=== PATIENT | female | born 1950 | race Caucasian/White ===

== ENCOUNTER 2021-07-22 08:03 | Day surgery (SDC) | payer MEDICARE, BC, SELFPAY ==
[2021-07-16 12:53] VITALS: BMI 28.9
--- NOTE | 2021-07-21 10:11 | P.CONAN_ITS ---
Documented by User: Charissa Lawrence NP 07/21/21 10:12 HPI - Anesthesia Eval Consult details Narrative: 71yo F for Upper Endoscopy PMFSH Past Medical History Medical History Arthritis Cough variant asthma COVID-19 vaccine series completed CRPS (complex regional pain syndrome) type I of lower limb Diabetes Elevated cholesterol GERD (gastroesophageal reflux disease) HTN (hypertension) Primary biliary cholangitis PTSD (post-traumatic stress disorder) Skin cancer Surgical History Surgical History H/O colonoscopy History of History of esophagogastroduodenoscopy (EGD) History of liver biopsy Hx of carpal tunnel repair Hx of cholecystectomy Hx of foot surgery Hx of repair of right rotator cuff Social History Social History Are you a primary respiratory care technician to a significant other at home: No Do you presently have visiting nurse or other home services: No Patient Tobacco Use Status: Former Tobacco user Quit Date: 1992 Tobacco use type: Cigarette Years Smoked: 25 Use of substances other than those prescribed or required for medical reasons: No Have you been hit, kicked, punched, or otherwise hurt by someone within the past year? If so, by whom?: No Are you DNR?: No Advance Directives: No Advance Directives Information Provided: Yes Advance Directives on File: No Recently lost weight without trying: No Eating poorly because of decreased appetite: No Nutrition Risks: No Nutritional Risk Poor oral hygiene: No (has upper partial) Meds Allergies Allergy/AdvReac Type Severity Reaction Status Date / Time bacitracin [BACITRACIN] Allergy Intermediate RASH Verified 07/16/21 12:15 Penicillins Allergy Intermediate RASH/CHEST Verified 07/16/21 12:15 TIGHTNESS Sulfa (Sulfonamide Allergy Intermediate HIVES Verified 07/16/21 12:15 Antibiotics) [Sulfa (Sulfonamides)] Home Medications Medication Instructions Recorded Confirmed Last Taken Type amitriptyline 25 mg tablet 25 mg PO BEDTIME 07/16/21 07/16/21 Unknown History dulaglutide 1.5 mg/0.5 mL 1.5 mg SUBCUT QWEEK 07/16/21 07/16/21 Unknown History subcutaneous pen injector (Trulicity) insulin detemir U-100 100 unit/mL 30 unit SUBCUT QAM 07/16/21 07/16/21 07/22/21 History (3 mL) subcutaneous pen (Levemir FlexTouch U-100 Insulin) isosorbide mononitrate 10 mg tablet 10 mg PO QAM 07/16/21 07/16/21 07/22/21 History lorazepam 1 mg tablet 1 mg PO BID PRN 07/16/21 07/16/21 Unknown History metoprolol succinate 25 mg capsule 25 mg PO DAILY 07/16/21 07/16/21 07/22/21 History sprinkle, ext. release 24 hr tizanidine 2 mg capsule 2 mg PO BEDTIME PRN 07/16/21 07/16/21 Unknown History tramadol 50 mg tablet 50 mg PO BID PRN 07/16/21 07/16/21 Unknown History ursodiol 300 mg capsule 300 mg PO BID 07/16/21 07/16/21 Unknown History valsartan 320 mg tablet 320 mg PO DAILY 07/16/21 07/16/21 Unknown History Exam Exam Date and Time: July 21, 2021 1011 Height,Weight and Vital Signs: Height 5 ft 5 in Weight 78.925 kg Assessment and Plan Assessment Anesthesia Assessment: Chart Reviewed Documented by User: Hafsa Lynn MD 07/22/21 11:50 [facility] Past Medical History Medical History Arthritis Cough variant asthma COVID-19 vaccine series completed CRPS (complex regional pain syndrome) type I of lower limb Diabetes Elevated cholesterol GERD (gastroesophageal reflux disease) HTN (hypertension) Primary biliary cholangitis PTSD (post-traumatic stress disorder) Skin cancer Family History Family history of problems with anesthesia: No Surgical History Surgical History H/O colonoscopy History of History of esophagogastroduodenoscopy (EGD) History of liver biopsy Hx of carpal tunnel repair Hx of cholecystectomy Hx of foot surgery Hx of repair of right rotator cuff History of Problems with Anesthesia: Yes (Slow awakening after ? conscious sedation/ narcotics for colonoscopy ) Social History Social History Are you a primary respiratory care technician to a significant other at home: No Do you presently have visiting nurse or other home services: No Patient Tobacco Use Status: Former Tobacco user Quit Date: 1992 Tobacco use type: Cigarette Years Smoked: 25 Use of substances other than those prescribed or required for medical reasons: No Have you been hit, kicked, punched, or otherwise hurt by someone within the past year? If so, by whom?: No Are you DNR?: No Advance Directives: No Advance Directives Information Provided: Yes Advance Directives on File: No Recently lost weight without trying: No Eating poorly because of decreased appetite: No Nutrition Risks: No Nutritional Risk Poor oral hygiene: No (has upper partial) Meds Allergies Allergy/AdvReac Type Severity Reaction Status Date / Time bacitracin [BACITRACIN] Allergy Intermediate RASH Verified 07/16/21 12:15 Penicillins Allergy Intermediate RASH/CHEST Verified 07/16/21 12:15 TIGHTNESS Sulfa (Sulfonamide Allergy Intermediate HIVES Verified 07/16/21 12:15 Antibiotics) [Sulfa (Sulfonamides)] Home Medications Medication Instructions Recorded Confirmed Last Taken Type amitriptyline 25 mg tablet 25 mg PO BEDTIME 07/16/21 07/16/21 Unknown History dulaglutide 1.5 mg/0.5 mL 1.5 mg SUBCUT QWEEK 07/16/21 07/16/21 Unknown History subcutaneous pen injector (Trulicity) insulin detemir U-100 100 unit/mL 30 unit SUBCUT QAM 07/16/21 07/16/21 07/22/21 History (3 mL) subcutaneous pen (Levemir FlexTouch U-100 Insulin) isosorbide mononitrate 10 mg tablet 10 mg PO QAM 07/16/21 07/16/21 07/22/21 History lorazepam 1 mg tablet 1 mg PO BID PRN 07/16/21 07/16/21 Unknown History metoprolol succinate 25 mg capsule 25 mg PO DAILY 07/16/21 07/16/21 07/22/21 History sprinkle, ext. release 24 hr tizanidine 2 mg capsule 2 mg PO BEDTIME PRN 07/16/21 07/16/21 Unknown History tramadol 50 mg tablet 50 mg PO BID PRN 07/16/21 07/16/21 Unknown History ursodiol 300 mg capsule 300 mg PO BID 07/16/21 07/16/21 Unknown History valsartan 320 mg tablet 320 mg PO DAILY 07/16/21 07/16/21 Unknown History Exam Height,Weight and Vital Signs: Height 5 ft 5 in Weight 78.925 kg Vital Signs Temp Pulse Resp BP Pulse Ox 98.2 F 87 18 160/84 H 97 07/22/21 08:15 07/22/21 08:15 07/22/21 08:15 07/22/21 08:15 07/22/21 08:15 Pertinent Lab Results Pertinent Lab Results: Lab Results 07/22/21 Range/Units 08:20 POC Glucose 106 (60-115) mg/dL Airway Mallampati Class: II TM Dist: >3cm Neck ROM: Full (But pain afterwards if fully extended for prolonged periods ) Partial: Upper Heart: RRR Lungs: CTAB Assessment and Plan Assessment Anesthesia Assessment: Anesthesia Plan Discussed Final Anesthetic Review Family History of Problems with Anesthesia: No History of Problems with Anesthesia: Yes (Slow awakening after ? conscious sedation/ narcotics for colonoscopy ) NPO: Yes ASA Class: II Final Preanesthetic Review: No Changes in Pt Med Stat, Meds/Allgs Chart Reviewed, Consent Obtained/Reviewed and Anes Risks/Benef Reviewed Patient Risk: Low Procedure Risk: Low Assessment/Block/Sedation in SS: Assess/Block/Sedation-SS Anesthetic Plan Anesthetic Plan: MAC: Disposition: Standard PACU
[2021-07-22 08:15] VITALS: BP 160/84; PULSE 87; RESP 18; TEMP 36.8; O2SAT 97
[2021-07-22 08:25] LABS: Glucose, Whole Blood 106 mg/dL (60-115)
[2021-07-22] MEDS: Lactated Ringers 1,000 ML 100 ML IVCONT (08:38)
[2021-07-22 10:06] VITALS: BP 136/80; PULSE 74; RESP 16; TEMP 36.3; O2SAT 95
--- NOTE | 2021-07-22 10:09 | PM.OP ---
Brief Operative Note Date of Service: 07/22/21 Pre-op diagnosis: Cirrhosis Post-op diagnosis: other (Gastric retention, small hiatal hernia) Procedure: EGD Surgeon: Cruz Luevano Anesthesia: MAC Was an Appeals And Generalist Clerk used for this Procedure?: No Estimated blood loss (mL): 0 Pathology: none sent Condition: stable Disposition: PACU
[2021-07-22 10:21] VITALS: BP 127/68; PULSE 72; RESP 16; TEMP 36.3; O2SAT 95
--- NOTE | 2021-07-22 18:50 | OP_ITS ---
SURGEON: Cruz Luevano MD INDICATIONS: The patient presents for evaluation of underlying cirrhosis. Full consent has been obtained from her for this, including risks of bleeding and perforation. PREOPERATIVE DIAGNOSIS: Cirrhosis. POSTOPERATIVE DIAGNOSIS: PROCEDURE PERFORMED: Esophagogastroduodenoscopy. ESTIMATED BLOOD LOSS: COMPLICATIONS: ANESTHESIA: Monitored anesthesia care. ASSISTANTS: SPECIMENS: POSTOPERATIVE DIAGNOSES: Cirrhosis, gastric retention, small hiatal hernia. DESCRIPTION OF PROCEDURE: The patient was placed in the left lateral decubitus position. The Olympus video gastroscope was passed in the posterior oropharynx and upper esophagus under direct vision. The scope was passed slowly into the distal esophagus. The gastroesophageal junction appeared normal at 35 cm. There was no sign of any esophagitis nor Atkinson's esophagus. With insufflation of air, the esophagus was carefully inspected and I did not visualize any sign of esophageal varices. The scope entered into the stomach. There was a moderate amount of gastric retention of old food. I was able to advance the pylorus and the duodenum was cannulated to the descending portion. The duodenum including the bulb appeared normal without mass or ulceration. The scope was withdrawn back into the stomach. The pylorus appeared patent. The gastric antrum and body appeared normal, but was partially obscured by the retained old food. Peristalsis appeared to be subjectively diminished. The scope was retroflexed visualizing the proximal stomach carefully, which was limited due to the retained food, but I did not appreciate any sign of varices, portal gastropathy, ulceration, nor mass. The scope was straightened out and withdrawn back into the esophagus. The esophageal mucosa appeared normal. Scope was withdrawn from the patient. She tolerated the procedure well and was returned to recovery area in stable condition. IMPRESSION: 1. 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 2. Small hiatal hernia. PLAN: Given today's findings, I shall schedule her for a nuclear medicine gastric emptying study. She is not having any particular upper GI symptoms other than occasional nausea. She should try to eat smaller meals and be sure not to eat for at least 3 to 4 hours before bedtime. She should make sure her diabetes is maximally controlled as well. She will continue her Ursodiol for the underlying primary biliary cholangitis, but she apparently did go on the colchicine recently, but it caused some nerve issues and therefore stopped it. She will see me in followup after we have the results of the nuclear medicine gastric emptying study. This has been discussed with her . MD VLADISLAV Plummer/MATA / [id number] MTDD
== END 2021-07-22 11:14 | disposition home or self-care (01) ==
PROVIDERS: PCP Internal Medicine; Visit Provider Internal Medicine
PROC: 0DJ08ZZ Inspection of Upper Intestinal Tract, Via Natural or Artificial Opening Endoscopic (ICD-10-PCS; CPT 43235; principal; 2021-07-22 09:20)
DX: K74.3 Primary biliary cirrhosis (principal); K31.84 Gastroparesis; K44.9 Diaphragmatic hernia without obstruction or gangrene; E11.9 Type 2 diabetes mellitus without complications; Z79.4 Long term (current) use of insulin; I10 Essential (primary) hypertension; Z79.899 Other long term (current) drug therapy
CPT/HCPCS: 43235; 82947; J3010

== ENCOUNTER → 2021-08-03 08:31 | Outpatient (REF) | payer MEDICARE, BC, SELFPAY ==
--- NOTE | ~2021-08-03 | NM_ITS ---
EXAMINATION: [place] RADIONUCLIDE SOLID FOOD GASTRIC EMPTYING 4-HOUR STUDY CLINICAL INFORMATION: Other disease of stomach and duodenum, retained food. COMPARISON: None TECHNIQUE: A standard meal consisting of 4 oz of Egg Beaters brand tagged with 0.830 microcuries Tc-99m Sulfur Colloid, 8 oz water and 1 slice of toast with jelly was administered orally to the patient. Images were obtained using a dual head gamma camera in the anterior and posterior projections over of the stomach immediately post ingestion and at hourly intervals up to 4 hours post ingestion. The anterior and posterior counts at each time interval were averaged using the geometric mean and expressed as percentage of the immediate post ingestion counts. FINDINGS: There is good visualization of activity in the stomach immediately post ingestion. As the study progresses, there is good clearance of activity from the stomach and visualization of progressively increasing small bowel activity. By the end of the study, there is almost no retention noted in the stomach. Retention in the stomach at each time interval was: 1 hour 75% (normal 37%-90%) 2 hours 63% (normal 30%-60%) 3 hours 50% 4 hours 11% (normal 0%-10%) UT/UT gastric emptying study IMPRESSION: Abnormal 4-hour solid food gastric emptying study.
== END ==
LOC: HO.NUCMED 08:31
PROVIDERS: Visit Provider Internal Medicine
DX: K31.89 Other diseases of stomach and duodenum (principal)
CPT/HCPCS: 78264; A9541

== ENCOUNTER 2021-11-26 10:57 | Outpatient (REF) | payer MEDICARE, BC, SELFPAY ==
--- NOTE | ~2021-11-26 | US_ITS ---
EXAMINATION: US COMPLETE ABDOMEN WITH LIVER ELASTOGRAPHY CLINICAL INFORMATION: Primary biliary cholangitis. COMPARISON: None. TECHNIQUE: Real-time imaging of the abdominal viscera. Noninvasive ultrasound liver fibrosis assessment is performed using Miguel ElastPQ point quantification shear wave elastography (2D-SWE) with a C5-2 MHz transducer. Multiple elastography samples are obtained. FINDINGS: PANCREAS: The visualized pancreatic head and body are normal in appearance. The remainder of the pancreas is obscured from visualization by the overlying bowel gas. ABDOMINAL AORTA: The proximal, middle, and distal aortic segments are normal in caliber. INFERIOR VENA CAVA: Visualized portions are normal. LIVER: Normal. The liver demonstrates normal size, contour and echogenicity. No focal lesion or intrahepatic biliary duct dilatation. The right lobe measures 14 cm in length. The left lobe measures 10 cm in length. Portal flow is normal/hepatopedal. Shear wave liver elastography median stiffness is 1.66 m/s (reference: normal median stiffness is 1.3 m/s or less). IQR/median stiffness to assess sampling precision is 0.21 (reference: good quality data set is IQR/median stiffness of 0.15 or less). GALLBLADDER: Surgically removed COMMON BILE DUCT: Normal in caliber measuring 0.6 cm in diameter. RIGHT KIDNEY: Normal. No hydronephrosis. No renal calculi or focal parenchymal lesions. The kidney measures 12 cm in maximum dimension. LEFT KIDNEY: Normal. No hydronephrosis. There are several echogenic densities questionable for small stones. No focal parenchymal lesions. The kidney measures 13 cm in maximum dimension. SPLEEN: Normal. The spleen measures 8.6 cm in maximum dimension. FREE FLUID: None. US/US abdomen comp w elastography IMPRESSION: 1. Normal-appearing liver. Question tiny left renal stones. Limited visualization of the tail of the pancreas. 2. Liver elastography: Limited due to sampling error. Borderline elevated liver stiffness. REFERENCE: Society of Radiologists in Ultrasound Liver Stiffness Thresholds (2020): LIVER STIFFNESS THRESHOLDS: *Liver Stiffness equal or less than 1.3 m/s: High probability of being normal. *Liver Stiffness less than 1.7 m/s: In the absence of other known clinical signs, rules out compensated advanced chronic liver disease. *Liver Stiffness 1.7-2.1 m/s: Suggestive of compensated advanced chronic liver disease but need further test for confirmation. *Liver Stiffness over 2.1 m/s: Rules in compensated advanced chronic liver disease. *Liver Stiffness over 2.4 m/s: Suggestive of clinically significant portal hypertension. QUALITY OF DATA SET: *IQR/Median value equal or less than 0.15 implies a quality data set. *IQR/Median value over 0.15 implies a poor quality data set. SIGNIFICANT CHANGE FROM PRIOR EXAM: Significant change if liver stiffness measurement is 10% or greater from prior exam. OTHER CONSIDERATIONS: The stage of liver fibrosis may be overestimated in the setting of acute hepatitis, liver inflammation, elevated liver function tests, hepatic vascular congestion, obstructive cholestasis, non-fasting state, and infiltrative diseases such as amyloidosis and lymphoma. In some patients with NAFLD, the liver stiffness thresholds for compensated advanced chronic liver disease may be lower. In causes other than viral hepatitis and NAFLD, liver stiffness thresholds are not well established.
== END 2021-11-26 10:58 | disposition home or self-care (01) ==
LOC: HO.US 10:57
PROVIDERS: Visit Provider Internal Medicine
DX: K74.3 Primary biliary cirrhosis (principal)
CPT/HCPCS: 76705; 76981

== ENCOUNTER → 2021-12-09 07:59 | Outpatient (REF) | payer MEDICARE, BC, SELFPAY ==
--- NOTE | ~2021-12-09 | NM_ITS ---
EXAMINATION: [place] RADIONUCLIDE SOLID FOOD GASTRIC EMPTYING 4-HOUR STUDY CLINICAL INFORMATION: Retained food in stomach. COMPARISON: None TECHNIQUE: A standard meal consisting of 4 oz of Egg Beaters brand tagged with 1.0 microcuries Tc-99m Sulfur Colloid, 8 oz water and 1 and 1/2 slices of toast with jelly was administered orally to the patient. Images were obtained using a dual head gamma camera in the anterior and posterior projections over of the stomach immediately post ingestion and at hourly intervals up to 4 hours post ingestion. The anterior and posterior counts at each time interval were averaged using the geometric mean and expressed as percentage of the immediate post ingestion counts. FINDINGS: There is good visualization of activity in the stomach immediately post ingestion. As the study progresses, there is good clearance of activity from the stomach and visualization of progressively increasing small bowel activity. By the end of the study, there is almost no retention noted in the stomach. Retention in the stomach at each time interval was: 1 hour 75% (normal 37%-90%) 2 hours 48% (normal 30%-60%) 3 hours 22% 4 hours 1% (normal 0%-10%) [place] gastric emptying study IMPRESSION: Normal 4-hour solid food gastric emptying study.
== END ==
LOC: HO.NUCMED 07:59
PROVIDERS: Visit Provider Internal Medicine
DX: K31.84 Gastroparesis (principal)
CPT/HCPCS: 78264; A9541

== ENCOUNTER 2022-01-27 16:43 | Outpatient (REF) | payer MEDICARE, BC, SELFPAY ==
[2022-01-27 17:50] LABS: INTERNATIONAL NORM RATIO 1.1 (0.9-1.1); Prothrombin Time 12.1 SEC (9.9-13.0)
[2022-01-27 18:09] LABS: Alanine Aminotransferase 17 U/L (0-31); Albumin Level 4.2 g/dL (3.5-5.0); Alkaline Phosphatase 156 U/L (39-117); Aspartate Amino Transferase 17 U/L (5-31); Bilirubin Direct 0.2 mg/dL (0.0-0.5); Bilirubin Total 0.4 mg/dL (0.0-1.0); Total Protein 7.5 g/dL (6.5-8.0)
== END 2022-01-27 16:44 | disposition home or self-care (01) ==
LOC: HO.LAB 16:43
PROVIDERS: PCP Internal Medicine; Visit Provider Internal Medicine
DX: K74.3 Primary biliary cirrhosis (principal)
CPT/HCPCS: 36415; 80076; 85610

== ENCOUNTER 2023-04-27 19:59 | Emergency (ER) | payer MEDICARE, BC, SELFPAY ==
[2023-04-27 20:30] VITALS: BP 211/105; PULSE 95; RESP 16; TEMP 36.8; O2SAT 99; BMI 28.6
--- NOTE | 2023-04-27 20:32 | ED.GENADULT ---
HPI - General Adult General Chief complaint: General Medical Stated complaint: double dose of blood pressure meds, dizzy, Time Seen by Provider: 04/27/23 21:10 Source: patient and old records reviewed Mode of arrival: EMS Limitations: no limitations History of Present Illness HPI narrative: 72 yo female with PMH of DM, HLD, PTSD, HTN who normally takes her medications in the AM tonight she accidentallly not in SI attempt mixed her AM dose with her PM medications and took her AM BP medications again - she took another dose of her valsartan 320mg, metoprolol ER 100, and isosorbide 60mg ER at 730PM. This has never happened before. She feels slightly dizzy when she stands but has no other symptoms. She brought herself to the ED with her . MD complaint: accidental ingestion Onset (ago): hour(s) (730pm) Severity: mild Relieving factors: none Exacerbating factors: movement Associated symptoms: other (feels slightly lightheaded with standing) Treatments prior to arrival: none Related Data Home Medications Medication Instructions Recorded Confirmed amitriptyline 25 mg tablet 25 mg PO BEDTIME 07/16/21 07/16/21 dulaglutide 1.5 mg/0.5 mL 1.5 mg subcut QWEEK 07/16/21 07/16/21 subcutaneous pen injector (Trulicity) insulin detemir U-100 100 unit/mL 30 unit subcut QAM 07/16/21 07/16/21 (3 mL) subcutaneous pen (Levemir FlexTouch U-100 Insulin) isosorbide mononitrate 10 mg tablet 10 mg PO QAM 07/16/21 07/16/21 lorazepam 1 mg tablet 1 mg PO BID PRN Anxiety 07/16/21 07/16/21 metoprolol succinate 25 mg capsule 25 mg PO DAILY 07/16/21 07/16/21 sprinkle, ext. release 24 hr tizanidine 2 mg capsule 2 mg PO BEDTIME PRN Muscle Spasm 07/16/21 07/16/21 tramadol 50 mg tablet 50 mg PO BID PRN Pain 07/16/21 07/16/21 ursodiol 300 mg capsule 300 mg PO BID 07/16/21 07/16/21 valsartan 320 mg tablet 320 mg PO DAILY 07/16/21 07/16/21 Allergies Allergy/AdvReac Type Severity Reaction Status Date / Time bacitracin [BACITRACIN] Allergy Intermediate RASH Verified 04/27/23 20:38 Penicillins Allergy Intermediate RASH/CHEST Verified 04/27/23 20:38 TIGHTNESS Sulfa (Sulfonamide Allergy Intermediate HIVES Verified 04/27/23 20:38 Antibiotics) [Sulfa (Sulfonamides)] Review of Systems Review of Systems: Constitutional : No Fever, No Chills, No Fatigue ENT/Mouth : No sore throat, No Rhinorrhea Eyes: No Eye Pain, No Swelling, No Redness Cardiovascular : No Chest Pain, No SOB, No Dyspnea on Exertion Respiratory : No Cough, No Sputum Gastrointestinal : No Nausea, No Vomiting, No Diarrhea, No abdominal Pain Genitourinary : No Dysuria, No Urinary Frequency, No Hematuria, Musculoskeletal : No joint pain, No Myalgias, No Joint Swelling Skin : No Skin Lesions, No rash Neuro : No Weakness, No Numbness, pos Dizziness, no Headache Psych : No Anxiety/Panic, No Depression Heme/Lymph: No Bruising, No Bleeding,No Lymphadenopathy Endocrine : No Polyuria, No Polydipsia All other systems reviewed and are negative [facility] Past Medical History Attestation statement: The following information was validated with the patient. Source: old records reviewed Medical History Skin cancer COVID-19 vaccine series completed GERD (gastroesophageal reflux disease) Cough variant asthma Elevated cholesterol PTSD (post-traumatic stress disorder) CRPS (complex regional pain syndrome) type I of lower limb Diabetes HTN (hypertension) Arthritis Primary biliary cholangitis Surgical History Hx of foot surgery Hx of cholecystectomy Hx of repair of right rotator cuff History of H/O colonoscopy History of liver biopsy History of esophagogastroduodenoscopy (EGD) Hx of carpal tunnel repair Social History Social History Are you a primary client care coordinator to a significant other at home: No Do you presently have visiting nurse or other home services: No Patient Tobacco Use Status: Former Tobacco user Quit Date: 1992 Tobacco use type: Cigarette Years Smoked: 25 Advance Directives: No Advance Directives Information Provided: No Physical Exam ED Vital Signs: Vital Signs - 24 hr 04/27/23 20:30 04/27/23 23:53 04/28/23 02:47 Temperature 98.3 F 98.5 F Pulse Rate 95 74 77 Respiratory Rate 16 16 14 Blood Pressure 211/105 H 142/80 H 127/70 Pulse Oximetry 99 94 94 Oxygen Delivery Method Room Air Room Air Room Air 04/28/23 05:47 Temperature Pulse Rate 70 Respiratory Rate Blood Pressure 134/75 Pulse Oximetry 97 Oxygen Delivery Method Room Air BMI result Body Mass Index 28.6 Appearance: Alert. Oriented X3. No acute distress. Eyes: Pupils equal, round and reactive to light. ENT: Pharynx normal. Neck: Normal inspection. Neck supple. CVS: Normal heart rate and rhythm. Pulses normal. Respiratory: No respiratory distress. Breath sounds normal. Abdomen: Soft and nontender. Skin: Skin warm and dry. Normal skin color. Normal skin turgor. Extremities: No lower extremity edema. No calf ttp Neuro: Oriented X 3. No motor deficit. No sensory deficit. Course Course Course Narrative: RME- 72-year-old female reports that she accidentally took a double dose of her blood pressure medication which include Valsartan 320 mg, Isosorbide 60 mg, Metoprolol succinate 100 mg. These are her morning medications and she has Lantus up with her nighttime medications. She reports feeling dizzy and anxious. She remains very hypertension at 211/105. Plan for labs, EKG Reevaluation(s) Reevaluation #1: Patient placed in physician observation at 1152pm. The indication for observation is that the patient needs more time for repeat blood pressure and recheck chem in AM per poison control observe until 730am. At this time the patient is well developed well nourished, lungs clear, CV RRR, abd nontender, neuro is intact. Reevaluation #2: BP stable throughout stay, HR stable Reevaluation #3: labs stable can be DC Medical Decision Making Medical Decision Making MDM Narrative: 72 yo female with PMH of DM, HLD, PTSD, HTN here with accidental ingestion of another dose of her AM BP medications not in SI attempt has mild dizziness - repeat 320mg valsartan, 100mg metoprolol, 60mg isosorbide. At this time she has mild symptoms will consult poison control and monitor on tele place IV line and obtain EKG. Will monitor for hypotension and bradycardia and likely recheck Cr in AM Differential Diagnosis Differential Diagnoses: The differential diagnosis associated with the presentation includes accidental ingestion Admission/Observation Consideration of admission/observation: Escalation of care including admission/observation considered observe for BP and repeat BMP per poison control Consult Healthcare Provider Management of the patient was discussed with: [employer] Instructor (poison control) Lab Data MDM Lab Attestation statement: I reviewed the patient's lab results. 04/27/23 20:59 04/28/23 06:03 Labs: Lab Results 04/27/23 04/28/23 Range/Units 20:59 06:03 WBC 7.8 (4.8-10.8) X10*3/uL RBC 4.77 (4.20-5.50) X10*6/uL Hgb 12.4 (12.0-16.0) g/dl Hct 38.3 (37.0-47.0) % MCV 80.3 (80.0-98.0) fL MCH 26.0 L (27.0-33.0) pg MCHC 32.4 (31.0-35.0) g/dl RDW 13.8 (11.0-16.0) % Plt Count 298 (160-400) X10*3/uL MPV 9.1 L (9.4-12.3) fL Immature Gran % (Auto) 0.3 (0.0-0.4) % Neut % (Auto) 66.2 (45-73) % Lymph % (Auto) 21.7 (20-40) % [place] % (Auto) 9.4 (2-11) % Eos % (Auto) 1.4 (0-4) % Baso % (Auto) 1.0 (0-2) % Lymph # (Auto) 1.7 (1.2-4.9) X10*3/uL [place] # (Auto) 0.7 (0.1-1.2) X10*3/uL Eos # (Auto) 0.1 (0.0-0.4) X10*3/uL Baso # (Auto) 0.1 (0.0-0.2) X10*3/uL Abs Immat Gran (auto) 0.02 (0.00-0.03) X10*3/uL Absolute Neuts (auto) 5.2 (2.0-8.3) x10*3/uL Absolute Nucleated RBC 0.000 (0.0-0.012) X10*3/uL Nucleated RBC % (auto) 0.0 (0.0-0.2) /100WBC Sodium 134 L 135 (135-145) mmol/L Potassium 3.9 3.8 (3.3-5.1) mmol/L Chloride 98 101 (96-108) mmol/L Carbon Dioxide 27 25 (22-29) mmol/L Anion Gap 13 13 (12-20) BUN 7 L 9 (9-16) mg/dL Creatinine 0.72 0.64 (0.5-1.4) mg/dL Estim Creat Clear Calc 72.3 81.3 Estimated GFR > 60 > 60 Random Glucose 113 88 (60-115) mg/dL Calcium 9.9 9.4 (8.4-10.2) mg/dL Total Bilirubin 0.3 (0.0-1.0) mg/dL AST 27 (5-31) U/L ALT 29 (0-31) U/L Alkaline Phosphatase 153 H (39-117) U/L Troponin I High Sens < 2.7 (<3.5-17.0) ng/L Total Protein 7.8 (6.5-8.0) g/dL Albumin 4.2 (3.5-5.0) g/dL Lipase 72 (8-78) U/L Independent Interpretation I performed an independent interpretation of an: EKG Interpretation: Rate: 90 Rhythm: NSR Hines: left, LVH Normal P waves. Normal GEN. Normal QRS complex. ST T wave : I and aVL inverted T waves no ANTONIO qTC: normal prior studies: new lateral T wave inversions but they are in strain pattern The study has been interpreted contemporaneously by me. . Independent Historian Clinical information obtained from an independent historian. History obtained from or confirmed by: Spouse External Record Review External record reviewed: Inpatient record Discharge Plan Discharge Clinical Impression: Accidental drug ingestion Qualifiers: Encounter type: initial encounter Qualified Code(s): T50.901A - Poisoning by unspecified drugs, medicaments and biological substances, accidental (unintentional), initial encounter Patient Disposition: Home, Self-Care Instructions: Adult Overdose (ED) Additional Instructions: hold blood pressure medications today. return for weakness, dizziness, vomiting, or any other concerns. drink plenty of fluids. monitor blood pressure - return if blood pressure is below 100 (top number) your repeat kidney function and electrolytes were normal Prescriptions: No Action tramadol 50 mg Tablet 50 mg PO BID PRN (Reason: Pain) amitriptyline 25 mg Tablet 25 mg PO BEDTIME ursodiol 300 mg Capsule 300 mg PO BID valsartan 320 mg Tablet 320 mg PO DAILY isosorbide mononitrate 10 mg Tablet 10 mg PO QAM lorazepam 1 mg Tablet 1 mg PO BID PRN (Reason: Anxiety) tizanidine 2 mg Capsule 2 mg PO BEDTIME PRN (Reason: Muscle Spasm) Levemir FlexTouch U100 Insulin 100 unit/mL (3 mL) Insulin Pen 30 unit SUBCUT QAM Rx Instructions: took 15units this am Trulicity 1.5 mg/0.5 mL Pen Injector 1.5 mg SUBCUT QWEEK metoprolol succinate 25 mg Capsule,Ivon,Er 24hr 25 mg PO DAILY
--- NOTE | 2023-04-27 20:37 | ECG_ITS ---
Test Reason : dizziness Blood Pressure : / mmHG Vent. Rate : 090 BPM Atrial Rate : 090 BPM P-R Int : 164 ms QRS Dur : 092 ms QT Int : 368 ms P-R-T Axes : 032 -04 095 degrees QTc Int : 450 ms Normal sinus rhythm Left ventricular hypertrophy with repolarization abnormality ( R in aVL , Harish product , Romhilt-Jackson ) Anteroseptal infarct (cited on or before 03-FEB-2018) Abnormal ECG When compared with ECG of 03-FEB-2018 11:53, Questionable change in initial forces of Anteroseptal leads Inverted T waves have replaced nonspecific T wave abnormality in Lateral leads Referred By: Oswald Cardozo Electronically Signed By:TALIA MORRIS
[2023-04-27 21:04] LABS: MANUAL DIFF FLAG NO
[2023-04-27 21:08] LABS: Basophils Absolute Auto 0.1 X10*3/uL (0.0-0.2); Eosinophils Absolute Auto 0.1 X10*3/uL (0.0-0.4); Eosinophils Percent Auto 1.4 % (0-4); Hematocrit 38.3 % (37.0-47.0); Hemoglobin 12.4 g/dl (12.0-16.0); Imm Gran Abs Auto 0.02 X10*3/uL (0.00-0.03); Imm Gran Pct Auto 0.3 % (0.0-0.4); Lymphocytes Absolute Auto 1.7 X10*3/uL (1.2-4.9); Lymphocytes Percent Auto 21.7 % (20-40); Mean Corpuscular HGB Conc 32.4 g/dl (31.0-35.0); Mean Corpuscular Volume 80.3 fL (80.0-98.0); Mean Platelet Volume 9.1 fL (9.4-12.3); Monocytes Absolute Auto 0.7 X10*3/uL (0.1-1.2); Monocytes Percent Auto 9.4 % (2-11); Neutrophils Absolute Auto 5.2 x10*3/uL (2.0-8.3); Neutrophils Percent Auto 66.2 % (45-73); Platelet Count 298 X10*3/uL (160-400); Red Blood Count 4.77 X10*6/uL (4.20-5.50); Red Cell Distribution Width 13.8 % (11.0-16.0); White Blood Count 7.8 X10*3/uL (4.8-10.8)
[2023-04-27 21:24] LABS: Alanine Aminotransferase 29 U/L (0-31); Albumin Level 4.2 g/dL (3.5-5.0); Alkaline Phosphatase 153 U/L (39-117); Anion Gap 13 (12-20); Aspartate Amino Transferase 27 U/L (5-31); Bilirubin Total 0.3 mg/dL (0.0-1.0); Blood Urea Nitrogen 7 mg/dL (9-16); Calcium 9.9 mg/dL (8.4-10.2); Carbon Dioxide 27 mmol/L (22-29); Chloride 98 mmol/L (96-108); Creatinine Clr Calc Pharmacy 72.3; Estimated Glomerular Filt Rate > 60; Glucose Random 113 mg/dL (60-115); Lipase 72 U/L (8-78); Potassium 3.9 mmol/L (3.3-5.1); Sodium 134 mmol/L (135-145); Total Protein 7.8 g/dL (6.5-8.0)
[2023-04-27 21:34] LABS: Troponin-I High Sensitivity < 2.7 ng/L (<3.5-17.0)
--- NOTE | 2023-04-27 22:04 | PC.NURSE ---
spoke with robert from poison control stated supportive care, DR Sanz aware
--- NOTE | 2023-04-27 23:31 | PC.NURSE ---
Called poison control to verify length of time of observation. Notified Dr. Sanz. Reported off To Gino Pang
[2023-04-27 23:53] VITALS: BP 142/80; PULSE 74; RESP 16; TEMP 36.9; O2SAT 94
[2023-04-28 02:47] VITALS: BP 127/70; PULSE 77; RESP 14; O2SAT 94
[2023-04-28 05:47] VITALS: BP 134/75; PULSE 70; O2SAT 97
[2023-04-28 06:20] LABS: Anion Gap 13 (12-20); Blood Urea Nitrogen 9 mg/dL (9-16); Calcium 9.4 mg/dL (8.4-10.2); Carbon Dioxide 25 mmol/L (22-29); Chloride 101 mmol/L (96-108); Creatinine Clr Calc Pharmacy 81.3; Estimated Glomerular Filt Rate > 60; Glucose Random 88 mg/dL (60-115); Potassium 3.8 mmol/L (3.3-5.1); Sodium 135 mmol/L (135-145)
== END 2023-04-28 06:50 | disposition home or self-care (01) ==
PROVIDERS: Physician Assistant; Emergency Provider Emergency Medicine; PCP Internal Medicine
DX: T50.901A Poisoning by unspecified drugs, medicaments and biological substances, accidental (unintentional), initial encounter (principal); R42 Dizziness and giddiness; R94.31 Abnormal electrocardiogram [ECG] [EKG]; Y92.9 Unspecified place or not applicable; Z87.891 Personal history of nicotine dependence; Z79.899 Other long term (current) drug therapy
CPT/HCPCS: 36415; 80048; 80053; 83690; 84484; 85025; 93005; 99284

== ENCOUNTER 2023-06-07 10:35 | Outpatient (REF) | payer MEDICARE, BC, SELFPAY ==
[2023-06-07 10:55] LABS: Basophils Absolute Auto 0.1 X10*3/uL (0.0-0.2); Basophils Percent Auto 0.9 % (0-2); Eosinophils Absolute Auto 0.1 X10*3/uL (0.0-0.4); Eosinophils Percent Auto 1.1 % (0-4); Hematocrit 38.6 % (37.0-47.0); Hemoglobin 12.5 g/dl (12.0-16.0); Imm Gran Abs Auto 0.04 X10*3/uL (0.00-0.03); Imm Gran Pct Auto 0.4 % (0.0-0.4); Lymphocytes Absolute Auto 1.4 X10*3/uL (1.2-4.9); Lymphocytes Percent Auto 15.1 % (20-40); MANUAL DIFF FLAG NO; Mean Corpuscular HGB Conc 32.4 g/dl (31.0-35.0); Mean Corpuscular Hemoglobin 26.2 pg (27.0-33.0); Mean Corpuscular Volume 80.9 fL (80.0-98.0); Mean Platelet Volume 8.6 fL (9.4-12.3); Monocytes Absolute Auto 0.6 X10*3/uL (0.1-1.2); Monocytes Percent Auto 6.9 % (2-11); Neutrophils Absolute Auto 6.9 x10*3/uL (2.0-8.3); Neutrophils Percent Auto 75.6 % (45-73); Platelet Count 322 X10*3/uL (160-400); Red Blood Count 4.77 X10*6/uL (4.20-5.50); Red Cell Distribution Width 13.5 % (11.0-16.0); White Blood Count 9.1 X10*3/uL (4.8-10.8)
[2023-06-07 11:01] LABS: INTERNATIONAL NORM RATIO 0.9 (0.9-1.1); Prothrombin Time 10.9 SEC (11.1-13.3)
[2023-06-07 11:13] LABS: Alanine Aminotransferase 33 U/L (0-31); Albumin Level 4.2 g/dL (3.5-5.0); Alkaline Phosphatase 159 U/L (39-117); Aspartate Amino Transferase 29 U/L (5-31); Bilirubin Direct 0.1 mg/dL (0.0-0.5); Bilirubin Total 0.4 mg/dL (0.0-1.0); Total Protein 7.9 g/dL (6.5-8.0)
[2023-06-09 12:43] LABS: Alpha Fetoprotein 2.8 ng/mL
[2023-06-13 15:37] LABS: FIB-ALT 31 U/L (6-29); FIB-Alpha-2-Macroglobulin 207 mg/dL (106-279); FIB-Apolipoprotein A1 219 mg/dL (101-198); FIB-GGT 103 U/L (3-65); FIB-Haptoglobin 171 mg/dL (43-212); FIB-Total Bilirubin 0.4 mg/dL (0.2-1.2); Liver Fibrosis Score 0.18; Liver Fibrosis Stage F0; Nec Inflam Act Grade A0; Nec Inflam Act Score 0.13
== END 2023-06-07 10:36 | disposition home or self-care (01) ==
LOC: HO.LAB 10:35
PROVIDERS: PCP Internal Medicine; Visit Provider Internal Medicine
DX: K74.3 Primary biliary cirrhosis (principal)
CPT/HCPCS: 36415; 80076; 81596; 82105; 85025; 85610

== ENCOUNTER 2023-06-22 09:31 | Outpatient (REF) | payer MEDICARE, BC, SELFPAY ==
--- NOTE | ~2023-06-22 | US_ITS ---
EXAMINATION: US COMPLETE ABDOMEN WITH LIVER ELASTOGRAPHY CLINICAL INFORMATION: Biliary cholangitis. COMPARISON: None available. TECHNIQUE: Real-time imaging of the abdominal viscera. Noninvasive ultrasound liver fibrosis assessment is performed using Miguel ElastPQ point quantification shear wave elastography (2D-SWE) with a C5-2 MHz transducer. Multiple elastography samples are obtained. FINDINGS: PANCREAS: Largely obscured by overlapping bowel gas. ABDOMINAL AORTA: The proximal, middle, and distal aortic segments are normal in caliber. INFERIOR VENA CAVA: Visualized portions are normal. LIVER: Normal. The liver demonstrates normal size, contour and echogenicity. No focal lesion or intrahepatic biliary duct dilatation. The right lobe measures 13.9 cm in length. The left lobe measures 12.7 cm in length. Portal flow is towards the liver (hepatopetal). Shear wave liver elastography median stiffness is 1.38 m/s (reference: normal median stiffness is 1.3 m/s or less). IQR/median stiffness to assess sampling precision is 0.16 (reference: good quality data set is IQR/median stiffness of 0.15 or less). GALLBLADDER: Surgically absent. COMMON BILE DUCT: Normal in caliber measuring 0.5 cm in diameter. RIGHT KIDNEY: Normal. No hydronephrosis. No renal calculi or focal parenchymal lesions. The kidney measures 12.1 cm in maximum dimension. LEFT KIDNEY: Normal. No hydronephrosis. No renal calculi or focal parenchymal lesions. The kidney measures 11.4 cm in maximum dimension. SPLEEN: Normal. The spleen measures 9.1 cm in maximum dimension. FREE FLUID: None. US/US abdomen comp w elastography IMPRESSION: Liver elastography: Although measurements appear to rule out compensated advanced chronic liver disease, there is statistical variability of the sampling which decreases accuracy. When compared with prior exam, there is a statistically significant decrease in liver stiffness (decrease at least 10%). REFERENCE: Society of Radiologists in Ultrasound Liver Stiffness Thresholds (2020): LIVER STIFFNESS THRESHOLDS: *Liver Stiffness equal or less than 1.3 m/s: High probability of being normal. *Liver Stiffness less than 1.7 m/s: In the absence of other known clinical signs, rules out compensated advanced chronic liver disease. *Liver Stiffness 1.7-2.1 m/s: Suggestive of compensated advanced chronic liver disease but need further test for confirmation. *Liver Stiffness over 2.1 m/s: Rules in compensated advanced chronic liver disease. *Liver Stiffness over 2.4 m/s: Suggestive of clinically significant portal hypertension. QUALITY OF DATA SET: *IQR/Median value equal or less than 0.15 implies a quality data set. *IQR/Median value over 0.15 implies a poor quality data set. SIGNIFICANT CHANGE FROM PRIOR EXAM: Significant change if liver stiffness measurement is 10% or greater from prior exam. OTHER CONSIDERATIONS: The stage of liver fibrosis may be overestimated in the setting of acute hepatitis, liver inflammation, elevated liver function tests, hepatic vascular congestion, obstructive cholestasis, non-fasting state, and infiltrative diseases such as amyloidosis and lymphoma. In some patients with NAFLD, the liver stiffness thresholds for compensated advanced chronic liver disease may be lower. In causes other than viral hepatitis and NAFLD, liver stiffness thresholds are not well established.
== END 2023-06-22 09:32 | disposition home or self-care (01) ==
LOC: HO.US 09:31
PROVIDERS: PCP Internal Medicine; Visit Provider Internal Medicine
DX: K74.3 Primary biliary cirrhosis (principal)
CPT/HCPCS: 76705; 76981

== ENCOUNTER 2025-01-09 11:15 | Outpatient (AMB) | payer MEDICARE, BC, SELFPAY ==
--- NOTE | 2025-01-09 11:23 | MHC.OFFVIS ---
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 changes on MRI Intake Note: New Patient with ekg dx athersclerotic changes on MRI patient had seen Dr Azar several years ago for pre-op clearance do to abnormal ekg and was cleared Pump Mechanic Required: No Allergies bacitracin [BACITRACIN] Allergy (Intermediate, Verified 04/27/23 20:38) RASH Penicillins Allergy (Intermediate, Verified 04/27/23 20:38) RASH/CHEST TIGHTNESS Sulfa (Sulfonamide Antibiotics) [Sulfa (Sulfonamides)] Allergy (Intermediate, Verified 04/27/23 20:38) HIVES Medication List - Last Reconciled 01/09/25 by Matthew Qiu MD amitriptyline 25 mg PO BEDTIME amlodipine 7.5 mg PO DAILY calcium carbonate 500 mg PO DAILY insulin detemir U-100 (Levemir FlexTouch U-100 Insulin) 30 units subcut QAM isosorbide mononitrate ER 60 mg PO DAILY lorazepam 1 mg PO BID PRN meclizine 25 mg PO BID PRN metformin ER 1,000 mg PO BID metoprolol succinate ER 100 mg PO DAILY tizanidine 2 mg PO BEDTIME PRN ursodiol 600 mg PO BID valsartan 320 mg PO DAILY vitamin B complex 1 cap PO DAILY HPI Comments Details: Araceli has been referred for cardiac evaluation. Per primary care physician's note, patient had abnormal MRI at [facility] and that had shown atherosclerotic changes in the abdominal aorta/iliac arteries. Hence she has been referred here. Patient herself does not have any clear-cut coronary disease history. Apparently, she has had abnormal EKGs for a while but unclear what was previously done. She notices episodes of chest pressure at different times. Sometimes with anxiety. She may also feel difficulty breathing going up stairs. On meds for diabetes and hypertension. Otherwise, patient has a history of primary biliary cirrhosis but apparently she has been stable for more than 2 decades. Gets followed up at [facility]. COUNT INCLUDES [facility] Medical History (Updated 01/09/25 @ 12:36 by Matthew Qiu MD) Skin cancer COVID-19 vaccine series completed GERD (gastroesophageal reflux disease) Cough variant asthma Elevated cholesterol PTSD (post-traumatic stress disorder) CRPS (complex regional pain syndrome) type I of lower limb Diabetes HTN (hypertension) Arthritis Primary biliary cholangitis Surgical History Hx of foot surgery Hx of cholecystectomy Hx of repair of right rotator cuff History of H/O colonoscopy History of liver biopsy History of esophagogastroduodenoscopy (EGD) Hx of carpal tunnel repair Family History (Updated 01/09/25 @ 12:12 by Matthew Qiu MD) Father Emphysema lung Social History Are you a primary rn managed care to a significant other at home: No Do you presently have visiting nurse or other home services: No Comment: uses cane on occasion when foot pain acts up Patient Tobacco Use Status: Former Tobacco user Tobacco use type: Cigarette Years Smoked: 25 Review of Systems Const Denies chills, Denies daytime sleepiness, Denies fatigue, Denies fever(s), Denies frequent falls, Denies poor appetite, Denies snoring, Denies stops breathing during sleep, Denies weakness, Denies weight gain and Denies weight loss Eyes Denies loss of vision ENT Denies dizziness and Denies hearing loss Card Denies chest pain, Denies claudication, Denies leg edema, Denies lightheadedness, Denies palpitations, Denies dyspnea, Denies dyspnea on exertion and Denies orthopnea Resp Denies cough, Denies excessive phlegm production, Denies dyspnea, Denies dyspnea on exertion, Denies snoring and Denies wheezing GI Denies abdominal pain, Denies hematochezia, Denies change in bowel habits, Denies nausea and Denies vomiting Denies urinary frequency and Denies dysuria Musc Denies arthralgias, Denies muscle weakness, Denies numbness and Denies other (frequent falls) Skin/Breast Denies nail changes and Denies rash Neuro Denies Abnormal speech present, Denies dizziness, Denies frequent falls, Denies loss of vision, Denies memory loss, Denies numbness and Denies weakness Psych Denies depression and Denies memory loss Endo Denies fatigue and Denies palpitations Ramy/Lymph Reports easy bruising and Reports other (anemia) Aller/Immun Denies wheezing Physical Exam Vital Signs: Last Vital Signs Pulse 80 01/09/25 11:24 BP 124/80 01/09/25 11:24 BMI result Body Mass Index 28.4 Const General: comfortable and no acute distress Orientation/consciousness: patient oriented x3 HEENT Other: Unremarkable Head: Yes normal to inspection Neck Neck: Yes normal visual inspection Chest Chest palpation & inspection: normal inspection of the chest Resp Auscultation: clear to auscultation bilaterally Cardio Palpation: normal PMI Heart sounds: S1 normal heart sound present, S2 normal heart sound present, no gallops, no murmurs and no rubs GI Palpation (GI): Soft to palpation Back/Spine/Pelvis Other: unremarkable Skin General skin exam: no rashes or lesions noted Neuro General: patient oriented x3 Speech: No Abnormal speech present Extrem General: Yes normal to inspection Psych Mental Status: mental status grossly normal Office Procedures EKG Details: EKG with underlying sinus rhythm at 80/Min; cannot exclude old anteroseptal infarct; [place] [id number], Complete Assessment & Plan Assessment & Plan (1) Abnormal EKG: Code(s): R94.31 - Abnormal electrocardiogram [ECG] [EKG] Category: Medical (2) Atherosclerotic cardiovascular disease: Code(s): I25.10 - Atherosclerotic heart disease of [place] coronary artery without angina pectoris Category: Medical (3) Chest discomfort: Code(s): R07.89 - Other chest pain Category: Medical Plan Per notes, atherosclerotic changes in the abdominal aorta/iliac arteries noted on MRI during workup for liver issues. However, this is not unusual at her age. Any case, as she also has an abnormal looking EKG, we will pursue further workup. We will get an echocardiogram for cardiac function assessment including LVEF/wall motion. She is not going to be able to exercise on the treadmill. We will plan for a coronary CTA. We will follow up after the above. Discussion Notes I discussed with the patient the need for additional cardiac evaluation due to her symptoms of chest pressure. We reviewed the benefits of an echocardiogram and a CT coronary angiogram, considering her limited exercise tolerance. I explained the minimal risks associated with the CT scan, given her lack of contrast dye allergies. We also reviewed the potential findings and implications, such as identifying blockages and determining the necessity of further interventions. She agreed to the proposed plan and expressed understanding of the follow-up process. Patient was informed and verbally consented to the use of an ambient scribe for clinic note documentation during this visit. Orders: Orders CA echo transthoracic complete Today I25.10 - Atherosclerotic heart disease of [place] coronary artery without angina pectoris, R07.89 - Other chest pain CT Cardiac Coronary Angio Today I25.10 - Atherosclerotic heart disease of [place] coronary artery without angina pectoris, R07.89 - Other chest pain Basic Metabolic Panel Today R07.89 - Other chest pain Patient Instructions: - Schedule an echocardiogram and CT coronary angiogram. - Continue current medications and report any new symptoms. - Avoid strenuous activities that cause chest pressure or breathlessness. - Follow up as directed to discuss test results and next steps. - Seek immediate medical attention if experiencing severe chest pain or difficulty breathing. Coding Level of Care Code New Pt Level 4 (22252) Complex EM visit Add On G2211 Diagnoses Abnormal EKG R94.31 Atherosclerotic cardiovascular disease I25.10 Chest discomfort R07.89 CPT Codes EKG - CPT: 04080-[id number], Complete ([id number])
[2025-01-09 11:24] VITALS: BP 124/80; PULSE 80; BMI 28.4
--- OUTSIDE RECORDS SUMMARY | 2025-01-09 12:16 | XMS_ITS | Encounter Summary ---
Author Organization [facility] Address [address] [place] [address] Care Team Providers Care Malter Operator Name Role Phone Nohemy Hernandez Primary Care Provider [phone] Encounter Details Date Type Department Care Team (Late st Contact Info) Description 04/29/2024 [employer] Message Intial Department [address] [place] [address] [employer], Generic Provider [address] [place], [place] [id number] Questionnaire Submission Social History Tobacco Use Types Packs/Day Years Used Date Smoking Tobacco: Former Smokeless Tobacco: Never Comments:: Alcohol Use Standard Drinks/Week Comments No 0 (1 standard drink = 0.6 oz pur e alcohol) Comments No Sex and Gender Information Value Date Recorded Sex Assigned at Female 10/13/2019 10:05 AM EST Legal Sex Female 5:08 AM EDT Gender Identity Female 10/13/2019 10:05 AM EST Sexual Orientation Straight 10/13/2019 10 :05 AM EST documented as of this encounter Plan of Treatment Upcoming Encounters Date Type Department Care Team (Latest Contact Info) Description 01/28/2025 12:00 PM EDT Follow-Up [facility]ology Clinic [address] [place], [place] [id number] [employer] Machine Operator: Candi Bowers NP [address] [place] [address] 02/11/2025 9:00 AM EDT [facility] [address] [facility] 3rd [place] [address] 02/25/2025 7:45 AM EDT Hospital Encounter [facility] Operating Room [address] [place] [address] GASTROENTEROLOGY , CASE REQUEST [address] [place], [place] [address] 02/25/2025 7:45 AM EDT - 02/25/2025 8:45 AM EDT Surgery [facility] Operating Room [address] [place] [address] GASTROENTEROLOGY , CASE REQUEST [address] [place], [place] [address] UPPER ENDOSCOPY WITH ENDOSCOPIC ULTRASOUND WITH POSSIBLE MODERATE SEDATION [98950 (CPT??)] Scheduled Procedures Name Priority Associated Diagnoses Date/Ti me UPPER ENDOSCOPY WITH ENDOSCO PIC ULTRASOUND WITH POSSIBLE MODERATE SEDATION Gastric nodule 02/25/2025 7:45 AM EDT documented as of this encounter Visit Diagnoses Not on filedocumented in this encounter Care Teams Malter Operator Relationship Specialty Start Date End Date Nohemy Hernandez [address] [place] [id number] PCP - General 03/03/17 documented as of this encounter
== END 2025-01-09 12:41 | disposition home or self-care (01) ==
LOC: HO.HCS 11:16
PROVIDERS: PCP Internal Medicine; Visit Provider Internal Medicine
DX: R94.31 Abnormal electrocardiogram [ECG] [EKG] (principal); I25.10 Atherosclerotic heart disease of native coronary artery without angina pectoris; R07.89 Other chest pain
CPT/HCPCS: 93010; 99204; G2211

== ENCOUNTER → 2025-01-09 11:15 | Outpatient (BNVA) | payer MEDICARE, BC, SELFPAY | PROVIDERS: PCP Internal Medicine; Visit Provider Internal Medicine | DX: R94.31 Abnormal electrocardiogram [ECG] [EKG] (principal); I25.10 Atherosclerotic heart disease of native coronary artery without angina pectoris; R07.89 Other chest pain | CPT/HCPCS: 93005; 99202 ==

== ENCOUNTER → 2025-01-22 08:02 | Outpatient (REF) | payer MEDICARE, BC, SELFPAY ==
--- NOTE | 2025-01-22 08:05 | CA_ITS ---
Transthoracic Echocardiogram Patient (Last, First, Middle): Araceli Palmer, Gender: Female Date of : 1950 Age: 74 Procedure Date: 01/22/2025 Procedure Type: Transthoracic Echocardiogram Location: OP Height: 165.1 cm Weight: 74.84 kg BSA: 1.82 m2 Heart Rate: bpm Boom Truck Driver: YOANA/BIRDIE Referring MD: Matthew Qiu MD Ticket Manager: Antonio Conde MD Symptoms: I25.10 - Atherosclerotic heart disease of [place] coronary artery without... Study Quality: Fair ECG Rhythm: Sinus Conclusions: - 1. Normal LV ejection fraction 55-60% with impaired relaxation filling pattern elevated filling pressures 2. Mildly dilated left atrium 3. Calcific aortic and mitral valve changes noted with normal cardiac valvular Dopplers 4. Mildly dilated ascending aorta at 3.7 cm 5. Normal RV systolic pressure 6. No gross pericardial effusion Findings Left Ventricle Normal left ventricular size, thickness, and systolic function. The visually estimated ejection fraction is between 55-60%. Spectral Doppler is indicative of an impaired relaxation filling pattern. Elevated filling pressures. E/E prime ratio is >15, consistent with elevated filling pressures. Right Ventricle Normal right ventricular cavity size and systolic function. Atria The left atrium is mildly dilated. There is no evidence of interatrial shunt. The right atrium is likely dilated. Aortic Valve There is mild calcification of the aortic valve. There is no aortic valve stenosis. There is no aortic valve regurgitation. Mitral Valve There is mild anterior and moderate posterior mitral leaflet thickening. There is moderate mitral annular calcification. There is trace mitral valve regurgitation. There is no mitral valve stenosis. Pulmonic Valve The pulmonic valve is likely normal. There is trace pulmonic valve regurgitation. Tricuspid Valve Likely normal tricuspid valve structure and function. There is mild tricuspid valve regurgitation. The right ventricular systolic pressure is normal. The right ventricular systolic pressure is 22 mmHg. Normal right atrial pressure. There is no evidence of pulmonary hypertension. Great Vessels The pulmonary artery was not well visualized. There is mild dilatation of the ascending aorta measuring 3.70 cm. Small plaque is seen in the sino tubular ridge. Venous The inferior vena cava is normal in size and collapses greater than 50% with inspiration. Pericardium/Pleural There is no evidence of pericardial effusion. Prior Study Comparison no previous study in the last 5 years for comparison Measurements 2D Linear Measurements IVSd: 1.23 0.6-0.9/0.6-1.0 cm LVIDd: 4.09 3.9-5.3/4.2-5.9 cm LVIDd Index: 2.25 2.4-3.2/2.2-3.1 cm/m2 LVIDs: 2.63 2.0-3.6 cm LVPWd: 0.95 0.7-1.1 cm LA Diam: 3.50 2.7-3.8/3.0-4.0 cm LAIDs Index: 1.92 1.5-2.3 cm/m2 LV Mass: 185.44 67-162/88-224 g LV Mass Index: 101.89 43-95/49-115 g/m2 LVOT Diam: 2.10 3.0+(-)1.3 cm 2D Systolic Function EF 4C: 60.20 >55% EF 2C: 56.60 >55% EF BiP: 58.60 >55% Mitral Valve MV Pk E: 0.84 MV PK A: 1.21 MV Decel Time: 267.00 E/A: 0.70 E'Lateral: 3.37 E'Medial: 4.03 E/E' Med: 20.80 E/E' Lat: 24.90 PHT: 78.00 MVA PHT: 2.82 Decel [place]: 3.14 Aortic Valve AoV Pk Antonio: 1.36 AoV Mn Antonio: 1.01 AoV VTI: 0.31 AoV Pk Grad: 7.00 Aov Mn Grad: 4.00 LUCAS Cont.VTI: 2.69 LVOT LVOT Pk Antonio: 1.06 LVOT Mn Antonio: 0.76 LVOT VTI: 0.24 LVOT Pk Grad: 4.00 LVOT Mn Grad: 3.00 LVOT Diam: 2.10 LVOT Area: 3.46 Diastolic Function MV Pk E: 0.84 MV Pk A: 1.21 E/A: 0.70 E'Medial: 4.03 E/E' Med: 20.80 E' Laterial: 3.37 E/E' Lat: 24.90 Right Ventricle TAPSE (mm): 20.70 TVS' Antonio: 9.79 Tricuspid Valve TR Pk Antonio: 2.20 TR Pk Grad: 19.00 RA Press: 3.00 RVSP: 22.00 Great Vessels Aorta Sinus of Valsalva: 3.30 2.0-3.[address] Ridge: 2.64 1.7-3.4 cm Ao Asc: 3.70 2.1-3.4 cm Updated in Other Vendor System with Status of Final Antonio Conde MD electronically signed on 01/23/2025 4:00:44 PM with status of Final
--- OUTSIDE RECORDS SUMMARY | 2025-01-22 08:09 | XMS_ITS | Encounter Summary ---
Author Organization [facility] Address [address] [place] [address] Care Team Providers Care Hydraulic Boom Operator Name Role Phone Nohemy Hernandez Primary Care Provider [phone] Encounter Details Date Type Department Care Team (Late st Contact Info) Description 04/29/2024 [employer] Message Intial Department [address] [place] [address] [employer], Generic Provider [address] [place], [place] [phone] Questionnaire Submission Social History Tobacco Use Types [...] Info) Description 01/28/2025 12:00 PM EDT Follow-Up [facility] Gastroenterology Clinic [address] [place], [place] [phone] Creative Developer: Candi Bowers NP [address] [place] [address] 02/11/2025 9:00 AM EDT [facility] [address] [facility] 3rd [place] [address] 02/25/2025 7:45 AM EDT Hospital Encounter [facility] Operating Room [address] [place] [address] GASTROENTEROLOGY , CASE REQUEST [address] [place], [place] [address] 02/25/2025 7:45 AM EDT - 02/25/2025 8:45 AM EDT Surgery [facility] Operating Room [address] [place] [address] GASTROENTEROLOGY , CASE REQUEST [address] [place], [place] [address] UPPER ENDOSCOPY WITH ENDOSCOPIC ULTRASOUND WITH POSSIBLE MODERATE SEDATION [05988 (CPT??)] Scheduled Procedures Name Priority Associated Diagnoses Date/Ti me UPPER ENDOSCOPY WITH ENDOSCO PIC ULTRASOUND WITH POSSIBLE MODERATE SEDATION Gastric nodule 02/25/2025 7:45 AM EDT documented as of this encounter Visit Diagnoses Not on filedocumented in this encounter Care Teams Hydraulic Boom Operator Relationship Specialty Start Date End Date Nohemy Hernandez [address] [place] [id number] PCP - General 03/03/17 documented as of this encounter
== END ==
LOC: HO.CARD 08:02
PROVIDERS: PCP Internal Medicine; Visit Provider Internal Medicine
DX: R07.89 Other chest pain (principal); I25.10 Atherosclerotic heart disease of native coronary artery without angina pectoris
CPT/HCPCS: 93306

== ENCOUNTER → 2025-01-22 08:05 | Outpatient (BNV) | payer MEDICARE, BC, SELFPAY | PROVIDERS: PCP Internal Medicine; Visit Provider Internal Medicine Cardiovascular Disease | DX: I34.81 Nonrheumatic mitral (valve) annulus calcification (principal); I42.8 Other cardiomyopathies; I35.8 Other nonrheumatic aortic valve disorders; I36.1 Nonrheumatic tricuspid (valve) insufficiency | CPT/HCPCS: 93306 ==

== ENCOUNTER 2025-02-10 13:28 | Emergency (ER) | payer MEDICARE, BC, SELFPAY ==
--- NOTE | ~2025-02-10 | XR_ITS ---
CLINICAL HISTORY: fall right rib pain Radiographs of the chest and right ribs, four views Comparison: None available Findings: No rib fracture or other acute osseous abnormality. Normal heart size. Normal mediastinal contours. No pneumothorax. No opacity. No pleural effusion. Normal upper abdomen. Impression: No rib fracture. This document has been electronically signed by: Lily Parish MD on 02/10/2025 15:25:25
--- NOTE | ~2025-02-10 | XR_ITS ---
CLINICAL HISTORY: fall onto knee Radiographs of the right knee, 4 views, 5 images Comparison: None available Findings: There is no fracture or dislocation. [id number]-[id number] bilateral tibiofemoral compartment joint space narrowing without osteophytosis with chondrocalcinosis. Trace patellofemoral compartment osteophytosis. Suprapatellar enthesophyte. Bone mineralization is normal. No knee joint effusion. Soft tissue swelling. Vascular calcifications. Impression: No fracture or joint effusion. This document has been electronically signed by: Lily Parish MD on 02/10/2025 15:26:49
--- NOTE | ~2025-02-10 | XR_ITS ---
CLINICAL HISTORY: fall R shoulder pain Radiographs of the right shoulder, 3 views Comparison: None available Findings: No fracture or dislocation. Status post prior rotator cuff repair. Mild degenerative change. Bone mineralization is decreased. No soft tissue swelling. Impression: No acute findings. This document has been electronically signed by: Lily Parish MD on 02/10/2025 15:28:03
[2025-02-10 13:38] VITALS: BP 172/85; PULSE 96; RESP 16; TEMP 36.1; O2SAT 96; BMI 28.7
--- NOTE | 2025-02-10 13:39 | ED.GENADULT ---
HPI - General Adult General Chief complaint: Fall Stated complaint: fall Time Seen by Provider: 02/10/25 14:38 Source: patient Mode of arrival: ambulatory Limitations: no limitations History of Present Illness ED Provider: rambo villela np HPI narrative: Patient is a 74-year-old female who presents emergency department for evaluation. She reports a mechanical trip and fall yesterday, under estimated the height of a curb subsequently falling landing onto her right knee and her right side hitting her shoulder/ribs. Denies head strike or loss of consciousness. No use of anticoagulants or known coagulation disorders. She was able to get up with minimal assistance. She cared about the evening having dinner and going to a concert. However since yesterday night she has been experiencing pain primarily to her right lateral ribs, her right shoulder, a mild discomfort to her right knee but is not overtly concerned about this. She has a superficial abrasion over the right knee. She denies any dizziness, lightheadedness, anterior chest pain shortness of breath, difficulty breathing, numbness or tingling of the extremities, headache, vision changes, neck pain or neck stiffness. Related Data Home Medications ?Medication ?Instructions ?Recorded ?Confirmed amitriptyline 25 mg tablet 25 mg PO BEDTIME 07/16/21 01/09/25 insulin detemir U-100 100 unit/mL 30 unit subcut QAM 07/16/21 01/09/25 (3 mL) subcutaneous pen (Levemir FlexTouch U-100 Insulin) lorazepam 1 mg tablet 1 mg PO BID PRN Anxiety 07/16/21 01/09/25 tizanidine 2 mg capsule 2 mg PO BEDTIME PRN Muscle Spasm 07/16/21 01/09/25 valsartan 320 mg tablet 320 mg PO DAILY 07/16/21 01/09/25 amlodipine 2.5 mg tablet 7.5 mg PO DAILY 01/09/25 01/09/25 calcium carbonate 500 mg PO DAILY 01/09/25 01/09/25 isosorbide mononitrate 60 mg 60 mg PO DAILY 01/09/25 01/09/25 tablet,extended release 24 hr meclizine 25 mg tablet 25 mg PO BID PRN 01/09/25 01/09/25 metformin 500 mg tablet,extended 1,000 mg PO BID 01/09/25 01/09/25 release 24 hr metoprolol succinate 100 mg 100 mg PO DAILY 01/09/25 01/09/25 tablet,extended release 24 hr ursodiol 300 mg capsule 600 mg PO BID 01/09/25 01/09/25 vitamin B complex 1 cap PO DAILY 01/09/25 01/09/25 Previous Rx's ?Medication ?Instructions ?Recorded lidocaine 5 % topical patch 1 patch topical DAILY #30 ea 02/10/25 oxycodone 5 mg tablet 5 mg PO Q6H PRN pain #10 tabs 02/10/25 Allergies Allergy/AdvReac Type Severity Reaction Status Date / Time bacitracin (BACITRACIN) Allergy Intermediate RASH Verified 02/10/25 13:43 Penicillins Allergy Intermediate RASH/CHEST Verified 02/10/25 13:43 TIGHTNESS Sulfa (Sulfonamide Allergy Intermediate HIVES Verified 02/10/25 13:43 Antibiotics) (Sulfa (Sulfonamides)) Review of Systems Review of Systems: Yes all other systems are reviewed and are negative PMFSH Past Medical History Attestation statement: The following information was validated with the patient. Source: old records reviewed Medical History Skin cancer COVID-19 vaccine series completed GERD (gastroesophageal reflux disease) Cough variant asthma Elevated cholesterol PTSD (post-traumatic stress disorder) CRPS (complex regional pain syndrome) type I of lower limb Diabetes HTN (hypertension) Arthritis Primary biliary cholangitis Surgical History Hx of foot surgery Hx of cholecystectomy Hx of repair of right rotator cuff History of H/O colonoscopy History of liver biopsy History of esophagogastroduodenoscopy (EGD) Hx of carpal tunnel repair Family History Family History (Updated 01/09/25 @ 12:12 by Matthew Qiu MD) Father Emphysema lung Social History Social History Are you a primary director critical care to a significant other at home: No Do you presently have visiting nurse or other home services: No Comment: uses cane on occasion when foot pain acts up Patient Tobacco Use Status: Former Tobacco user Tobacco use type: Cigarette Years Smoked: 25 Advance Directives: No Advance Directives Information Provided: Yes Do you have a plan to hurt others: No Plan Physical Exam ED Vital Signs: Vital Signs - 24 hr 02/10/25 13:38 Temperature 97.0 F Pulse Rate 96 Respiratory Rate 16 Blood Pressure 172/85 H Pulse Oximetry 96 Oxygen Delivery Method Room Air BMI result Body Mass Index 28.7 Appearance: Alert.?Oriented to person, place and time. No acute distress.?Normal affect. Eyes: Pupils equal, round and reactive to light.? ENT: Pharynx normal.?? Neck: Normal inspection.? Neck supple.?? CVS: Heart sounds normal. Normal heart rate and rhythm.? Pulses normal.?? Respiratory: No respiratory distress.? Lung sounds clear to auscultation bilaterally?? Abdomen: Soft and non-tender. Normoactive bowel sounds. Skin: Skin warm and dry.? Normal skin color.? Extremities: No lower extremity edema.? No calf ttp. Right knee with a superficial abrasion over the patella no obvious deformity no active bleeding. No laxity on examination. No effusions. 2+ DP/PT pulse bilaterally. decreased AROM to the right shoulder though patient reports this is chronic and at baseline diffuse pain with range. 2+ radial pulse. Neuro: Moves all extremities spontaneously. Sensation intact bilaterally. No focal neuro deficits. Ambulates with normal steady gait. Course Course Course Narrative: 02/10/25 1339 NICOLAS Prudy This is a Rapid Medical Examination (RME) performed by Olivier Hodges PA-C in triage. Full HPI, ROS, assessment and treatment plan per primary provider in the Main ED. Hx: 74 yo F hx of HTN, DM , CRPS, PTSD, GERD here for eval s/p mechanical trip and fall while at the mall last night. reports landing on her right knee hard on the concrete then fell onto her right hip/right shoulder/ right chest. was able to stand and ambulate and attend a concert afterwards. does not know if she struck her head however does not believe she did. no thinners. now having right knee, right shoulder and right chest pain. PE/vitals: small skin tear to R knee. Plan: xrs Medical Decision Making Medical Decision Making MDM Narrative: Patient is a 74-year-old female past medical history of HTN, DM , CRPS, PTSD, GERD presenting to emergency department for evaluation after mechanical trip and fall as per HPI with primary concern for pain to the right shoulder and right lateral ribs. Although she also injured the right knee she has been ambulatory with a steady, has full range of motion, endorses minimal pain no numbness or tingling to the extremity. On examination there was no laxity, low suspicion for acute fracture. XR was obtained prior to my assumption of care revealing __. She has mild decreased AROM to the right shoulder no point tenderness or obvious deformity to suggest any acute fracture, lower suspicion for dislocation, XR imaging reveals __. Pain to the right lateral ribs s/p fall, no crepitus, no deformity, no ecchymosis, LS CTA, no respiratory distress, no tachypnea or hypoxia, XR of the ribs reveals __. There was no reported head strike or loss of consciousness, though use of anticoagulants or known coagulation disorders on examination she does not have exam findings concerning for ICH, SDH, spine fracture subluxation, CT imaging has been deferred, she has been neurological deficits. Differential Diagnosis Differential Diagnoses: The differential diagnosis associated with the presentation includes (See narrative above) Independent Interpretation I performed an independent interpretation of an: Plain X-Ray Radiology Impression Discussion of test interpretation with radiology: I have reviewed the radiologist's reading. Radiologist Impression: Radiographs of the chest and right ribs, four views Comparison: None available Findings: No rib fracture or other acute osseous abnormality. Normal heart size. Normal mediastinal contours. No pneumothorax. No opacity. No pleural effusion. Normal upper abdomen. Impression: No rib fracture. Radiographs of the right shoulder, 3 views Comparison: None available Findings: No fracture or dislocation. Status post prior rotator cuff repair. Mild degenerative change. Bone mineralization is decreased. No soft tissue swelling. Impression: No acute findings. Radiographs of the right knee, 4 views, 5 images Comparison: None available Findings: There is no fracture or dislocation. Okeu-lj-ichcxzav bilateral tibiofemoral compartment joint space narrowing without osteophytosis with chondrocalcinosis. Trace patellofemoral compartment osteophytosis. Suprapatellar enthesophyte. Bone mineralization is normal. No knee joint effusion. Soft tissue swelling. Vascular calcifications. Impression: No fracture or joint effusion. Independent Historian Clinical information obtained from an independent historian. History obtained from or confirmed by: Spouse External Record Review External record reviewed: Outpatient record Tests considered The following testing was considered but not selected: See narrative above Prescription Management I considered prescription management with: Pain Medication Chronic Conditions Patient?s care impacted by: Other (See narrative above) Discharge Plan Discharge Clinical Impression: Contusion of rib on right side, Acute pain of right shoulder Patient Disposition: Home, Self-Care Instructions: How to Use an Incentive Spirometer (ED), Contusion in Adults (ED), Shoulder Pain (ED), Chest Contusion (ED) Additional Instructions: X-ray today of the ribs on the right side do not show any evidence of fracture, no evidence of collapse to the lung known as a pneumothorax. XR of the right shoulders does not show any evidence of fracture dislocation. X-ray to the right knee as well does not show any evidence of fracture dislocation. Rib contusions can be very painful as well especially after a fall. Use the incentive spirometer as instructed Please be certain that you are resting over the next few days applying ice for 10-15 minutes 4-6 times daily. You can take Tylenol 500 mg, 2 tablets (1,000mg) every 4-6 hours as needed for pain, but not to exceed 3 doses daily (3,000mg). Apply Lidoderm patch to the area of most pain leave on for 12 hours and then remove for 12 hour period to prevent skin irritation. The pain that is unrelieved by either of the above I have sent a short prescription for oxycodone to the pharmacy. This is a narcotic medication. It may make you drowsy. You should not drive, drink alcohol, or work while taking his medication. Contact your primary care provider to arrange for a follow-up visit. You may return back to emergency department any new or worsening symptoms or concerns. ? Prescriptions: New lidocaine 5 % adhesive patch,medicated 1 patch topical DAILY Qty: 30 0RF Rx Instructions: leave on most painful area for up to 12 hrs oxycodone 5 mg tablet 5 mg PO Q6H PRN (Reason: pain) Qty: 10 0RF Rx Instructions: Partial Fill upon patient request. No Action amitriptyline 25 mg Tablet 25 mg PO BEDTIME valsartan 320 mg Tablet 320 mg PO DAILY lorazepam 1 mg Tablet 1 mg PO BID PRN (Reason: Anxiety) tizanidine 2 mg Capsule 2 mg PO BEDTIME PRN (Reason: Muscle Spasm) Levemir FlexTouch U100 Insulin 100 unit/mL (3 mL) Insulin Pen 30 unit SUBCUT QAM Rx Instructions: took 15units this am ursodiol 300 mg capsule 600 mg PO BID isosorbide mononitrate 60 mg tablet extended release 24 hr 60 mg PO DAILY meclizine 25 mg tablet 25 mg PO BID PRN metoprolol succinate 100 mg tablet extended release 24 hr 100 mg PO DAILY metformin 500 mg tablet extended release 24 hr 1,000 mg PO BID amlodipine 2.5 mg tablet 7.5 mg PO DAILY calcium carbonate 500 mg calcium (1,250 mg) tablet 500 mg PO DAILY vitamin B complex Capsule 1 cap PO DAILY Referrals: Nohemy Hernandez MD [Primary Care Provider, Internal Medicine] Print Language: Canadian
[2025-02-10 16:47] VITALS: BP 132/73; PULSE 75; RESP 16; TEMP 36.7; O2SAT 94
[2025-02-10 16:59] VITALS: BP 132/73; PULSE 75; RESP 16; TEMP 36.7; O2SAT 94
== END 2025-02-10 17:10 | disposition home or self-care (01) ==
PROVIDERS: Emergency Provider Emergency Medicine; PCP Internal Medicine
DX: S20.211A Contusion of right front wall of thorax, initial encounter (principal); M25.511 Pain in right shoulder; M25.561 Pain in right knee; E11.9 Type 2 diabetes mellitus without complications; R07.81 Pleurodynia; I10 Essential (primary) hypertension; X50.1XXA Overexertion from prolonged static or awkward postures, initial encounter; X50.9XXA Other and unspecified overexertion or strenuous movements or postures, initial encounter; Y93.9 Activity, unspecified; Y92.9 Unspecified place or not applicable; Y99.8 Other external cause status; Z87.891 Personal history of nicotine dependence; Z79.4 Long term (current) use of insulin; Z79.899 Other long term (current) drug therapy
CPT/HCPCS: 71101; 73030; 73564; 94010; 99283

== ENCOUNTER → 2025-02-10 13:42 | Outpatient (BNV) | payer MEDICARE, BC, SELFPAY | PROVIDERS: Emergency Provider Emergency Medicine; PCP Internal Medicine; Visit Provider Radiology Diagnostic Radiology | DX: R07.82 Intercostal pain (principal); M11.261 Other chondrocalcinosis, right knee; M25.511 Pain in right shoulder | CPT/HCPCS: 71101; 73030; 73564 ==

== ENCOUNTER 2025-03-15 11:51 | Outpatient (REF) | payer MEDICARE, BC, SELFPAY ==
--- OUTSIDE RECORDS SUMMARY | 2025-03-15 11:54 | XMS_ITS | Encounter Summary ---
Author Organization [facility] Address [address] [place] [address] Care Team Providers Care Pressurizer Name Role Phone Nohemy Hernandez Primary Care Provider [phone] Encounter Details Date Type Department Care Team (Late st Contact Info) Description 04/29/2024 [email or web address] Message Intial Department [address] [place] [id number] [place], Generic Provider [address] [place], [place] [phone] Questionnaire Submission Social History Tobacco Use Types [...] Upcoming Encounters Date Type Department Care Team (Late st Contact Info) Description 05/20/2025 11:00 AM EDT Appointment [facility] [address] [place] [address] 08/19/2025 12:00 PM EST Follow-Up [facility] [address] [place], [place] [phone] Veneer Drier Tailer: Candi Bowers, GERONIMO [address] [place], [place] [phone] documented as of this encounter Visit Diagnoses Not on filedocumented in this encounter Care Teams Pressurizer Relationship Specialty Start Date End Date Nohemy Hernandez [address] [place] [id number] PCP - General 03/03/17 documented as of this encounter
--- OUTSIDE RECORDS SUMMARY | 2025-03-15 11:54 | XMS_ITS | Clinical Summary ---
Author Organization [facility] Address [address] [place] [address] Care Team Providers Care Ceramist Name Role Phone Nohemy Hernandez MD Primary Care Provider [phone] Social History Tobacco Use Types Packs/Day Years Used Date Smoking Tobacco: Never Assessed Sex and Gender Information Value Date Recorded Sex Assigned at Not on file Gender Identity Not on file Sexual Orientation Not on file Plan of Treatment Health Maintenance Due Date Last Done Comments Hepatitis C Screening 1950 COVID-19 Vaccine (#1) 1950 Depression Screening 1964 Preventative Health Evaluation 1970 DTap / Tdap / Td (1 - Tdap) 1971 Colon Cancer Screening (Colonoscopy) 1997 Breast Cancer Screening (Mammogram) 2002 Shingrix-Zoster Vaccine (1 of 2) 2002 Fall Risk Assessment 2017 Osteoporosis Screening (DEXA Scan) 2017 Pneumococcal Vaccine (1 of 1 - PCV) 2017 Influenza Vaccine (#1) 2025 RSV Adult > 60+ Yrs or Pregn ant (1 - 1-dose 75+ series) 2027 Hepatitis B Vaccines Aged Out No long er eligible based on patient's age to complete this topic RSV Ped < 20 months Aged Out No longe r eligible based on patient's age to complete this topic Care Teams Ceramist Relationship Specialty Start Date End Date Nohemy Hernandez MD [address] [place] [address] [address] [place] [address] PCP - General Internal Medicine 07/02/20
--- OUTSIDE RECORDS SUMMARY | 2025-03-15 11:55 | XMS_ITS ---
Author Name [facility] Organization Unknown History of Medication Use Medication Directions Dispensed Refills Start Date End Date Stat us meloxicam (MOBIC) 7.5 MG tablet Take 7.5 mg by mouth daily as needed. 11/20/2020 active LORazepam (ATIVAN) 0.5 MG tablet Take 0.5 mg by mouth daily. 10/23/2018 active isosorbide mononitrate (IMDUR) 60 MG 24 hr tablet Take 60 mg by mouth daily. 10/18/2018 active valsartan (DIOVAN) 160 MG tablet Take 160 mg by mouth daily. 10/10/2018 active amitriptyline (ELAVIL) 25 MG tablet TAKE 2 TABLETS BY MOUTH ONCE A DAY AT BEDTIME 10/01/2018 active ergocalciferol (VITAMIN D2,DRISDOL) 08566 units Cap TAKE ONE CAPSULE BYMOUTH ONCE A WEEK 09/11/2018 active acetaminophen (TYLENOL) 500 MG tablet Take 500 mg by mouth 4 times daily (every 6 hours) as needed for mild pain. active Multiple Vitamins-Minerals (Oncovite) Tab Take 1 tablet by mouth. active Allergies Allergen Reaction Severity Comment Documented Date Source Statu s OXYCODONE-ASPIRIN RASH/DERMATITI S Mild DRUG DERMATITIS 10/10/2019 [facility] active SULFA ANTIBIOTICS HIVES Moderate 02/21/2019 [facility] ac tive SULFAMETHOXAZOLE- TRIMETHOPRIM HIVES Severe 11/08/2018 [facility] active BACITRACIN RASH/DERMATITI S Moderate 02/28/2018 [facility] active MEPERIDINE ITCHING Mild [facility] PENICILLINS RASH/DERMATITI S Severe DRUG DERMATITIS [facility] Problems Problem Status Onset Date Problem Type Date of Resoluti on Source Complex regional pain syndrome type 1 of right lower extremity active 2018-11-17 ProblemAct [facility] Chronic pain in right foot active 2018-11-17 ProblemAct [facility] Gait abnormality active EncounterDiagnosisAct CCT Encounters Encounter Type Encounter Reason Primary Diagnosis Location Date Ambulatory Complex regional pain syndrome i of right lower limb [facility] 11/25/2021 Ambulatory Complex regional pain syndrome i of right lower limb [facility] 05/26/2021 Care Team Organization Name Specialty Phone Email Start Date End Da te [facility] 04[facility]07/2022 [facility] 04/12/2019 11/25/2021
--- OUTSIDE RECORDS SUMMARY | 2025-03-15 11:55 | XMS_ITS | Clinical Summary ---
Author Organization [facility] Address [address] [place] [id number] Phone Care Team Providers Care Chief Dispatcher Service Name Role Phone Nohemy Hernandez MD Primary Care Provider [phone] Social History Tobacco Use Types Packs/Day Years Used Date Smoking Tobacco: Never Assessed Comments No Sex and Gender Information Value Date Recorded Sex Assigned at Female 09/20/2024 2:27 PM EST Legal Sex Female 6:03 PM EST Gender Identity Female 09/20/2024 2:27 PM EST Sexual Orientation Straight 09/20/2024 2: 27 PM EST Last Filed Vital Signs Vital Sign Reading Time Taken Comments Blood Pressure - - Pulse - - Temperature - - Respiratory Rate - - Oxygen Saturation - - Inhaled Oxygen Concentration - - Weight 75.3 kg (166 lb) 10/03/2024 10:43 AM EST Height 165.1 cm (5' 5 ) 10/03/2024 10:43 AM EST Body Mass Index 27.62 10/03/2024 10:43 AM EST Plan of Treatment Health Maintenance Due Date Last Done Comments Diabetes: Annual Foot Exam 1962 Diabetes: Annual Retina Eye Exam 1962 Hepatitis A Vaccines (1 of 2 - Risk 2-dose series) 1971 Hepatitis B Vaccines (1 of 3 - Risk 3-dose series) 2012 Zoster Vaccines (2 of 2) 01/20/2021 11/25/2020 Pneumococcal Vaccine: 50+ Years (2 of 2 - PCV) 06/11/2022 06/11/2021 Colorectal Cancer Screening: Colonoscopy 07/13/2022 Falls Risk Assessment 07/13/2022 Hepatitis C Screening 07/13/2022 Medicare Annual Wellness Visit 07/13/2022 Social Influencers of Health Screening 07/13/2022 Depression Screening 08/15/2024 Diabetes: Blood Sugar Control Test (HGBA1C) 10/03/2024 COVID-19 Vaccine ( season) 2024 04/15/2024, 01/20/2024, 06/17/2023, Additional history exists Diabetes: Annual Urine Albumin-Creatinine Ratio (uACR) 03/26/2025 03/26/2024, 09/19/2023, 10/11/2022 Influenza Vaccine (#1) 2025 , 06/17/2023, 05/18/2022, Additional history exists Diabetes: Annual GFR (Glomerular Filtration Rate) 08/23/2025 08/23/2024, 09/19/2023 Hypertension/CHF/CAD Annual BMP Blood Test 08/23/2025 08/23/2024, 09/19/2023 Breast Cancer Screening 10/03/2026 10/03/19, 03/30/2023, 03/18/2022, Additional history exists DTaP,Tdap,and Td Vaccines (2 - Td or Tdap) 06/24/2027 06/24/2017 Cholesterol Screening (Lipid Panel) 03/26/2029 03/26/2024 Osteoporosis Screening (Bone Density Screening) 03/31/2033 03/31/2023, 04/06/2021, 04/02/2019 RSV Immunization Adult Patients Completed 06/24/2023 HIB Vaccines Aged Out No longer eligi ble based on patient's age to complete this topic HPV Vaccines Aged Out No longer eligi ble based on patient's age to complete this topic IPV Vaccines Aged Out No longer eligi ble based on patient's age to complete this topic MMR Vaccines Aged Out No longer eligi ble based on patient's age to complete this topic Meningococcal ACWY Vaccine Aged Out N o longer eligible based on patient's age to complete this topic Meningococcal B Vaccine Aged Out No l onger eligible based on patient's age to complete this topic RSV Immunization Patients Under 20 months Aged Out No longer eligible based on patient's age to complete this topic Varicella Vaccines Aged Out No longer eligible based on patient's age to complete this topic Procedures Procedure Name Priority Date/Time Associated Diagnosis Comments MG MAMMO DIGITAL SCREENING W OMID BILAT Routine 10/03/2024 11:09 AM EST Screening breast examination JODI DEXA AXIAL SKELETON Routine 03/31/2023 7:38 AM EDT Encounter for screening for osteoporosis from Last 3 Months or Most Recently Relevant to Health Maintenance Results * MG Mammo Digital Screening w Omid bilat (10/03/2024 11:09 AM EST) Anatomical Region Laterality Modality Breast Bilateral Mammography 10/03/2024 12:2 1 PM EST Impressions 10/03/2024 12:22 PM EST Stable mammographic appearance of the breasts. No evidence of malignancy is seen. A negative mammogram in the presence of a clinically suspicious palpable abnormality does not preclude the possibility of malignancy or alter the indications for biopsy. BI-RADS CATEGORY: 1 - NEGATIVE RECOMMENDATION: Screening bilateral mammogram is recommended in 1 year. Mammo Location: [facility], [address] [place] [address], [phone], . -------- FINAL REPORT -------- Dictated By: Katerine Tavares Dictated Date: 10/03/2024 12:21 ET Assigned Physician: Katerine Tavares Reviewed and Electronically Signed By: Katerine Tavares Signed Date: 10/03/2024 12:22 ET Workstation ID: [id number] Transcribed By: Self Edit Transcribed Date: 10/03/2024 12:21 ET Narrative 10/03/2024 12:22 PM EST HISTORY: Screening. COMPARISON: 04/01/23, 03/30/23, 03/18/22, 11/17/20, 05/07/19 TECHNIQUE: Bilateral digital breast tomosynthesis was performed in the CC and MLO projections. Computer aided detection with iCAD ProFound AI 3D 3.1 was employed. BREAST DENSITY: A - The breasts are almost entirely fatty. FINDINGS: No suspicious masses, grouped microcalcifications, or areas of architectural distortion are seen. The skin and vascularity are unremarkable. Procedure Note Katerine Tavares MD - 10/03/2024 HISTORY: Screening. COMPARISON: 04/01/23, 03/30/23, 03/18/22, 11/17/20, 05/07/19 TECHNIQUE: Bilateral digital breast tomosynthesis was performed in the CCand MLO projections. Computer aided detection with iCAD ProFound AI 3D 3.1was employed. BREAST DENSITY: A - The breasts are almost entirely fatty. FINDINGS: No suspicious masses, grouped microcalcifications, or areas ofarchitectural distortion are seen. The skin and vascularity areunremarkable. IMPRESSION: Stable mammographic appearance of the breasts. No evidence of malignancyis seen. A negative mammogram in the presence of a clinically suspicious palpableabnormality does not preclude the possibility of malignancy or alter theindications for biopsy. BI-RADS CATEGORY: 1 - NEGATIVE RECOMMENDATION: Screening bilateral mammogram is recommended in 1 year. Mammo Location: [facility], [address] [place] [address], [id number], . -------- FINAL REPORT -------- Dictated By: Katerine Tavares Dictated Date: 10/03/2024 12:21 ET Assigned Physician: Katerine Tavares Reviewed and Electronically Signed By: Katerine Tavraes Signed Date: 10/03/2024 12:22 ET Workstation ID: [id number] Transcribed By: Self Edit Transcribed Date: 10/03/2024 12:21 ET us Nohemy Hernandez MD IMG BI PROCEDURES Final Result * JODI DEXA AXIAL SKELETON (03/31/2023 7:38 AM EDT) Anatomical Region Laterality Modality Mammography 03/30/2023 2:58 PM EDT Narrative 03/31/2023 7:38 AM EDT [facility] Diagnostic Imaging Department [address] [place] [id number] Patient: MARLINE PAGE Rachel /Age/Sex: 1950 - 72 - F Unit#: [id number] Location/Status: SPDIMAM/REG CLI [facility]em[facility] Ordering Physician: NOHEMY HERNANDEZ MD Jodi Dexa Axial Skeleton - 03/30/23 - [id number] Report Status:Signed HISTORY: The patient is a 72-year-old postmenopausal female with clinical concern for metabolic bone disease. FINDINGS: Dual energy x-ray absorptiometry of the lumbar spine and femurs is performed. The mean bone mineral density at L2-3 is 0.995 gm/cm2 which is 83% of that of young normals and 96% of that of age matched controls. This yields a T- score of -1.7 and a Z-score of -0.3 which is diagnostic of osteopenia. The mean bone mineral density of the femurs bilaterally is 0.906 gm/cm2 which is 90% of that of young normals and 107% of that of age matched controls. This yields a T-score of -0.8 and a Z-score of 0.5 and there is therefore no evidence of osteoporosis or osteopenia here. IMPRESSION: 1. Osteopenia. There has been an increase of 1.5% in bone mineral density in the lumbar spine since the prior examination of 04/06/2021. There has been a decrease of 1.5% in bone mineral density in the right femur and a decrease of 6.2% in bone mineral density in the left femur. 2. FRAX analysis yields a 10-year probability of major osteoporotic fracture of 20.6% and a 10-year probability of hip fracture of 3.1%. Code 06342 Dictating Physician: AYLIN GANDHI MD Electronically Signed by: AYLIN GANDHI MD Dic Date/Time: 03/31/23736 Sign date/Time: 03/31/23737 Procedure Note Aylin Gandhi MD - 09/20/2023 [facility] Diagnostic Imaging Department [address] [place] [address] Patient: MARLINE PAGE./Age/Sex: 1950 - 72 - F Unit#: [id number] [facility]Ordering Site: [facility] Ordering Physician: NOHEMY HERNANDEZ MD [facility] Dexa Axial Skeleton - 03/30/23 - [id number] Report Status:Signed HISTORY: The patient is a 72-year-old postmenopausal female withclinical concern for metabolic bone disease. FINDINGS: Dual energy x-ray absorptiometry of the lumbar spine and femursis performed. The mean bone mineral density at L2-3 is 0.995 gm/cm2 which is83% of that of young normals and 96% of that of age matched controls. This yieldsa T- score of -1.7 and a Z-score of -0.3 which is diagnostic of osteopenia. The mean bone mineral density of the femurs bilaterally is 0.906 gm/xo7swrme is 90% of that of young normals and 107% of that of age matched controls.This yields a T-score of -0.8 and a Z-score of 0.5 and there is therefore noevidence of osteoporosis or osteopenia here. IMPRESSION: 1. Osteopenia. There has been an increase of 1.5% in bone mineral densityin the lumbar spine since the prior examination of 04/06/2021. There has yanelis decrease of 1.5% in bone mineral density in the right femur and a decreaseof 6.2% in bone mineral density in the left femur. 2. FRAX analysis yields a 10-year probability of major osteoporoticfracture of 20.6% and a 10-year probability of hip fracture of 3.1%. Code 79893 Dictating Physician: AYLIN GANDHI MD Electronically Signed by: AYLIN GANDHI MD Dic Date/Time: 03/31/23 0737 Sign date/Time: 03/31/23737 Nohemy Hernandez MD IMG BI PROCEDURES Final Result from Last 3 Months or Most Recently Relevant to Health Maintenance Insurance [address] [place] [address] MEDICARE [facility] Care Teams Chief Dispatcher Service Relationship Specialty Start Date End Date Nohemy Hernandez MD [address] [place] [phone] PCP - General Internal Medicine 07/02/20
--- OUTSIDE RECORDS SUMMARY | 2025-03-15 11:55 | XMS_ITS | Clinical Summary ---
Author Organization [facility] Address [address] [place] [address] Care Team Providers Care Vocational Counselor Name Role Phone Nohemy Hernandez MD Primary Care Provider [phone] Allergies Active Allergy Reactions Criticality Noted Date Comments Bacitracin Hives,Rash/Dermatitis Medium 02/28/2018 Meperidine Itching Low 10/10/2019 Oxycodone-Aspirin Rash/Dermatitis Low 10/10/2019 DRUG DERMATITIS Penicillins Anaphylaxis,Rash/Rylan m atitis High 11/08/2018 DRUG DERMATITIS Sulfa Antibiotics Hives Medium 02/21/2019 Sulfamethoxazole-Trimet hoprim Itching,Hives High 11/08/2018 Medications amitriptyline (ELAVIL) 25 MG tablet TAKE 2 TABLETS BY MOUTH ONCE A DAY AT BEDTIME 6 10/01/19 19 Active ergocalciferol (VITAMIN D2,DRISDOL) 66798 units Cap TAKE ONE CAPSULE BYMOUTH ONCE A WEEK 3 09/11/19 19 Active ONETOUCH VERIO strip DX CODE: E10.9 TO TEST BLOOD SUGAR UPTO FOUR TIMES DAILY DIRECTED 3 10/22/19 19 Active hydrOXYzine HCl (ATARAX) 25 MG tablet 1-2 TABLET UP TO FOUR TIMES A DAY ORAL as needed 1 08/17/19 19 Active LEVEMIR FLEXTOUCH 100 UNIT/ML injection INJECT 35 UNITS SUBCUTANEOUSLY AT BEDTIME SUBCUTANEOUS 5 09/27/19 19 Active B-D UF III MINI PEN NEEDLES 31G X 5 MM needle USE 1 NEEDLE DAILY WITH LANTUS SOLOSTAR 2 08/17/19 19 Active isosorbide mononitrate (IMDUR) 60 MG 24 hr tablet Take 60 mg by mouth daily. 1 10/19/19 Active SIMONE [facility]GAR[facility] LANCETS FINE [facility] lancet DX CODE: E10.9 USE TO TEST SUGAR UP TO FOUR TIMES DAILY 3 10/25/19 Active LORazepam (ATIVAN) 0.5 MG tablet Take 0.5 mg by mouth daily. 0 10/24/19 Active metoPROLOL SUCCINATE (TOPROL-XL) 100 MG 24 hr tablet Take 100 mg by mouth daily. 3 10/09/19 Active ursodiol (ACTIGALL) 300 MG capsule Take 600 mg by mouth 2 (two) times a day. 6 10/25/19 Active valsartan (DIOVAN) 160 MG tablet Take 160 mg by mouth daily. 1 10/10/19 Active Dermatological Products, [facility]. (EPICERAM) lotion APPLY TWICE A DAY TO BODY 3 01/27/20 Active SUPPLY DME MISCIndications :Complex regional pain syndrome type 1 of right lower extremity,Chron ic pain in right foot Use OSKA as directed, at least 3 hours daily 1 Device 01/30/20 Active SUPPLY DME MISCIndications :Complex regional pain syndrome type 1 of right lower extremity Wear OSKA 3+ hours daily 1 Device 05/04/20 Active acetaminophen (TYLENOL) 500 MG tablet Take 500 mg by mouth 4 times daily (every 6 hours) as needed for mild pain. Active Bupivacaine HCl Powder 10/07/19 Active clobetasol (TEMOVATE) 0.05 % cream APPLY TOPICALLY TO SCALP TWICE DAILY NEEDED FOR FLARES 10/29/19 Active fluocinonide (LIDEX) 0.05 % cream APPLY TO HANDS ARMS, AND LEGS TWICE A DAY 10/29/19 Active glucosamine 500 MG Cap capsule Take 500 mg by mouth. Active meloxicam (MOBIC) 7.5 MG tablet Take 7.5 mg by mouth daily as needed. 11/21/19 Active Multiple Vitamins-Minera ls (Oncovite) Tab Take 1 tablet by mouth. Active NIFEdipine Powder 12/02/19 Active TiZANidine (ZANAFLEX) 2 MG capsule TAKE 1 2 CAPS AT BEDTIME NEEDED MAY INCREASE TO 2 TWICE A DAY IF DOESN T CAUSE SOMNOLENCE 11/13/19 Active b complex vitamins capsule Take 1 capsule by mouth daily. Active ketoconazole (NIZORAL) 2 % cream APPLY 1 APPLICATION TOPICALLY TO FACE TWICE A DAY 04/16/20 21 Active metFORMIN (GLUCOPHAGE-XR) 500 MG 24 hr tablet TAKE 2 TABLETS BY MOUTH TWICE A DAY WITH FOOD 11/10/19 22 Active Tresiba FlexTouch 100 UNIT/ML prefilled pen injection INJECT 40 UNITS UNDER THE SKIN NIGHTLY AT BEDTIME. 11/10/19 22 Active SUPPLY DME MISCIndications :Gait abnormality rollator Please get approval through workers comp 1 each 04/07/20 Active SUPPLY DME MISCIndications :Gait abnormality rollator with seat 1 each 05/19/20 Active Active Problems Problem Noted Date Diagnosed Date Complex regional pain syndro me type 1 of right lower extremity 11/17/2018 Chronic pain in right foot - Right 11/17/2018 Social History Tobacco Use Types Packs/Day Years Used Date Smoking Tobacco: Former Cigarettes Q uit: 1992 Smokeless Tobacco: Never Alcohol Use Standard Drinks/Week Comments Never 0 (1 standard drink = 0.6 oz pur e alcohol) AUDIT-C Answer Date Recorded Frequency of Alcohol Consumption Never 04/06/2019 Average Number of Drinks Not on file 019 Frequency of Binge Drinking Not on file 03/16 Comments No Sex and Gender Information Value Date Recorded Sex Assigned at Not on file Legal Sex Female 6:49 PM EDT Gender Identity Not on file Sexual Orientation Not on file Last Filed Vital Signs Vital Sign Reading Time Taken Comments Blood Pressure 134/68 04/07/2022 8:17 AM EDT Pulse 82 04/07/2022 8:17 AM EDT Temperature 36.3 C (97.3 F) 04/07/2022 8:17 AM EDT Respiratory Rate 18 04/07/2022 8:17 AM EDT Oxygen Saturation 97% 04/07/2022 8:17 AM EDT Inhaled Oxygen Concentration - - Weight 77.1 kg (170 lb) 04/07/2022 8:17 AM EDT Height 165.1 cm (5' 5 ) 04/07/2022 8:17 AM EDT Body Mass Index 28.29 04/07/2022 8:17 AM EDT Plan of Treatment Health Maintenance Due Date Last Done Comments Hepatitis C Virus Screening 1950 DTaP/Tdap/Td Vaccines (1 - Tdap) 1971 Mammogram 1992 Colonoscopy 1997 Pneumococcal Vaccines 50+ (1 of 1 - PCV) 2002 Zoster (Shingles) Vaccine (1 of 2) 2002 RSV Vaccine 60 years and older and Patients (1 - Risk 60-74 years 1-dose series) 2012 DXA Bone Density (Females,Ages 65 and older) 2017 COVID-19 Vaccine (2 - season) 2024 12/31/2021 Influenza Vaccine 03/15/2025 06/12/2021, 04/09/2020, 06/15/2019 Hemoglobin A1C Discontinued 12/25/2021 Hepatitis B Vaccines Aged Out No long er eligible based on patient's age to complete this topic Insurance MEDICARE PART A & B MEDICARE PART A & B [facility] [facility] Care Teams Vocational Counselor Relationship Specialty Start Date End Date Nohemy Hernandez MD [address] [place] [phone] PCP - General 11/08/18 Baggage Security Checker Kalyn Wright 12/18/18
--- OUTSIDE RECORDS SUMMARY | 2025-03-15 11:55 | XMS_ITS | Clinical Summary ---
Author Organization [facility] Address [address] [place] [address] Phone Care Team Providers Care Management Professor Name Role Phone Nohemy Hernandez MD Primary Care Provider [phone] Allergies Active Allergy Reactions Criticality Noted Date Comments Bacitracin Hives,Rash Medium 02/28/2018 Other Reaction(s): Unknown Meperidine Itching Low 10/10/2019 Penicillins Anaphylaxis,Itching, Rash,Shortness of breath High 06/05/2015 Other Reaction(s): Unknown DRUG DERMATITIS Chest tightness DRUG DERMATITIS Sulfamethoxazole-Trime thoprim Hives,Itching High 06/05/2015 Other Reaction(s): Unknown Medications Coenzyme Q10 300 MG capsule Take 300 mg by mouth in the morning. Active Docusate Sodium (DSS) 100 MG capsule Take 100 mg by mouth if needed 6 Active fluocinonide (LIDEX) 0.05 % cream Apply topically if needed 1 Active Glucosamine 500 MG capsule Take 500 mg by mouth 1 (one) time each day Active Basaglar KwikPen 100 UNIT/ML injection Inject 20 Units under the skin in the morning. 1 Active isosorbide mononitrate (IMDUR) 60 MG 24 hr tablet Take 60 mg by mouth in the morning. 9 Active LORazepam (ATIVAN) 0.5 MG tablet Take 0.5 mg by mouth in the morning and 0.5 mg in the evening. 8 Active meclizine (ANTIVERT) 25 MG tablet Take 25 mg by mouth in the morning and 25 mg in the evening. Active metFORMIN XR (GLUCOPHAGE-XR) 500 MG 24 hr tablet Take 500 mg by mouth in the morning and 500 mg in the evening. 2 Active metoprolol succinate XL (TOPROL-XL) 100 MG 24 hr tablet Take 100 mg by mouth in the morning. 8 Active Multiple Vitamins-Mineral s (Oncovite) tablet Take 1 tablet by mouth 1 (one) time each day Active sodium chloride ([facility]) 0.65 % nasal spray Administer 1 spray into each nostril if needed Active tiZANidine (ZANAFLEX) 2 MG tablet Take 2-4 mg by mouth every 6 (six) hours if needed Active ursodiol (ACTIGALL) 300 MG capsule Take 600 mg by mouth in the morning and 600 mg in the evening. 9 Active valsartan-hydroC HLOROthiazide (DIOVAN-HCT) 320-12.5 MG per tablet Take 1 tablet by mouth 1 (one) time each day Active sodium chloride (ALEXY 128) 5 % ophthalmic solution Administer 1 drop into both eyes in the morning and 1 drop at noon and 1 drop in the evening and 1 drop before bedtime. 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 She has had multiple fractures but they all appear to be traumatic. So by definition I cannot say that she has osteoporosis. However, based on the radiology report she has a high FRAX score and she will benefit from antiresorptive medications. I could not calculate my on FRAX score because I do not have the bone mineral density of the femoral neck. Furthermore I need to know which machine was used. She has history of parental hip fracture, use of topical corticosteroids, and prior fractures which increase the FRAX score. So if she can get me the images and I can review it then I can better assess. However a higher FRAX score still 1 change the current information. Presently or I can say is that she will benefit from an antiresorptive medication because of the high FRAX score. She should continue calcium. She is currently not taking vitamin D because at 1 point she had elevated levels but I do recommend that she take either 1000 units or 2000 units of vitamin D daily. And she needs to do weightbearing exercises. The antiresorptive medications are the bisphosphonates and rank ligand antagonists. The bisphosphonates come in oral form and IV form. The oral form is alendronate, this is a 70 mg tablet that is taken once a week with water on an empty stomach. The patient must not eat for 30 minutes and remain upright in a sitting or standing position. This medication may be associated with reflux. This medication can be used up to 5 years and at that point we reevaluate. If the bone density has not improved we can switch to another medication or continue the same medications for another 5 years. If there is improvement in bone mineral density then we can do a drug holiday. The IV form is called zoledronic acid/ Reclast. This is administered in the hospital as a yearly infusion. This medication can be used up to 3 years. Again this medication also can be repeated for another 3 years if there is insufficient bone mineral density or the medication could be switch for something else. If good bone improvement then we can consider a drug holiday. It is associated with flulike symptoms such as muscle aches, headaches, etc. The other antiresorptive medication is rank ligand antagonist such as Prolia/ denosumab. This medication is administered subcutaneously in the office every 6 months. With this medication you have to have adequate calcium intake otherwise hypocalcemia may develop. Furthermore the medication must not be missed there is a 2-week window in which the patient must have the injection. If the patient misses the injection then there will be rapid decrease in bone mineral density. Furthermore if the patient wants to stop the medication that we will have to take alendronate for period of 1 year. If the patient does not take any medications at all after stopping Prolia then they will return to their original bone mineral density within 12 months. All of these medications are associated with atypical femur fracture and jaw necrosis after prolonged use. Prolonged use is considered to be approximately 5 years. The risk of atypical femur fracture approximately 0.8% and for jaw necrosis is approximately 0.1%. This can translate to up to 5 people out of 10,000. There are other medications such as anabolic hormones. These include Forteo and Tymlos which are basically the same medication but different brands. These medications are injected by the patient on a daily basis at nighttime right before going to bed. This medication is good for period of 2 years. It is administered in the evening because it could be associated with dizziness. The last medication is Evenity which is administered in the office on a monthly basis for period of 1 year. This medication cannot be used if the patient had a myocardial infarction within the last 6 months. The anabolic hormones are very expensive and normally for a patient who has not use any of these medications they usually get one of the antiresorptive medications such as alendronate, zoledronic acid or Prolia. 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 Hemoglobin A1c is 6.1%. Continue current regimen requested Dexcom to be ordered through DME. Complex regional pain syndrome I of right lower limb 11/17/2018 Pain in right foot 11/17/2018 Primary biliary cholangitis 02/09/2016 Overview (01/21/2024): Added automatically from request for surgery [id number] Fibromyalgia 02/21/2009 Encounters Date Type Department Care Team Description 12/24/2024 11:00 AM EDT Office Visit [facility] [address] [phone] Ryan Ann MD Hypertension (Primary Dx); 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; Microalbuminuria; Hyponatremia; Diabetes mellitus, not otherwise specified (HCC) from Last 3 Months Social History Tobacco Use Types Packs/Day Years Used Date Smoking Tobacco: Never Smokeless Tobacco: Never Tobacco Cessation:Counseling Given: Not Answered Alcohol Use Standard Drinks/Week Comments Never 0 (1 standard drink = 0.6 oz pur e alcohol) Comments Unknown Sex and Gender Information Value Date Recorded Sex Assigned at Not on file Legal Sex Female 3:00 PM EDT Gender Identity Not on file Sexual Orientation Not on file Last Filed Vital Signs Vital Sign Reading Time Taken Comments Blood Pressure 140/84 12/24/2024 11:10 AM EDT Pulse 89 12/24/2024 11:10 AM EDT Temperature - - Respiratory Rate - - Oxygen Saturation 98% 12/24/2024 11: 10 AM EDT Inhaled Oxygen Concentration - - Weight 76.1 kg (167 lb 12.8 oz) 025 11:10 AM EDT Height 163.8 cm (5' 4.5 ) 09/17/2024 11 :14 AM EST Body Mass Index 28.36 09/17/2024 11:14 AM EST Plan of Treatment Upcoming Encounters Date Type Department Care Team (Late st Contact Info) Description 06/26/2025 10:40 AM EST Office Visit [facility] [address] [address] Ryan Ann MD [address] [id number] Health Maintenance Due Date Last Done Comments Breast Cancer Screening 1950 Colorectal Cancer Screening: Annual FOBT 2001 Colorectal Cancer Screening: Sigmoidoscopy 2001 Hepatitis B Vaccine (1 of 3 - Risk 3-dose series) 2012 Pneumococcal Vaccine: 50+ Ye ars (2 of 2 - PCV) 06/11/2022 06/11/2021 Diabetes: Hemoglobin A1C 10/26/2023 Diabetes: Ophthalmology Exam 10/26/2023 Diabetes: Pedal Pulse Checked 10/26/2023 Diabetes: Sensory Foot Exam 10/26/2023 Diabetes: Visual Foot Exam 10/26/2023 Influenza Vaccine (#1) 2025 , 06/17/2023, 06/11/2021, Additional history exists Colorectal Cancer Screening: Colonoscopy 11/14/2034 11/14/[address] [facility] Medicare [facility] Care Teams Management Professor Relationship Specialty Start Date End Date Nohemy Hernandez MD [address] [place] [address], [address] [place], [place] [id number] PCP - General Internal Medicine 10/24/23
--- OUTSIDE RECORDS SUMMARY | 2025-03-15 11:55 | XMS_ITS | Clinical Summary ---
Author Organization [facility] Address [address] [place] [id number] Phone Care Team Providers Care Selling Specialist Name Role Phone Nohemy Hernandez MD Primary Care Provider [phone] Flakito Boone MBBS Unavailable [phone] Allergies Active Allergy Reactions Criticality Noted Date Comments Bacitracin Hives,Rash Medium 02/28/2018 Bactrim (Sulfamethoxazole-Trimethop rim) Hives High 06/05/2015 Meperidine Itching Low 10/10/2019 Patient reports she has had this since initial reaction and had no issues Penicillins Itching High 06/05/2015 Chest tightness Sulfa (Sulfonamide Antibiotics) Hives Medium 02/21/2019 Medications ursodiol (ACTIGALL) 300 mg capsule Take 600 mg by mouth 2 (two) times a day. Active metoprolol succinate (TOPROL-XL) 100 MG 24 hr tablet Take 100 mg by mouth daily. Active therapeutic multivitamin tablet Take 1 tablet by mouth daily. Active LORazepam (ATIVAN) 0.5 MG tablet Take 0.5 mg by mouth 2 (two) times a day. Active amitriptyline (ELAVIL) 50 MG tablet Take 50 mg by mouth nightly. Active plant stanol uche 450 mg Cap Aka cholest off pull Active FLAXSEED OIL ORAL Take 1,400 mg by mouth daily. Active isosorbide mononitrate (IMDUR) 60 MG 24 hr tablet Take 60 mg by mouth daily. 05/04/20 21 Active valsartan (DIOVAN) 320 MG tablet Take 320 mg by mouth daily. Active tiZANidine (ZANAFLEX) 2 MG tablet Take 2-4 mg by mouth every 6 (six) hours as needed. Active coenzyme Q10 300 mg Cap Take 300 mg by mouth daily. Active biotin 1 mg tablet Take 1,000 mcg by mouth 3 (three) times a day. Active Medication-Free Text Jose eye drop Active Medication-Free Text Jose eye ointment Ac tive meclizine (ANTIVERT) 25 mg tablet Take 25 mg by mouth 2 (two) times a day. 03/08/20 23 Active blood-glucose meter,continuous (DEXCOM G7 ACCOUNT EXECUTIVE AGRIBUSINESS) MiscIndications: Type 2 diabetes mellitus with microalbuminuria , with long-term current use of insulin by Miscellaneous route as needed. 1 each 09/28/19 24 Active blood-glucose sensor (DEXCOM G7 SENSOR) DeviIndications: Type 2 diabetes mellitus with microalbuminuria , with long-term current use of insulin 1 Application by Miscellaneous route Every 10 Days. 3 each 11 09/28/19 24 Active amLODIPine (NORVASC) 5 MG tablet Take 5 mg by mouth daily. 09/17/19 25 026 Active metFORMIN (GLUCOPHAGE-XR) 500 MG 24 hr tabletIndication s:Type 2 diabetes mellitus with microalbuminuria , with long-term current use of insulin Take 2 tablets (1,000 mg total) by mouth 2 (two) times a day with meals. 360 tablet 1 10/02/19 25 Active insulin glargine (BASAGLAR KWIKPEN U-100 INSULIN) 100 unit/mL (3 mL) InPn injection penIndications:T ype 2 diabetes mellitus with microalbuminuria , with long-term current use of insulin Inject 17 Units under the skin daily. 15 mL 1 10/02/19 25 Active cholecalciferol (VITAMIN D3) 2,000 unit capsuleIndicatio ns:Osteopenia of multiple sites Take 1 capsule (2,000 Units total) by mouth daily. 90 capsule 3 10/08/19 25 Active BD ULTRA-FINE MINI PEN NEEDLE 31 gauge x 16 NdleIndications: Type 2 diabetes mellitus with microalbuminuria , with long-term current use of insulin INJECT 1 EACH UNDER THE SKIN EVERY MORNING. 100 each 3 01/09/20 25 Active Active Problems Problem Noted Date Diagnosed Date Pulmonary nodules 12/06/2024 Lymphadenopathy, abdominal 10/17/2024 Assessment & Plan (12/06/2024 2:20 PM EDT): IMPRESSION: This is a 74-year-old woman with the following diagnoses. Incidental finding of small cardiophrenic lymph node likely normal variant Incidental finding of small pulmonary nodules likely benign -needs surveillance DISCUSSION: I discussed overall impression, differential diagnosis and further evaluation in this regard. Slightly prominent abdominal lymph node is likely a normal variant or reactive in nature. There is no additional lymphadenopathy. Patient does not have any clinical signs or symptoms suggestive of any underlying malignancy or any other lymphoproliferative disorder. She has been up to date in regards to her screening for malignancies. Labs were unremarkable. I do not think that there is any indication to consider biopsy of this lymph node. I recommended surveillance with follow-up CT scans in 6 months. RECOMMENDATIONS: Labs and CT scans in 6 months Return for follow-up after the above-mentioned Thank you very much for allowing me to participate in this patient's care Assessment & Plan (10/17/2024 1:45 PM EST): IMPRESSION: This is a 74-year-old woman with incidental finding of mild abdominal lymphadenopathy. DISCUSSION: I discussed overall impression, differential diagnosis and further evaluation in this regard. Slightly prominent abdominal lymph node is likely a normal variant or reactive in nature. There is no additional lymphadenopathy. Patient does not have any clinical signs or symptoms suggestive of any underlying malignancy or any other lymphoproliferative disorder. She has been up to date in regards to her screening for malignancies. I do not think that there is any indication to consider biopsy of this lymph node. I recommended surveillance with follow-up CT scans in 3 months from the last scan. RECOMMENDATIONS: Patient will undergo labs and the CT chest abdomen and pelvis with contrast in November of this year Return for follow-up in November after the scans Thank you very much for allowing me to participate in this patient's care Osteopenia 06/23/2023 Assessment & Plan (12/23/2023 1:37 PM EDT): The patient is now taking calcium and vitamin D supplements. She has a high FRAX score. On the last visit I gave her information on antiresorptive medications which she read. She informs me that she has GERD so she does not feel that she can tolerate the oral alendronate. There is IV infusion zoledronic acid but this can be associated with myalgias. She states that she already has muscle aches and so on. She has fibromyalgia so she rather not use this medication. Lastly I told her that there is Prolia subcutaneous injection. I gave her some material to read regarding adverse effects. She feels that she may just want to continue taking calcium and vitamin D supplements and do weightbearing exercises and just see how she progresses. She will be due for repeat DXA scan on 03/30/2025. She would like to obtain the DXA scan at [facility]. I will request the study. The patient will have to contact the radiology department and schedule the study for next year because they are 1 year behind. Assessment & Plan (09/22/2023 1:47 PM EST): The patient has osteopenia. She has had [...] such as alendronate, zoledronic acid or Prolia. Assessment & Plan (06/23/2023 4:42 PM EST): This is a patient who was diagnosed with osteopenia in 2009 she has had a total of 3 bone densities but may have progressed to osteoporosis. I do not have her most recent DEXA scan. She has had traumatic fractures at least 2 of them. She has lost 1 inch in height. She is currently not taking vitamin D because at 1 point she was taking too much vitamin D. She is taking 2 calcium tablets daily in divided doses. Her risk factors for osteoporosis include early menopause, age, family history of osteoporosis, remote tobacco use, use of SSRIs for a period of 3 years and current use of tricyclic's for 5 years. She did receive many intra articular corticosteroid injections. At this point she is not using any antiresorptive medications. I will do biochemical work-up for secondary causes of osteoporosis. Addendum: Received DXA scan that was performed on 10/28/2022 lumbar spine T score is -1.7 this has increased by 1.5% since 04/06/2021 bilateral femurs T score is -0.8 and this has decreased by 1.5%. FRAX score for major osteoporotic fracture was 20.6 and for hip fracture of 3.1%. S/P reverse total shoulder arthroplasty, left Hyperlipidemia LDL goal <100 04/14/2022 Assessment & Plan (10/02/2024 1:45 PM EST): Controlled. LDL 94 mg/dL she is taking a plan stanol, no statins. Assessment & Plan (03/28/2024 1:32 PM EDT): Controlled. LDL 94 mg/dL. She uses the planned sternal Elayne which will help with lowering the LDL but unsure was not very potent. In any case her LDL is in a good range. Assessment & Plan (09/28/2023 12:06 PM EST): Controlled. LDL 97 mg/dL. She is not on a statin but the LDL is below 100 mg/dL and this is fine. Assessment & Plan (03/24/2023 12:00 PM EDT): Controlled. LDL 97 mg/dL she is using plant sterols. No further management required Assessment & Plan (08/03/2022 1:47 PM EST): Controlled. LDL went down to 93 mg/dL while she uses ezetimibe but she stopped the medication because apparently she developed discomfort in the pancreas region and she stopped the medication I will repeat the lipid panel in 6 months time. Assessment & Plan (04/14/2022 1:29 PM EDT): Uncontrolled LDL 116 mg/dl will prescribe ezetimibe 10 mg daily repeat lipid panel in 3 months. Type 2 diabetes mellitus wit h microalbuminuria, with long-term current use of insulin 06/29/2021 Assessment & Plan (10/02/2024 1:44 PM EST): Controlled. Hemoglobin A1c 6.4% continue current regimen. Assessment & Plan (03/28/2024 1:31 PM EDT): Controlled. Hemoglobin A1c is 6.0%. She does have some alarms sometimes. We going to switch the Lantus to morning administration around 930 and she is going to do a steady dose of 12 units daily with trying to decrease that sometimes she uses anywhere from 11 to 14 units. Decreasing the Lantus will help prevent lower glucose levels overnight. She should you can continue metformin at the current dose. She should repeat a hemoglobin A1c in 6 months. Assessment & Plan (09/28/2023 12:05 PM EST): Controlled. Hemoglobin A1c is 6.1%. Continue current regimen requested Dexcom to be ordered through DME. Assessment & Plan (03/24/2023 12:00 PM EDT): I think this is controlled continue current regimen. No changes required. Hemoglobin A1c was 5.7% Assessment & Plan (08/03/2022 1:46 PM EST): Controlled based on glycemic levels. She has excellent hemoglobin A1c but this may be falsely low due to anemia. Because glycemic levels are controlled we will continue the same regimen as indicated in the HPI she should follow in 6 months time. I did notice that I do not have urine microalbumin creatinine ratio and she must provide me a fasting urine for microalbumin monitoring. Assessment & Plan (04/14/2022 1:29 PM EDT): Uncontrolled. Hemoglobin A1c 5.5% we will continue current regimen. Assessment & Plan (12/28/2021 1:44 PM EDT): Unfortunately Jardiance was not approved in the past which will be a really good medication for the patient she only tolerates Trulicity 0.75 mg not the 1.5 mg so potentially we can even prescribe that medication because apparently she does not have gastroparesis based on her latest studies. Another possibility is to increase the metformin to 2 tablets twice a day. In the point of this is because we want I decreased her insulin since the patient has had concerned about weight gain. Otherwise the Tresiba is working perfectly. She finds that sometimes she does not even administer the Tresiba on a daily basis and the reason why her glucose have remained in good ranges because Tresiba has an action time of 42 hours but yet it can be dosed on a daily basis without stacking of insulin. So at this point we are going to increase the metformin to 2 tablets twice a day. She states that she is going to try 2 tablets in the morning and 1 in the evening to start out with. We will going to decrease the Tresiba to 20 units and hopefully she will continue to have good glycemic control. If she finds that she still going low in the morning I would recommend to just decrease the dose of Tresiba not to skip a dose because it destabilizes the glycemic control. So is better to decrease then to stop taking the medication for 1 day. She will return for follow-up in 3 months. She should consider if maybe she wants to use Trulicity 0.75 mg in the future as well. Its more medications but it does help with the weight loss. Assessment & Plan (09/29/2021 2:17 PM EST): This is a patient with type 2 diabetes that has good glycemic control A1c is 6.4% on Levemir. The concern she has is that she is gaining weight and insulin does cause weight gain. She wants to transition to other medications. Of course we cannot do it all at once. I suggested switching to Tresiba 40 units once a day and adding Jardiance 10 mg daily. I looked up this medication that does not seem to be any contraindications with the use of that with PVC. So at this point I have informed the patient that Jardiance can cause glucosuria so she wants to use proper hygiene and use wipes after urinating wet wipes. She needs to use proper hygiene to prevent genital mycotic infections. She needs to drink plenty of water which is not a problem but she may urinate more frequently at the beginning when using the medication. I think in the long run we could potentially stop insulin if she does well maybe we can add Metformin. But I think that we would do this in a stepwise process. Metformin has been use as a weight loss agent. However is not officially a weight loss medication. We will repeat hemoglobin A1c prior to the follow-up visit in 3 months. Assessment & Plan (06/29/2021 3:09 PM EST): Good glycemic control based on hemoglobin A1c of 6.7% and her glucose levels on the meter. The patient is interested in losing weight. She states that she finds it very hard to do with insulin. So I suggested that she try a GLP-1 agonist or an SGLT2 inhibitor. The GLP-1 agonists will achieve the greatest weight loss. However, she will have to stop her evening dose of Levemir she is using anywhere from 30 to 43 units. I suggested keeping 30 units of Levemir in the morning and starting out with Trulicity 0.75 mg weekly for 2 weeks to see if she can tolerate the medication. And if she can we can increase the dose to 1.5 mg should inhibit her appetite. I informed her that this medication has 4 mechanisms of actions. It acts on the hypothalamus to suppress appetite. It decreases gastric emptying and so the patient will feel full. It stimulates insulin secretion so that the glucose levels stay control and it also prevents glucagon secretion thereby inhibiting hepatic gluconeogenesis also improving glycemic control. However it is associated with adverse effects such as nausea, vomiting, diarrhea, constipation. So the nausea could potentially improve so that is why we start out with the lowest dose. However if the patient has vomiting or diarrhea she is most likely not going to be able to tolerate it. She has no contraindications to using this medication such as medullary thyroid carcinoma or history of pancreatitis. I gave the patient a sample of Trulicity 0.75 mg weekly. Lot number [id number] expiration January 21, 2023. The patient will return for follow-up in 3 months time. Encounters Date Type Department Care Team Description 01/24/2025 11:40 AM EDT Office Visit [facility] [address] [place] [address] Yu Tavarez PA-C Occult closed fracture of scaphoid of right wrist, initial encounter (Primary Dx); Trigger index finger of right hand 01/24/2025 11:29 AM EDT - 01/24/2025 11:59 PM EDT Hospital Encounter [address] [address] Yu Tavarez PA-C Discharge Disposition: Home or Self Care 01/07/2025 Refill [facility] [address] [place] [address] James Schilling, Med Change Request 12/28/2024 11:31 AM EDT - 12/28/2024 11:59 PM EDT Hospital Encounter [address] [address] Hiram Kumar PA-C Discharge Disposition: Home or Self Care 12/28/2024 11:30 AM EDT Office Visit [facility] [address] [place] [id number] Hiram Kumar PA-C Occult closed fracture of scaphoid of right wrist, initial encounter (Primary Dx); Right wrist pain from Last 3 Months Immunizations Immunization Administration Dates Next Due Influenza High-Dose Quadrivalent Preservative Fr ee IM 05/18/2022 Influenza High-Dose Trivalent Preservative Free IM 05/24/2024,06/16/2019 Influenza Quadrivalent Adjuvanted Preservative F ree IM 06/17/2023,06/11/2021 Influenza Trivalent Adjuvanted Preservative free IM 06/24/2017 Influenza Trivalent w/ Preservative IM 0,05/24/2018 Influenza, Unspecified Formulation 06/09/2021 Pneumococcal polysaccharide PPSV23 06/11/2021 RSV Vaccine (monovalent, adjuvanted) 06/24/2023 Tdap 06/24/2017 Zoster recombinant 11/25/2020 Family History Medical History Relation Comments COPD Father Stroke Mother Relation Status Comments Father Mother Social History Tobacco Use Types Packs/Day Years Used Date Smoking Tobacco: Former Cigarettes 0.8 25 0 11/24/1967 - 11/23/1992 Tobacco Cessation:Counseling Given: Not Answered Comments:Smoked off and on 25 years Alcohol Use Standard Drinks/Week Comments No 0 (1 standard drink = 0.6 oz pur e alcohol) Education Answer Date Recorded Are you interested in more education? Not on pravin e 12/11/2022 Are you concerned about learning? Not on file 12/11/2022 No 12/11/2022 No 12/11/2022 Digital Access Answer Date Recorded No 01/05/2023 No 01/05/2023 Reliable internet access at home? Not on file 01/05/2023 Device with a working camera? Not on file Intimate Partner Violence Answer Date R ecorded Are you denied basic needs s [facility] as food, clothing, or medical care? No 08/06/2022 In the past 12 months have y ou been in a relationship with a person who hurts, threatens, or tries to control you? No 08/06/2022 Are you denied basic needs s [facility] as food, clothing, or medical care? No 08/06/2022 In the past 12 months have y ou been in a relationship with a person who hurts, threatens, or tries to control you? No 08/06/2022 Comments No Sex and Gender Information Value Date Recorded Sex Assigned at Not on file Legal Sex Female 5:43 PM EST Gender Identity Not on file Sexual Orientation Straight 10/27/2022 10 :40 AM EDT Last Filed Vital Signs Vital Sign Reading Time Taken Comments Blood Pressure 143/76 12/06/2024 11:34 AM EDT Pulse 75 12/06/2024 11:34 AM EDT Temperature 36.3 C (97.4 F) 09/28/2023 11:42 AM EST Respiratory Rate 18 08/07/2022 1:43 PM EST Oxygen Saturation 99% 12/06/2024 11:34 AM EDT Inhaled Oxygen Concentration - - Weight 74.5 kg (164 lb 3.2 oz) 12/06/2024 11:32 AM EDT Height 163.4 cm (5' 4.33 ) 12/06/2024 11:32 AM E DT Body Mass Index 27.9 12/06/2024 11:32 AM EDT Plan of Treatment Upcoming Encounters Date Type Department Care Team (Late st Contact Info) Description 12/06/[address] [facility] [address] Scan [address] [address] 12/06/[address] [address] 04/01/2025 1:00 PM EDT Office Visit [facility] [address] [place] [address] James Schilling [address] [address] 04/08/2025 1:15 PM EDT Appointment [facility], Bone Density [address] [address] James Schilling [address] [address] 04/12/2025 10:30 AM EDT Office Visit [facility] [address] [place] [address] James Schilling [address] [address] 06/06/2025 12:45 PM EDT Appointment [facility], Ct Scan - [address] [address] Flakito Boone MBBS [address] [place] [address] [email or web address] 06/13/2025 11:40 AM EDT Office Visit [facility] at [address] [address] Flakito Boone MBBS [address] [place] [id number] [email or web address] Health Maintenance Due Date Last Done Comments DEPRESSION SCREENING 1964 HEPATITIS C SCREENING 1970 COLOGUARD 1997 COLONOSCOPY 1997 COLORECTAL CANCER SCREENING 1997 FIT TEST 1997 FOBT 1997 SIGMOIDOSCOPY 1997 VIRTUAL COLONOSCOPY 1997 ZOSTER VACCINES (2 of 2) 01/20/2021 11/25/2020 DIABETIC EYE EXAM 06/29/2021 PNEUMOCOCCAL VACCINES (50+ years) (2 of 2 - PCV) 06/11/2022 06/11/2021 POTASSIUM LEVEL 09/19/2024 09/19/2023, 07/16, 08/06/2022, Additional history exists COVID-19 VACCINE ( season) 2024 04/15/2024, 01/20/2024, 06/17/2023, Additional history exists HEMOGLOBIN A1C 03/24/2025 09/24/2024, 081 09/2023, 09/19/2023, Additional history exists LIPID PANEL 03/26/2025 03/26/2024, 08/0 04/2023, 08/02/2022, Additional history exists BLOOD PRESSURE 06/07/2025 12/06/2024 CREATININE LEVEL 11/22/2025 11/22/2024, 12/2023, 09/18/2023, Additional history exists MAMMOGRAM 10/03/2026 10/03/2024, 09/15, 10/03/2024 Adult Td,Tdap Booster 06/24/2027 06/24/2017 OSTEOPOROSIS SCREENING INITIAL (ONE-TIME) Completed 04/06/2023, 03/27/2023 RSV VACCINE Completed 06/24/2023 SMOKING STATUS SCREENING (Once After 26 Yrs) Completed 10/02/2024 HEPATITIS A VACCINES Aged Out No long er eligible based on patient's age to complete this topic HIB VACCINES Aged Out No longer eligi ble based on patient's age to complete this topic MENINGOCOCCAL VACCINES (ACWY) Aged Out No longer eligible based on patient's age to complete this topic MENINGOCOCCAL VACCINES (B) Aged Out N o longer eligible based on patient's age to complete this topic Medical Devices Implanted Type Area Computer Systems Technician Device Identifier Shelf Expiration Date Model / Serial / Lot Screw Bone 26x4.5mm Shoulder Glenoid Fixation Aequalis Titanium Multidirectional Reverse - [id number] Implanted:Qty: 1 on 08/06/2022 by Acosta Aranda DO at [facility] Left: Shoulder [employer] [id number] / / Shoulder Post 25mm [id number] Baseplate Glenoid Humeral Aequalis Reversed Ii Standard - [id number] Implanted:Qty: 1 on 08/06/2022 by Acosta Aranda DO at [facility] Left: Shoulder [employer] 06/04/2027 [id number] / [id number] / Screw Bone 4.5x32mm Shoulder Glenoid Locking Multi Directional Aequalis Reversed Reverse 08 - [id number] Implanted:Qty: 1 on 08/06/2022 by Acosta Aranda DO at [facility] Left: Shoulder [employer] [id number] / / Shoulder Implant [id number] Sphere Glenoid Aequalis Centered - [id number] Implanted:Qty: 1 on 08/06/2022 by Acosta Aranda DO at [facility] Left: Shoulder [employer] 05/05/2027 [id number] / [id number] / Pin Rt Shulder Screws In Right Foot Bone Cement Antibiotic Refobacin - [id number] Implanted:Qty: 1 on 08/06/2022 by Acosta Aranda DO at [facility] Left: Shoulder PAT BIOMET 10/12/2024 [id number] / / [id number] Shoulder Stem [id number] Implant Reverse Fracture Hum - [id number] Implanted:Qty: 1 on 08/06/2022 by Acosta Aranda DO at [facility] Left: Shoulder [employer] 02/28/2025 [id number] / [id number] / Restrictor Shoulder 8 15mm Bone Cement 09 - [id number] Implanted:Qty: 1 on 08/06/2022 by Acosta Aranda DO at [facility] Left: Shoulder [employer] 04/16/2026 [id number] / [id number] / Humerus Insert 36x6.0mm Humeral Shoulder Aequalis Reversed Fracture Lateralized Functional Deltoid Plus - [id number] Implanted:Qty: 1 on 08/06/2022 by Acosta Aranda DO at [facility] Left: Shoulder [employer] 11/17/2026 [id number] / [id number] / Screw Bone 4.5x18mm Shoulder Fixation Hemispherical Head Non Locking Aequalis Reverse 08 - [id number] Implanted:Qty: 2 on 08/06/2022 by Acosta Aranda DO at [facility] Left: Shoulder [employer] [id number] / / Procedures Procedure Name Priority Date/Time Associated Diagnosis Comments XR WRIST 3 OR MORE VIEWS (RIGHT) Routine 01/24/2025 11:35 AM EDT Occult closed fracture of scaphoid of right wrist, initial encounter XR WRIST 3 OR MORE VIEWS (RIGHT) Routine 12/28/2024 11:37 AM EDT Right wrist pain CREATININE/EGFR Routine 11/22/2024 12:12 PM EDT Lymphadenopathy, abdominal HM MAMMOGRAPHY Routine 10/03/2024 10:53 AM EST HEMOGLOBIN A1C Routine 09/24/2024 10:22 AM EST Type 2 diabetes mellitus with microalbuminuria, with long-term current use of insulin LIPID PANEL Routine 03/26/2024 10:07 AM EDT Type 2 diabetes mellitus with microalbuminuria, with long-term current use of insulin Hyperlipidemia LDL goal <100 COMPREHENSIVE METABOLIC PANEL Routine 09/19/2023 8:47 AM EST Osteopenia, unspecified location HM DEXA SCAN Routine 04/06/2023 5:01 PM EDT from Last 3 Months or Most Recently Relevant to Health Maintenance Results * XR WRIST 3 OR MORE VIEWS (RIGHT) (01/24/2025 11:35 AM EDT) Narrative SYSTEMGENERATED, DOCUMENTATION - 01/24/2025 11:35 AM EDT This image report has been auto-finalized and has not been read by a Radiologist. Interpretation has been included in the provider encounter note for this date of service. Yu Tavarez PA-C IMG XR UPPER EXTREMI TY Final Result * XR WRIST 3 OR MORE VIEWS (RIGHT) (12/28/2024 11:37 AM EDT) Narrative SYSTEMGENERATED, DOCUMENTATION - 12/28/2024 11:37 AM EDT This image report has been auto-finalized and has not been read by a Radiologist. Interpretation has been included in the provider encounter note for this date of service. Hiram Kumar PA-C IMG XR UPPER EXTREMITY Final Result * Creatinine/eGFR (11/22/2024 12:12 PM EDT) CREATININE 0.60 0.5 - 1.5 mg/dL [facility] EGFR 95 >59 mL/min/1.7 3m2 [facility] Comment:Estimated glomerular filtration rate calculated using the CKD-EPI refit equation. Blood 11/22/2024 12:1 2 PM EDT 11/22/2024 12:14 PM EDT Flakito WESLEY LAB BLOOD ORDERABLES Final Result Performing Organization Address City/[facility]/ZIP Co de Phone Number [address] [address] * HM MAMMOGRAPHY FOR RESULT ENTRY ONLY (10/03/2024 10:53 AM EST) us Flakito [facility] MAINTENANCE Final R esult * (ABNORMAL) Hemoglobin A1c (09/24/2024 10:22 AM EST) HEMOGLOBIN A1C 6.4(H) 4.3 - 5.8 % [facility] Blood 09/24/2024 10:2 2 AM EST 09/24/2024 10:38 AM EST us James Schilling DO LAB BLOOD ORDERABLES Final Resul t Performing Organization Address [facility] Co de Phone Number [address] [address] * (ABNORMAL) Lipid panel (03/26/2024 10:07 AM EDT) HDL 62 mg/dL [facility] Comment: Interpretation <40 mg/dL: Low HDL cholesterol (major risk factor for CHD) Greater than or equal to 60 mg/dL: High HDL cholesterol ( negative risk factor for CHD) HDL - cholesterol is affected by a number of factors, e.g. smoking, excerise, hormones, sex and age. CHOLESTEROL 190 0 - 240 mg/dL [facility] TRIGLYCERIDES 168(H) 30 - 160 mg/dL [facility] LDL 94 50 - 129 mg/dL [facility] Comment: LDL levels in terms of risk for coronary heart disease: <100 mg/dL: Optimal 100-129 mg/dL: Near or above optimal 130-159 mg/dL: Borderline high 160-189 mg/dL: High >190 mg/dL: Very High CARDIAC RISK RATIO 3.1(L) 3.3 - 4.4 C [facility] Blood 03/26/2024 10:0 7 AM EDT 03/26/2024 10:09 AM EDT us James Schilling DO LAB BLOOD ORDERABLES Final Resul t Performing Organization Address City/[facility]/ZIP Co de Phone Number [address] [address] * (ABNORMAL) Comprehensive metabolic panel (09/19/2023 8:47 AM EST) SODIUM 132(L) 133 - 146 mmol/L [facility] POTASSIUM 4.2 3.3 - 5.1 mmol/L [facility] CHLORIDE 95(L) 96 - 108 mmol/L [facility] CO2 28 21 - 35 mmol/L [facility] BUN 7 6 - 19 mg/dL [facility] CREATININE 0.60 0.5 - 1.5 mg/dL [facility] GLUCOSE 98 70 - 99 mg/dL [facility] ALBUMIN 4.3 3.9 - 4.8 g/dL [facility] TOTAL PROTEIN 8.0 6.5 - 8.0 g/dL [facility] CALCIUM 9.1 8.4 - 10.3 mg/dL [facility] ALKALINE PHOSPHATASE 157(H) 39 - 117 U/L [facility] TOTAL BILIRUBIN 0.4 0.0 - 1.2 mg/dL [facility] AST 26 0 - 37 U/L [facility] ALT 17 0 - 40 U/L [facility] GLOBULIN 3.7 1 - 4.8 g/dL [facility] EGFR 96 >59 mL/min/1.7 3m2 [facility] Comment:Estimated glomerular filtration rate calculated using the CKD-EPI refit equation. ANION GAP 13 10 - 20 mmol/L [facility] Blood 09/19/2023 8:47 AM EST 09/19/2023 8:57 AM EST us James Schilling DO LAB BLOOD ORDERABLES Final Resul t [address] [address] * HM DEXA SCAN (04/06/2023 5:01 PM EDT) us Historical Provider HEALTH MAINTENANCE Final Result from Last 3 Months or Most Recently Relevant to Health Maintenance Insurance [facility] MEDICARE PART A & B [facility] MEDICARE PART A & B [facility] MEDIC[facility] PART A & B [facility] MED[facility] PART A & B [facility] MEDICARE PART A & B [facility] MEDICARE PART A & B [facility] MEDICARE [facility] A & B [facility] MEDICARE PART A & B [facility] MEDICARE PART A & B Member Subscriber Plan / Payer (Ef fective 2018-Present) Name:Araceli Page Member ID:[id number] Relation to Subscriber:Self Name:Araceli Page Subscriber ID:[id number] Payer ID:[id number] Group ID:Not on file Type:Medicare Address: [employer] [address] [employer] [place] [employer] Member Subscriber Plan / Payer (Ef fective 2011-Present) Name:Araceli Page Member ID:[id number] Relation to Subscriber:Self Name:Araceli Page Subscriber ID:[id number] Payer ID:Not on file Group ID:FAX# [phone] Type:Indemnity Address: [address] [address] [place] [address] Care Teams Selling Specialist Relationship Specialty Start Date End Date Nohemy Hernandez MD [address] [place] [address] 2 [place] [address] PCP - General Internal Medicine 05/14/21 Flakito Boone MBBS [address] [place] [address] 2 [place] [address] [email or web address] Primary Oncologist Medical Oncology 10/02/24 Additional Source Comments The information contained in this document represents components of the legal health record. It is not the complete legal health record.[facility]
[2025-03-15 13:13] LABS: Anion Gap 11 (12-20); Blood Urea Nitrogen 9 mg/dL (9-16); Calcium 9.1 mg/dL (8.4-10.2); Carbon Dioxide 28 mmol/L (22-29); Chloride 96 mmol/L (96-108); Estimated Glomerular Filt Rate > 60; Potassium 4.4 mmol/L (3.3-5.1); Sodium 131 mmol/L (135-145)
== END 2025-03-15 11:52 | disposition home or self-care (01) ==
LOC: HO.LAB 11:51
PROVIDERS: PCP Internal Medicine; Visit Provider Internal Medicine
DX: R07.89 Other chest pain (principal)
CPT/HCPCS: 36415; 80048

== ENCOUNTER 2025-04-11 11:34 | Outpatient (AMB) | payer MEDICARE, BC, SELFPAY ==
--- OUTSIDE RECORDS SUMMARY | 2025-04-08 12:48 | XMS_ITS | Encounter Summary ---
Author Organization [facility] Address [address] [place] [address] Phone Care Team Providers Care Engineering Designer Name Role Phone Nohemy Hernandez MD Primary Care Provider [phone] Flakito Boone Unavailable [phone] Reason for Visit * Auth/Cert (Routine) Specialty Diagnoses / Procedures Referred By Diego hernandez Referred To Contact Referral ID Status Reason Start Date Expiration Date Visits Re quested Visits Authorized [id number] 1 1 Encounter Details Date Type Department Care Team (Latest Contact Info) Description 04/08/2025 12:48 PM EDT - 04/08/2025 11:59 PM EDT Hospital Encounter [facility], [facility] - [address] [address] Merlin Schilling DO [address] [place] [address] [email or web address] Arrived Discharge Disposition: Home or Self Care Social History Tobacco Use Types Packs/Day Years Used Date Smoking Tobacco: Former Cigarettes 0.8 25 0 11/24/1967 - 11/23/1992 Comments:Smoked off and on 2 5 years Alcohol Use Standard Drinks/Week Comments No [...] ecorded Are you denied basic needs s uch as food, clothing, or medical care? No 08/06/2022 In the past 12 months have y ou been in a relationship with a person who hurts, threatens, or tries to control you? No 08/06/2022 Are you denied basic needs s uch as food, clothing, or medical care? No [...] Orientation Straight 10/27/2022 10 :40 AM EDT documented as of this encounter Medications at Time of Discharge amitriptyline (ELAVIL) 50 MG tablet Take 50 mg by mouth nightly. amLODIPine (NORVASC) 5 MG tablet Take 5 mg by mouth daily. 09/17/2024 09/17/19 26 BD ULTRA-FINE MINI PEN NEEDLE 31 gauge x 3/16 NdleIndications:T ype 2 diabetes mellitus with microalbuminuria, with long-term current use of insulin INJECT 1 EACH UNDER THE SKIN EVERY MORNING. 100 each 3 01/08/2025 biotin 1 mg tablet Take 1,000 mcg by mouth 3 (three) times a day. blood-glucose meter,continuous (DEXCOM G7 PILOT BOAT DECKHAND) MiscIndications:T ype 2 diabetes mellitus with microalbuminuria, with long-term current use of insulin by Miscellaneous route as needed. 1 each 09/28/2023 blood-glucose sensor (DEXCOM G7 SENSOR) DeviIndications:T ype 2 diabetes mellitus with microalbuminuria, with long-term current use of insulin 1 Application by Miscellaneous route Every 10 Days. 3 each 11 09/28/2023 cholecalciferol (VITAMIN D3) 2,000 unit capsuleIndication s:Osteopenia of multiple sites Take 1 capsule (2,000 Units total) by mouth daily. 90 capsule 3 10/08/2024 coenzyme Q10 300 mg Cap Take 300 mg by mouth daily. ezetimibe (ZETIA) 10 mg tabletIndications :Hyperlipidemia LDL goal <70 Take 1 tablet (10 mg total) by mouth daily. 90 tablet 1 04/01/2025 FLAXSEED OIL ORAL Take 1,400 mg by mouth daily. insulin glargine (BASAGLAR KWIKPEN U-100 INSULIN) 100 unit/mL (3 mL) InPn injection penIndications:Ty pe 2 diabetes mellitus with microalbuminuria, with long-term current use of insulin Inject 17 Units under the skin daily. 15 mL 1 04/01/2025 isosorbide mononitrate (IMDUR) 60 MG 24 hr tablet Take 60 mg by mouth daily. 05/04/2021 LORazepam (ATIVAN) 0.5 MG tablet Take 0.5 mg by mouth 2 (two) times a day. meclizine (ANTIVERT) 25 mg tablet Take 25 mg by mouth 2 (two) times a day. 03/08/2023 Medication-Free Text Jose eye drop Medication-Free Text Jose eye ointment metFORMIN (GLUCOPHAGE-XR) 500 MG 24 hr tabletIndications :Type 2 diabetes mellitus with microalbuminuria, with long-term current use of insulin Take 2 tablets (1,000 mg total) by mouth 2 (two) times a day with meals. 360 tablet 1 04/01/2025 metoprolol succinate (TOPROL-XL) 100 MG 24 hr tablet Take 100 mg by mouth daily. plant stanol uche 450 mg Cap Aka cholest off pull therapeutic multivitamin tablet Take 1 tablet by mouth daily. tiZANidine (ZANAFLEX) 2 MG tablet Take 2-4 mg by mouth every 6 (six) hours as needed. ursodiol (ACTIGALL) 300 mg capsule Take 600 mg by mouth 2 (two) times a day. valsartan (DIOVAN) 320 MG tablet Take 320 mg by mouth daily. documented as of this encounter Plan of Treatment Upcoming Encounters Date Type Department Care Team (Late st Contact Info) Description 12/06/2024 Procedure Pass [facility], [facility] - [address] [address] 12/06/2024 Procedure Pass [facility] - [address] [address] 04/12/2025 10:30 AM EDT Office Visit [facility] [address] [place] [address] Merlin Schilling DO [address] [place] [phone] 06/06/2025 12:45 PM EDT Appointment [facility] - [address] [address] Flakito Boone MBBS [address] [place] [address] [email or web address] 06/13/2025 11:40 AM EDT Office Visit [facility] at [address] [address] Flakito Boone MBBS [address] [place] [address] [email or web address] 10/02/2025 1:00 PM EST Office Visit [facility] [address] [place] [address] [place] [address] Merlin Schilling DO [address] [place] [phone] [email or web address] documented as of this encounter Procedures Procedure Name Priority Date/Time Associated Diagnosis Comments BD DXA AXIAL (SPINE) WITH HIP Routine 04/08/2025 1:18 PM EDT Osteopenia, unspecified location Osteopenia of multiple sites documented in this encounter Results * BD DXA AXIAL (SPINE) WITH HIP (04/08/2025 1:18 PM EDT) Anatomical Region Laterality Modality Bone Density Bone Density 04/08/2025 1:06 PM EDT Impressions 04/09/2025 8:51 PM EDT Interpretation: Osteopenia. Narrative 04/09/2025 8:51 PM EDT Referred By: MERLIN SCHILLING Indications: Osteopenia Scanner: [employer] A with serial# of [id number] located at [facility] Bone Density Scan (DXA) 04/08/25 Details of prior DXA scans are available by clicking View Full Report BMD T- Z- Skeletal Site gm/cm2 score score BMD Change Since Prior Scan ------ ----- ----- PA Spine (L1-L4) 0.877 -1.50 0.70 N/A Total Hip (Left) 0.860 -0.70 1.00 N/A Femoral Neck (Left) 0.839 -0.10 1.90 N/A Total Hip (Right) 0.768 -1.40 0.20 N/A Femoral Neck (Right) 0.719 -1.20 0.80 N/A ------ ----- ----- * Denotes significant change when >= 0.022 g/cm2 for the spine, 0.027 g/cm2 for the total hip, 0.029 g/cm2 for the femoral neck. Interpretation: Osteopenia. Technical Quality: Imaging of all sites was of adequate quality. FRAX: Based on FRAX(r) 3.6 ([place] White female), this patient's likelihood of hip fracture is 1.8% and major osteoporotic fracture is 14.9% over the next 10 years. The patient reported the following risks of fracture on a questionnaire: previous fracture as an adult. Reviewed By: Yobany Santacruz on 04/09/2025 20:51:38 Additional Information: -World Health Organization criteria classify adults based on lowest T-score at PA spine, hip or forearm: Normal (T-score >= -1.0), Osteopenia (T-score between -1 and -2.5), or Osteoporosis (T-score <= -2.5). At [facility], T-scores are compared to peak bone density of a young white gender matched reference population. - For premenopausal women and men under the age of 50, Z-scores (comparison to age, gender, and ethnicity matched reference population) are used: Above expected range for age (Z-score >= 2.0), Within expected range of age (Z-score 1.9 to -1.9), or Below expected range for age (Z-score <= -2.0). - The Bone Health and Osteoporosis Foundation recommends that treatment be considered in men aged more than 50 years and in postmenopausal women with ANY of the following: Prior hip or vertebral fractures; T-score of <= -2.5 at the PA spine or hip; or 10 year fracture probability by FRAX of >= 3% for the hip or >= 20% for major osteoporotic fracture. - The FRAX algorithm (https://www.maria ines.ac.uk/FRAX/tool.aspx) is designed to predict 10-year fracture risk in treatment-naive adults between the ages of 40 and 90. It is not intended to be used in those receiving pharmacologic osteoporosis treatment. - The TBS is derived from the texture of the DXA spine image and has been shown to be related to bone microarchitecture and fracture risk. This data provides information independent of BMD value. It adds to fracture risk assessment with a FRAX adjusted for TBS score. If your patient had a TBS and qualified for a FRAX score, the reported FRAX score has been adjusted for TBS. TBS Score Interpretation 1.350 and greater Normal bone microarchitecture 1.200 to 1.350 Partially degraded bone microarchitecture 1.200 and less Degraded bone microarchitecture - Including race/ethnicity in the generation of T- or Z-scores or in the FRAX calculation is complicated, and currently undergoing active review to ensure that we can give patients the best information on their risk of fracture. - Some prior studies may not be compatible with our comparison software. - Click on View Full Report to see subsequent pages with images and prior bone density results. Procedure Note Yobany Santacruz MD - 04/09/2025 Referred By: MERLIN SCHILLING Indications: Osteopenia Scanner: [employer] A with serial# of [id number] located at [facility] Bone Density Scan (DXA) 04/08/25 Details of prior DXA scans are available by clicking View Full Report BMD T- Z- Skeletal Site gm/cm2 score score BMD Change Since Prior Scan ------ ----- PA Spine (L1-L4) 0.877 -1.50 0.70 N/A Total Hip (Left) 0.860 -0.70 1.00 N/A Femoral Neck (Left) 0.839 -0.10 1.90 N/A Total Hip (Right) 0.768 -1.40 0.20 N/A Femoral Neck (Right) 0.719 -1.20 0.80 N/A ------ ----- * Denotes significant change when >= 0.022 g/cm2 for the spine, 0.027g/cm2 for the total hip, 0.029 g/cm2 for the femoral neck. Interpretation: Osteopenia. Technical Quality: Imaging of all sites was of adequate quality. FRAX: Based on FRAX(r) 3.6 ([place] White female), this patient's likelihoodof hip fracture is 1.8% and major osteoporotic fracture is 14.9% over thenext 10 years. The patient reported the following risks of fracture on a questionnaire: previous fracture as an adult. Reviewed By: Yobany Santacruz on 04/09/2025 20:51:38 Additional Information: -World Health Organization criteria classify adults based on lowestT-score at PA spine, hip or forearm: Normal (T-score >= -1.0), Osteopenia (T-score between -1 and -2.5), or Osteoporosis (T-score <= -2.5). At [facility], T-scores are compared to peak bone density of a young white gender matched reference population. - For premenopausal women and men under the age of 50, Z-scores(comparison to age, gender, and ethnicity matched reference population) are used:Above expected range for age (Z-score >= 2.0), Within expected range of age (Z-score 1.9 to -1.9), or Below expected range for age (Z-score <= -2.0). - The Bone Health and Osteoporosis Foundation recommends that treatment be considered in men aged more than 50 years and in postmenopausal women with ANY of the following: Prior hip or vertebral fractures; T-score of <= -2.5 at the PA spine or hip; or 10 year fracture probability by FRAX of >= 3%for the hip or >= 20% for major osteoporotic fracture. - The FRAX algorithm (https://www.maria ines.ac.uk/FRAX/tool.aspx) is designed to predict 10-year fracture risk in treatment-naive adultsbetween the ages of 40 and 90. It is not intended to be used in those receiving pharmacologic osteoporosis treatment. - The TBS is derived from the texture of the DXA spine image and has been shown to be related to bone microarchitecture and fracture risk. This data provides information independent of BMD value. It adds to fracture risk assessment with a FRAX adjusted for TBS score. If your patient had a TBSand qualified for a FRAX score, the reported FRAX score has been adjusted for TBS. TBS Score Interpretation 1.350 and greater Normal bone microarchitecture 1.200 to 1.350 Partially degraded bone microarchitecture 1.200 and less Degraded bone microarchitecture - Including race/ethnicity in the generation of T- or Z-scores or in the FRAX calculation is complicated, and currently undergoing active review to ensure that we can give patients the best information on their risk of fracture. - Some prior studies may not be compatible with our comparison software. - Click on View Full Report to see subsequent pages with images andprior bone density results. IMPRESSION: Interpretation: Osteopenia. Merlin Schilling DO IMG BD BONE DENSITY DEXA Final R esult documented in this encounter Visit Diagnoses Diagnosis Osteopenia, unspecified location documented in this encounter Care Teams Engineering Designer Relationship Specialty Start Date End Date Nohemy Hernandez MD [address] [place] [address] PCP - General Internal Medicine 05/14/21 Flakito Boone MBBS [address] [place] [address] [email or web address] Primary Oncologist Medical Oncology 10/02/24 documented as of this encounter Additional Source Comments The information contained in this document represents components of the legal health record. It is not the complete legal health record.[facility]
--- NOTE | 2025-04-11 11:41 | MHC.OFFVIS ---
Vital Signs 04/11/25 11:41 Height 5 ft 4 in Intake Visit Reasons: 6 Months/ Vertigo Allergies bacitracin (BACITRACIN) Allergy (Intermediate, Verified 04/11/25 11:45) RASH Penicillins Allergy (Intermediate, Verified 04/11/25 11:45) RASH/CHEST TIGHTNESS Sulfa (Sulfonamide Antibiotics) (Sulfa (Sulfonamides)) Allergy (Intermediate, Verified 04/11/25 11:45) HIVES Medication List - Last Reconciled 04/11/25 by Vandana Reece CNP amitriptyline 50 mg (2 x 25 mg) PO BEDTIME 90 days amlodipine 7.5 mg PO DAILY calcium carbonate 500 mg PO DAILY insulin detemir U-100 (Levemir FlexTouch U-100 Insulin) 30 units subcut QAM isosorbide mononitrate ER 60 mg PO DAILY lidocaine 5% 1 patch topical DAILY lorazepam 0.5 mg PO BID meclizine 25 mg PO BID PRN 30 days metformin ER 1,000 mg PO BID metoprolol succinate ER 100 mg PO DAILY oxycodone 5 mg PO Q6H PRN tizanidine 2 mg PO BEDTIME PRN ursodiol 600 mg PO BID valsartan 320 mg PO DAILY vitamin B complex 1 cap PO DAILY HPI Comments Details: Episodes of vertigo stable with meclizine and lorazepam. Occasional migraines with and without visual aura. Tylenol as needed helps. Ankles feel weaker and more numb at times. No significant pain to lower extremities. Staying active, taking up to 8,000 steps/day and going to senior center. Tripped over curb and fell about 6 weeks ago. Has been under more stress the last year, following with multiple specialists including liver specialist at [facility], [facility]ology [facility], and cardiology at [facility]. Gets occasional pressure to back of head that is relieved with Tylenol. ?? Occasional vertigo on lying down, lasting a couple of minutes. Also gets lightheaded on change of position. Heightened startle response, especially with sudden loud noise. As long as she takes the medications it is under control. Previously was anemic from blood loss after shoulder replacement and large shoulder hematoma. Gastroparesis from diabetes. No change in numbness in legs. Satisfied with her quality of life. Saw Dr. West and had NCV/EMG which was normal. Numbness in right ankle, foot constantly, and constantly in pain, calf and occasionally in thigh. No hearing loss, but has bilateral tinnitus. This is a high-pitched squealing noise. Has fibromyalgia with muscle pains, helped by occasional lorazepam. [facility] Medical History Skin cancer COVID-19 vaccine series completed GERD (gastroesophageal reflux disease) Cough variant asthma Elevated cholesterol PTSD (post-traumatic stress disorder) CRPS (complex regional pain syndrome) type I of lower limb Diabetes HTN (hypertension) Arthritis Primary biliary cholangitis Surgical History Hx of foot surgery Hx of cholecystectomy Hx of repair of right rotator cuff History of H/O colonoscopy History of liver biopsy History of esophagogastroduodenoscopy (EGD) Hx of carpal tunnel repair Family History (Updated 01/09/25 @ 12:12 by Matthew Qiu MD) Father Emphysema lung Social History Are you a primary intensive care specialist to a significant other at home: No Do you presently have visiting nurse or other home services: No Comment: uses cane on occasion when foot pain acts up Patient Tobacco Use Status: Former Tobacco user Tobacco use type: Cigarette Years Smoked: 25 Review of Systems Const Denies chills, Denies daytime sleepiness, Reports difficulty sleeping, Reports fatigue, Denies fever(s), Denies frequent falls, Reports headache(s), Denies increased appetite, Denies poor appetite, Denies snoring, Denies weakness, Denies weight gain and Denies weight loss Eyes Denies loss of vision ENT Denies vertigo, Reports dizziness, Reports headache(s) and Reports neck pain Card Denies chest pain at rest, Denies chest pain with activity, Denies syncope, Denies leg edema, Denies palpitations, Denies dyspnea and Denies dyspnea on exertion Resp Denies cough, Denies dyspnea, Denies dyspnea on exertion and Denies snoring GI Denies abdominal pain, Denies constipation, Denies heartburn, Denies diarrhea and Denies nausea Denies urinary frequency, Denies urinary incontinence and Denies urinary urgency Musc Denies abnormal gait, Reports back pain, Reports myalgias, Reports arthralgias, Reports neck pain, Reports numbness and Reports tingling Neuro Denies abnormal gait, Denies vertigo, Reports dizziness, Denies syncope, Denies frequent falls, Reports headache(s), Denies lack of coordination, Denies loss of vision, Denies memory loss, Reports numbness, Denies Other visual disturbances, Denies restless legs, Denies seizure-like activity, Reports tingling, Denies paresthesias, Denies tremor(s) and Denies weakness Psych Denies anxiety, Denies depression, Denies auditory hallucinations, Denies memory loss and Denies visual hallucinations Endo Reports fatigue and Denies palpitations Physical Exam Const Other: General Appearance:? normal, in no acute distress. Heart:? S1, S2 normal, no murmurs. Lungs:? clear anteriorly and posteriorly. Musculoskeletal:? normal. Extremities:? no edema. Psych:? alert, oriented, cognitive function intact, cooperative with exam. Neuro Other: Abnormal Neurological Findings:?strabismus with blind left eye Mental Status: alert and oriented X 3. Normal attention, orientation, memory, and affect. Cranial Nerves: Pupils are equal, round, and reactive to light. External ocular muscles are intact. Visual ramirez are full, no ptosis. Face is symmetrical, no facial weakness or droop. Facial sensations are normal. Tongue protrudes in midline. Palate elevates symmetrically. Shoulder shrugging is normal Motor Examination: Normal muscle tone, bulk and strength. No atrophy or fasciculations. No drift of the extended upper extremities. DTR 2+. Plantars are flexor. Sensory Exam: Normal light touch, temperature, pinprick, vibration, and joint-position sensations. Rhomberg sign is absent. Coordination: No ataxia. No titubation. Gait Exam: Within normal limits. Cerebellar Signs: [id number] is okay. Extrapyramidal System: No tremor, rigidity with normal facial expressions. No bradykinesia. No bradyphrenia. Normal arm swing and posture. No propulsion or retropulsion. Speech: Normal. Results Reviewed Results Reviewed: 01/22/15 JAIME WNL. MRI brain shows mild non specific microvascular changes 10/04/19 MRI LS spine shows severe discogenic degen changes and foraminal stenosis and mild grade I spondylolisthesis at L-5 with moderate canal stenosis [facility] Pulse Electromagnetic pulse device for pain control 12/2/20 NCV/EMG LE Sensory peripheral neuropathy in the lower extremities. Normal EMG bilaterally in the L4-S1 innervated muscles. Compared to study of 04/[address] Portillo in which NCV was normal and there was mild EMG evidence of right L5-S1 radiculopathy. Assessment & Plan Assessment & Plan (1) Dizziness: Code(s): R42 - Dizziness and giddiness Category: Medical Plan: Continue meclizine 25mg 1 tablet twice a day. Continue lorazepam 0.5mg 1 tablet twice a day. (2) Migraine: Code(s): G43.909 - Migraine, unspecified, not intractable, without status migrainosus Category: Medical Qualifiers: Migraine type: unspecified Status migrainosus presence: without status migrainosus Intractability: not intractable Qualified Code(s): G43.909 - Migraine, unspecified, not intractable, without status migrainosus Plan: Continue amitriptyline 25mg 2 tablets at bedtime. (3) Peripheral neuropathy: Code(s): G62.9 - Polyneuropathy, unspecified Category: Medical Qualifiers: Peripheral neuropathy type: polyneuropathy, unspecified Qualified Code(s): G62.9 - Polyneuropathy, unspecified Plan: There was no significant pain and medication was not indicated at this time. Stay physically active, control blood sugar. Coding Level of Care Code Est Pt Level 4 (57506) Diagnoses Dizziness R42 Migraine without status migrainosus, not intractable, unspecified migraine type G43.909 Migraine type: unspecified Status migrainosus presence: without status migrainosus Intractability: not intractable Peripheral polyneuropathy G62.9 Peripheral neuropathy type: polyneuropathy, unspecified
--- OUTSIDE RECORDS SUMMARY | 2025-04-11 12:50 | XMS_ITS | Encounter Summary ---
Author Organization [facility] Address [address] [place] [id number] Phone Care Team Providers Care Network Designer Name Role Phone Nohemy Hernandez MD Primary Care Provider [phone] Flakito Boone Unavailable [phone] Encounter Details Date Type Department Care Team (Late st Contact Info) Description 12/27/2023 Ancillary Orders [facility],Outside Imaging [address] [place], [place] [id number] System, Provider Not In, [facility] [address] [address] Social History Tobacco Use Types Packs/Day Years [...] AM EDT documented as of this encounter Plan of Treatment Upcoming Encounters Date Type Department Care Team (Late st Contact Info) Description 12/06/2024 Procedure Pass [address] [address] 12/06/[address] [address] 04/12/2025 10:30 AM EDT Office Visit [facility] [address] [place] [phone] James Schilling DO [address] [place] [id number] 06/06/2025 12:45 PM EDT Appointment [address] [address] Flakito Boone MBBS [address] [place] [phone] [email or web address] 06/13/2025 11:40 AM EDT Office Visit [facility] at [address] [address] Flakito Boone MBBS [address] [place] [phone] [email or web address] 10/02/2025 1:00 PM EST Office Visit [facility] [address] [place] [address] James Schilling DO [address] [place] [address] [email or web address] documented as of this encounter Results * DXA Outside (No Interpretation) (03/30/2023 12:00 AM EDT) Narrative SYSTEMGENERATED, DOCUMENTATION - 12/27/2023 6:40 AM EDT This study is for PACS storage only and not for interpretation. us Provider Not In System PhD IMG OUTSIDE IMAGING W /OUT INTERPRETATION Final Result documented in this encounter Visit Diagnoses Not on filedocumented in this encounter Additional Health Concerns Infection Onset Date Last Indicated Resolved Time 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 07/21/2022 07/20/2024 1:24 AM EST documented as of this encounter Care Teams Network Designer Relationship Specialty Start Date End Date Nohemy Hernandez MD [address] [place] [phone] PCP - General Internal Medicine 05/14/21 Flakito Boone MBBS [address] [place] [phone] [email or web address] Primary Oncologist Medical Oncology 10/02/24 documented as of this encounter Additional Source Comments The information contained in this document represents components of the legal health record. It is not the complete legal health record.[facility]
--- OUTSIDE RECORDS SUMMARY | 2025-04-11 12:50 | XMS_ITS | Clinical Summary ---
Author Organization [facility] Address [address] [place] [address] Phone Care Team Providers Care Metal Hanger Name Role Phone Nohemy Hernandez MD Primary Care Provider [phone] Flakito Boone MBBS Unavailable [phone] Allergies Active Allergy Reactions Criticality Noted [...] 03/08/20 23 Active blood-glucose meter,continuous (DEXCOM G7 TENTERER) MiscIndications: Type 2 diabetes mellitus with microalbuminuria [...] by mouth daily. 09/17/19 25 026 Active cholecalciferol (VITAMIN D3) 2,000 unit capsuleIndicatio ns:Osteopenia of multiple sites Take 1 capsule (2,000 Units total) by mouth daily. 90 capsule 3 10/08/19 25 Active BD ULTRA-FINE MINI PEN NEEDLE 31 gauge x 3/16 NdleIndications: Type 2 diabetes mellitus with microalbuminuria , with long-term current use of insulin INJECT 1 EACH UNDER THE SKIN EVERY MORNING. 100 each 3 01/09/20 25 Active ezetimibe (ZETIA) 10 mg tabletIndication s:Hyperlipidemia LDL goal <70 Take 1 tablet (10 mg total) by mouth daily. 90 tablet 1 04/01/20 25 Active insulin glargine (BASAGLAR KWIKPEN U-100 INSULIN) 100 unit/mL (3 mL) InPn injection penIndications:T ype 2 diabetes mellitus with microalbuminuria , with long-term current use of insulin Inject 17 Units under the skin daily. 15 mL 1 04/01/20 25 Active metFORMIN (GLUCOPHAGE-XR) 500 MG 24 hr tabletIndication s:Type 2 diabetes mellitus with microalbuminuria , with long-term current use of insulin Take 2 tablets (1,000 mg total) by mouth 2 (two) times a day with meals. 360 tablet 1 04/01/20 25 Active metFORMIN (GLUCOPHAGE-XR) 500 MG 24 hr tabletIndication s:Type 2 diabetes mellitus with microalbuminuria , with long-term current use of insulin Take 2 tablets (1,000 mg total) by mouth 2 (two) times a day with meals. 360 tablet 1 10/02/19 25 025 Discontin ued(Reord er) insulin glargine (BASAGLAR KWIKPEN U-100 INSULIN) 100 unit/mL (3 mL) InPn injection penIndications:T ype 2 diabetes mellitus with microalbuminuria , with long-term current use of insulin Inject 17 Units under the skin daily. 15 mL 1 10/02/19 25 025 Discontin ued(Reord er) Active Problems Problem Noted Date Diagnosed Date [...] like to obtain the DXA scan at [facility]. I will request the study. The [...] LDL goal <100 04/14/2022 Assessment & Plan (04/01/2025 1:15 PM EDT): We have new guidelines for cholesterol management and the LDL should be less than 70 mg/dL. Previously the LDL guidelines were less than 100 and her LDL was in range at 94 mg/dL but now this is considered elevated. She cannot tolerate statins. She just takes [id number]-fpmfxfk medications like planned stanol elayne, she monitors her diet. However I did inform her that there is other medications that are not statins such as ezetimibe and she can always consider this. She informs me that she has tried this medication before and she is willing to try it again. She states that most of the time she has chronic fatigue. So she is hard for her to determine if a certain medication is causing the problem. She finds that if she has to stop and rest then she most likely will attributed to the particular medication that she has been taking. In any case I will prescribe ezetimibe 10 mg again and see if she is able to tolerate this medication. Assessment & Plan (10/02/2024 1:45 PM EST): [...] use of insulin 06/29/2021 Assessment & Plan (04/01/2025 1:19 PM EDT): Controlled. Hemoglobin A1c is 5.8%. 96% of the glucose are in range average glucose 130 mg/dL she does not have hypoglycemia so we can continue her current regimen of metformin and Basaglar. She does not have low fasting glucose levels. Assessment & Plan (10/02/2024 1:44 PM EST): [...] of Trulicity 0.75 mg weekly. Lot number [id number] expiration January 21, 2023. The patient will return for follow-up in 3 months time. Encounters Date Type Department Care Team Description 04/08/2025 12:48 PM EDT - 04/08/2025 11:59 PM EDT Hospital Encounter [address] [address] Merlin Schilling DO Arrived Discharge Disposition: Home or Self Care 04/01/2025 1:00 PM EDT Office Visit [facility] [address] [place] [address] Merlin Schilling DO Type 2 diabetes mellitus with microalbuminuria, with long-term current use of insulin (Primary Dx); Hyperlipidemia LDL goal <70 04/01/2025 Telephone [facility] [address] [place] [id number] Merlin Schilling DO 03/27/2025 11:08 AM EDT - 03/27/2025 11:59 PM EDT Hospital Encounter [facility] [address] [place] [address] Merlin Schilling DO Discharge Disposition: Home or Self Care 01/24/2025 11:40 AM EDT Office Visit [facility] [address] [place] [address] Yu Tavarez PA-C Occult closed fracture of scaphoid of right wrist, initial encounter (Primary Dx); Trigger index finger of right hand 01/24/2025 11:29 AM EDT - 01/24/2025 11:59 PM EDT Hospital Encounter [address] [address] Yu Tavarez PA-C Discharge Disposition: Home or Self Care from Last 3 Months Immunizations Immunization Administration Dates Next Due INFLUENZA, SPLIT VIRUS, TRIVALENT W/ PRESERVATIV E IM 05/15/2020,05/24/2018 Influenza High-Dose Quadrivalent Preservative Fr ee IM 05/18/2022 Influenza High-Dose Trivalent Preservative Free IM 05/24/2024,06/16/2019 Influenza Quadrivalent Adjuvanted Preservative F ree IM 06/17/2023,06/11/2021 Influenza Trivalent Adjuvanted Preservative free IM 06/24/2017 Influenza, Unspecified Formulation 06/09/2021 Pneumococcal polysaccharide PPSV23 [...] Pressure 143/76 12/06/2024 11:34 AM EDT Pulse 78 04/01/2025 1:07 PM EDT Temperature 36.3 C (97.3 F) 04/01/2025 1:07 PM EDT Respiratory Rate 18 08/07/2022 1:43 PM EST Oxygen Saturation 98% 04/01/2025 1:07 PM EDT Inhaled Oxygen Concentration - - Weight 75.3 kg (166 lb) 04/01/2025 1:07 PM EDT Height 163.4 cm (5' 4.33 ) 04/01/2025 1:07 PM ED T Body Mass Index 28.2 04/01/2025 1:07 PM EDT Plan of Treatment Upcoming Encounters Date Type Department Care Team (Late st Contact Info) Description 12/06/2024 Procedure Pass [address] [address] 12/06/[address] [address] 04/12/2025 10:30 AM EDT Office Visit [facility] [address] [place] [address] Merlin Schilling DO [address] [place] [address] 06/06/2025 12:45 PM EDT Appointment [address] [address] Flakito Boone MBBS [address] [place] [address] [email or web address] 06/13/2025 11:40 AM EDT Office Visit [facility] [address] [place] [address] Flakito Boone, MBBS [address] [place] [address] [email or web address] 10/02/2025 1:00 PM EST Office Visit [facility] [address] [place] [address] Merlin Schilling, [address] [place] [address] [email or web address] Health Maintenance Due Date Last Done Comments [...] 2024 04/15/2024, 01/20/2024, 06/17/2023, Additional history exists INFLUENZA VACCINE (#1) 2025 , 06/17/2023, 05/18/2022, Additional history exists BLOOD PRESSURE 06/07/2025 12/06/2024 HEMOGLOBIN A1C 09/27/2025 03/27/2025, 09/15, 03/26/2024, Additional history exists CREATININE LEVEL 11/22/2025 11/22/2024, 12/2023, 09/18/2023, Additional history exists LIPID PANEL 03/27/2026 03/27/2025, 03/15, 03/23/2023, Additional history exists MAMMOGRAM 10/03/2026 10/03/2024, 09/15, 10/03/2024 Adult Td,Tdap Booster 06/24/2027 06/24/2017 RSV VACCINE Completed 06/24/2023 SMOKING STATUS SCREENING (Once After 26 Yrs) Completed 04/01/2025 OSTEOPOROSIS SCREENING INITIAL (ONE-TIME) Completed 04/08/2025, 04/06/2023, 03/27/2023 HEPATITIS A VACCINES Aged Out No long [...] this topic Medical Devices Implanted Type Area Multiple Effect Evaporator Operator Device Identifier Shelf Expiration Date Model / Serial / Lot Screw Bone 26x4.5mm Shoulder Glenoid Fixation Aequalis Titanium Multidirectional Reverse - [id number] Implanted:Qty: 1 on 08/06/2022 by Acosta Aranda DO at [facility] Left: Shoulder [employer] [id number] / / Shoulder Post 25mm [id number] Baseplate Glenoid Humeral Aequalis Reversed Ii Standard - [id number] Implanted:Qty: 1 on 08/06/2022 by Acosta Aranda DO at [facility] Left: Shoulder [employer] 06/04/2027 [id number] / [id number] / Screw Bone 4.5x32mm Shoulder Glenoid Locking Multi Directional Aequalis Reversed Reverse 08 - [id number] Implanted:Qty: 1 on 08/06/2022 by Acosta Aranda DO at [facility] Left: Shoulder [employer] [id number] / / Shoulder Implant [id number] Sphere Glenoid Aequalis Centered - [id number] Implanted:Qty: 1 on 08/06/2022 by Acosta Aranda DO at [facility] Left: Shoulder [employer] 05/05/2027 [id number] / [id number] / Pin Rt Shulder Screws In Right Foot Bone Cement Antibiotic Refobacin - [id number] Implanted:Qty: 1 on 08/06/2022 by Acosta Aranda DO at [facility] Left: Shoulder PAT BIOMET 10/12/2024 [id number] / / [id number] Shoulder Stem [id number] Implant Reverse Fracture Hum - [id number] Implanted:Qty: 1 on 08/06/2022 by Acosta Aranda DO at [facility] Left: Shoulder [employer] 02/28/2025 [id number] / [id number] / Restrictor Shoulder 8 15mm Bone Cement 09 - [id number] Implanted:Qty: 1 on 08/06/2022 by Acosta Aranda DO at [facility] Left: Shoulder [employer] 04/16/2026 [id number] / [id number] / Humerus Insert 36x6.0mm Humeral Shoulder Aequalis Reversed Fracture Lateralized Functional Deltoid Plus - [id number] Implanted:Qty: 1 on 08/06/2022 by Acosta Aranda DO at [facility] Left: Shoulder [employer] 11/17/2026 [id number] / [id number] / Screw Bone 4.5x18mm Shoulder Fixation Hemispherical Head Non Locking Aequalis Reverse 08 - [id number] Implanted:Qty: 2 on 08/06/2022 by Acosta Aranda DO at [facility] Left: Shoulder [employer] [id number] / / Procedures Procedure Name Priority Date/Time Associated Diagnosis Comments BD DXA AXIAL (SPINE) WITH HIP Routine 04/08/2025 1:18 PM EDT Osteopenia, unspecified location Osteopenia of multiple sites MICROALBUMIN/CREATININ E RATIO, RANDOM URINE Routine 03/27/2025 11:25 AM EDT Type 2 diabetes mellitus with microalbuminuria, with long-term current use of insulin LIPID PANEL Routine 03/27/2025 11:11 AM EDT Type 2 diabetes mellitus with microalbuminuria, with long-term current use of insulin HEMOGLOBIN A1C Routine 03/27/2025 11:11 AM EDT Type 2 diabetes mellitus with microalbuminuria, with long-term current use of insulin XR WRIST 3 OR MORE VIEWS (RIGHT) Routine 01/24/2025 11:35 AM EDT Occult closed fracture of scaphoid of right wrist, initial encounter CREATININE/EGFR Routine 11/22/2024 12:12 PM EDT Lymphadenopathy, abdominal HM MAMMOGRAPHY Routine 10/03/2024 10:53 AM EST COMPREHENSIVE METABOLIC PANEL Routine 09/19/2023 8:47 AM EST Osteopenia, unspecified location from Last 3 Months or Most Recently Relevant to Health Maintenance Results * BD DXA AXIAL (SPINE) WITH HIP (04/08/2025 1:18 PM EDT) Anatomical Region Laterality Modality Bone Density Bone Density 04/08/2025 1:06 PM EDT Impressions 04/09/2025 8:51 PM EDT Interpretation: Osteopenia. Narrative 04/09/2025 8:51 PM EDT Referred By: MERLIN SCHILLING Indications: Osteopenia Scanner: [facility] [facility] with serial# of [id number] located at [facility] Bone Density Scan (DXA) 04/08/25 Details of [...] -2.5), or Osteoporosis (T-score <= -2.5). At [facility], T-scores are compared to peak bone density [...] Referred By: MERLIN SCHILLING Indications: Osteopenia Scanner: [facility] [facility] with serial# of [id number] located at [facility] Bone Density Scan (DXA) 04/08/25 Details of [...] -2.5), or Osteoporosis (T-score <= -2.5). At [facility], T-scores are compared to peak bone density [...] BD BONE DENSITY DEXA Final R esult * (ABNORMAL) Microalbumin/creatinine ratio, random urine (03/27/2025 11:25 AM EDT) URINE MICROALBUMIN 1.4 0 - 2.3 mg/dL [facility] URINE CREATININE 54 mg/dL CLIENT DIRECTOR [facility] MICROALB/CRE RATIO 25.9(H) 0 - 20 mg/g Cre [facility] Urine (Urine) 03/27/2025 11: 25 AM EDT 03/27/2025 11:34 AM EDT Merlin Shakir DO URINE ORDERABLES Final Result Performing Organization Address City/[facility]/ZIP Co de Phone Number [address] [address] * Hemoglobin A1c (03/27/2025 11:11 AM EDT) HEMOGLOBIN A1C 5.8 4.3 - 5.8 % [facility] Blood 03/27/2025 11:1 1 AM EDT 03/27/2025 11:20 AM EDT us Merlin Schilling LAB BLOOD ORDERABLES Final Resul t Performing Organization Address [facility] Co de Phone Number [address] [address] * (ABNORMAL) Lipid panel (03/27/2025 11:11 AM EDT) HDL 74 mg/dL [facility] Comment: Interpretation <40 mg/dL: Low HDL cholesterol (major risk factor for CHD) Greater than or equal to 60 mg/dL: High HDL cholesterol ( negative risk factor for CHD) HDL - cholesterol is affected by a number of factors, e.g. smoking, excerise, hormones, sex and age. CHOLESTEROL 197 0 - 240 mg/dL [facility] TRIGLYCERIDES 145 30 - 160 mg/dL [facility] LDL 94 50 - 129 mg/dL [facility] Comment: LDL levels in terms of risk for coronary heart disease: <100 mg/dL: Optimal 100-129 mg/dL: Near or above optimal 130-159 mg/dL: Borderline high 160-189 mg/dL: High >190 mg/dL: Very High CARDIAC RISK RATIO 2.7(L) 3.3 - 4.4 [facility] Blood 03/27/2025 11:1 1 AM EDT 03/27/2025 11:20 AM EDT us Merlin Schilling LAB BLOOD ORDERABLES Final Resul t Performing Organization Address [facility] Co de Phone Number [address] [address] * XR WRIST 3 OR MORE VIEWS (RIGHT) (01/24/2025 11:35 AM EDT) Narrative SYSTEMGENERATED, DOCUMENTATION - 01/24/2025 11:35 AM EDT This image report has been auto-finalized and has not been read by a Radiologist. Interpretation has been included in the provider encounter note for this date of service. Yu Tavarez PA-C IMG XR UPPER EXTREMI TY Final Result * Creatinine/eGFR (11/22/2024 12:12 PM EDT) CREATININE 0.60 0.5 - 1.5 mg/dL [facility] EGFR 95 >59 mL/min/1.7 3m2 [facility] Comment:Estimated glomerular filtration rate calculated using the CKD-EPI refit equation. Blood 11/22/2024 12:1 2 PM EDT 11/22/2024 12:14 PM EDT Flakito SALOMON LAB BLOOD ORDERABLES Final Result [address] [address] * MAMMOGRAPHY FOR RESULT ENTRY ONLY (10/03/2024 10:53 AM EST) Flakito SALOMON HEALTH MAINTENANCE Final R esult * (ABNORMAL) Comprehensive metabolic panel (09/19/2023 8:47 AM EST) SODIUM 132(L) 133 - 146 mmol/L [facility] POTASSIUM 4.2 3.3 - 5.1 mmol/L [facility] CHLORIDE 95(L) 96 - 108 mmol/L [facility] CO2 28 21 - 35 mmol/L [facility] BUN 7 6 - 19 mg/dL [facility] CREATININE 0.60 0.5 - 1.5 mg/dL [facility] GLUCOSE 98 70 - 99 mg/dL [facility] ALBUMIN 4.3 3.9 - 4.8 g/dL [facility] TOTAL PROTEIN 8.0 6.5 - 8.0 g/dL [facility] CALCIUM 9.1 8.4 - 10.3 mg/dL [facility] ALKALINE PHOSPHATASE 157(H) 39 - 117 U/L [facility] TOTAL BILIRUBIN 0.4 0.0 - 1.2 mg/dL [facility] AST 26 0 - 37 U/L [facility] ALT 17 0 - 40 U/L [facility] GLOBULIN 3.7 1 - 4.8 g/dL [facility] EGFR 96 >59 mL/min/1.7 3m2 [facility] Comment:Estimated glomerular filtration rate calculated using the CKD-EPI refit equation. ANION GAP 13 10 - 20 mmol/L [facility] Blood 09/19/2023 8:47 AM EST 09/19/2023 8:57 AM EST Merlin Schilling DO LAB BLOOD ORDERABLES Final Resul t [address] [address] from Last 3 Months or Most Recently Relevant to Health Maintenance Insurance [facility] MEDICARE PART A & B [facility] MEDICARE PART A & B [facility] MEDICARE PART A & B [facility] MEDICARE PART A & B Member Subscriber Plan / Payer (Ef fective 2018-Present) Name:Araceli Page Member ID:[id number] Relation to Subscriber:Self Name:Araceli Page Subscriber ID:[id number] Payer ID:[id number] Group ID:Not on file Type:Medicare Address: [facility] [employer] [address] [facility] MEDICARE PART A & B [facility] MEDICARE PART A & B [facility] MEDICARE PART A & B Member Subscriber Plan / Payer (Ef fective 2018-Present) Name:Araceli Page Member ID:[id number] Relation to Subscriber:Self Name:Araceli Page Subscriber ID:[id number] Payer ID:[id number] Group ID:Not on file Type:Medicare Address: [facility] [employer] [facility] [employer] [facility] [address] [facility] MEDICARE PART A & B [facility] MEDICARE PART A & B [facility] Member Subscriber Plan / Payer (Ef fective 2011-Present) Name:Araceli Page Member ID:[id number] Relation to Subscriber:Self Name:Araceli Page Subscriber ID:[id number] Payer ID:Not on file Group ID:FAX# [id number] Type:Indemnity Address: [address] [address] [place] [address] Care Teams Metal Hanger Relationship Specialty Start Date End Date Nohemy Hernandez MD [address] [place] [address] PCP - General Internal Medicine 05/14/21 Flakito Boone MBBS [address] [place] [address] 2 [place] [address] [email or web address] Primary Oncologist Medical Oncology 10/02/24 Additional Source Comments The information contained in this document represents components of the legal health record. It is not the complete legal health record.[facility]
--- OUTSIDE RECORDS SUMMARY | 2025-04-11 12:50 | XMS_ITS | Encounter Summary ---
Author Organization [facility] Address [address] [place] [address] Care Team Providers Care Management Expert Name Role Phone Nohemy Hernandez Primary Care Provider [phone] Encounter Details Date Type Department Care Team (Late st Contact Info) Description 07/24/2024 Orders Only [facility] [address] [place] [address] James Henderson MD [address] [place] [address] Social History Tobacco Use Types Packs/Day Years [...] Info) Description 05/20/2025 11:00 AM EDT Appointment [facility] [address] [place] [address] 08/19/2025 12:00 PM EST Follow-Up [facility] [address] [place] [address] [id number] Wildlife Policy Professional: Candi Bowers NP [address] [place] [address] documented as of this encounter Visit Diagnoses Not on filedocumented in this encounter Care Teams Management Expert Relationship Specialty Start Date End Date Nohemy Hernandez [address] [place] [address] PCP - General 03/03/17 documented as of this encounter
--- OUTSIDE RECORDS SUMMARY | 2025-04-11 12:50 | XMS_ITS | Clinical Summary ---
Author Organization [facility] Address [address] [place] [address] Care Team Providers Care Blocker Automatic Name Role Phone Nohemy Hernandez MD Primary Care Provider [phone] Social History Tobacco Use Types Packs/Day Years [...] age to complete this topic Care Teams Blocker Automatic Relationship Specialty Start Date End Date Nohemy Hernandez MD [address] [place] [address] 2 [place] [address] PCP - General Internal Medicine 07/02/20
--- OUTSIDE RECORDS SUMMARY | 2025-04-11 12:50 | XMS_ITS | Encounter Summary ---
Author Organization [facility] Address [address] [place] [address] Phone Care Team Providers Care Lime Trimmer Name Role Phone Nohemy Hernandez MD Primary Care Provider [phone] Flakito Boone Unavailable [phone] Encounter Details Date Type Department Care Team (Late st Contact Info) Description 12/27/2023 Ancillary Orders [facility],Outside Imaging [address] [place], [place] [id number] System, Provider Not In, [facility] [address] [address] Social History Tobacco Use Types Packs/Day Years [...] st Contact Info) Description 12/06/2024 Procedure Pass [address] [address] 12/06/[address] [address] 04/12/2025 10:30 AM EDT Office Visit [facility] [address] [place] [address] James Schilling DO [address] [place] [address] 06/06/2025 12:45 PM EDT Appointment [address] [address] Flakito Boone MBBS [address] [place] [address] [email or web address] 06/13/2025 11:40 AM EDT Office Visit [facility] at [address] [address] Flakito Boone MBBS [address] [place] [address] [email or web address] 10/02/2025 1:00 PM EST Office Visit [facility] [address] [place] [address] James Schilling DO [address] [place] [address] [email or web address] documented as of this encounter Results * DXA Outside (No Interpretation) (04/06/2021 12:00 AM EDT) Narrative SYSTEMGENERATED, DOCUMENTATION - 12/27/2023 6:51 AM EDT This study is for PACS storage only and not for interpretation. 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 It is not the complete legal health record.[facility]
--- OUTSIDE RECORDS SUMMARY | 2025-04-11 12:50 | XMS_ITS | Clinical Summary ---
Author Organization [facility] Address [address] [place] [address] Phone Care Team Providers Care Variety Lathe Operator Name Role Phone Nohemy Hernandez MD Primary Care Provider Social History Tobacco Use Types Packs/Day Years [...] year. Mammo Location: [facility], [address] [place] [address], [phone], . -------- FINAL REPORT -------- Dictated By: Katerine Tavares Dictated Date: 10/03/2024 12:21 ET Assigned Physician: Katerine Tavares Reviewed and Electronically Signed By: Katerine Tavares Signed Date: 10/03/2024 12:22 ET Workstation ID: [id number] Transcribed By: Self Edit Transcribed Date: 10/03/2024 [...] year. Mammo Location: [facility], [address] [place] [address], [address], . -------- FINAL REPORT -------- Dictated By: Katerine Tavares Dictated Date: 10/03/2024 12:21 ET Assigned Physician: Katerine Tavares Reviewed and Electronically Signed By: Katerine Tavares Signed Date: 10/03/2024 12:22 ET Workstation ID: [id number] Transcribed By: Self Edit Transcribed Date: 10/03/2024 12:21 ET us Nohemy Hernandez MD IMG BI PROCEDURES Final Result * JODI DEXA AXIAL SKELETON (03/31/2023 7:38 AM EDT) Anatomical Region Laterality Modality Mammography 03/30/2023 2:58 PM EDT Narrative 03/31/2023 7:38 AM EDT [facility] Diagnostic Imaging Department [address] [place] [address] Patient: MARLINE PAGE Rachel /Age/Sex: 1950 - 72 - F Unit#: [id number] Location/Status: SPDIMAM/REG CLI [facility]em[facility] Ordering Physician: NOHEMY HERNANDEZ MD Jodi Dexa [...] probability of hip fracture of 3.1%. Code 25853 Dictating Physician: AYLIN GANDHI MD Electronically Signed by: AYLIN GANDHI MD Dic Date/Time: 03/31/23736 Sign date/Time: 03/31/23737 Procedure Note Aylin Gandhi MD - 09/20/2023 [facility] Diagnostic Imaging Department [address] [place] [address] Patient: MARLINE PAGE./Age/Sex: 1950 - 72 - F Unit#: [id number] [facility]Ordering Site[facility] Ordering Physician: NOHEMY HERNANDEZ MD [facility] Dexa Axial Skeleton - 03/30/23 - 9313 Report Status:Signed HISTORY: The patient is a [...] density of the femurs bilaterally is 0.906 gm/zb4knlnm is 90% of that of young normals [...] probability of hip fracture of 3.1%. Code 90616 Dictating Physician: AYLIN GANDHI MD Electronically Signed by: AYLIN GANDHI MD Dic Date/Time: 03/31/23 0737 Sign date/Time: 03/31/23737 Nohemy Hernandez MD IMG BI PROCEDURES Final Result from Last 3 Months or Most Recently Relevant to Health Maintenance Insurance [address] [place] [address] MEDICARE [facility] Care Teams Variety Lathe Operator Relationship Specialty Start Date End Date Nohemy Hernandez MD [address] [place] [address] PCP - General Internal Medicine 07/02/20
--- OUTSIDE RECORDS SUMMARY | 2025-04-11 12:50 | XMS_ITS | Encounter Summary ---
Author Organization [facility] Address [address] [place] [address] Phone Care Team Providers Care Utility Gelatin Maker Name Role Phone Unknown, Unknown Primary Care Provider Acosta Chahal DO Unavailable [phone] Cherri Medina MD Unavailable [phone] Nohemy Hernandez MD Primary Care Provider [phone] Flakito Boone Unavailable [phone] Encounter Details Date Type Department Care Team (Late st Contact Info) Description 02/05/2016 Procedure Pass [facility] [address] [place] [address] Social History Tobacco Use Types Packs/Day Years Used Date Smoking Tobacco: Former Cigarettes Q uit: 11/23/1992 Comments:Smoked off and on 2 5 [...] st Contact Info) Description 12/06/2024 Procedure Pass [facility], Ct Scan - [facility] [address] [place], [place] [phone] 12/06/2024 Procedure Pass [facility], Ct Scan [address] [address] 04/12/2025 10:30 AM EDT Office Visit [facility] [address] [place] [address] James Schilling DO [address] [place] [address] 06/06/2025 12:45 PM EDT Appointment [facility], Az Scan [address] [address] Flakito Boone MBBS [address] [place] [address] [email or web address] 06/13/2025 11:40 AM EDT Office Visit [facility] at [address] [address] Flakito Boone MBBS [address] [place] [address] [email or web address] 10/02/2025 1:00 PM EST Office Visit [facility] [address] [place] [address] James Schilling DO [address] [place] [address] documented as of this encounter Visit Diagnoses Not on filedocumented in this encounter Additional Health Concerns Infection Onset Date Last Indicated Resolved Time 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 07/21/2022 07/20/2024 1:24 AM EST documented as of this encounter Care Teams Utility Gelatin Maker Relationship Specialty Start Date End Date Unknown, Unknown, PCP - General 10/16/14 05/13/21 Nohemy Hernandez MD [address] [place] [address], [place] [address] PCP - General Internal Medicine 05/14/21 Acosta Aranda DO [address] [place] [address] Orthoped[facility], [place] [address] [email or web address] Historical LMR Provider 06/02/17 08/22/21 Cherri Medina MD [address] [place] [address] Orthoped[facility], [place] [address] [email or web address] Historical LMR Provider 06/02/17 Flakito Boone MBBS [address] [facility] [address] [place] [address] [email or web address] Primary Oncologist Medical Oncology 10/02/24 documented as of this encounter Additional Source Comments The information contained in this document represents components of the legal health record. It is not the complete legal health record.[facility]
--- OUTSIDE RECORDS SUMMARY | 2025-04-11 12:50 | XMS_ITS | Encounter Summary ---
Author Organization [facility] Address [address] [place] [address] Care Team Providers Care Property Damage Claims Adjustor Name Role Phone Nohemy Hernandez Primary Care Provider [phone] Encounter Details Date Type Department Care Team (Late st Contact Info) Description 08/24/2024 [facility] Message Intial Department [address] [place] [address] [employer], Generic Provider [address] [place], [place] [phone] Questionnaire Submission Social History Tobacco Use Types [...] 11:00 AM EDT Appointment [facility] [address] [place] [address] 08/19/2025 12:00 PM EST Follow-Up [facility] [address] [place], [place] [phone] Manager Oracle Database: Candi Bowers, GERONIMO [address] [place], [place] [phone] documented as of this encounter Visit Diagnoses Not on filedocumented in this encounter Care Teams Property Damage Claims Adjustor Relationship Specialty Start Date End Date Nohemy Hernandez [address] [place] [address] PCP - General 03/03/17 documented as of this encounter
--- OUTSIDE RECORDS SUMMARY | 2025-04-11 12:50 | XMS_ITS | Encounter Summary ---
Author Organization [facility] Address [address] [place] [address] Phone Care Team Providers Care Medical Billing Representative Name Role Phone Nohemy Hernandez MD Primary Care Provider [phone] Flakito Boone Unavailable [phone] Encounter Details Date Type Department Care Team (Late st Contact Info) Description 12/27/2023 Ancillary Orders [facility],Outside Imaging 30 [place], [place] [phone] System, Provider Not In, [facility] [address] [address] Social History Tobacco Use Types Packs/Day Years Used Date Smoking Tobacco: Former Cigarettes 0.8 25 0 11/24/1967 - 11/23/1992 Comments:Smoked off and on 2 5 years Alcohol Use Standard Drinks/Week Comments No 0 (1 standard drink = 0.6 oz pur e alcohol) Education Answer Date Recorded Are you interested in more education? Not on prvain e 12/11/2022 Are you concerned about learning? [...] st Contact Info) Description 12/06/2024 Procedure Pass [address] [address] 12/06/[address] [address] 04/12/2025 10:30 AM EDT Office Visit [facility] [address] [place] [address] James Schilling DO [address] [place] [address] 06/06/2025 12:45 PM EDT Appointment [address] [address] Flakito Boone MBBS [address] [place] [address] [email or web address] 06/13/2025 11:40 AM EDT Office Visit [facility] at [address] [address] Flakito Boone MBBS [address] [place] [address] [email or web address] 10/02/2025 1:00 PM EST Office Visit [facility] 22 [place] [address] James Schilling DO [address] [place] [address] [email or web address] documented as of this encounter Results * DXA Outside (No Interpretation) (04/02/2019 12:00 AM EDT) Narrative SYSTEMGENERATED, DOCUMENTATION - 12/27/2023 6:56 AM EDT This study is for PACS storage only and not for interpretation. us Provider Not In System PhD IMG OUTSIDE IMAGING W /OUT INTERPRETATION Final Result documented in this encounter Visit Diagnoses Not on filedocumented in this encounter Additional Health Concerns Infection Onset Date Last Indicated Resolved Time 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 07/21/2022 07/20/2024 1:24 AM EST documented as of this encounter Care Teams Medical Billing Representative Relationship Specialty Start Date End Date Nohemy Hernandez MD [address] [place] [address] PCP - General Internal Medicine 05/14/21 Flakito Boone MBBS [address] [place] [address] [email or web address] Primary Oncologist Medical Oncology 10/02/24 documented as of this encounter Additional Source Comments The information contained in this document represents components of the legal health record. It is not the complete legal health record.[facility]
--- OUTSIDE RECORDS SUMMARY | 2025-04-11 12:50 | XMS_ITS | Encounter Summary ---
Author Organization [facility] Address [address] [place] [address] Care Team Providers Care Autocad Draftsman Name Role Phone Nohemy Hernandez Primary Care Provider [phone] Encounter Details Date Type Department Care Team (Late st Contact Info) Description 04/29/2024 [facility] Message Intial Department [address] [place] [address] [employer], Generic Provider [address] [place], [place] [phone] Questionnaire Submission Social History Tobacco Use Types [...] 11:00 AM EDT Appointment [facility] [address] [place] [address] 08/19/2025 12:00 PM EST Follow-Up [facility] [address] [place], [place] [phone] Offset Lithographic Press Operator: Candi Bowers, GERONIMO [address] [place], [place] [phone] documented as of this encounter Visit Diagnoses Not on filedocumented in this encounter Care Teams Autocad Draftsman Relationship Specialty Start Date End Date Nohemy Hernandez [address] [place] [address] PCP - General 03/03/17 documented as of this encounter
--- OUTSIDE RECORDS SUMMARY | 2025-04-11 12:50 | XMS_ITS | Encounter Summary ---
Author Organization [email or web address] Address [address] [place] [address] Phone Care Team Providers Care Glove Stitcher Name Role Phone Nohemy Hernandez MD Primary Care Provider [phone] Flakito Boone Unavailable [phone] Encounter Details Date Type Department Care Team (Late st Contact Info) Description 12/27/2023 Ancillary Orders [facility],Outside Imaging 30 [place], [place] [phone] System, Provider Not In, [facility] Partners [address] [address] Social History Tobacco Use Types Packs/Day Years [...] st Contact Info) Description 12/06/2024 Procedure Pass [address] [address] 12/06/[address] [address] 04/12/2025 10:30 AM EDT Office Visit [facility] [address] [place] [address] James Schilling DO [address] [place] [address] 06/06/2025 12:45 PM EDT Appointment [address] [address] Flakito Boone MBBS [address] [place] [address] [email or web address] 06/13/2025 11:40 AM EDT Office Visit [facility] at [address] [address] Flakito Boone MBBS [address] [place] [address] [email or web address] 10/02/2025 1:00 PM EST Office Visit [facility] 22 [place] [address] James Schilling DO [address] [place] [address] [email or web address] documented as of this encounter Results * DXA Outside (No Interpretation) (03/31/2017 12:00 AM EDT) Narrative SYSTEMGENERATED, DOCUMENTATION - 12/27/2023 7:02 AM EDT This study is for PACS storage only and not for interpretation. us Provider Not In System PhD IMG OUTSIDE IMAGING W /OUT INTERPRETATION Final Result documented in this encounter Visit Diagnoses Not on filedocumented in this encounter Additional Health Concerns Infection Onset Date Last Indicated Resolved Time 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 07/21/2022 07/20/2024 1:24 AM EST documented as of this encounter Care Teams Glove Stitcher Relationship Specialty Start Date End Date Nohemy Hernandez MD [address] [place] [address] PCP - General Internal Medicine 05/14/21 Flakito Boone MBBS [address] [place] [address] [email or web address] Primary Oncologist Medical Oncology 10/02/24 documented as of this encounter Additional Source Comments The information contained in this document represents components of the legal health record. It is not the complete legal health record.[facility]
--- OUTSIDE RECORDS SUMMARY | 2025-04-11 12:50 | XMS_ITS | Encounter Summary ---
Author Organization [facility] Address [address] [place] [address] Phone Care Team Providers Care Insurance Compliance Analyst Name Role Phone Nohemy Hernandez MD Primary Care Provider [phone] Flakito Boone Unavailable [phone] Encounter Details Date Type Department Care Team (Late st Contact Info) Description 08/06/2022 Procedure Pass [place] Admitting Dept - Virtual Department [address] [place], [place] [phone] Social History Tobacco Use Types Packs/Day Years Used Date Smoking Tobacco: Former Cigarettes 0.8 25 0 11/24/1967 - 11/23/1992 Comments:Smoked off and on 2 5 years Alcohol Use Standard Drinks/Week Comments No 0 (1 standard drink = 0.6 oz pur e alcohol) Intimate Partner Violence Answer Date R ecorded [...] AM EDT documented as of this encounter Functional Status * Calculated C-SSRS Risk Score (Lifetime/Recent) Answer Date of Assessment Author No Risk Indicated 08/06/2022 3:06 PM Louise Crisostomo RN * Levy Suicide Severity Rating Scale (Screener/Recent Self-Report) Question Answer Date of Assessment Author 1. Wish to be (Past 1 Month) No 08/06/2022 3:06 PM Louise Crisostomo RN 2. Non-Specific Active Suici bismark Thoughts (Past 1 Month) No 08/06/2022 3:06 PM Renetta Crisostomo cia, RN 6. Suicidal Behavior (Lifetime) No 3:06 PM Louise Crisostomo RN documented as of this encounter Plan of Treatment Upcoming Encounters Date Type Department Care Team (Late st Contact Info) Description 12/06/2024 Procedure Pass [address] [address] 12/06/2024 Procedure Pass [address] [address] 04/12/2025 10:30 AM EDT Office Visit [facility] [address] [place] [address] James Schilling DO [address] [place] [address] 06/06/2025 12:45 PM EDT Appointment [address] [address] Flakito Boone MBBS [address] [place] [address] [email or web address] 06/13/2025 11:40 AM EDT Office Visit [facility] at [address] [address] Flakito Boone MBBS [address] [place] [address] [email or web address] 10/02/2025 1:00 PM EST Office Visit [facility] [address] [place] [address] James Schilling DO 22 [place] [address] [email or web address] documented as of this encounter Visit Diagnoses Not on filedocumented in this encounter Additional Health Concerns Infection Onset Date Last Indicated Resolved Time 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 07/21/2022 07/20/2024 1:24 AM EST documented as of this encounter Care Teams Insurance Compliance Analyst Relationship Specialty Start Date End Date Nohemy Hernandez MD [address] [place] [address] PCP - General Internal Medicine 05/14/21 Flakito Boone MBBS [address] [place] [address] [email or web address] Primary Oncologist Medical Oncology 10/02/24 documented as of this encounter Additional Source Comments The information contained in this document represents components of the legal health record. It is not the complete legal health record.[facility]
--- OUTSIDE RECORDS SUMMARY | 2025-04-11 12:51 | XMS_ITS | Clinical Summary ---
Author Organization [facility] Address [address] [place] [address] Care Team Providers Care Corsetier Name Role Phone Noheym Hernandez Primary Care Provider [phone] Allergies Active Allergy Reactions Criticality Noted Date Comments Bacitracin Rash,Hives,Unknown Medium 02/28/2018 Other Reaction(s): Unknown Meperidine Itching Low Penicillins Rash,Anaphylaxis,Dys pnea,Itching High 06/05/2015 DRUG DERMATITIS Other Reaction(s): Unknown DRUG DERMATITIS Chest tightness DRUG DERMATITIS Oxycodone-Aspirin Rash Low DRUG DERMATITIS Sulfa (Sulfonamide Antibiotics) Hives Medium 02/21/2019 Sulfamethoxazole-Trime thoprim Hives,Itching High 06/05/2015 Other Reaction(s): Unknown Medications metoprolol succinate XL (TOPROL XL) 100 mg tablet Take 100 mg by mouth daily. 3 8 Active OneTouch Verio test strips TO TEST BLOOD SUGAR UP TO FOUR TIMES DAILY DIRECTED 3 8 Active LORazepam (ATIVAN) 0.5 mg tablet Take 0.5 mg by mouth 2 times a day. 2 8 Active amitriptyline (ELAVIL) 50 mg tablet Take 50 mg by mouth nightly. 2 8 Active acetaminophen (TYLENOL EXTRA STRENGTH) 500 mg tablet Take 500 mg by mouth 2 times a day as needed for pain. 6 Active sodium chloride (OCEAN NASAL SPRAY) 0.65% nasal spray Administer 1 spray into each nostril every 2 hours as needed for congestion. Active sodium chloride (ALEXY 128) 5 % ophthalmic solution Instill 1 drop into both eyes 4 times a day. Active sodium chloride 5% ophthalmic ointment Apply 0.5 inch ribbon into affected eyes nightly Active OneTouch Delica lancets 30 gauge (DX CODE: E10.9) USE TO TEST BLOOD SUGARS UP TO FOUR TIMES DAILY 3 8 Active BD Insulin pen needle UF (MINI) 31 gauge x 10/28 USE 1 NEEDLE DAILY WITH LANTUS SOLOSTAR 2 8 Active FLAXSEED ORAL Take 1,400 mg by mouth once a day. In the afternoon 8 Active ibuprofen (MOTRIN) 200 mg tablet Take 200 mg by mouth 2 times a day as needed for pain. 8 Active multivitamin no.44-vit D3-K 1,000-800 unit-mcg capsule Take 1 tablet by mouth nightly. With dinner 7 Active blood glucose diagnostic (Secondbrainuch Verio Test Strips) test strip DX CODE: E10.9 TO TEST BLOOD SUGAR UPTO FOUR TIMES DAILY DIRECTED 9 Active docusate sodium (COLACE) 100 mg capsule Take 100 mg by mouth daily as needed for constipation. 6 Active fexofenadine (SAMIRA) 180 mg tablet Take 180 mg by mouth daily. Active isosorbide mononitrate ER (IMDUR) 60 mg tablet Take 60 mg by mouth daily. 9 Active valsartan (DIOVAN) 320 mg tablet Take 320 mg by mouth once a day. 9 Active metFORMIN ER (GLUCOPHAGE XR) 500 mg tablet Take 1,000 mg by mouth 2 times a day with meals. 2 Active TiZANidine (ZANAFLEX) 2 mg capsule Take 2-4 mg by mouth 2 times a day. 2 Active meclizine (ANTIVERT) 25 mg tablet Take 25 mg by mouth 2 times a day. 3 Active blood-glucose meter,continuous (Dexcom G7 Submersible Pilot) misc by Other route once daily as needed. 4 Active blood-glucose sensor (Dexcom G7 Sensor) device 1 Application by Other route. 4 Active amLODIPine (NORVASC) 5 mg tablet Take 5 mg by mouth nightly. Active multivitamin with minerals (Hair,Skin and Nails) tablet Take 3 tablets by mouth once a day. Active coenzyme Q10 (Co Q-10) 300 mg capsule Take 300 mg by mouth once a day. Active menthol 1.25 % cream roll-on by Topical (top) route as needed (pain). Active phytosterol-pant ethine (CholestOff Complete) 300-100 mg capsule Take 2 capsules by mouth 2 times a day. After lunch and dinner Active Lactobacillus combination no.9 (ADULT 50 PLUS PROBIOTIC ORAL) Take 1 capsule by mouth once a day. Active insulin glargine (Basaglar KwikPen U-100 Insulin) 100 unit/mL (3 mL) pen injection Inject 17 Units under the skin nightly. After dinner Active calcium carbonate-vitami n D3 500 mg-200 units tablet Take 1 tablet by mouth 2 times a day with meals. Active cholecalciferol (VITAMIN D3) 2,000 unit tablet Take 2,000 Units by mouth nightly. Active glucosamine/leana droitin/C/Fortunato (GLUCOSAMINE 1500 COMPLEX ORAL) Take 2 tablets by mouth nightly. With dinner Active vitamin B complex capsule Take 1 capsule by mouth once a day. Active fluocinonide (LIDEX) 0.05% cream Apply topically to the affected area 2 times a day as needed for irritation. Active oxyCODONE IR (ROXICODONE) 5 mg tablet Take 5 mg by mouth every 6 hours as needed for pain. 5 Active ursodioL (ACTIGALL) 300 mg capsule Take 2 capsules (600 mg total) by mouth 2 times a day. 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 Operating Room [address] [place] [id number] Luke Osullivan MD Shaikh, Shaheen, MD 02/25/2025 10:50 AM EDT - 02/25/2025 11:50 AM EDT Surgery [facility] Operating Room [address] [place] [id number] Jony Fernandez MD UPPER ENDOSCOPY WITH ENDOSCOPIC ULTRASOUND WITH POSSIBLE MODERATE SEDATION [99256 (CPT )] 02/25/2025 8:22 AM EDT - 02/25/2025 1:29 PM EDT Hospital Encounter [facility] Operating Room [address] [place] [phone] Jony Fernandez MD Discharge Disposition: Home or Self Care (01) 02/14/2025 Orders Only [facility] Clinic [address] [place] [phone] Machinist Job Setter: Candi Bowers NP 02/11/2025 9:00 AM EDT Pre-Admission Testing [facility] [address] [place] [address] 3rd [place] [address] Marcela Gilliam NP Preoperative examination (Primary Dx); Gastric nodule 02/11/2025 myChart Message [facility] [address] [place] [phone] Machinist Job Setter: Candi Bowers NP Refill needed for Ursodial 01/31/2025 Refill [facility] [address] [place] [phone] Machinist Job Setter: Candi Bowers NP 01/28/2025 12:00 PM EDT Follow-Up 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 [address] [place] [phone] Machinist Job Setter: Candi Bowers NP Blood work order from Last 3 Months Family History Medical History Relation Name Comments Emphysema Father Stroke Mother Relation Name Status Comments Father Mother Social History Tobacco Use Types Packs/Day Years Used Date Smoking Tobacco: Former Cigarettes 0.8 24 1 968 - 1991 Smokeless Tobacco: Never Tobacco Cessation:Counseling Given: Not Answered Alcohol Use Standard Drinks/Week Comments Not Currently 0 (1 standard drink = 0.6 oz pur e alcohol) Comments No Sex and Gender Information Value Date Recorded Sex Assigned at Female 10/13/2019 10:05 AM EST Legal Sex Female 5:08 AM EDT Gender Identity Female 10/13/2019 10:05 AM EST Sexual Orientation Straight 10/13/2019 10 :05 AM EST Last Filed Vital Signs Vital Sign Reading Time Taken Comments Blood Pressure 128/74 02/25/2025 12:38 PM EDT Pulse 72 02/25/2025 12:45 PM EDT Temperature 36.5 C (97.7 F) 02/25/2025 12:38 PM EDT Respiratory Rate 17 02/25/2025 12:45 PM EDT Oxygen Saturation 97% 02/25/2025 12:45 PM EDT Inhaled Oxygen Concentration - - Weight 77 kg (169 lb 12.8 oz) 07/24/2024 10:40 A M EST Height 165.1 cm (5' 5 ) 11/14/2024 9:05 AM EDT Body Mass Index 28.26 06/28/2019 9:52 AM EST Plan of Treatment Upcoming Encounters Date Type Department Care Team (Late st Contact Info) Description 05/20/2025 11:00 AM EDT Appointment [facility] [address] [place] [address] 08/19/2025 12:00 PM EST Follow-Up [facility] [address] [place] [id number] Machinist Job Setter: Candi Bowers NP [address] [place] [phone] Health Maintenance Due Date Last Done Comments Hepatitis C Screening 1950 Osteoporosis Screening 2002 Hepatitis B Vaccines (1 of 3 - Risk 3-dose series) 2012 Zoster Vaccines (2 of 2) 01/20/2021 11/25/2020 Pneumococcal Vaccine: 50+ Ye ars (2 of 2 - PCV) 06/11/2022 06/11/2021 Depression Screening and Follow-Up 08/15/2024 Health Care Proxy Review 08/15/2024 Social Drivers of Health Mónica ual Screening 08/15/2024 COVID-19 Vaccine (2023- 5 season) 2024 04/15/2024, 01/20/2024, 06/17/2023, Additional history exists Influenza Vaccine (#1) 2025 , 06/17/2023, 05/16/2023, Additional history exists Basic Metabolic Panel 01/28/2026 01/28/2025 , 08/23/2024, 09/19/2023, Additional history exists Mammogram 10/03/2026 10/03/2024 DTaP,Tdap,and Td Vaccines (2 - Td or Tdap) 06/24/2027 06/24/2017 Gastroscopy (EGD) 11/15/2027 11/14/2024, , 02/28/2018 Colonoscopy 11/14/2029 11/14/2024, 04/0 09/2024, 02/21/2019, Additional history exists RSV Vaccine (60+ years old a nd patients) Completed 06/24/2023 CT Lung Cancer Screening (12 months, previous LungRADS 1 or 2) Discontinued 11/28/2024 Alcohol/Substance Use Screening Completed Procedures * Due to [place] state law, this organization might not be sharing negative HIV tests. 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 * POCT Glucose, interfaced (02/25/2025 11:23 AM EDT) Only the most recent of2 resultswithin the time period is included. [facility] Glucose, POCT 83 70 - 99 mg/dL 02/25/2025 11:25 AM EDT [facility] Comment: The user support analyst supervisor has not determined the efficacy of this test in Critically ill patients. [facility] defines Critically ill patients for the purpose of blood glucose monitoring (BGM) by glucometer, as patients meeting one or more of the following criteria: Hypotension- non-ICU patients (systolic blood pressure Less than 90 mmHg) due to shock Hypotension -ICU patients (Mean Arterial Pressure (MAP) <60 mmHg or systolic blood pressure < 90 mmHg due to shock Patients receiving Vasopressors (phenylephrine, vasopressin or norepinephrine) Anasarca In all locations, BGM test results should not be relied upon in the above situations, unless these results confirmed with lab-based glucose values. Blood 02/25/2025 11:2 3 AM EDT 02/25/2025 11:25 AM EDT us Jony Fernandez MD LAB POCT ORDERABLES - DEVICE Fi nal Result [facility], [facility] [address] [place] [address], [place] * ENDOSCOPIC ULTRASOUND (02/25/2025) Narrative Procedure Note Jony Fernandez MD - 02/25/2025 10:45 AM EDT [facility] Gastroenterology Patient Name: Araceli Page Procedure Date: 02/25/2025 10:45 AM Date of : 1950 Admit Type: Outpatient Age: 74 Room: [place] [address] Gender: Female Note Status: Finalized Attending MD: Jony Fernandez , Procedure: Upper EUS Indications: Gastric mucosal mass/polyp found on endoscopy Comorbidities Providers: Teo Pearl (Fellow) Referring MD: Requesting Provider: Medicines: Monitored Anesthesia Care Complications: No immediate complications. Estimated Blood Loss: Estimated blood loss was minimal. Procedure: Pre-Anesthesia Assessment: - Prior to the procedure, a History and Physicalwas performed, and patient medications and allergieswere reviewed. The patient is competent. The risks and benefits of the procedure and the sedation optionsand risks were discussed with the patient. Allquestions were answered and informed consent was obtained. Patient identification and proposed procedure were verified by the physician and the nurse in the pre-procedure area in the procedure room. Mental Status Examination: alert and oriented. Airway Examination: normal oropharyngeal airway and neck mobility. Respiratory Examination: clear to auscultation. CV Examination: normal. Prophylactic Antibiotics: The patient does not requireprophylactic antibiotics. Prior Anticoagulants: The patient has taken no anticoagulant or antiplatelet agents. ASA Grade Assessment: III - A patient with severesystemic disease. After reviewing the risks and benefits,the patient was deemed in satisfactory condition to undergo the procedure. The anesthesia plan was touse monitored anesthesia care (MAC). Immediately priorto administration of medications, the patient was re-assessed for adequacy to receive sedatives. The heart rate, respiratory rate, oxygen saturations, blood pressure, adequacy of pulmonary ventilation,and response to care were monitored throughout the procedure. The physical status of the patient was re-assessed after the procedure. After obtaining informed consent, the endoscope was passed under direct vision. Throughout theprocedure, the patient's blood pressure, pulse, and oxygen saturations were monitored continuously. TheEndoscope was introduced through the mouth, and advanced tothe second part of duodenum. The Endoscope wasintroduced through the mouth, and advanced to the second partof duodenum. The upper EUS was accomplished without difficulty. The patient tolerated the procedurewell. Findings: ENDOSCOPIC FINDING: : The examined esophagus was normal. A single submucosal papule (nodule) with no stigmata of recentbleeding was found in the gastric antrum. The examined duodenum was normal. ENDOSONOGRAPHIC FINDING: : The esophagus, stomach and duodenum were visualizedendosonographically. Endosonographic images of the stomach were unremarkable. No massesand no wall thickening were identified. There was no sign of significant endosonographic abnormality in the common bile duct. Ducts of normal caliber were identified. There was no sign of significant endosonographic abnormality in the entire pancreas. No masses, no calcifications, the pancreatic ductwas well visualized from ampulla to tail. Possible pancreatic divisumnoted. There was diffuse abnormal echotexture in the entire examined liver. This was characterized by a heterogenous appearance. Impression: - Normal esophagus. - A single submucosal papule (nodule) found in the stomach. The nodule was evaluated on EUS.Thickening was not noted. The nodule appeared mucosal andthere was no target to biopsy. - Normal examined duodenum. - Endosonographic images of the stomach were unremarkable. - There was no sign of significant pathology in the common bile duct. - There was no sign of significant pathology in the entire pancreas. - There was diffuse abnormal echotexture in theentire examined liver. This was characterized by a heterogenous appearance. - No specimens collected. Recommendation: - Repeat the upper endoscopic ultrasound in 6months for surveillance. - Resume previous diet. - Continue present medications. - Discharge patient to home (with escort). Jony Fernandez, 02/25/2025 12:13:07 PM This report has been signed electronically. Number of Addenda: 0 Note Initiated On: 02/25/2025 10:45 AM Jony Fernandez MD PROVATION PROCEDURES Final Resu lt * Protime-INR (01/28/2025 1:25 PM EDT) PT 9.9 9.6 - 12.4 Seconds 01/28/2025 1:53 PM EDT [facility] INR 0.9 0.9 - 1.1 01/28/2025 1:53 PM EDT [facility] Comment:The optimal therapeu tic INR range for patients treated with Vitamin K antagonists (VKAS, e.g., Warfarin) is 2.0 to 3.5. Discuss the desired range with your doctor/care team. Blood Structure of peripheral vein / Unknown Venipuncture / Unknown 01/28/2025 1:25 PM EDT 01/28/2025 1:35 PM EDT Candi Nieves BLOW MOULDING MACHINE OPERATOR LAB BLOOD ORDERABLES Fi nal Result [facility] [address] [place] [address], [place] * (ABNORMAL) CBC (01/28/2025 1:25 PM EDT) WBC 9.7 3.8 - 10.8 10*3/uL 01/28/2025 1:47 PM EDT [facility] RBC 4.43 3.80 - 5.10 10*6/uL 01/28/2025 1:47 PM EDT [facility] Hemoglobin 11.8 11.7 - 15.5 g/dL 01/28/2025 1:47 PM EDT [facility] Hematocrit 36.9 35.0 - 45.0 % 01/28/2025 1:47 PM EDT [facility] MCV 83.3 80.0 - 100.0 fL 01/28/2025 1:47 PM EDT [facility] MCH 26.6(L) 27.0 - 33.0 pg 01/28/2025 1:47 PM EDT [facility] MCHC 32.0 32.0 - 36.0 g/dL 01/28/2025 1:47 PM EDT [facility] RDW 12.7 11.0 - 15.0 % 01/28/2025 1:47 PM EDT [facility] Platelets 343 140 - 400 10*3/uL 01/28/2025 1:47 PM EDT [facility] MPV 9.1 7.5 - 12.5 fL 01/28/2025 1:47 PM EDT [facility] Blood Structure of peripheral vein / Unknown Venipuncture / Unknown 01/28/2025 1:25 PM EDT 01/28/2025 1:35 PM EDT us Candi Nieves BLOW MOULDING MACHINE OPERATOR LAB BLOOD ORDERABLES Fi nal Result [facility] [address] [place] [address], * (ABNORMAL) Comprehensive Metabolic Panel (01/28/2025 1:25 PM EDT) NA 133(L) 135 - 145 mmol/L 01/28/2025 2:07 PM EDT [facility] K 4.6 3.5 - 5.3 mmol/L 01/28/2025 2:07 PM EDT [facility] Cl 99 98 - 107 mmol/L 01/28/2025 2:07 PM EDT [facility] CO2 24 22 - 32 mmol/L 01/28/2025 2:07 PM EDT [facility] Anion Gap 10 5 - 15 01/28/2025 2:07 PM EDT [facility] Glucose 104(H) 65 - 99 mg/dL 01/28/2025 2:07 PM EDT [facility] Creatinine 0.69 0.50 - 1.20 mg/dL 01/28/2025 2:07 PM EDT [facility] Calcium 9.5 8.6 - 10.5 mg/dL 01/28/2025 2:07 PM EDT [facility] Total Protein 7.7 6.0 - 8.0 g/dL 01/28/2025 2:07 PM EDT [facility] Albumin 4.3 3.5 - 5.2 g/dL 01/28/2025 2:07 PM EDT [facility] Bilirubin, Total 0.2 0.2 - 1.2 mg/dL 01/28/2025 2:07 PM EDT [facility] Alkaline Phosphatase 122 35 - 129 U/L 01/28/2025 2:07 PM EDT [facility] AST 30 10 - 40 U/L 01/28/2025 2:07 PM EDT [facility] ALT 26 10 - 40 U/L 01/28/2025 2:07 PM EDT [facility] BUN 12 7 - 23 mg/dL 01/28/2025 2:07 PM EDT [facility] eGFR >90 >=60 mL/min/1. 73m2 01/28/2025 2:07 PM EDT [facility] Comment:The estimated glomer ular filtration rate (eGFR) is calculated using a new formula developed by the NKF-ASN task force to eliminate race-based correction factors. The new formula uses serum/plasma creatinine, age, and gender to determine eGFR. A value below 60mls/min might indicate kidney disease and will be flagged. For additional information, see Khanh et al, Am J Kidney Dis. 2021;79(2):268- 288, A Unifying Approach for GFR estimation: Recommendations of the NKF-ASN Task Force on Reassessing the Inclusion of Race in Diagnosing Kidney Disease . Globulin, Total 3.4 2.1 - 4.2 g/dL 01/28/2025 2:07 PM EDT [facility] A/G Ratio 1.3(L) 1.5 - 3.0 01/28/2025 2:07 PM EDT [facility] Blood Structure of peripheral vein / Unknown Venipuncture / Unknown 01/28/2025 1:25 PM EDT 01/28/2025 1:35 PM EDT us Candi Nieves BLOW MOULDING MACHINE OPERATOR LAB BLOOD ORDERABLES Fi nal Result [facility] [address] [place] [address], * Echocardiogram, Outside Result (01/22/2025) Anatomical Region Laterality Modality Other 01/22/2025 us Onbase Scan Nicolas AMB EXTERNAL RESULT PROCEDURE S Final Result * UPPER GI ENDOSCOPY (11/14/2024) Narrative Procedure Note Hesham Naidu MD - 11/14/2024 9:[address] [facility] Gastroenterology Patient Name: Araceli Page Procedure Date: 11/14/2024 9:28 AM Date of : 1950 Admit Type: Outpatient Age: 74 Room: Room 5 Gender: Female Note Status: Finalized Attending MD: Hesham Naidu MD Procedure: Upper GI endoscopy Indications: Cirrhosis rule out esophageal varices Patient Profile: This is a 74 year old female. Refer to note inpatient chart for documentation of history and physical. Providers: Hesham Naidu MD (Doctor) Referring MD: Candi Nieves MD (Referring MD) Requesting Provider: Medicines: Monitored Anesthesia Care Complications: No immediate complications. Estimated blood loss: Minimal. Estimated Blood Loss: Estimated blood loss was minimal. Procedure: Pre-Anesthesia Assessment: - Prior to the procedure, a History and Physicalwas performed, and patient medications and allergieswere reviewed. The patient is competent. The risks and benefits of the procedure and the sedation optionsand risks were discussed with the patient. Allquestions were answered and informed consent was obtained. Patient identification and proposed procedure were verified by the physician, the nurse and the cassandra architect in the pre-procedure area in theendoscopy suite. Mental Status Examination: normal.Respiratory Examination: clear to auscultation. Prophylactic Antibiotics: The patient does not requireprophylactic antibiotics. Prior Anticoagulants: The patient has taken no anticoagulant or antiplatelet agents. ASA Grade Assessment: III - A patient with severesystemic disease. After reviewing the risks and benefits,the patient was deemed in satisfactory condition to undergo the procedure. The anesthesia plan was touse monitored anesthesia care (MAC). Immediately priorto administration of medications, the patient was re-assessed for adequacy to receive sedatives. The heart rate, respiratory rate, oxygen saturations, blood pressure, adequacy of pulmonary ventilation,and response to care were monitored throughout the procedure. The physical status of the patient was re-assessed after the procedure. After obtaining informed consent, the endoscope was passed under direct vision. Throughout theprocedure, the patient's blood pressure, pulse, and oxygen saturations were monitored continuously. [id number] was introduced through the mouth, andadvanced to the second part of duodenum. The upper GIendoscopy was accomplished without difficulty. The patient tolerated the procedure well. Findings: The examined esophagus was normal. Mildly erythematous mucosa without bleeding was found in theprepyloric region of the stomach. Biopsies were taken with a cold forceps for Helicobacter pylori testing. A single small subepithelial papule (nodule) with no bleeding and no stigmata of recent bleeding was found in the gastric antrum. The examined duodenum was normal. Impression: - Normal esophagus. No esophageal or gastricvarices seen. - Erythematous mucosa in the prepyloric region ofthe stomach. Biopsied. - A single subepithelial papule (nodule) found inthe stomach. - Normal examined duodenum. Recommendation: - Await pathology results. - Repeat upper endoscopy in 3 years for surveillance/or per refrigeration houseman. . - Will refer for EUS to evaluate subepitheliallesion Hesham Naidu MD 11/14/2024 10:10:22 AM Number of Addenda: 0 Note Initiated On: 11/14/2024 9:28 AM Hesham Naidu MD PROVATION PROCEDURES Final Resul t * COLONOSCOPY (11/14/2024) Narrative Procedure Note Hesham Naidu MD - 11/14/2024 9:[address] [facility] Gastroenterology Patient Name: Araceli Page Procedure Date: 11/14/2024 9:27 AM Date of : 1950 Admit Type: Outpatient Age: 74 Room: Room 5 Gender: Female Note Status: Finalized Attending MD: Hesham Naidu MD Procedure: Colonoscopy Indications: Screening for colorectal malignant neoplasm Patient Profile: This is a 74 year old female. Refer to note inpatient chart for documentation of history and physical. Providers: Hesham Naidu MD (Doctor) Referring MD: Candi Nieves MD (Referring MD) Requesting Provider: Medicines: Monitored Anesthesia Care Complications: No immediate complications. Estimated blood loss: Minimal. Estimated Blood Loss: Estimated blood loss was minimal. Procedure: Pre-Anesthesia Assessment: - Prior to the procedure, a History and Physicalwas performed, and patient medications and allergieswere reviewed. The patient is competent. The risks and benefits of the procedure and the sedation optionsand risks were discussed with the patient. Allquestions were answered and informed consent was obtained. Patient identification and proposed procedure were verified by the physician, the nurse and the cassandra architect in the pre-procedure area in theendoscopy suite. Mental Status Examination: normal.Respiratory Examination: clear to auscultation. CV Examination: normal. Prophylactic Antibiotics: The patient doesnot require prophylactic antibiotics. Prior Anticoagulants: The patient has taken noanticoagulant or antiplatelet agents. ASA Grade Assessment: III -A patient with severe systemic disease. Afterreviewing the risks and benefits, the patient was deemed in satisfactory condition to undergo the procedure.The anesthesia plan was to use monitored anesthesiacare (MAC). Immediately prior to administration of medications, the patient was re-assessed foradequacy to receive sedatives. The heart rate, respiratory rate, oxygen saturations, blood pressure, adequacyof pulmonary ventilation, and response to care were monitored throughout the procedure. The physical status of the patient was re-assessed after the procedure. After I obtained informed consent, the scope was passed under direct vision. Throughout theprocedure, the patient's blood pressure, pulse, and oxygen saturations were monitored continuously. The [id number] was introduced through the anusand advanced to the terminal ileum. The colonoscopy was performed without difficulty. The patient tolerated the procedure well. The quality of the bowel preparation was evaluated using the BBPS (BostonBowel Preparation Scale) with scores of: Right Colon = 3, Transverse Colon = 3 and Left Colon = 3 (entiremucosa seen well with no residual staining, smallfragments of stool or opaque liquid). The total BBPS score equals 9. The terminal ileum, ileocecal valve, appendiceal orifice, and rectum werephotographed. Findings: The terminal ileum appeared normal. Biopsies were taken with a cold forceps for histology. A 5 mm polyp was found in the descending colon. The polyp wassessile. The polyp was removed with a cold snare. Resection and retrieval were complete. Normal mucosa was found in the entire colon. Biopsies were taken witha cold forceps for histology. The exam was otherwise without abnormality on direct and retroflexion views. Impression: - The examined portion of the ileum was normal. Biopsied. - One 5 mm polyp in the descending colon, removedwith a cold snare. Resected and retrieved. - Normal mucosa in the entire examined colon.Biopsied. - The examination was otherwise normal on directand retroflexion views. Recommendation: - Discharge patient to home. - Resume previous diet. - Continue present medications. - Await pathology results. - Repeat colonoscopy in 5 years for surveillance. - Return to primary care physician. - Return to GI clinic as previously scheduled. - Patient has a contact number available for emergencies. The signs and symptoms of potential delayed complications were discussed with thepatient. Return to normal activities tomorrow. Written discharge instructions were provided to thepatient. Hesham Naidu MD 11/14/2024 10:40:31 AM Number of Addenda: 0 Note Initiated On: 11/14/2024 9:27 AM Hesham Naidu MD PROVATION PROCEDURES Final Resul t from Last 3 Months or Most Recently Relevant to Health Maintenance Insurance [facility] FEDERAL MEDICARE [facility] 65 PLUS on file Advance Directives Documents on File Type Date Recorded Patient Charter Pilot Expl anation Advance Directive 01/11/2012 12:00 AM Adva nce Care Directives Advance Directive 12/23/2011 12:00 AM [email or web address] Dec Making (Adv.Dir) * Full Code (Latest Code Status on File) Date Activated Date Inactivated Comments 02/25/2025 12:08 PM 02/25/2025 3:34 PM Care Teams Corsetier Relationship Specialty Start Date End Date Nohemy Hernandez [address] [place] [address] PCP - General 03/03/17
--- OUTSIDE RECORDS SUMMARY | 2025-04-11 12:51 | XMS_ITS | Clinical Summary ---
Author Organization [facility] Address [address] [place] [address] Care Team Providers Care Educational Interpreter Name Role Phone Nohemy Hernandez MD Primary Care Provider [phone] Allergies Active Allergy Reactions Criticality Noted Date Comments Bacitracin Hives,Rash/Dermatitis Medium 02/28/2018 Meperidine Itching Low 10/10/2019 Oxycodone-Aspirin Rash/Dermatitis Low 10/10/2019 DRUG DERMATITIS Penicillins Anaphylaxis,Rash/Rylan m atitis High 11/08/2018 DRUG DERMATITIS Sulfa Antibiotics Hives Medium 02/21/2019 Sulfamethoxazole-Trimet hoprim Itching,Hives High 11/08/2018 Medications amitriptyline (ELAVIL) 25 MG tablet TAKE 2 TABLETS BY MOUTH ONCE A DAY AT BEDTIME 6 10/01/19 19 Active ergocalciferol (VITAMIN D2,DRISDOL) 65135 units Cap TAKE ONE CAPSULE BYMOUTH ONCE [...] 1 10/19/19 Active SIMONE [facility]AR[facility] LANCETS FINE [facility] lancet DX CODE: E10.9 USE TO TEST [...] mouth daily. 1 10/10/19 Active Dermatological Products, [facility] (EPICERAM) lotion APPLY TWICE A DAY TO [...] Health Maintenance Due Date Last Done Comments Advance Care Planning 1950 Hepatitis C Virus Screening 1950 DTaP/Tdap/Td Vaccines [...] & B MEDICARE PART A & B [facility] Care Teams Educational Interpreter Relationship Specialty Start Date End Date Nohemy Hernandez MD [address] [place] [address] PCP - General 11/08/18 Rn Progressive Care Kalyn Wright 12/18/18
--- OUTSIDE RECORDS SUMMARY | 2025-04-11 12:51 | XMS_ITS | Encounter Summary ---
Author Organization [facility] Address [address] [place] [address] Care Team Providers Care Real Estate Specialist Name Role Phone Nohemy Hernandez MD Primary Care Provider [phone] Encounter Details Date Type Department Care Team (Late st Contact Info) Description 02/19/2019 Scanned Document [facility] [address] [facility] [address] [place] [phone] Acosta Madrid MD [address] [place] [address] [address] [place] [address] Social History Tobacco Use Types Packs/Day Years Used Date Smoking Tobacco: Former Cigarettes Q uit: 1993 Smokeless Tobacco: Never Comments Unknown Sex and Gender Information Value Date Recorded Sex Assigned at Not on file Legal Sex Female 6:49 PM EDT Gender Identity Not on file Sexual Orientation Not on file documented as of this encounter Plan of Treatment Not on file documented as of this encounter Visit Diagnoses Not on filedocumented in this encounter Care Teams Real Estate Specialist Relationship Specialty Start Date End Date Nohemy Hernandez MD [address] [place] [address] PCP - General 11/08/18 Asbestos Abatement Worker Kalyn Wright 12/18/18 documented as of this encounter
--- OUTSIDE RECORDS SUMMARY | 2025-04-11 12:51 | XMS_ITS | Encounter Summary ---
Author Organization [facility] Address [address] [place] [address] Care Team Providers Care Insurance Broker Name Role Phone Nohemy Hernandez MD Primary Care Provider [phone] Encounter Details Date Type Department Care Team (Late st Contact Info) Description 02/09/2019 Scanned Document [facility] [address] [facility] [address] [place] [phone] Acosta Madrid MD [address] [place] [address] [address] [place] [address] Social History Tobacco Use Types Packs/Day Years [...] on filedocumented in this encounter Care Teams Insurance Broker Relationship Specialty Start Date End Date Nohemy Hernandez MD [address] [place] [address] PCP - General 11/08/18 Procurement Consultant Kalyn Wright 12/18/18 documented as of this encounter
--- OUTSIDE RECORDS SUMMARY | 2025-04-11 12:51 | XMS_ITS | Encounter Summary ---
Author Organization [facility] Address [address] [place] [address] Care Team Providers Care Valve Assembler Name Role Phone Nohemy Hernandez MD Primary Care Provider [phone] Encounter Details Date Type Department Care Team (Late st Contact Info) Description 06/01/2019 Scanned Document [facility] [address] [place] [phone] Jeffery Presley MD [address] [address] Social History Tobacco Use Types Packs/Day Years [...] on filedocumented in this encounter Care Teams Valve Assembler Relationship Specialty Start Date End Date Nohemy Hernandez MD [address] [place] [address] PCP - General 11/08/18 Pension Manager Kalyn Wright 12/18/18 documented as of this encounter
--- OUTSIDE RECORDS SUMMARY | 2025-04-11 12:51 | XMS_ITS | Encounter Summary ---
Author Organization [facility] Address [address] [place] [address] Phone Care Team Providers Care Feather Renovator Name Role Phone Nohemy Hernandez MD Primary Care Provider [phone] Flakito BooneBS Unavailable [phone] Encounter Details Date Type Department Care Team (Late st Contact Info) Description 10/17/2024 Procedure Pass [facility], Ct Scan - [address] [address] Social History Tobacco Use Types Packs/Day Years [...] st Contact Info) Description 12/06/2024 Procedure Pass [address] [address] 12/06/2024 Procedure Pass [address] [address] 04/12/2025 10:30 AM EDT Office Visit [facility] [address] [place] [address] James Schilling DO [address] [place] [address] 06/06/2025 12:45 PM EDT Appointment [address] [address] Flakito Boone MBBS [address] [place] [address] [email or web address] 06/13/2025 11:40 AM EDT Office Visit [facility] at [address] [address] Flakito Boone MBBS [address] [place] [address] [email or web address] 10/02/2025 1:00 PM EST Office Visit [facility] [address] [place] [address] James Schilling DO [address] [place] [address] [email or web address] documented as of this encounter Visit Diagnoses Not on filedocumented in this encounter Care Teams Feather Renovator Relationship Specialty Start Date End Date Nohemy Hernandez MD [address] [place] [address] PCP - General Internal Medicine 05/14/21 Flakito Boone MBBS [address] [place] [address] [email or web address] Primary Oncologist Medical Oncology 10/02/24 documented as of this encounter Additional Source Comments The information contained in this document represents components of the legal health record. It is not the complete legal health record.[facility]
--- OUTSIDE RECORDS SUMMARY | 2025-04-11 12:51 | XMS_ITS | Encounter Summary ---
Author Organization [facility] Address [address] [place] [address] Phone Care Team Providers Care Child Care Coordinator Name Role Phone Nohemy Hernandez MD Primary Care Provider [phone] Flakito Boone Unavailable [phone] Encounter Details Date Type Department Care Team (Late st Contact Info) Description 07/21/[address] [address] Social History Tobacco Use Types Packs/Day Years [...] (Late st Contact Info) Description 12/06/[address] [address] 12/06/[address] [address] 04/12/2025 10:30 AM EDT Office Visit [facility] [address] [place] [address] James Schilling DO [address] [place] [address] 06/06/2025 12:45 PM EDT Appointment [facility], Ct Scan - [address] [address] Flakito Boone MBBS [address] [place] [address] [email or web address] 06/13/2025 11:40 AM EDT Office Visit 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 It is not the complete legal health record.[facility]
--- OUTSIDE RECORDS SUMMARY | 2025-04-11 12:51 | XMS_ITS | Clinical Summary ---
Author Organization [facility] Address [address] [facility] [address] [place] [address] Phone Care Team Providers Care Saddle And Side Wire Stitcher Name Role Phone Nohemy Hernandez MD Primary Care Provider [phone] Allergies Active Allergy Reactions Criticality Noted Date [...] time each day Active sodium chloride ([facility]) 0.65 % nasal spray Administer 1 spray [...] (01/21/2024): Added automatically from request for surgery [id number] Fibromyalgia 02/21/2009 Social History Tobacco Use Types Packs/Day Years [...] Office Visit [facility] [place] [facility] [address] [phone] Ryan Ann MD [address] [phone] Health Maintenance Due Date Last Done Comments [...] Colorectal Cancer Screening: Colonoscopy 11/14/2034 11/14/2024 Insurance [address] [place] [address] Medicare [facility] [address] [place] [address] Medicare [facility] Care Teams Saddle And Side Wire Stitcher Relationship Specialty Start Date End Date Nohemy Hernandez MD [address] [place] [address], [address] [place] [address] PCP - General Internal Medicine 10/24/23
--- OUTSIDE RECORDS SUMMARY | 2025-04-11 12:51 | XMS_ITS | Encounter Summary ---
Author Organization [facility] Address [address] [place] [address] Phone Care Team Providers Care Chemistry Manager Name Role Phone Nohemy Hernandez MD Primary Care Provider [phone] Flakito BooneBS Unavailable [phone] Encounter Details Date Type Department Care Team (Late st Contact Info) Description 10/17/2024 Procedure Pass [facility], Ct Scan - [address] [address] Social History Tobacco Use Types Packs/Day Years [...] st Contact Info) Description 12/06/2024 Procedure Pass [address] [address] 12/06/2024 Procedure Pass [address] [address] 04/12/2025 10:30 AM EDT Office Visit [facility] [address] [place] [address] James Schilling DO [address] [place] [address] 06/06/2025 12:45 PM EDT Appointment [address] [address] Flakito Boone MBBS [address] [place] [address] [email or web address] 06/13/2025 11:40 AM EDT Office Visit [facility] at [address] [address] Flakito Boone MBBS [address] [place] [address] [email or web address] 10/02/2025 1:00 PM EST Office Visit [facility] [address] [place] [address] James Schilling DO [address] [place] [address] [email or web address] documented as of this encounter Visit Diagnoses Not on filedocumented in this encounter Care Teams Chemistry Manager Relationship Specialty Start Date End Date Nohemy Hernandez MD [address] [place] [address] PCP - General Internal Medicine 05/14/21 Flakito Boone MBBS [address] [place] [address] [email or web address] Primary Oncologist Medical Oncology 10/02/24 documented as of this encounter Additional Source Comments The information contained in this document represents components of the legal health record. It is not the complete legal health record.[facility]
== END 2025-04-11 12:27 | disposition home or self-care (01) ==
LOC: HO.HSM 11:34
PROVIDERS: PCP Internal Medicine; Referring Provider Internal Medicine; Visit Provider Registered Nurse
DX: R42 Dizziness and giddiness (principal); G43.909 Migraine, unspecified, not intractable, without status migrainosus; G62.9 Polyneuropathy, unspecified
CPT/HCPCS: 99214

== ENCOUNTER → 2025-04-11 11:34 | Outpatient (BNVA) | payer MEDICARE, BC, SELFPAY | PROVIDERS: PCP Internal Medicine; Referring Provider Internal Medicine; Visit Provider Registered Nurse | DX: R42 Dizziness and giddiness (principal); G43.909 Migraine, unspecified, not intractable, without status migrainosus; G62.9 Polyneuropathy, unspecified; Z79.899 Other long term (current) drug therapy | CPT/HCPCS: 99212 ==

== ENCOUNTER 2025-04-16 12:57 | Outpatient (AMB) | payer MEDICARE, BC, SELFPAY ==
[2025-04-16 12:59] VITALS: BP 142/80; PULSE 86; BMI 28.7
--- NOTE | 2025-04-16 12:59 | MHC.OFFVIS ---
Vital Signs 04/16/25 12:59 Height 5 ft 4 in Weight 167 lb 1.766 oz BMI 28.7 BP 142/80 H Blood Pressure Location Lt brachial Position Sitting Pulse 86 Pulse Source Monitor Intake Visit Reasons: f/up CTA/ echo HS Allergies bacitracin (BACITRACIN) Allergy (Intermediate, Verified 04/16/25 13:06) RASH Penicillins Allergy (Intermediate, Verified 04/16/25 13:06) RASH/CHEST TIGHTNESS Sulfa (Sulfonamide Antibiotics) (Sulfa (Sulfonamides)) Allergy (Intermediate, Verified 04/16/25 13:06) HIVES Medication List - Last Reconciled 04/16/25 by MARILIN AndreaC amitriptyline 50 mg (2 x 25 mg) PO BEDTIME 90 days amlodipine 5 mg PO DAILY calcium carbonate 500 mg PO DAILY coQ10 (ubiquinol) (Qunol Kapil CoQ10) 100 mg PO DAILY insulin detemir U-100 (Levemir FlexTouch U-100 Insulin) 30 units subcut QAM isosorbide mononitrate ER 60 mg PO DAILY lorazepam 0.5 mg PO BID meclizine 25 mg PO BID PRN 30 days metformin ER 1,000 mg PO BID metoprolol succinate ER 100 mg PO DAILY tizanidine 2 mg PO BEDTIME PRN ursodiol 600 mg PO BID valsartan 320 mg PO DAILY vitamin B complex 1 cap PO DAILY HPI HPI f/up CTA/ echo HS: Details: Araceli is a 74-year-old female with past medical history of hypertension, hyperlipidemia, diabetes, primary biliary cirrhosis followed by [facility], abnormal EKG, recent MRI that did show abdominal aortic and iliac atherosclerosis who presents for follow-up after recent CTA of the coronary arteries. Today she reports she has been doing generally well overall. Her liver disease has been stable. She follows with endocrinology and shows me her recent cholesterol level showing LDL 94. She reports inability to tolerate statins in the past. She has no chest discomfort brought on by exertional activities. No concerning shortness of breath, PND, orthopnea or edema. She does have issues with fatigue. No presyncope, syncope, falls. Compliant with medications. is present. HPI Comments Details: Episodes of vertigo stable with meclizine and lorazepam. Occasional migraines with and without visual aura. Tylenol as needed helps. Ankles feel weaker and more numb at times. No significant pain to lower extremities. Staying active, taking up to 8,000 steps/day and going to senior center. Tripped over curb and fell about 6 weeks ago. Has been under more stress the last year, following with multiple specialists including liver specialist at [facility], oncology at [facility], and [place] [facility] Gets occasional pressure to back of head that is relieved with Tylenol. ?? Occasional vertigo on lying down, lasting a couple of minutes. Also gets lightheaded on change of position. Heightened startle response, especially with sudden loud noise. As long as she takes the medications it is under control. Previously was anemic from blood loss after shoulder replacement and large shoulder hematoma. Gastroparesis from diabetes. No change in numbness in legs. Satisfied with her quality of life. Saw Dr. West and had NCV/EMG which was normal. Numbness in right ankle, foot constantly, and constantly in pain, calf and occasionally in thigh. No hearing loss, but has bilateral tinnitus. This is a high-pitched squealing noise. Has fibromyalgia with muscle pains, helped by occasional lorazepam. [facility] Medical History (Updated 04/16/25 @ 15:22 by Dana Greenfield, GERONIMO-C) Skin cancer COVID-19 vaccine series completed GERD (gastroesophageal reflux disease) Cough variant asthma Elevated cholesterol PTSD (post-traumatic stress disorder) CRPS (complex regional pain syndrome) type I of lower limb Diabetes HTN (hypertension) Arthritis Primary biliary cholangitis Surgical History Hx of foot surgery Hx of cholecystectomy Hx of repair of right rotator cuff History of H/O colonoscopy History of liver biopsy History of esophagogastroduodenoscopy (EGD) Hx of carpal tunnel repair Family History Father Emphysema lung Social History Are you a primary care center manager to a significant other at home: No Do you presently have visiting nurse or other home services: No Comment: uses cane on occasion when foot pain acts up Patient Tobacco Use Status: Former Tobacco user Tobacco use type: Cigarette Years Smoked: 25 Review of Systems Const All systems reviewed & are unremarkable except as noted in HPI and below Denies daytime sleepiness, Denies difficulty sleeping, Denies headache(s), Denies snoring, Denies stops breathing during sleep and Denies weakness Eyes Denies loss of vision ENT Denies vertigo, Reports dizziness, Denies headache(s) and Denies neck pain Card Reports chest pain (radiation from area of left shoulder), Denies rapid heart rate, Denies irregular heart rhythm, Denies claudication, Denies leg edema, Denies lightheadedness, Denies palpitations, Denies dyspnea, Reports dyspnea on exertion, Denies orthopnea, Denies paroxysmal nocturnal dyspnea and Denies slow heart rate Resp Denies cough, Denies dyspnea, Reports dyspnea on exertion and Denies snoring GI Reports no additional complaints, Denies hematochezia, Denies change in stool character and Denies dyspepsia Denies urinary frequency, Denies urinary incontinence and Denies urinary urgency Musc Denies abnormal gait, Denies muscle weakness, Denies neck pain and Denies numbness Neuro Denies Abnormal speech present, Denies abnormal gait, Denies vertigo, Reports dizziness, Denies headache(s), Denies loss of vision, Denies memory loss, Denies numbness and Denies weakness Psych Denies anxiety, Denies depression, Denies auditory hallucinations, Denies memory loss and Denies visual hallucinations Endo Denies palpitations Physical Exam Vital Signs: Last Vital Signs Pulse 86 04/16/25 12:59 BP 142/80 H 04/16/25 12:59 BMI result Body Mass Index 28.7 Const Other: General Appearance:? normal, in no acute distress. Heart:? S1, S2 normal, no murmurs. Lungs:? clear anteriorly and posteriorly. Musculoskeletal:? normal. Extremities:? no edema. Psych:? alert, oriented, cognitive function intact, cooperative with exam. General: comfortable and no acute distress Orientation/consciousness: patient oriented x3 HEENT Other: Unremarkable Head: Yes normal to inspection Resp Auscultation: clear to auscultation bilaterally Cardio Palpation: normal PMI Heart sounds: S1 normal heart sound present, S2 normal heart sound present, no gallops, no murmurs and no rubs Neuro Other: Abnormal Neurological Findings:?strabismus with blind left eye Mental Status: alert and oriented X 3. Normal attention, orientation, memory, and affect. Cranial Nerves: Pupils are equal, round, and reactive to light. External ocular muscles are intact. Visual ramirez are full, no ptosis. Face is symmetrical, no facial weakness or droop. Facial sensations are normal. Tongue protrudes in midline. Palate elevates symmetrically. Shoulder shrugging is normal Motor Examination: Normal muscle tone, bulk and strength. No atrophy or fasciculations. No drift of the extended upper extremities. DTR 2+. Plantars are flexor. Sensory Exam: Normal light touch, temperature, pinprick, vibration, and joint-position sensations. Rhomberg sign is absent. Coordination: No ataxia. No titubation. Gait Exam: Within normal limits. Cerebellar Signs: [id number] is okay. Extrapyramidal System: No tremor, rigidity with normal facial expressions. No bradykinesia. No bradyphrenia. Normal arm swing and posture. No propulsion or retropulsion. Speech: Normal. General: patient oriented x3 Speech: No Abnormal speech present Extrem General: Yes normal to inspection Psych Mental Status: mental status grossly normal Office Procedures EKG Details: Today, read by me, normal sinus rhythm, cant exclude septal infarct, nonspecific intraventricular conduction delay nonspecific intraventricular conduction delay rate 86, Qtc 471ms [id number], Complete Results Reviewed Results Reviewed: 01/22/15 JAIME TABARES. MRI brain shows mild non specific microvascular changes 10/04/19 MRI LS spine shows severe discogenic degen changes and foraminal stenosis and mild grade I spondylolisthesis at L-5 with moderate canal stenosis [facility] Pulse Electromagnetic pulse device for pain control 07/16/20 NCV/EMG LE Sensory peripheral neuropathy in the lower extremities. Normal EMG bilaterally in the L4-S1 innervated muscles. Compared to study of 04/[address] Portillo in which NCV was normal and there was mild EMG evidence of right L5-S1 radiculopathy. Assessment & Plan Assessment & Plan (1) Atherosclerotic cardiovascular disease: Code(s): I25.10 - Atherosclerotic heart disease of [place] coronary artery without angina pectoris Category: Medical Plan: Reports indicate MRI done for liver issues showing abdominal aortic and iliac arteries with atherosclerotic changes. This in itself is not entirely unusual for her age. She did undergo a CTA of the coronary arteries on 03/27/2025 which showed no hemodynamically significant stenosis. She does have mild nonobstructive coronary disease. She will check with her liver specialist to see if aspirin is contraindicated. Her cholesterol is being followed by her executive marketing assistant. Recommend ideal LDL goal less than 70. Ongoing risk factor modifications reviewed including good diabetic, blood pressure as well as cholesterol control. Continue weight control and physical activity as tolerated. Signs and symptoms of angina reviewed. Cardiology follow-up in 6 months, sooner if needed. (2) Abnormal EKG: Code(s): R94.31 - Abnormal electrocardiogram [ECG] [EKG] Category: Medical Plan: EKGs do show findings suggestive of septal infarct. Echocardiogram done 01/22/2025 showed EF 55-60%, mildly dilated left atrium, mildly calcific aortic valve, moderate calcification of the mitral valve. No regional wall motion abnormalities reported. CTA of the coronary arteries done 03/27/2025 shows left main less than 25% stenosis, lad and diagonal less than 25% stenosis, left circumflex less than 25% stenosis and RCA less than 25% stenosis. Test results reviewed with her in detail. He has no evidenc the support EKG finding of prior infarct. She does have multiple cardiac risk factors including hypertension, hyperlipidemia and diabetes and will need ongoing risk factor modification as discussed above. (3) Diabetes: Code(s): E11.9 - Type 2 diabetes mellitus without complications Category: Medical Plan: Hemoglobin A1c goal less than 7. Followed by PCP/endocrinology (4) HTN (hypertension): Code(s): I10 - Essential (primary) hypertension Category: Medical Plan: Blood pressure goal less than 130/80. Mildly elevated at this time. Follows closely with other providers as well. Reviewed low-salt diet. Continue current medications including amlodipine, isosorbide, metoprolol and valsartan. (5) Elevated cholesterol: Comment: diet controlled Code(s): E78.00 - Pure hypercholesterolemia, unspecified Category: Medical Plan: Perry LDL goal less than 70. Labs done by her executive marketing assistant Dr. Schilling on 03/26/2025 showed triglycerides 145, total cholesterol 197, LDL 94 and HDL 74. Will forward this note to him for update on her cardiac condition. Plan Time spent on chart review, documentation, interview and assessment Coding Level of Care Code Est Pt Level 4 (57668) Complex EM visit Add On G2211 Diagnoses Atherosclerotic cardiovascular disease I25.10 Abnormal EKG R94.31 Diabetes E11.9 HTN (hypertension) I10 Elevated cholesterol E78.00 CPT Codes EKG - CPT: 71812-[id number], Complete ([id number])
--- OUTSIDE RECORDS SUMMARY | 2025-04-16 14:14 | XMS_ITS | Clinical Summary ---
Author Organization [facility] Address [address] [place] [address] Care Team Providers Care Senior Lead Project Manager Name Role Phone Nohemy Hernandez MD Primary Care Provider [phone] Social History Tobacco Use Types Packs/Day Years [...] age to complete this topic Care Teams Senior Lead Project Manager Relationship Specialty Start Date End Date Nohemy Hernandez MD [address] [place] [address] [address] [place] [id number] PCP - General Internal Medicine 07/02/20
--- OUTSIDE RECORDS SUMMARY | 2025-04-16 14:14 | XMS_ITS | Clinical Summary ---
Author Organization [facility] Address [address] [place] [address] Phone Care Team Providers Care Applied Psychology Teacher Name Role Phone Nohemy Hernandez MD Primary Care Provider [phone] Flakito Boone MBBS Unavailable [phone] Allergies Active Allergy Reactions Criticality Noted [...] 03/08/20 23 Active blood-glucose meter,continuous (DEXCOM G7 TECHNICAL SUPPORT PROFESSIONAL) MiscIndications: Type 2 diabetes mellitus with microalbuminuria [...] like to obtain the DXA scan at [facility]. I will request the study. The patient [...] She cannot tolerate statins. She just takes vuag-byg-njccsml medications like planned stanol elayne, she monitors [...] of Trulicity 0.75 mg weekly. Lot number [id number] expiration January 21, 2023. The patient will return for follow-up in 3 months time. Encounters Date Type Department Care Team Description 04/12/2025 Telephone [facility] [address] [place] [address] [place] [address] Merlin Schilling DO Late Cancellation (04/12/25 at 10:30am) 04/08/2025 12:48 PM EDT - 04/08/2025 11:59 PM EDT Hospital Encounter [facility], [address] [address] Merlin Schilling DO Discharge Disposition: Home or Self Care 04/01/2025 1:00 PM EDT Office Visit [facility] [address] [place] [address] Merlin Schilling DO Type 2 diabetes mellitus with microalbuminuria, with long-term current use of insulin (Primary Dx); Hyperlipidemia LDL goal <70 04/01/2025 Telephone [facility] [address] [place] [address] [place] [address] Merlin Schilling DO 03/27/2025 11:08 AM EDT - 03/27/2025 11:59 PM EDT Hospital Encounter [facility] [address] [place] [address] Merlin Schilling DO Discharge Disposition: Home or Self Care 01/24/2025 11:40 AM EDT Office Visit [facility] [address] [place] [address] Yu Tavarez PA-C Occult closed fracture of scaphoid of right wrist, initial encounter (Primary Dx); Trigger index finger of right hand 01/24/2025 11:29 AM EDT - 01/24/2025 11:59 [place] [address] Yu Tavarez PA-C Discharge Disposition: Home or [...] st Contact Info) Description 12/06/2024 Procedure Pass [address] [address] 12/06/2024 Procedure Pass [address] [address] 06/06/2025 12:45 PM EDT Appointment [address] [address] Flakito Boone MBBS [address] [place] [address] [email or web address] 06/13/2025 11:40 AM EDT Office Visit [facility] at [address] [address] Flakito Boone MBBS [address] [place] [address] [email or web address] 08/12/2025 1:20 PM EST Office Visit [facility] [address] [place] [address] Shakir Merlin DO [address] [place] [address] 10/02/2025 1:00 PM EST Office Visit [facility] [address] [place] [address] Merlin Schilling [address] [address] [email or web address] Health Maintenance Due Date [...] 09/19/2024 09/19/2023, 07/16, 08/06/2022, Additional history exists INFLUENZA VACCINE (#1) 2025 , 06/17/2023, 05/18/2022, Additional history exists COVID-19 VACCINE ( season) 2025 04/15/2024, 01/20/2024, 06/17/2023, Additional history exists BLOOD PRESSURE 06/07/2025 12/06/2024 HEMOGLOBIN A1C 09/27/2025 03/27/2025, 02, 03/26/2024, Additional history exists CREATININE LEVEL 11/22/2025 [...] this topic Medical Devices Implanted Type Area Textile Converter Device Identifier Shelf Expiration Date Model / Serial / Lot Screw Bone 26x4.5mm Shoulder Glenoid Fixation Aequalis Titanium Multidirectional Reverse - [id number] Implanted:Qty: 1 on 08/06/2022 by Acosta Aranda DO at [facility] Left: Shoulder [employer] [id number] / / Shoulder Post 25mm [id number] Baseplate Glenoid Humeral Aequalis Reversed Ii Standard - [id number] Implanted:Qty: 1 on 08/06/2022 by Acosta Aranda DO at [facility] Left: Shoulder [employer] 06/04/2027 [id number] / [id number] / Screw Bone 4.5x32mm Shoulder Glenoid Locking Multi Directional Aequalis Reversed Reverse 08 - [id number] Implanted:Qty: 1 on 08/06/2022 by Acosta Aranda DO at [facility] Left: Shoulder [employer] [id number] / / Shoulder Implant 31l45cd Sphere Glenoid Aequalis Centered - [id number] Implanted:Qty: 1 on 08/06/2022 by Acosta Aranda DO at [facility] SMDA Left: Shoulder [employer] 05/05/2027 [id number] / [id number] / Pin Rt Shulder Screws In Right Foot Bone Cement Antibiotic Refobacin - [id number] Implanted:Qty: 1 on 08/06/2022 by Acosta Aranda DO at [facility] Left: Shoulder PAT BIOMET 10/12/2024 [id number] / / [id number] Shoulder Stem [id number] Implant Reverse Fracture Hum - [id number] Implanted:Qty: 1 on 08/06/2022 by Acosta Aranda DO at [facility] Left: Shoulder [employer] 02/28/2025 [id number] / [id number] / Restrictor Shoulder 8 15mm Bone Cement 09 - [id number] Implanted:Qty: 1 on 08/06/2022 by Acosta Aranda DO at [facility] Left: Shoulder [employer] 04/16/2026 [id number] / [id number] / Humerus Insert 36x6.0mm Humeral Shoulder Aequalis Reversed Fracture Lateralized Functional Deltoid Plus - [id number] Implanted:Qty: 1 on 08/06/2022 by Acosta Aranda DO at [facility] Left: Shoulder [employer] 11/17/2026 [id number] / [id number] / Screw Bone 4.5x18mm Shoulder Fixation Hemispherical Head Non Locking Aequalis Reverse 08 - [id number] Implanted:Qty: 2 on 08/06/2022 by Acosta Aranda DO at [facility] Left: Shoulder [employer] [id number] / / Procedures Procedure Name Priority Date/Time [...] Referred By: MERLIN SCHILLING Indications: Osteopenia Scanner: iFLYER A with serial# of [id number] located at [facility] Bone Density Scan (DXA) 04/08/25 Details [...] -2.5), or Osteoporosis (T-score <= -2.5). At [facility], T-scores are compared to peak bone [...] Referred By: MERLIN SCHILLING Indications: Osteopenia Scanner: iFLYER A with serial# of [id number] located at [facility] Bone Density Scan (DXA) 04/08/25 Details [...] fracture as an adult. Reviewed By: Yobany Santarcuz on 04/09/2025 20:51:38 Additional Information: -World Health Organization criteria classify adults based on lowestT-score at PA spine, hip or forearm: Normal (T-score >= -1.0), Osteopenia (T-score between -1 and -2.5), or Osteoporosis (T-score <= -2.5). At [facility], T-scores are compared to peak bone [...] andprior bone density results. IMPRESSION: Interpretation: Osteopenia. us Merlin Schilling DO IMG BD BONE DENSITY DEXA Final R esult * (ABNORMAL) Microalbumin/creatinine ratio, random urine (03/27/2025 11:25 AM EDT) URINE MICROALBUMIN 1.4 0 - 2.3 mg/dL [facility] URINE CREATININE 54 mg/dL TEAM [employer]TR [employer] [facility] MICROALB/CRE RATIO 25.9(H) 0 - 20 mg/g Cre [facility] Urine (Urine) 03/27/2025 11: 25 AM EDT 03/27/2025 11:34 AM EDT us Merlin Schilling DO URINE ORDERABLES Final Result Performing Organization Address City/[facility]/ZIP Co de Phone Number [address] [address] * Hemoglobin A1c (03/27/2025 11:11 AM EDT) HEMOGLOBIN A1C 5.8 4.3 - 5.8 % [facility] Blood 03/27/2025 11:1 1 AM EDT 03/27/2025 11:20 AM EDT Merlin Schilling DO LAB BLOOD ORDERABLES Final Resul t Performing Organization Address [facility] Co de Phone Number [address] [address] * (ABNORMAL) Lipid panel (03/27/2025 11:11 AM EDT) HDL 74 mg/dL [facility] Comment: Interpretation <40 mg/dL: Low HDL cholesterol (major risk factor for CHD) Greater than or equal to 60 mg/dL: High HDL cholesterol ( negative risk factor for CHD) HDL - cholesterol is affected by a number of factors, e.g. smoking, excerise, hormones, sex and age. CHOLESTEROL 197 0 - 240 mg/dL [facility] TRIGLYCERIDES 145 30 - 160 mg/dL [facility] LDL 94 50 - 129 mg/dL [facility] Comment: LDL levels in terms of risk for coronary heart disease: <100 mg/dL: Optimal 100-129 mg/dL: Near or above optimal 130-159 mg/dL: Borderline high 160-189 mg/dL: High >190 mg/dL: Very High CARDIAC RISK RATIO 2.7(L) 3.3 - 4.4 [facility] Blood 03/27/2025 11:1 1 AM EDT 03/27/2025 11:20 AM EDT us Merlin Schilling DO LAB BLOOD ORDERABLES Final Resul t Performing Organization Address [facility]/ZIP Co de Phone Number [address] [address] * XR WRIST 3 OR MORE VIEWS [...] EDT) CREATININE 0.60 0.5 - 1.5 mg/dL [facility] EGFR 95 >59 mL/min/1.7 3m2 [facility] Comment:Estimated glomerular filtration rate calculated using the CKD-EPI refit equation. Blood 11/22/2024 12:1 2 PM EDT 11/22/2024 12:14 PM EDT Flakito SALOMON LAB BLOOD ORDERABLES Final Result Performing Organization Address [facility] Co de Phone Number [address] [address] * MAMMOGRAPHY FOR RESULT ENTRY ONLY (10/03/2024 10:53 AM EST) Flakito SALOMON HEALTH MAINTENANCE Final R esult * (ABNORMAL) Comprehensive metabolic panel (09/19/2023 8:47 AM EST) SODIUM 132(L) 133 - 146 mmol/L [facility] POTASSIUM 4.2 3.3 - 5.1 mmol/L [facility] CHLORIDE 95(L) 96 - 108 mmol/L [facility] CO2 28 21 - 35 mmol/L [facility] BUN 7 6 - 19 mg/dL [facility] CREATININE 0.60 0.5 - 1.5 mg/dL [facility] GLUCOSE 98 70 - 99 mg/dL [facility] ALBUMIN 4.3 3.9 - 4.8 g/dL [facility] TOTAL PROTEIN 8.0 6.5 - 8.0 g/dL [facility] CALCIUM 9.1 8.4 - 10.3 mg/dL [facility] ALKALINE PHOSPHATASE 157(H) 39 - 117 U/L [facility] TOTAL BILIRUBIN 0.4 0.0 - 1.2 mg/dL [facility] AST 26 0 - 37 U/L [facility] ALT 17 0 - 40 U/L [facility] GLOBULIN 3.7 1 - 4.8 g/dL [facility] EGFR 96 >59 mL/min/1.7 3m2 [facility] Comment:Estimated glomerular filtration rate calculated using the CKD-EPI refit equation. ANION GAP 13 10 - 20 mmol/L [facility] Blood 09/19/2023 8:47 AM EST 09/19/2023 8:57 AM EST Merlin Schilling DO LAB BLOOD ORDERABLES Final Resul t Performing Organization Address City/State/[facility] Co de Phone Number [address] [phone] from Last 3 Months or Most Recently Relevant to Health Maintenance Insurance [facility] FEDERAL MEDICARE PART A & B [facility] MEDICARE PART A & B [facility] MEDICARE [facility] A & B [facility] MEDICARE [facility] A & B [facility] MEDICARE PART A & B [facility] MEDICARE PART A & B [facility] MEDICARE [facility] A & B [facility] MEDICARE PART A & B [facility] MEDICARE PART A & B [facility] Member Subscriber Plan / Payer (Ef fective 2011-Present) Name:Araceli Page Member ID:[id number] Relation to Subscriber:Self Name:Araceli Page Subscriber ID:[id number] Payer ID:Not on file Group ID:FAX# [id number] Type:Indemnity Address: [address] [address] [place] [address] Care Teams Applied Psychology Teacher Relationship Specialty Start Date End Date Nohemy Hernandez MD [address] [place] [address] [place] [address] PCP - General Internal Medicine 05/14/21 Flakito Boone MBBS [address] [facility] 2 [place] [address] [email or web address] Primary Oncologist Medical Oncology 10/02/24 Additional Source Comments The information contained in this document represents components of the legal health record. It is not the complete legal health record.[facility]
--- OUTSIDE RECORDS SUMMARY | 2025-04-16 14:14 | XMS_ITS | Encounter Summary ---
Author Organization [employer] [facility] Address [address] [place] [address] Phone Care Team Providers Care Electrician Powerhouse Name Role Phone Nohemy Hernandez MD Primary Care Provider [phone] Flakito Boone Unavailable [phone] Encounter Details Date Type Department Care Team (Late st Contact Info) Description 12/27/2023 Ancillary Orders [facility],Outside Imaging [address] [place], [place] [phone] System, Provider Not In, [facility] [address] [address] Social History Tobacco Use Types Packs/Day Years [...] st Contact Info) Description 12/06/2024 Procedure Pass [address] [address] 12/06/2024 Procedure Pass [address] [address] 06/06/2025 12:45 PM EDT Appointment [address] [address] Flakito Boone MBBS [address] [place] [address] [email or web address] 06/13/2025 11:40 AM EDT Office Visit [facility] at [address] [address] Flakito Boone MBBS [address] [place] [address] [email or web address] 08/12/2025 1:20 PM EST Office Visit [facility] [address] [place] [address] 10/02/2025 1:00 PM EST Office Visit [facility] 22 [place] [address] James Schilling DO 22 [place] [address] documented as of this encounter Results * [...] documented as of this encounter Care Teams Electrician Powerhouse Relationship Specialty Start Date End Date Nohemy Hernandez MD [address] [place] [address] PCP - General Internal Medicine 05/14/21 Flakito Boone MBBS [address] [place] [address] [email or web address] Primary Oncologist Medical Oncology 10/02/24 documented as of this encounter Additional Source Comments The information contained in this document represents components of the legal health record. It is not the complete legal health record.[facility]
--- OUTSIDE RECORDS SUMMARY | 2025-04-16 14:14 | XMS_ITS | Encounter Summary ---
Author Organization [facility] Address [address] [place] [address] Phone Care Team Providers Care Service Delivery Supervisor Name Role Phone Nohemy Hernandez MD Primary Care Provider [phone] Flakito Boone Unavailable [phone] Encounter Details Date Type Department Care Team (Late st Contact Info) Description 12/27/2023 Ancillary Orders [facility],Outside Imaging [address] [place], [place] [phone] System, Provider Not In, [facility] [address] [address] Social History Tobacco Use Types Packs/Day Years [...] st Contact Info) Description 12/06/2024 Procedure Pass [address] [address] 12/06/2024 Procedure Pass [address] [address] 06/06/2025 12:45 PM EDT Appointment [address] [address] Flakito Boone MBBS [address] [place] [address] [email or web address] 06/13/2025 11:40 AM EDT Office Visit [facility] at [address] [address] Flakito Boone MBBS [address] [place] [phone] [email or web address] 08/12/2025 1:20 PM EST Office Visit [place] [address] [place] [address] 10/02/2025 1:00 PM EST Office Visit [facility] 22 [place] [address] James Schilling DO 22 [place] [address] documented as of this encounter Results * [...] documented as of this encounter Care Teams Service Delivery Supervisor Relationship Specialty Start Date End Date Nohemy Hernandez MD [address] [place] [address] PCP - General Internal Medicine 05/14/21 Flakito Boone MBBS [address] [place] [address] [email or web address] Primary Oncologist Medical Oncology 10/02/24 documented as of this encounter Additional Source Comments The information contained in this document represents components of the legal health record. It is not the complete legal health record.[facility]
--- OUTSIDE RECORDS SUMMARY | 2025-04-16 14:14 | XMS_ITS | Encounter Summary ---
Author Organization [facility] Address [address] [place] [address] Care Team Providers Care Digital Marketing Officer Name Role Phone Nohemy Hernandez Primary Care Provider [phone] Encounter Details Date Type Department Care Team (Late st Contact Info) Description 08/24/2024 [facility] Message Intial Department [address] [place] [address] [facility], Generic Provider [address] [place], [place] [phone] Questionnaire Submission Social History Tobacco Use Types [...] 11:00 AM EDT Appointment [facility] [address] [place] [address] 08/19/2025 12:00 PM EST Follow-Up [facility] [address] [place], [place] [phone] Coil Former: Candi Bowers, GERONIMO [address] [place], [place] [phone] documented as of this encounter Visit Diagnoses Not on filedocumented in this encounter Care Teams Digital Marketing Officer Relationship Specialty Start Date End Date Nohemy Hernandez [address] [place] [address] PCP - General 03/03/17 documented as of this encounter
--- OUTSIDE RECORDS SUMMARY | 2025-04-16 14:14 | XMS_ITS | Clinical Summary ---
Author Organization [facility] Address [address] [place] [phone] Phone Care Team Providers Care Drawer Waxer Name Role Phone Nohemy Hernandez MD Primary Care Provider [phone] Social History Tobacco Use Types Packs/Day Years [...] year. Mammo Location: [facility], [address] [place] [address], [address], . -------- FINAL REPORT -------- Dictated By: Katerine Tavares Dictated Date: 10/03/2024 12:21 ET Assigned Physician: Katerine Tavares Reviewed and Electronically Signed By: Katerine Tavares Signed Date: 10/03/2024 12:22 ET Workstation ID: [id number] Transcribed By: Self Edit Transcribed Date: 10/03/2024 [...] year. Mammo Location: [facility], [address] [place] [address], [address], . -------- FINAL REPORT -------- Dictated By: Katerine Tavares Dictated Date: 10/03/2024 12:21 ET Assigned Physician: Katerine Tavares Reviewed and Electronically Signed By: Katerine Tavares Signed Date: 10/03/2024 12:22 ET Workstation ID: [id number] Transcribed By: Self Edit Transcribed Date: 10/03/2024 12:21 ET us Nohemy Hernandez MD IMG BI PROCEDURES Final Result * JODI DEXA AXIAL SKELETON (03/31/2023 7:38 AM EDT) Anatomical Region Laterality Modality Mammography 03/30/2023 2:58 PM EDT Narrative 03/31/2023 7:38 AM EDT [facility] Diagnostic Imaging Department [address] [place] [address] Patient: MARLINE PAGE Rachel /Age/Sex: 1950 - 72 - F Unit#: [id number] Location/Status: SPDIMAM/REG CLI Mnemonic/[facility] Ordering Physician: NOHEMY HERNANDEZ MD [...] probability of hip fracture of 3.1%. Code 34424 Dictating Physician: AYLIN GANDHI MD Electronically Signed by: AYLIN GANDHI MD Dic Date/Time: 03/31/23736 Sign date/Time: 03/31/23737 Procedure Note Aylni Gandhi MD - 09/20/2023 [facility] Diagnostic Imaging Department [address] [place] [address] Patient: MARLINE PAGE./Age/Sex: 1950 - 72 - F Unit#: [id number] [facility]onic/[facility]ing Site: [facility] Ordering Physician: NOHEMY HERNANDEZ MD [facility] Dexa Axial Skeleton - 03/30/23 - 5223 Report Status:Signed HISTORY: The patient is a [...] density of the femurs bilaterally is 0.906 gm/by9jnpun is 90% of that of young normals [...] probability of hip fracture of 3.1%. Code 92314 Dictating Physician: AYLIN GANDHI MD Electronically Signed by: AYLIN GANDHI MD Dic Date/Time: 03/31/23 0737 Sign date/Time: 03/31/23737 Nohemy Hernandez MD IMG BI PROCEDURES Final Result from Last 3 Months or Most Recently Relevant to Health Maintenance Insurance [address] [place] [address] MEDICARE [facility] Care Teams Drawer Waxer Relationship Specialty Start Date End Date Nohemy Hernandez MD [address] [place] [address] PCP - General Internal Medicine 07/02/20
--- OUTSIDE RECORDS SUMMARY | 2025-04-16 14:14 | XMS_ITS | Encounter Summary ---
Author Organization [employer] [facility] Address [address] [place] [address] Phone Care Team Providers Care Ski Topper Name Role Phone Nohemy Hernandez MD Primary Care Provider [phone] Flakito Boone Unavailable [phone] Encounter Details Date Type Department Care Team (Late st Contact Info) Description 12/27/2023 Ancillary Orders [facility],Outside Imaging [address] [place], [place] [phone] System, Provider Not In, [facility] [address] [address] Social History Tobacco Use Types Packs/Day Years [...] st Contact Info) Description 12/06/2024 Procedure Pass [address] [address] 12/06/2024 Procedure Pass [address] [address] 06/06/2025 12:45 PM EDT Appointment [address] [address] Flakito Boone MBBS [address] [place] [phone] [email or web address] 06/13/2025 11:40 AM EDT Office Visit [facility] at [address] [address] Flakito Boone MBBS [address] [place] [address] [email or web address] 08/12/2025 1:20 PM EST Office Visit [facility] [place] [address] [place] [address] 10/02/2025 1:00 PM EST Office Visit [facility] [address] [place] [address] James Schilling DO [address] [place] [address] documented as of this encounter Results * [...] documented as of this encounter Care Teams Ski Topper Relationship Specialty Start Date End Date Nohemy Hernandez MD [address] [place] [address] PCP - General Internal Medicine 05/14/21 Flakito Boone MBBS [address] [place] [address] [email or web address] Primary Oncologist Medical Oncology 10/02/24 documented as of this encounter Additional Source Comments The information contained in this document represents components of the legal health record. It is not the complete legal health record.[facility]
--- OUTSIDE RECORDS SUMMARY | 2025-04-16 14:14 | XMS_ITS | Encounter Summary ---
Author Organization [facility] Address [address] [place] [address] Care Team Providers Care Employment Instructional Associate Name Role Phone Nohemy Hernandez Primary Care Provider [phone] Encounter Details Date Type Department Care Team (Late st Contact Info) Description 07/24/2024 Orders Only [facility] [address] [place] [address] James Henderson MD [address] [place] [address] Social History Tobacco Use Types Packs/Day Years [...] Info) Description 05/20/2025 11:00 AM EDT Appointment [facility] [address] [place] [address] 08/19/2025 12:00 PM EST Follow-Up [facility] [address] [place] [address] [phone] Ordnance Handler: Candi Bowers NP [address] [place] [address] documented as of this encounter Visit Diagnoses Not on filedocumented in this encounter Care Teams Employment Instructional Associate Relationship Specialty Start Date End Date Nohemy Hernandez [address] [place] [address] PCP - General 03/03/17 documented as of this encounter
--- OUTSIDE RECORDS SUMMARY | 2025-04-16 14:14 | XMS_ITS | Encounter Summary ---
Author Organization [employer] [facility] Address [address] [place] [address] Phone Care Team Providers Care Supervisor Alteration Workroom Name Role Phone Unknown, Unknown Primary Care Provider Acosta Chahal DO Unavailable [phone] Cherri Medina MD Unavailable [phone] Nohemy Hernandez MD Primary Care Provider [phone] Flakito Boone Unavailable [phone] Encounter Details Date Type Department Care Team (Late st Contact Info) Description 02/05/2016 Procedure Pass [facility] [address] [place] [address] Social History Tobacco Use Types [...] st Contact Info) Description 12/06/2024 Procedure Pass [facility], Ct Scan - [facility] [address] [place], [place] [phone] 12/06/2024 Procedure Pass [facility], Ct Scan - [address] [address] 06/06/2025 12:45 PM EDT Appointment [address] [address] Flakito Boone [address] [address] [email or web address] 06/13/2025 11:40 AM EDT Office Visit [facility] at [address] [address] Flakito Boone [address] [address] [email or web address] 08/12/2025 1:20 PM EST Office Visit [facility] [address] [place] [address] James Schilling [address] [address] 10/02/2025 1:00 PM EST Office Visit [facility] [address] [place] [address] James Schilling [address] [address] documented as of this encounter Visit Diagnoses Not on filedocumented in this encounter Additional Health Concerns Infection Onset Date Last Indicated Resolved Time 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 [address] [email or web address] Historical LMR Provider 06/02/17 08/22/21 Cherri Medina MD [address] [place] [address] Orthopedics Sports [facility], [place] [address] [email or web address] Historical LMR Provider 06/02/17 Flakito Boone MBBS [facility] 2 [place] [address] [email or web address] Primary Oncologist Medical Oncology 10/02/24 documented as of this encounter Additional Source Comments The information contained in this document represents components of the legal health record. It is not the complete legal health record.[facility]
--- OUTSIDE RECORDS SUMMARY | 2025-04-16 14:14 | XMS_ITS | Encounter Summary ---
Author Organization [facility] Address [address] [place] [address] Care Team Providers Care Block Breaker Operator Name Role Phone Nohemy Hernandez Primary Care Provider [phone] Encounter Details Date Type Department Care Team (Late st Contact Info) Description 04/29/2024 [facility] Message Intial Department [address] [place] [address] reQwip, Generic Provider [address] [place], [place] [phone] Questionnaire Submission Social History Tobacco Use Types [...] 11:00 AM EDT Appointment [facility] [address] [place] [address] 08/19/2025 12:00 PM EST Follow-Up [facility] [address] [place], [place] [phone] Farm Rancher: Candi Bowers, GERONIMO [address] [place], [place] [phone] documented as of this encounter Visit Diagnoses Not on filedocumented in this encounter Care Teams Block Breaker Operator Relationship Specialty Start Date End Date Nohemy Hernandez [address] [place] [address] PCP - General 03/03/17 documented as of this encounter
--- OUTSIDE RECORDS SUMMARY | 2025-04-16 14:14 | XMS_ITS | Encounter Summary ---
Author Organization [facility] Address [address] [place] [address] Phone Care Team Providers Care Vault Service Mechanic Name Role Phone Nohemy Hernandez MD Primary Care Provider [phone] Flakito Boone Unavailable [phone] Encounter Details Date Type Department Care Team (Late st Contact Info) Description 12/27/2023 Ancillary Orders [facility],Outside Imaging [address] [place], [place] [phone] System, Provider Not In, [facility] [address] [address] Social History Tobacco Use Types Packs/Day Years [...] st Contact Info) Description 12/06/2024 Procedure Pass [address] [address] 12/06/2024 Procedure Pass [address] [address] 06/06/2025 12:45 PM EDT Appointment [address] [address] Flakito Boone MBBS [address] [place] [address] [email or web address] 06/13/2025 11:40 AM EDT Office Visit [facility] at [address] [address] Flakito Boone MBBS [address] [place] [address] [email or web address] 08/12/2025 1:20 PM EST Office Visit [place] [address] [place] [address] 10/02/2025 1:00 PM EST Office Visit [facility] [address] [place] [address] James Schilling DO [address] [place] [address] documented as of this encounter Results * [...] documented as of this encounter Care Teams Vault Service Mechanic Relationship Specialty Start Date End Date Nohemy Hernandez MD [address] [place] [address] PCP - General Internal Medicine 05/14/21 Flakito Boone MBBS [address] [place] [address] [email or web address] Primary Oncologist Medical Oncology 10/02/24 documented as of this encounter Additional Source Comments The information contained in this document represents components of the legal health record. It is not the complete legal health record.[facility]
--- OUTSIDE RECORDS SUMMARY | 2025-04-16 14:15 | XMS_ITS | Encounter Summary ---
Author Organization [facility] Address [address] [place] [address] Phone Care Team Providers Care Search Manager Name Role Phone Nohemy Hernandez MD Primary Care Provider [phone] Flakito BooneBS Unavailable [phone] Encounter Details Date Type Department Care Team (Late st Contact Info) Description 10/17/2024 Procedure Pass [facility], Ct Scan - [address] [address] Social History Tobacco Use Types Packs/Day Years [...] st Contact Info) Description 12/06/2024 Procedure Pass [address] [address] 12/06/2024 Procedure Pass [address] [address] 06/06/2025 12:45 PM EDT Appointment [address] [address] Flakito Boone MBBS [address] [place] [address] [email or web address] 06/13/2025 11:40 AM EDT Office Visit [facility] at [address] [address] lFakito Boone MBBS [address] [place] [address] [email or web address] 08/12/2025 1:20 PM EST Office Visit [facility] [address] [place] [address] James Schilling DO [address] [place] [address] 10/02/2025 1:00 PM EST Office Visit [facility] [address] [place] [address] James Schilling DO [address] [place] [address] [email or web address] documented as of this encounter Visit Diagnoses Not on filedocumented in this encounter Care Teams Search Manager Relationship Specialty Start Date End Date Nohemy Hernandez MD [address] [place] [address] PCP - General Internal Medicine 05/14/21 Flakito Boone MBBS [address] [place] [address] [email or web address] Primary Oncologist Medical Oncology 10/02/24 documented as of this encounter Additional Source Comments The information contained in this document represents components of the legal health record. It is not the complete legal health record.[facility]
--- OUTSIDE RECORDS SUMMARY | 2025-04-16 14:15 | XMS_ITS | Encounter Summary ---
Author Organization [facility] Address [address] [place] [address] Care Team Providers Care Through Operator Name Role Phone Nohemy Hernandez MD Primary Care Provider [phone] Encounter Details Date Type Department Care Team (Late st Contact Info) Description 02/09/2019 Scanned Document [facility] [address] [facility] [address] [place] [phone] Acosta Madrid MD [address] [place] [address] [address] [place] [address] Social History Tobacco Use Types Packs/Day Years [...] on filedocumented in this encounter Care Teams Through Operator Relationship Specialty Start Date End Date Nohemy Hernandez MD [address] [place] [address] PCP - General 11/08/18 Lining Scrubber Kalyn Wright 12/18/18 documented as of this encounter
--- OUTSIDE RECORDS SUMMARY | 2025-04-16 14:15 | XMS_ITS | Encounter Summary ---
Author Organization [facility] Address [address] [employer] [address] [place] [address] Phone Care Team Providers Care Battery Builder Name Role Phone Nohemy Hernandez MD Primary Care Provider [phone] Flakito BooneBS Unavailable [phone] Reason for Visit * Reason Onset Date Comments Late Cancellation 04/12/2025 04/12/25 at 10: 30am Encounter Details Date Type Department Care Team (Late st Contact Info) Description 04/12/2025 Telephone [facility] [address] [place] [address] James Schilling DO [address] [place] [address] [email or web address] Late Cancellation (04/12/25 at 10:30am) Social History Tobacco Use Types Packs/Day Years [...] AM EDT documented as of this encounter Progress Notes * Carla Russell - 04/12/2025 9:11 AM EDT 24-48 Hour No-Show Notice If caller not the patient: Name: Relationship: Cancel Appt Visit Type: FOLLOW UP VISIT Cancelation Reason: Personal Reasons Cancelation Detail: pt has vertigo Was Appt Reschedule: Yes Why Reschedule was not performed (W/Detail) Awareness: I have reiterated our late cancellation policy to the caller. Agent Action: > Reason for Call: NO SHOW > Comment: Enter Cancel Appt date > Route: Route to FD if the No-Show is a future date. > Route: OXBOW SDV and Sick Visit No-Show, route to RN for rescheduling. Do not Call Center: Ensure the appt has been cancel from the future tab > Reiterate Scripting: Provide our late cancellation policy to the caller Required Scripting for Existing Patients: Thank you for notifying us about the cancellation. We will inform the provider. As a reminder, our policy requires at least 24 hours' notice for cancellations, as providers reserve time for your appointment, and short notice often makes it difficult to reschedule. You can cancel appointments anytime through your Patient Onley. We appreciate your understanding. Required Scripting for New Patients: Thank you for notifying us about the cancellation. We will inform the provider. Please be aware of our 48-hour cancellation policy for new patients. If you need to cancel or reschedule, we ask for at least 48 hours' notice. If you miss an appointment or cancel without sufficient notice, it will be marked as a No-Show appointment. We allow for two unforeseen circumstances under this policy. This policy ensures that our providers can manage their schedules effectively. Additionally, you can cancel appointments anytime through your Patient Onley. documented in this encounter Plan of Treatment Upcoming Encounters Date Type Department Care Team (Late st Contact Info) Description 12/06/2024 Procedure Pass [address] [address] 12/06/2024 Procedure Pass [address] [address] 06/06/2025 12:45 PM EDT Appointment [address] [address] Flakito Boone MBBS [address] [place] [address] [email or web address] 06/13/2025 11:40 AM EDT Office Visit [facility] at [address] [address] Flakito Boone MBBS [address] [place] [address] [email or web address] 08/12/2025 1:20 PM EST Office Visit [facility] [address] [place] [address] James Schilling, [place] [address] 10/02/2025 1:00 PM EST Office Visit [facility] [address] [place] [address] James Schilling DO [address] [place] [address] documented as of this encounter Visit Diagnoses Not on filedocumented in this encounter Care Teams Battery Builder Relationship Specialty Start Date End Date Nohemy Hernandez MD [address] [place] [address] PCP - General Internal Medicine 05/14/21 Flakito Boone MBBS [address] [place] [address] [email or web address] Primary Oncologist Medical Oncology 10/02/24 documented as of this encounter Additional Source Comments The information contained in this document represents components of the legal health record. It is not the complete legal health record.[facility]
--- OUTSIDE RECORDS SUMMARY | 2025-04-16 14:15 | XMS_ITS | Clinical Summary ---
Author Organization [facility] Address [address] [facility] [address] [place] [address] Phone Care Team Providers Care Shake Splitter Name Role Phone Nohemy Hernandez MD Primary Care Provider [phone] Allergies Active Allergy Reactions Criticality Noted Date [...] time each day Active sodium chloride ([facility]) 0.65 % nasal spray Administer 1 spray [...] (01/21/2024): Added automatically from request for surgery [id number] Fibromyalgia 02/21/2009 Social History Tobacco Use Types [...] Office Visit [facility] [address] [address] Ryan Ann MD [address] [address] Health Maintenance Due Date Last Done Comments [...] Cancer Screening: Colonoscopy 11/14/2034 11/14/2024 Insurance [address] [place] [address] Medicare [facility] [address] [place] [address] Medicare [facility] Care Teams Shake Splitter Relationship Specialty Start Date End Date Nohemy Hernandez MD [address] [place] [address], [address] [place] [address] PCP - General Internal Medicine 10/24/23
--- OUTSIDE RECORDS SUMMARY | 2025-04-16 14:15 | XMS_ITS | Encounter Summary ---
Author Organization [facility] Address [address] [place] [address] Care Team Providers Care Inside Sales Manager Name Role Phone Nohemy Hernandez MD Primary Care Provider [phone] Encounter Details Date Type Department Care Team (Late st Contact Info) Description 02/19/2019 Scanned Document [facility] [address] [facility] [address] [place] [phone] Acosta Madrid MD [address] [place] [address] [address] [place] [address] Social History Tobacco Use Types Packs/Day Years [...] on filedocumented in this encounter Care Teams Inside Sales Manager Relationship Specialty Start Date End Date Nohemy Hernandez MD [address] [place] [address] PCP - General 11/08/18 Lay Out And Detail Drafter Kalyn Wright 12/18/18 documented as of this encounter
--- OUTSIDE RECORDS SUMMARY | 2025-04-16 14:15 | XMS_ITS | Encounter Summary ---
Author Organization [facility] Address [address] [place] [address] Phone Care Team Providers Care Client Project Coordinator Name Role Phone Nohemy Hernandez MD Primary Care Provider [phone] Flakito Boone Unavailable [phone] Encounter Details Date Type Department Care Team (Late st Contact Info) Description 07/21/[address] [address] Social History Tobacco Use Types Packs/Day Years [...] (Late st Contact Info) Description 12/06/[address] [address] 12/06/[address] [address] 06/06/2025 12:45 PM EDT Appointment [facility], Ct Scan - [address] [address] Flakito Boone MBBS [address] [place] [address] [email or web address] 06/13/2025 11:40 AM EDT Office Visit [facility] at [address] [address] Flakito Boone MBBS [address] [place] [address] [email or web address] 08/12/2025 1:20 PM EST Office Visit [facility] [address] [place] [address] James Schilling [address] [address] 10/02/2025 1:00 PM EST Office Visit [facility] [address] [place] [address] James Schilling [address] [address] documented as of this encounter Visit Diagnoses Not on filedocumented in this encounter Additional Health Concerns Infection Onset Date Last Indicated Resolved Time 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 07/21/2022 07/20/2024 1:24 AM EST documented as of this encounter Care Teams Client Project Coordinator Relationship Specialty Start Date End Date Nohemy Hernandez MD [address] [place] [address] 2 [place] [address] PCP - General Internal Medicine 05/14/21 Flakito Boone MBBS [address] [facility] 2 [place] [address] [email or web address] Primary Oncologist Medical Oncology 10/02/24 documented as of this encounter Additional Source Comments The information contained in this document represents components of the legal health record. It is not the complete legal health record.[facility]
--- OUTSIDE RECORDS SUMMARY | 2025-04-16 14:15 | XMS_ITS | Encounter Summary ---
Author Organization [facility] Address [address] [place] [address] Phone Care Team Providers Care Reinforcing Steel Worker Name Role Phone Nohemy Hernandez MD Primary Care Provider [phone] Flakito BooneBS Unavailable [phone] Encounter Details Date Type Department Care Team (Late st Contact Info) Description 10/17/2024 Procedure Pass [facility], Ct Scan - [address] [address] Social History Tobacco Use Types Packs/Day Years [...] Contact Info) Description 12/06/2024 Procedure Pass [address] [address] 12/06/2024 Procedure Pass [address] [address] 06/06/2025 12:45 PM EDT Appointment [address] [address] Flakito Boone MBBS [address] [place] [address] [email or web address] 06/13/2025 11:40 AM EDT Office Visit [facility] at [address] [address] Flakito Boone MBBS [address] [place] [address] [email or web address] 08/12/2025 1:20 PM EST Office Visit [facility] [address] [place] [address] James Schilling DO [address] [place] [address] 10/02/2025 1:00 PM EST Office Visit [facility] [address] [place] [address] James Schilling DO [address] [place] [address] [email or web address] documented as of this encounter Visit Diagnoses Not on filedocumented in this encounter Care Teams Reinforcing Steel Worker Relationship Specialty Start Date End Date Nohemy Hernandez MD [address] [place] [address] PCP - General Internal Medicine 05/14/21 Flakito Boone MBBS [address] [place] [address] [email or web address] Primary Oncologist Medical Oncology 10/02/24 documented as of this encounter Additional Source Comments The information contained in this document represents components of the legal health record. It is not the complete legal health record.[facility]
--- OUTSIDE RECORDS SUMMARY | 2025-04-16 14:15 | XMS_ITS | Clinical Summary ---
Author Organization [facility] Address [address] [place] [address] Care Team Providers Care Bacteriologist Medical Name Role Phone Nohemy Hernandez Primary Care Provider [phone] Allergies Active Allergy Reactions Criticality Noted Date [...] With dinner 7 Active blood glucose diagnostic ([employer] Verio Test Strips) test strip DX CODE: [...] day. 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 Osteoarthritis 02/21/2009 Fibromyalgia 02/21/2009 Encounters Date Type Department Care Team Description 02/25/2025 11:16 AM EDT Anesthesia Event [facility] Operating Room [address] [place] [phone] Luke Osullivan MD Shaikh, Shaheen, MD 02/25/2025 10:50 AM EDT - 02/25/2025 11:50 AM EDT Surgery [facility] Operating Room [address] [place] [phone] Jony Fernandez MD UPPER ENDOSCOPY WITH ENDOSCOPIC ULTRASOUND WITH POSSIBLE MODERATE SEDATION [20884 (CPT )] 02/25/2025 8:22 AM EDT - 02/25/2025 1:29 PM EDT Hospital Encounter [facility] Operating Room [address] [place] [phone] Jony Fernandez MD Discharge Disposition: Home or Self Care (01) 02/14/2025 Orders Only [facility] [address] [place] [phone] Batch Heat Treat Operator: Candi Bowers NP 02/11/2025 9:00 AM EDT Pre-Admission Testing [facility] [address] [place] [address] [address] [place] [address] Marcela Gilliam NP Preoperative examination (Primary Dx); Gastric nodule 02/11/2025 myChart Message [facility] [address] [place] [phone] Batch Heat Treat Operator: Candi Bowers NP Refill needed for Ursodial 01/31/2025 Refill [facility] [address] [place] [phone] Batch Heat Treat Operator: Candi Bowers NP 01/28/2025 12:00 PM EDT Follow-Up [facility] [address] [place] [address] Batch Heat Treat Operator: Candi Bowers NP 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) 01/21/2025 myChart Message [facility] [address] [place] [address]47[address] Batch Heat Treat Operator: Candi Bowers NP Blood work order from [...] Info) Description 05/20/2025 11:00 AM EDT Appointment [facility] [address] [place] [address] 08/19/2025 12:00 PM EST Follow-Up [facility] [address] [place] [address] Batch Heat Treat Operator: Candi Bowers NP [address] [place] [address] Health Maintenance Due Date Last Done Comments [...] Screening 08/15/2024 COVID-19 Vaccine (2023- 5 season) 2025 04/15/2024, 01/20/2024, 06/17/2023, Additional history exists Influenza [...] Use Screening Completed Procedures * Due to [place] state law, this organization might not be sharing negative HIV tests. Procedure Name Priority Date/Time Associated Diagnosis Comments POCT GLUCOSE Routine 02/25/2025 11:23 AM EDT ND EDG US EXAM SURGICAL ALTER STOM DUODENUM/JEJUNUM [...] to Health Maintenance Results * Due to [place] state law, this organization might not be sharing negative HIV tests. * POCT Glucose, interfaced (02/25/2025 11:23 AM EDT) Only the most recent of2 resultswithin the time period is included. [facility] Glucose, POCT 83 70 - 99 mg/dL 02/25/2025 11:25 AM EDT [facility] Comment: The editorial specialist has not determined the efficacy of this test in Critically ill patients. [facility] defines Critically ill patients for the purpose [...] POCT ORDERABLES - DEVICE Fi nal Result [facility], P[facility] [address] [place] [address], [place] * ENDOSCOPIC ULTRASOUND (02/25/2025) Narrative Procedure Note Jony Fernandez MD - 02/25/2025 10:45 AM EDT [facility] Patient Name: Araceli Page Procedure Date: 02/25/2025 10:45 AM Date of : 1950 Admit Type: Outpatient Age: 74 Room: [place] [address] Gender: Female Note Status: Finalized Attending MD: [...] - 12.4 Seconds 01/28/2025 1:53 PM EDT [facility] INR 0.9 0.9 - 1.1 01/28/2025 1:53 PM EDT [facility] Comment:The optimal therapeu tic INR range for patients treated with Vitamin K antagonists (VKAS, e.g., Warfarin) is 2.0 to 3.5. Discuss the desired range with your doctor/care team. Blood Structure of peripheral vein / Unknown Venipuncture / Unknown 01/28/2025 1:25 PM EDT 01/28/2025 1:35 PM EDT Candi Nieves ASSISTANT ACTIVITIES DIRECTOR LAB BLOOD ORDERABLES Fi nal Result [facility] [address] [place] [address], [place] * (ABNORMAL) CBC (01/28/2025 1:25 PM EDT) WBC 9.7 3.8 - 10.8 10*3/uL 01/28/2025 1:47 PM EDT [facility] RBC 4.43 3.80 - 5.10 10*6/uL 01/28/2025 1:47 PM EDT [facility] Hemoglobin 11.8 11.7 - 15.5 g/dL 01/28/2025 1:47 PM EDT [facility] Hematocrit 36.9 35.0 - 45.0 % 01/28/2025 1:47 PM EDT [facility] MCV 83.3 80.0 - 100.0 fL 01/28/2025 1:47 PM EDT [facility] MCH 26.6(L) 27.0 - 33.0 pg 01/28/2025 1:47 PM EDT [facility] [facility] MCHC 32.0 32.0 - 36.0 g/dL 01/28/2025 1:47 PM EDT [facility] RDW 12.7 11.0 - 15.0 % 01/28/2025 1:47 PM EDT [facility] Platelets 343 140 - 400 10*3/uL 01/28/2025 1:47 PM EDT [facility] MPV 9.1 7.5 - 12.5 fL 01/28/2025 1:47 PM EDT [facility] Blood Structure of peripheral vein / Unknown Venipuncture / Unknown 01/28/2025 1:25 PM EDT 01/28/2025 1:35 PM EDT us Candi Nieves ASSISTANT ACTIVITIES DIRECTOR LAB BLOOD ORDERABLES Fi nal Result [facility] [address] [place] [address], * (ABNORMAL) Comprehensive Metabolic Panel (01/28/2025 1:25 PM EDT) NA 133(L) 135 - 145 mmol/L 01/28/2025 2:07 PM EDT [facility] K 4.6 3.5 - 5.3 mmol/L 01/28/2025 2:07 PM EDT [facility] Cl 99 98 - 107 mmol/L 01/28/2025 2:07 PM EDT [facility] CO2 24 22 - 32 mmol/L 01/28/2025 2:07 PM EDT [facility] Anion Gap 10 5 - 15 01/28/2025 2:07 PM EDT [facility] Glucose 104(H) 65 - 99 mg/dL 01/28/2025 2:07 PM EDT [facility] Creatinine 0.69 0.50 - 1.20 mg/dL 01/28/2025 2:07 PM EDT [facility] Calcium 9.5 8.6 - 10.5 mg/dL 01/28/2025 2:07 PM EDT [facility] Total Protein 7.7 6.0 - 8.0 g/dL 01/28/2025 2:07 PM EDT [facility] Albumin 4.3 3.5 - 5.2 g/dL 01/28/2025 2:07 PM EDT [facility] Bilirubin, Total 0.2 0.2 - 1.2 mg/dL 01/28/2025 2:07 PM EDT [facility] Alkaline Phosphatase 122 35 - 129 U/L 01/28/2025 2:07 PM EDT [facility] AST 30 10 - 40 U/L 01/28/2025 2:07 PM EDT [facility] ALT 26 10 - 40 U/L 01/28/2025 2:07 PM EDT [facility] BUN 12 7 - 23 mg/dL 01/28/2025 2:07 PM EDT [facility] eGFR >90 >=60 mL/min/1. 73m2 01/28/2025 2:07 PM EDT [facility] Comment:The estimated glomer ular [...] - 4.2 g/dL 01/28/2025 2:07 PM EDT [facility] A/G Ratio 1.3(L) 1.5 - 3.0 01/28/2025 2:07 PM EDT [facility] Blood Structure of peripheral vein / Unknown Venipuncture / Unknown 01/28/2025 1:25 PM EDT 01/28/2025 1:35 PM EDT us Candi Nieves ASSISTANT ACTIVITIES DIRECTOR LAB BLOOD ORDERABLES Fi nal Result [facility] [address] [place] [address], * Echocardiogram, Outside Result (01/22/2025) Anatomical Region Laterality Modality Other 01/22/2025 us Onbase Scan Nicolas AMB EXTERNAL RESULT PROCEDURE S Final Result * UPPER GI ENDOSCOPY (11/14/2024) Narrative Procedure Note Hesham Naidu MD - 11/14/2024 9:28 AM EDT [facility] Gastroenterology Patient Name: Araceli Page Procedure Date: [...] by the physician, the nurse and the business trainer in the pre-procedure area in theendoscopy suite. [...] pulse, and oxygen saturations were monitored continuously. [id number] was introduced through the mouth, andadvanced to [...] endoscopy in 3 years for surveillance/or per backup sawyer. . - Will refer for EUS to evaluate subepitheliallesion Hesham Naidu MD 11/14/2024 10:10:22 AM Number of Addenda: 0 Note Initiated On: 11/14/2024 9:28 AM Hesham Naidu MD PROVATION PROCEDURES Final Resul t * COLONOSCOPY (11/14/2024) Narrative Procedure Note Hesham Naidu MD - 11/14/2024 9:27 AM EDT [facility] G[facility]enterology Patient Name: Araceli Page Procedure Date: [...] by the physician, the nurse and the business trainer in the pre-procedure area in theendoscopy suite. [...] and oxygen saturations were monitored continuously. The [id number] was introduced through the anusand advanced to [...] Most Recently Relevant to Health Maintenance Insurance [facility] FEDERAL MEDICARE [facility] 65 PLUS on file Advance Directives Documents on File Type Date Recorded Patient Mule Operator Expl anation Advance Directive 01/11/2012 12:00 AM Adva nce Care Directives Advance Directive 12/23/2011 12:00 AM bryan [email or web address] Dec Making (Adv.Dir) * Full Code (Latest Code Status on File) Date Activated Date Inactivated Comments 02/25/2025 12:08 PM 02/25/2025 3:34 PM Care Teams Bacteriologist Medical Relationship Specialty Start Date End Date Nohemy Hernandez [address] [place] [address] PCP - General 03/03/17
--- OUTSIDE RECORDS SUMMARY | 2025-04-16 14:15 | XMS_ITS | Encounter Summary ---
Author Organization [facility] Address [address] [place] [address] Phone Care Team Providers Care Lamination Technician Name Role Phone Nohemy Hernandez MD Primary Care Provider [phone] Flakito Boone Unavailable [phone] Encounter Details Date Type Department Care Team (Late st Contact Info) Description 08/06/2022 Procedure Pass OR Admitting Dept - Virtual Department [address], [place] [id number] Social History Tobacco Use Types Packs/Day Years [...] 08/06/2022 3:06 PM Louise Crisostomo RN * [place] Suicide Severity Rating Scale (Screener/Recent Self-Report) Question [...] st Contact Info) Description 12/06/2024 Procedure Pass [address] [address] 12/06/2024 Procedure Pass [address] [address] 06/06/2025 12:45 PM EDT Appointment [address] [address] Flakito Boone MBBS [address] [place] [phone] [email or web address] 06/13/2025 11:40 AM EDT Office Visit [facility] at [address] [address] Flakito Boone MBBS [address] [place] [phone] [email or web address] 08/12/2025 1:20 PM EST Office Visit [facility] [address] [place] [address] James Schilling, DO [address] [place] [address] 10/02/2025 1:00 PM EST Office Visit [facility] [address] [place] [address] James Schilling, DO [address] [place] [address] documented as of this encounter Visit Diagnoses Not on filedocumented in this encounter Additional Health Concerns Infection Onset Date Last Indicated Resolved Time 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 07/21/2022 07/20/2024 1:24 AM EST documented as of this encounter Care Teams Lamination Technician Relationship Specialty Start Date End Date Nohemy Hernandez MD [address] [place] [address] PCP - General Internal Medicine 05/14/21 Flakito Boone MBBS [address] [place] [phone] [email or web address] Primary Oncologist Medical Oncology 10/02/24 documented as of this encounter Additional Source Comments The information contained in this document represents components of the legal health record. It is not the complete legal health record.[facility]
--- OUTSIDE RECORDS SUMMARY | 2025-04-16 14:15 | XMS_ITS | Clinical Summary ---
Author Organization [facility] Address [address] [place] [address] Care Team Providers Care Glue Plant Operator Name Role Phone Nohemy Hernandez MD Primary Care Provider [phone] Allergies Active Allergy Reactions Criticality Noted Date Comments Bacitracin Hives,Rash/Dermatitis Medium 02/28/2018 Meperidine Itching Low 10/10/2019 Oxycodone-Aspirin Rash/Dermatitis Low 10/10/2019 DRUG DERMATITIS Penicillins Anaphylaxis,Rash/Rlyan m atitis High 11/08/2018 DRUG DERMATITIS Sulfa Antibiotics Hives Medium 02/21/2019 Sulfamethoxazole-Trimet hoprim Itching,Hives High 11/08/2018 Medications amitriptyline (ELAVIL) 25 MG tablet TAKE 2 TABLETS BY MOUTH ONCE A DAY AT BEDTIME 6 10/01/19 19 Active ergocalciferol (VITAMIN D2,DRISDOL) 46062 units Cap TAKE ONE CAPSULE BYMOUTH ONCE [...] 1 10/19/19 Active SIMONE DELGARFIELD LANCETS FINE [facility] lancet DX CODE: E10.9 [...] mouth daily. 1 10/10/19 Active Dermatological Products, [facility]. (EPICERAM) lotion APPLY TWICE [...] Bone Density (Females,Ages 65 and older) 2017 Influenza Vaccine 03/15/2025 06/12/2021, 04/09/2020, 06/15/2019 COVID-19 Vaccine (2024- season) 2025 12/31/2021 Hemoglobin A1C Discontinued 12/25/2021 Hepatitis B Vaccines Aged Out No long er eligible based on patient's age to complete this topic Insurance MEDICARE PART A & B MEDICARE PART A & B [facility] Care Teams Glue Plant Operator Relationship Specialty Start Date End Date Nohemy Hernandez MD [address] [place] [address] PCP - General 11/08/18 Roller Painter Kalyn rWight 12/18/18
--- OUTSIDE RECORDS SUMMARY | 2025-04-16 14:15 | XMS_ITS | Encounter Summary ---
Author Organization [facility] Address [address] [place] [address] Care Team Providers Care Battery Checker Name Role Phone Nohemy Hernandez MD Primary Care Provider [phone] Encounter Details Date Type Department Care Team (Late st Contact Info) Description 06/01/2019 Scanned Document [facility] [address] [place] [address] [phone] Jeffery Presley MD [address] [address] Social History Tobacco Use Types Packs/Day Years [...] filedocumented in this encounter Care Teams Battery Checker Relationship Specialty Start Date End Date Nohemy Hernandez MD [address] [place] [address] PCP - General 11/08/18 Stain Sprayer Kalyn Wright 12/18/18 documented as of this encounter
== END 2025-04-16 13:55 | disposition home or self-care (01) ==
LOC: HO.HCS 12:57
PROVIDERS: PCP Internal Medicine; Visit Provider Nurse Practitioner Family
DX: I25.10 Atherosclerotic heart disease of native coronary artery without angina pectoris (principal); R94.31 Abnormal electrocardiogram [ECG] [EKG]; E11.9 Type 2 diabetes mellitus without complications; I10 Essential (primary) hypertension; E78.00 Pure hypercholesterolemia, unspecified
CPT/HCPCS: 93010; 99214; G2211

== ENCOUNTER → 2025-04-16 12:57 | Outpatient (BNVA) | payer MEDICARE, BC, SELFPAY | PROVIDERS: PCP Internal Medicine; Visit Provider Nurse Practitioner Family | DX: I25.10 Atherosclerotic heart disease of native coronary artery without angina pectoris (principal); R94.31 Abnormal electrocardiogram [ECG] [EKG]; E11.9 Type 2 diabetes mellitus without complications; I10 Essential (primary) hypertension; E78.00 Pure hypercholesterolemia, unspecified; Z87.891 Personal history of nicotine dependence; Z79.4 Long term (current) use of insulin | CPT/HCPCS: 93005; 99212 ==

== ENCOUNTER 2025-07-23 14:18 | Outpatient (AMB) | payer MEDICARE, BC, SELFPAY ==
--- NOTE | 2025-07-23 14:20 | MHC.OFFVIS ---
Vital Signs 07/23/25 14:25 Height 5 ft 4 in Weight 162 lb BMI 27.8 BP 161/79 H Blood Pressure Location Rt brachial Position Sitting Pulse 88 Pulse Source Pulse Oximeter Pulse Oximetry (%) 99 Oxygen Delivery Method Room Air Intake Visit Reasons: Lumbar pain Intake Note: Pain today 09/24 Digital Analyst Required: No Accompanied by: Self / Same As Patient Allergies bacitracin (BACITRACIN) Allergy (Intermediate, Verified 07/23/25 14:26) RASH Penicillins Allergy (Intermediate, Verified 07/23/25 14:26) RASH/CHEST TIGHTNESS Sulfa (Sulfonamide Antibiotics) (Sulfa (Sulfonamides)) Allergy (Intermediate, Verified 07/23/25 14:26) HIVES HPI Comments Details: The patient is a 75 year old female presenting for evaluation of chronic back pain with radiculopathy. She has a history of chronic pain, and an MRI from September 2019 demonstrated multilevel pathology, including severe disc degeneration at L4-L5 and T11-12, mild foraminal and spinal canal narrowing at L3-L4 and L4-L5, mild left facet joint arthrosis at L4-L5, and grade 1 anterolisthesis at L3-L4. She describes her pain as pinching, pulling, and aching, which primarily affects her lower back and limits her desire to walk. She reports rare twinges of right-sided sciatic pain. Functionally, her pain is exacerbated by prolonged standing (tolerates 5-10 minutes), walking (tolerates <15 minutes), and prolonged sitting. Standing in line for 10-15 minutes was described as brutal on her back and left her feeling done for the rest of the day. Pain is alleviated with heat, resting, Biofreeze, and squatting to pick things up rather than bending over. She has a cane but typically only uses it in icy conditions to prevent falls. Past treatments include three years of physical therapy and injections at [facility] in 2021, which she believes were at two different locations. She experienced terrible headaches after the injections, which may have been cortisone. She also found guided meditation to be very helpful. She has not had prior sacroiliac joint injections. The patient has a history of two significant falls, one in November and one in December. The first fall occurred at night, was possibly related to vertigo, and resulted in a broken wrist. Another fall in June 2022 resulted in a crushed shoulder, requiring surgery where her rotator cuff and the long head of the biceps could not be saved. Past medical history includes well-controlled diabetes with an HbA1c of approximately 6.45, associated peripheral neuropathy, right foot fusion, and well-controlled CRPS of the right foot previously treated with gabapentin and ketamine cream. She also has stage 4 autoimmune liver disease treated with ursodiol, vertigo, and stable osteopenia confirmed by a bone scan last year. Current medications include amitriptyline, tizanidine 2 mg as needed, and Tylenol. She is mindful of medication use due to her liver and kidney health and avoids NSAIDs. Pain Description - Pain Quality: Described as pinching, pulling, and aching. - Location and Radiation: Primarily in the lower back. - She very rarely experiences a twinge of sciatic pain, typically on the right side. - Physical exam maneuvers elicited pain in the left buttock/SI joint area and pain radiating down the outside of the leg. - Severity: Rated as 2/10 at the time of the visit. - Aggravating Factors: Pain worsens with walking, prolonged standing (beyond 10-15 minutes), prolonged sitting, and bending down. - Alleviating Factors: Symptoms are improved with heat, seating, resting, and using Biofreeze. - Interference with Function: Pain limits her desire to walk; she can walk for less than 15 minutes and stand for 5-10 minutes. Pain Management - Analgesia: Current pain level is 2/10. - She uses Tylenol as needed and finds a small dose of tizanidine (2 mg) to be very helpful. - Activities of Daily Living: Function is significantly limited by pain. - She can walk for less than 15 minutes and stand for 5-10 minutes. - She has difficulty with prolonged sitting. - Her goal is to be able to walk more, as it used to be her primary form of exercise. - Adverse Effects: She experienced terrible headaches after a prior injection, possibly cortisone. - She avoids NSAIDs due to her stage 4 autoimmune liver disease. - Affect: Not explicitly discussed, but the pain clearly impacts her quality of life and ability to ambulate. - Aberrant Drug-Related Behaviors: No signs of aberrant behaviors were noted; she reports using small doses of her prescribed medications. Oswestry Low Back Pain Disability Score=27 [facility] Medical History (Updated 07/23/25 @ 15:20 by Jeannie Alonzo) Benign paroxysmal vertigo Hypo-osmolality and hyponatremia Age-related osteoporosis without current pathological fracture Mixed hyperlipidemia Acute post-hemorrhagic anemia Skin cancer COVID-19 vaccine series completed GERD (gastroesophageal reflux disease) Cough variant asthma Elevated cholesterol PTSD (post-traumatic stress disorder) CRPS (complex regional pain syndrome) type I of lower limb Diabetes HTN (hypertension) Arthritis Primary biliary cholangitis Surgical History Hx of foot surgery Hx of cholecystectomy Hx of repair of right rotator cuff History of H/O colonoscopy History of liver biopsy History of esophagogastroduodenoscopy (EGD) Hx of carpal tunnel repair Family History Father Emphysema lung Social History Are you a primary home care physical therapist to a significant other at home: No Do you presently have visiting nurse or other home services: No Comment: uses cane on occasion when foot pain acts up Patient Tobacco Use Status: Former Tobacco user Tobacco use type: Cigarette Years Smoked: 25 Review of Systems Narrative - Neurological: Reports a history of vertigo and feeling dizzy. - Reports rare twinges of right-sided sciatic pain. - Reports peripheral neuropathy, which she relates to her diabetes. - Reports tight hamstrings. - Musculoskeletal: Reports chronic lower back pain described as pinching, pulling, and aching. - Reports her back pain makes her not want to walk. - Reports history of a wrist fracture and a severe shoulder injury resulting in loss of the rotator cuff and long head of the biceps. - Reports an old labrum tear in her hip. - Endocrine: Reports having diabetes. A1C-6.4 - Gastrointestinal: Reports stage 4 autoimmune liver disease. - Constitutional: Denies alcohol use. Const All systems reviewed & are unremarkable except as noted in HPI and below Physical Exam Vital Signs: Last Vital Signs Pulse 88 07/23/25 14:25 BP 161/79 H 07/23/25 14:25 Pulse Ox 99 07/23/25 14:25 Oxygen Delivery Method Room Air 07/23/25 14:25 BMI result Body Mass Index 27.8 General: Appears afebrile. Alert and oriented. Mood and affect appropriate. Follows and participates in conversation appropriately. Respiratory effort is unlabored. No cough. Able to transition from sit to stand unassisted. Ambulates with bilaterally normal heel strike and toe off. General: Yes no CVA tenderness Back/Spine/Pelvis Other: - Lumbar range of motion is limited with forward flexion and painful with extension. - Facet loading is positive on the left>right. - HANNA, Stinchfield, Pelvic compression and Gaenslen testing elicits left buttock and sacroiliac joint pain. - Neurological: - Gait: Ambulates with a steady gait, holding on for support as requested. - Able to perform heel and toe walking bilaterally. - Strength: Able to perform a squat without overt weakness. Back: no CVA tenderness Cervical Spine: cervical ROM normal, cervical muscular tenderness and No Cervical spine tenderness Thoracic/Lumbar Spine: thoracic and lumbar spine normal to inspection, No Thoracic/lumbar spine scar(s), Lasegue's sign negative, straight leg raise negative bilaterally, pain with thoraco-lumbar ROM, paraspinal muscle tenderness, thoraco-lumbar ROM limited, No thoracic spinal tenderness and lumbar spinal tenderness (L5-S1) Sacroiliac joints: on the right nontender and on the left tender to palpation Results Reviewed Results Reviewed: MRI LUMBAR SPINE WITHOUT CONTRAST 06/06/25 CLINICAL INFORMATION: Chronic and worsening low back pain with ambulatory difficulty. Lumbar radiculopathy TECHNICAL INFORMATION: Multiplanar sequence acquisitions performed on a 1.2T open unit through the lumbar spine in accordance to institutional protocol. SEDATION: None. COMPARISON: Lumbar spine MRI 10/01/2019; thoracic spine plain films 10/01/2020, 10/25/2019. INTERPRETATION: Transitional anatomy. Consistency maintained within enumeration scheme from thoracic plain films. Hypoplastic ribs again identify at T12. Distal cord maintains caliber, course and intrinsic signal, termination is at level of L1. Cauda equina nerve roots maintain normal splaying and thickness. No spinal canal collections or masses. Maintained lordotic alignment with chronic 3 mm degenerative retrolisthesis anterolisthesis at L3-4, mild and largely type II discogenic endplate reaction now seen at L4-5, and anterior discosteophyte at T11-12. Preserved vertebral body heights and no indication of fracture. Marrow signal elsewhere unremarkable. L5-S1: Disc and facet joints hypoplastic. The level is nonmobile. L4-5: Progressively severe disc degeneration with shallow posterior discosteophyte and mild biforaminal narrowing. No significant spinal canal stenosis and although approached and no impingement of exiting the nominal L4 nerves. There is mild left facet joint arthrosis. L3-4: Mild disc degeneration with grade I anterolisthesis, bulging disc, ligamentous hypertrophy and moderate facet joint arthrosis. Stable mild spinal canal and neural foraminal narrowing without neural compression. L2-3 through T12-1: Mild disc dehydration throughout with posterior bulge, ligamentous hypertrophy and mild left facet joint arthrosis at L2-3. At no level protrusion or significant stenosis. No neural impingement. T11-12: Chronic severe disc degeneration with posterior bulge without protrusion or significant stenosis. Facet joints maintain normal alignment and show no significant degeneration. No prevertebral/paraspinous soft tissue masses or collections . Included pelvis intact and marrow signal normal. Superior portions of sacroiliac joints show no subarticular edema, effusion or ankylosis. CONCLUSION: 1. Transitional lumbosacral anatomy. Enumeration scheme consistency maintained with most recent plain films. Please note, vertebral count differs from older MRI report. 2. L4-5, progressively severe disc degeneration with mild foraminal narrowing and no neural impingement. Mild left facet joint arthrosis 3. L3-4, mild spinal canal biforaminal narrowing due to facet joint arthrosis and grade I anterolisthesis. 4. T11-12, chronic severe disc degeneration. Assessment & Plan Assessment & Plan (1) Peripheral neuropathy: Code(s): G62.9 - Polyneuropathy, unspecified Category: Medical Qualifiers: Peripheral neuropathy type: polyneuropathy, unspecified Qualified Code(s): G62.9 - Polyneuropathy, unspecified (2) Lumbar radiculopathy: Code(s): M54.16 - Radiculopathy, lumbar region Category: Medical (3) Lumbar degenerative disc disease: Code(s): M51.369 - Other intervertebral disc degeneration, lumbar region without mention of lumbar back pain or lower extremity pain Category: Medical (4) Lumbosacral spondylosis: Code(s): M47.817 - Spondylosis without myelopathy or radiculopathy, lumbosacral region Category: Medical Plan The patient's chronic low back pain is multifactorial, with contributions from severe lumbar degenerative disc disease, facet arthropathy, and sacroiliac joint dysfunction as evidenced on exam and by her history. While she has multilevel pathology on her MRI as noted above, there is no severe spinal stenosis or slippage except progressively severe disc degeneration with mild foraminal narrowing at L4-L5 that would fully account for her ambulatory difficulties, suggesting other factors such as vertigo or other joint pathology may be contributing. The initial plan will be to address the arthritic component of her pain. We will proceed with bilateral lumbar diagnostic medial branch blocks under fluoroscopic guidance to determine the degree to which facet arthropathy is contributing to her pain. If the patient experiences significant but temporary relief for approximately six hours post-injection, she would be a candidate for a subsequent radiofrequency ablation for longer-term relief. This might require two sets of positive diagnostic injections. We will also consider diagnostic and therapeutic injections for her sacroiliac joints, which are also a likely pain generator. Schedule diagnostic bilateral L3-L4 DR L5 medial branch blocks with local and fluoroscopy. Expectations, risks and benefits were reviewed. Patient is aware she will be contacted to schedule this procedure. A medical release will be signed to obtain records from [facility] to review her previous injections and their efficacy. The patient will follow up after the diagnostic injections to review the results and determine the next steps in her management plan. All questions and concerns have been answered and patient agreed with the treatment plan. Patient was informed and verbally consented to the use of an ambient scribe for clinic note documentation during this visit. Coding Level of Care Code New Pt Level 4 (97872) Diagnoses Peripheral polyneuropathy G62.9 Peripheral neuropathy type: polyneuropathy, unspecified Lumbar radiculopathy M54.16 Lumbar degenerative disc disease M51.369 Lumbosacral spondylosis M47.817
[2025-07-23 14:25] VITALS: BP 161/79; PULSE 88; O2SAT 99; BMI 27.8
== END 2025-07-23 15:22 | disposition home or self-care (01) ==
LOC: HO.PMC 14:19
PROVIDERS: PCP Internal Medicine; Visit Provider Nurse Practitioner Family
DX: G62.9 Polyneuropathy, unspecified (principal); M54.16 Radiculopathy, lumbar region; M51.369 Other intervertebral disc degeneration, lumbar region without mention of lumbar back pain or lower extremity pain; M47.817 Spondylosis without myelopathy or radiculopathy, lumbosacral region
CPT/HCPCS: 99204

== ENCOUNTER → 2025-07-23 14:18 | Outpatient (BNVA) | payer MEDICARE, BC, SELFPAY | PROVIDERS: PCP Internal Medicine; Visit Provider Nurse Practitioner Family | DX: M54.16 Radiculopathy, lumbar region (principal); M51.369 Other intervertebral disc degeneration, lumbar region without mention of lumbar back pain or lower extremity pain; M47.817 Spondylosis without myelopathy or radiculopathy, lumbosacral region; G62.9 Polyneuropathy, unspecified | CPT/HCPCS: 99202 ==

== ENCOUNTER 2025-08-12 08:27 | Outpatient (AMB) | payer MEDICARE, BC, SELFPAY ==
--- OUTSIDE RECORDS SUMMARY | 2025-08-12 08:31 | XMS_ITS | Encounter Summary ---
Author Organization [facility] Address [address] [place] [address] Care Team Providers Care Plugging Machine Operator Name Role Phone Nohemy Hernandez Primary Care Provider [phone] Encounter Details Date Type Department Care Team (Late st Contact Info) Description 04/29/2024 Personera Message Intial Department [address] [place] [address] Food and Beverage, Generic Provider [address] [place], [place] [id number] Questionnaire Submission Social History Tobacco Use Types [...] Care Team (Late st Contact Info) Description 08/19/2025 12:00 PM EST Follow-Up [facility] Gastroenterology Clinic [address] [place] [address] Hand Edge Bander: Candi Bowers NP [address] [place], [place] [phone] documented as of this encounter Visit Diagnoses Not on filedocumented in this encounter Care Teams Plugging Machine Operator Relationship Specialty Start Date End Date Nohemy Hernandez [address] [place] [address] PCP - General 03/03/17 documented as of this encounter
--- OUTSIDE RECORDS SUMMARY | 2025-08-12 08:32 | XMS_ITS | Encounter Summary ---
Author Organization [facility] Address [address] [place] [address] Phone Care Team Providers Care Wood Getter Name Role Phone Nohemy Hernandez MD Primary Care Provider [phone] Flakito Boone Unavailable [phone] Encounter Details Date Type Department Care Team (Late st Contact Info) Description 12/27/2023 Ancillary Orders [facility],Outside Imaging [address] [place], [place] [phone] System, Provider Not In, [facility] [address] [address] Social History Tobacco Use Types Packs/Day Years [...] Care Team (Late st Contact Info) Description 08/12/2025 1:20 PM EST Office Visit [facility] Endocrinology Clinic [address] [place] [address] [place] [address] James Schilling [address] [address] 10/02/2025 1:00 PM EST Office Visit [facility] Endocrinology [address] [place] [address] James Schilling [address] [address] 06/09/2026 2:20 PM EDT Office Visit [facility] [place] Hematology Oncology Clinic at [address] [address] Flakito Boone, LUPILLO [address] [place] [address] [email or web address] documented as of this encounter Results * [...] documented as of this encounter Care Teams Wood Getter Relationship Specialty Start Date End Date Nohemy Hernandez MD [address] [place] [address] 2 [place] [address] PCP - General Internal Medicine 05/14/21 Flakito Boone MBBS [address] [facility] 2 [place] [address] [email or web address] Primary Oncologist Medical Oncology 10/02/24 documented as of this encounter Additional Source Comments The information contained in this document represents components of the legal health record. It is not the complete legal health record.[facility]
--- OUTSIDE RECORDS SUMMARY | 2025-08-12 08:32 | XMS_ITS | Encounter Summary ---
Author Organization [facility] Address [address] [place] [address] Care Team Providers Care Landman Name Role Phone Nohemy Hernandez Primary Care Provider [phone] Encounter Details Date Type Department Care Team (Late st Contact Info) Description 07/24/2024 Orders Only [place] [facility] [address] [place] [address] James Henderson MD [address] [place] [address] Social History Tobacco Use Types Packs/Day Years [...] Info) Description 08/19/2025 12:00 PM EST Follow-Up [facility] Gastroenterology Clinic [address] [place], [place] [phone] Sergeant Of Officers: Candi Bowers NP [address] [place], [place] [phone] documented as of this encounter Visit Diagnoses Not on filedocumented in this encounter Care Teams Landman Relationship Specialty Start Date End Date Nohemy Hernandez [address] [place] [address] PCP - General 03/03/17 documented as of this encounter
--- OUTSIDE RECORDS SUMMARY | 2025-08-12 08:32 | XMS_ITS | Encounter Summary ---
Author Organization [facility] Address [address] [place] [address] Phone Care Team Providers Care Safety And Security Officer Name Role Phone Nohemy Hernandez MD Primary Care Provider [phone] Flakito Boone Unavailable [phone] Encounter Details Date Type Department Care Team (Late st Contact Info) Description 07/21/2022 Procedure Pass [facility], Ct Scan - [address] [address] Social History Tobacco Use Types Packs/Day Years [...] Description 08/12/2025 1:20 PM EST Office Visit [facility] Endocrinology Clinic [address] [place] [address] James Schilling DO [address] [place] [address] 10/02/2025 1:00 PM EST Office Visit [facility] Endocrinology Clinic [address] [place] [address] James Schilling DO [address] [place] [address] 06/09/2026 2:20 PM EDT Office Visit [facility] Hemat[facility] Oncology Clinic at [address] [address] Flakito Boone MBBS [address] [place] [address] [email or web address] documented as of this encounter Visit Diagnoses Not on filedocumented in this encounter Additional Health Concerns Infection Onset Date Last Indicated Resolved Time 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 07/21/2022 07/20/2024 1:24 AM EST documented as of this encounter Care Teams Safety And Security Officer Relationship Specialty Start Date End Date Nohemy Hernandez MD [address] [place] [address] PCP - General Internal Medicine 05/14/21 Flakito Boone MBBS [address] [place] [address] [email or web address] Primary Oncologist Medical Oncology 10/02/24 documented as of this encounter Additional Source Comments The information contained in this document represents components of the legal health record. It is not the complete legal health record.[facility]
--- OUTSIDE RECORDS SUMMARY | 2025-08-12 08:32 | XMS_ITS | Encounter Summary ---
Author Organization [facility] Address [address] [place] [address] Phone Care Team Providers Care Clinical Lab Technologist Name Role Phone Nohemy Hernandez MD Primary Care Provider [phone] Flakito Boone Unavailable [phone] Encounter Details Date Type Department Care Team (Late st Contact Info) Description 08/06/2022 Procedure Pass [place] Admitting Dept - Virtual Department [address] [place], [place] [phone] Social History Tobacco Use Types Packs/Day Years [...] Description 08/12/2025 1:20 PM EST Office Visit [facility] Endocrinology [facility] [address] [place] [address] James Schilling [address] [address] 10/02/2025 1:00 PM EST Office Visit [facility] Endocrinology [address] [place] [address] James Schilling [address] [address] 06/09/2026 2:20 PM EDT Office Visit [facility] [place] [facility] Oncology Clinic at [address] [address] Flakito Boone MBBS [address] [place] [address] [email or web address] documented as of this encounter Visit Diagnoses Not on filedocumented in this encounter Additional Health Concerns Infection Onset Date Last Indicated Resolved Time 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 07/21/2022 07/20/2024 1:24 AM EST documented as of this encounter Care Teams Clinical Lab Technologist Relationship Specialty Start Date End Date Nohemy Hernandez MD [address] [place] [address] 2 [place] [address] PCP - General Internal Medicine 05/14/21 Flakito Boone MBBS [address] [place] [address] 2 [place] [address] [email or web address] Primary Oncologist Medical Oncology 10/02/24 documented as of this encounter Additional Source Comments The information contained in this document represents components of the legal health record. It is not the complete legal health record.[facility]
--- OUTSIDE RECORDS SUMMARY | 2025-08-12 08:32 | XMS_ITS | Encounter Summary ---
Author Organization [facility] Address [address] [place] [address] Care Team Providers Care Head End Desizing Machine Operator Name Role Phone oNhemy Hernandez Primary Care Provider [phone] Encounter Details Date Type Department Care Team (Late st Contact Info) Description 08/24/2024 [employer] Message Intial Department [address] [place] [address] [employer], Generic Provider [address] [place], [place] [phone] Questionnaire Submission Social History Tobacco Use Types [...] Info) Description 08/19/2025 12:00 PM EST Follow-Up [facility] Gastroenterology Clinic [address] [place] [address] Openstack Developer: Candi Bowers NP [address] [place], [place] [phone] documented as of this encounter Visit Diagnoses Not on filedocumented in this encounter Care Teams Head End Desizing Machine Operator Relationship Specialty Start Date End Date Nohemy Hernandez [address] [place] [address] PCP - General 03/03/17 documented as of this encounter
--- OUTSIDE RECORDS SUMMARY | 2025-08-12 08:32 | XMS_ITS | Encounter Summary ---
Author Organization [facility] Address [address] [place] [address] Phone Care Team Providers Care Home Theater Installer Name Role Phone Nohemy Hernandez MD Primary Care Provider [phone] Flakito BooneBS Unavailable [phone] Encounter Details Date Type Department Care Team (Late st Contact Info) Description 12/06/2024 Procedure Pass [facility], Ct Scan - [address] [address] Social History Tobacco Use Types Packs/Day Years [...] Description 08/12/2025 1:20 PM EST Office Visit [facility] [address] [place] [address] James Schilling [address] [address] 10/02/2025 1:00 PM EST Office Visit [facility] [address] [place] [address] James Schilling [address] [address] 06/09/2026 2:20 PM EDT Office Visit [facility] at [address] [address] Flakito Boone MBBS [address] [place] [address] [email or web address] documented as of this encounter Visit Diagnoses Not on filedocumented in this encounter Care Teams Home Theater Installer Relationship Specialty Start Date End Date Nohemy Hernandez MD [address] [place] [address] 2 [place] [address] PCP - General Internal Medicine 05/14/21 Flakito Boone MBBS [address] [place] [address] [email or web address] Primary Oncologist Medical Oncology 10/02/24 documented as of this encounter Additional Source Comments The information contained in this document represents components of the legal health record. It is not the complete legal health record.[facility]
--- OUTSIDE RECORDS SUMMARY | 2025-08-12 08:32 | XMS_ITS | Clinical Summary ---
Author Organization [facility] Address [address] [place] [phone] Phone Care Team Providers Care Privacy Specialist Name Role Phone Nohemy Hernandez MD Primary Care Provider [phone] Social History Tobacco Use Types Packs/Day Years [...] 10/03/2024 10:43 AM EST Plan of Treatment Upcoming Encounters Date Type Department Care Team (Late st Contact Info) Description 10/04/2025 1:00 PM EST [facility]ointment [facility] [address] [address] Health Maintenance Due Date Last Done Comments Colorectal Cancer Screening: Colonoscopy 1950 Diabetes: Annual Foot Exam 1962 Diabetes: Annual Retina Eye Exam 1962 Hepatitis A Vaccines (1 of 2 - Risk 2-dose series) 1971 Hepatitis B Vaccines (1 of 3 - Risk 3-dose series) 2012 Zoster Vaccines (2 of 2) 01/20/2021 11/25/2020 Pneumococcal Vaccine: 50+ Years (2 of 2 - PCV) 06/11/2022 06/11/2021 Falls Risk Assessment 07/13/2022 Hepatitis C Screening 07/13/2022 Medicare Annual Wellness Visit 07/13/2022 Social Influencers of Health Screening 07/13/2022 Depression Screening 08/15/2024 Diabetes: Blood Sugar Control Test (HGBA1C) 10/03/2024 Diabetes: Annual Urine Albumin-Creatinine Ratio (uACR) 03/26/2025 03/26/2024, 09/19/2023, 10/11/2022 COVID-19 Vaccine ( season) 2025 04/15/2024, 01/20/2024, 06/17/2023, Additional history exists Influenza Vaccine (#1) 2025 , 06/17/2023, 05/18/2022, [...] Mammo Location: [facility], [address] [place] [address], [address], . -------- FINAL REPORT -------- Dictated By: Katerine Tavares Dictated Date: 10/03/2024 12:21 ET Assigned Physician: Katerine Tavares Reviewed and Electronically Signed By: Katerine Tavares Signed Date: 10/03/2024 12:22 ET Workstation ID: [id number] Transcribed By: Self Edit Transcribed Date: 10/03/2024 [...] Mammo Location: [facility], [address] [place] [address], [address], . -------- FINAL REPORT -------- Dictated By: Katerine Tavares Dictated Date: 10/03/2024 12:21 ET Assigned Physician: Katerine Tavares Reviewed and Electronically Signed By: Katerine Tavares Signed Date: 10/03/2024 12:22 ET Workstation ID: [id number] Transcribed By: Self Edit Transcribed Date: 10/03/2024 12:21 ET us Nohemy Hernandez MD IMG BI PROCEDURES Final Result * JODI DEXA AXIAL SKELETON (03/31/2023 7:38 AM EDT) Anatomical Region Laterality Modality Mammography 03/30/2023 2:58 PM EDT Narrative 03/31/2023 7:38 AM EDT [facility] Diagnostic Imaging Department [address] [place] [address] Patient: KAYLEEMARLINE Rachel MayaB./Age/Sex: 1950 - 72 - Unit#: [id number] Location/Status: SPDIMAM/REG CLI [facility] Ordering Physician: NOHEMY HERNANDEZ MD Jodi Dexa Axial Skeleton - 03/30/23 - [id number] Report Status:Signed HISTORY: The patient is a [...] probability of hip fracture of 3.1%. Code 08174 Dictating Physician: AYLIN GANDHI MD Electronically Signed by: AYLIN GANDHI MD Dic Date/Time: 03/31/2337 Sign date/Time: 03/31/23737 Procedure Note Aylin Gandhi MD - 09/20/2023 [facility] Diagnostic Imaging Department [address] [place], [place] [id number] Patient: KAYLEEMARLINE D.O.B./Age/Sex: 1950 - 72 - Unit#: [id number] [facility] Ordering Physician: NOHEMY HERNANDEZ MD Jodi Dexa Axial Skeleton - 03/30/23 - [id number] Report Status:Signed HISTORY: The patient is a [...] density of the femurs bilaterally is 0.906 gm/nl2vaoqy is 90% of that of young normals [...] probability of hip fracture of 3.1%. Code 75410 Dictating Physician: AYLIN GANDHI MD Electronically Signed by: AYLIN GANDHI MD Dic Date/Time: 03/31/23 0737 Sign date/Time: 03/31/2338 Nohemy Hernandez MD IM BI PROCEDURES Final Result from Last 3 Months or Most Recently Relevant to Health Maintenance Insurance MEDICARE [facility] Care Teams Privacy Specialist Relationship Specialty Start Date End Date Nohemy Hernandez MD [address] [place] [address] PCP - General Internal Medicine 07/02/20
--- OUTSIDE RECORDS SUMMARY | 2025-08-12 08:32 | XMS_ITS | Clinical Summary ---
Author Organization [facility] Address [address] [place] [address] Care Team Providers Care Branch Library Clerk Name Role Phone Nohemy Hernandez MD Primary Care Provider [phone] Allergies Active Allergy Reactions Criticality Noted Date Comments Bacitracin Hives,Rash/Dermatitis Medium 02/28/2018 Meperidine Itching Low 10/10/2019 Oxycodone-Aspirin Rash/Dermatitis Low 10/10/2019 DRUG DERMATITIS Penicillins Anaphylaxis,Rash/Rylan m atitis High 11/08/2018 DRUG DERMATITIS Sulfa Antibiotics Hives Medium 02/21/2019 Sulfamethoxazole-Trimet hoprim Itching,Hives High 11/08/2018 Medications amitriptyline (ELAVIL) 25 MG tablet TAKE 2 TABLETS BY MOUTH ONCE A DAY AT BEDTIME 6 10/01/19 19 Active ergocalciferol (VITAMIN D2,DRISDOL) 15229 units Cap TAKE ONE CAPSULE BYMOUTH ONCE [...] 1 10/19/19 Active SIMONE DELGARFIELD LANCETS FINE [facility] lancet DX CODE: [...] mouth daily. 1 10/10/19 Active Dermatological Products, [facility]. (EPICERAM) lotion APPLY [...] Years Used Date Smoking Tobacco: Former Cigarettes 0 Q uit: 1992 Smokeless Tobacco: Never Alcohol [...] 50+ (1 of 1 - PCV) 2002 RSV Vaccine 50 years and older and Patients (1 - Risk 50-74 years 1-dose series) 2002 Zoster (Shingles) Vaccine (1 of 2) 2002 DXA Bone Density (Females,Ages 65 and older) 2017 Influenza Vaccine 03/15/2025 06/12/2021, 04/09/2020, 06/15/2019 COVID-19 Vaccine ( - season) 2025 12/31/2021 Hemoglobin A1C Discontinued 12/25/2021 Hepatitis B Vaccines Aged Out No long er eligible based on patient's age to complete this topic Insurance MEDICARE PART A & B MEDICARE PART A & B [facility] [place] [facility] Care Teams Branch Library Clerk Relationship Specialty Start Date End Date Nohemy Hernandez MD [address] [place] [address] PCP - General 11/08/18 Multiple Wire Sawyer Kalyn Wright 12/18/18
--- OUTSIDE RECORDS SUMMARY | 2025-08-12 08:32 | XMS_ITS | Encounter Summary ---
Author Organization [facility] Address [address] [place] [address] Phone Care Team Providers Care Tool And Cutter Grinder Name Role Phone Nohemy Hernandez MD Primary Care Provider [phone] Flakito BooneBS Unavailable [phone] Encounter Details Date Type Department Care Team (Late st Contact Info) Description 12/06/2024 Procedure Pass [facility], Ct Scan - [address] [address] Social History Tobacco Use Types Packs/Day Years [...] Description 08/12/2025 1:20 PM EST Office Visit [facility] [address] [place] [address] James Schilling [address] [address] 10/02/2025 1:00 PM EST Office Visit [facility] [address] [place] [address] James Schilling [address] [address] 06/09/2026 2:20 PM EDT Office Visit [facility] [place] [facility] at [address] [address] Flakito Boone MBBS [address] [place] [address] [email or web address] documented as of this encounter Visit Diagnoses Not on filedocumented in this encounter Care Teams Tool And Cutter Grinder Relationship Specialty Start Date End Date Nohemy Hernandez MD [address] [place] [address] 2 [place] [address] PCP - General Internal Medicine 05/14/21 Flakito Boone MBBS [address] [place] [address] [email or web address] Primary Oncologist Medical Oncology 10/02/24 documented as of this encounter Additional Source Comments The information contained in this document represents components of the legal health record. It is not the complete legal health record.[facility]
--- OUTSIDE RECORDS SUMMARY | 2025-08-12 08:32 | XMS_ITS | Encounter Summary ---
Author Organization [facility] Address [address] [place] [address] Phone Care Team Providers Care Spike Machine Operator Name Role Phone Nohemy Hernandez MD Primary Care Provider [phone] Flakito Boone MB Unavailable [phone] Encounter Details Date Type Department Care Team (Late st Contact Info) Description 08/02/2025 Orders Only [facility] Primary [facility] Clinic [address] [place], [place] [phone] Provider, MD Heri [address] [place], [place] [phone] Social History Tobacco Use Types Packs/Day Years [...] Description 08/12/2025 1:20 PM EST Office Visit [facility] [address] [place] [address] [place] [address] James Schilling [address] [address] 10/02/2025 1:00 PM EST Office Visit [facility] [address] [place] [address] [place] [address] James Schilling [address] [address] 06/09/2026 2:20 PM EDT Office Visit [facility] [place] [facility] at [address] [address] Flakito Boone, [address] [address] [email or web address] documented as of this encounter Procedures Procedure Name Priority Date/Time Associated Diagnosis Comments HM DIABETES EYE EXAM FOR RESULT ENTRY ONLY Routine 07/29/2025 10:47 AM EST documented in this encounter Results * HM DIABETES EYE EXAM FOR RESULT ENTRY ONLY (07/29/2025 10:47 AM EST) us Historical Provider HEALTH MAINTENANCE Edited Result - Final documented in this encounter Visit Diagnoses Not on filedocumented in this encounter Care Teams Spike Machine Operator Relationship Specialty Start Date End Date Nohemy Hernandez MD [address] [facility] [address] [place] [address] PCP - General Internal Medicine 05/14/21 Flakito Boone MBBS [address] [facility] [address] [place] [address] [email or web address] Primary Oncologist Medical Oncology 10/02/24 documented as of this encounter Additional Source Comments The information contained in this document represents components of the legal health record. It is not the complete legal health record.[facility]
--- OUTSIDE RECORDS SUMMARY | 2025-08-12 08:32 | XMS_ITS | Encounter Summary ---
Author Organization [employer] [facility] Address [address] [place] [address] Phone Care Team Providers Care Retail Service Representative Name Role Phone Nohemy Hernandez MD Primary Care Provider [phone] Flakito Boone Unavailable [phone] Encounter Details Date Type Department Care Team (Late st Contact Info) Description 12/27/2023 Ancillary Orders [facility],Outside Imaging [address] [place], [place] [phone] System, Provider Not In, [facility] [address] [address] Social History Tobacco Use Types Packs/Day Years [...] Description 08/12/2025 1:20 PM EST Office Visit [facility] [address] [place] [address] [place] [address] James Schilling [address] [address] 10/02/2025 1:00 PM EST Office Visit [facility] Endocrinology [address] [place] [address] James Schilling [address] [address] 06/09/2026 2:20 PM EDT Office Visit [facility] [place] [facility]cology Clinic at [address] [address] Flakito Boone, LUPILLO [address] [place] [address] [email or web address] documented as of this encounter Results * [...] documented as of this encounter Care Teams Retail Service Representative Relationship Specialty Start Date End Date Nohemy Hernandez MD [address] [place] [address] 2 [place] [address] PCP - General Internal Medicine 05/14/21 Flakito Boone MBBS [address] [facility] 2 [place] [address] [email or web address] Primary Oncologist Medical Oncology 10/02/24 documented as of this encounter Additional Source Comments The information contained in this document represents components of the legal health record. It is not the complete legal health record.[facility]
--- OUTSIDE RECORDS SUMMARY | 2025-08-12 08:32 | XMS_ITS | Encounter Summary ---
Author Organization [employer] [facility] Address [address] [place] [address] Phone Care Team Providers Care Digital Asset Specialist Name Role Phone Nohemy Hernandez MD Primary Care Provider [phone] Flakito Boone Unavailable [phone] Encounter Details Date Type Department Care Team (Late st Contact Info) Description 12/27/2023 Ancillary Orders [facility],Outside Imaging [address] [place], [place] [phone] System, Provider Not In, [facility] [address] [address] Social History Tobacco Use Types Packs/Day Years [...] Description 08/12/2025 1:20 PM EST Office Visit [facility] [address] [place] [address] [place] [address] James Schilling [address] [address] 10/02/2025 1:00 PM EST Office Visit [facility] Endocrinology [address] [place] [address] James Schilling [address] [address] 06/09/2026 2:20 PM EDT Office Visit [facility] [place] [facility] Oncology Clinic at [address] [address] Flakito Boone, LUPILLO [address] [place] [address] [email or web address] documented as of this encounter Results [...] documented as of this encounter Care Teams Digital Asset Specialist Relationship Specialty Start Date End Date Nohemy Hernandez MD [address] [place] [address] 2 [place] [address] PCP - General Internal Medicine 05/14/21 Flakito Boone MBBS [address] [facility] 2 [place] [address] [email or web address] Primary Oncologist Medical Oncology 10/02/24 documented as of this encounter Additional Source Comments The information contained in this document represents components of the legal health record. It is not the complete legal health record.[facility]
--- OUTSIDE RECORDS SUMMARY | 2025-08-12 08:32 | XMS_ITS | Encounter Summary ---
Author Organization [employer] [facility] Address [address] [place] [address] Phone Care Team Providers Care Form Designer Name Role Phone Nohemy Hernandez MD Primary Care Provider [phone] Flakito BooneBS Unavailable [phone] Encounter Details Date Type Department Care Team (Late st Contact Info) Description 10/17/2024 Procedure Pass [facility], Ct Scan - [address] [address] Social History Tobacco Use Types Packs/Day Years [...] Description 08/12/2025 1:20 PM EST Office Visit [facility] End[facility]inology Clinic [address] [place] [address] James Schilling [address] [address] 10/02/2025 1:00 PM EST Office Visit [facility] [address] [place] [address] James Schilling [address] [address] 06/09/2026 2:20 PM EDT Office Visit [facility] [place] [facility]cology Clinic at [address] [address] Flakito Boone MBBS [address] [place] [address] [email or web address] documented as of this encounter Visit Diagnoses Not on filedocumented in this encounter Care Teams Form Designer Relationship Specialty Start Date End Date Nohemy Hernandez MD [address] [place] [address] 2 [place] [address] PCP - General Internal Medicine 05/14/21 Flakito Boone MBBS [address] [place] [address] [email or web address] Primary Oncologist Medical Oncology 10/02/24 documented as of this encounter Additional Source Comments The information contained in this document represents components of the legal health record. It is not the complete legal health record.[facility]
--- OUTSIDE RECORDS SUMMARY | 2025-08-12 08:32 | XMS_ITS | Clinical Summary ---
Author Organization [facility] Prior to 01/12/[address] [place] [address] Care Team Providers Care Procedure Tech Name Role Phone Nohemy Hernandez MD Primary Care Provider [phone] Social History Tobacco Use Types Packs/Day Years [...] age to complete this topic Care Teams Procedure Tech Relationship Specialty Start Date End Date Nohemy Hernandez MD [address] [place] [address] 2 [place] [address] PCP - General Internal Medicine 07/02/20
--- OUTSIDE RECORDS SUMMARY | 2025-08-12 08:32 | XMS_ITS | Clinical Summary ---
Author Organization [facility] Address [address] [facility] [address] [place] [address] Phone Care Team Providers Care B Operator Name Role Phone Nohemy Hernandez MD Primary Care Provider Allergies Active Allergy Reactions Criticality Noted Date [...] time each day Active sodium chloride ([employer] [place]) 0.65 % nasal spray Administer 1 spray into each nostril if needed Active tiZANidine (ZANAFLEX) 2 MG tablet Take 2-4 mg by mouth every 6 (six) hours if needed Active ursodiol (ACTIGALL) 300 MG capsule Take 600 mg by mouth in the morning and 600 mg in the evening. 9 Active sodium chloride (ALEXY 128) 5 % [...] 270 tablet 3 5 12/25/19 26 Active Additional Information Patient taking differently: 5 mgOral Daily, Reported on 06/26/2025 cholecalciferol (VITAMIN D-3 SUPER STRENGTH) 50 MCG (2000 UT) tablet Take 2,000 Units by mouth Active valsartan (DIOVAN) 320 MG tablet Take 320 mg by mouth 9 Active amitriptyline (ELAVIL) 25 MG tablet Take 50 mg by mouth every night Active zinc gluconate 50 MG tablet Take 50 mg by mouth 1 (one) time each day Active [place]-3 Fatty Acids (Fish Oil) 1000 MG capsule delayed-release Take by mouth Active calcium carbonate (OS-YAMILA) 1250 (500 Ca) MG tablet Take 1 tablet by mouth 1 (one) time each day Active Active Problems Problem Noted Date Diagnosed [...] (01/21/2024): Added automatically from request for surgery [id number] Fibromyalgia 02/21/2009 Encounters Date Type Department Care Team Description 06/26/2025 10:40 AM EST [facility] Visit [facility] [address] [phone] Ryan Ann MD Hypertension (Primary Dx); 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; Diabetes mellitus, not otherwise specified (HCC); Fibromyalgia; Hyponatremia; Microalbuminuria 06/26/2025 Orders Only [facility] [address] [phone] Ryan Ann MD Hypertension; 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 in a [...] Sign Reading Time Taken Comments Blood Pressure 148/82 06/26/2025 10:44 AM EST Pulse 86 06/26/2025 10:44 AM EST Temperature - - Respiratory Rate - - Oxygen Saturation 98% 06/26/2025 10:44 AM EST Inhaled Oxygen Concentration - - Weight 75.3 kg (166 lb) 06/26/2025 10:44 AM EST Height 163.8 cm (5' 4.5 ) 09/17/2024 11:14 AM ES T Body Mass Index 28.05 09/17/2024 11:14 AM EST Plan of Treatment Upcoming Encounters Date Type Department Care Team (Late st Contact Info) Description 12/25/2025 11:40 AM EDT Office Visit [facility] [address] [place] [phone] Ryan Ann MD [address] [phone] Health Maintenance Due Date Last Done Comments [...] exists Colorectal Cancer Screening: Colonoscopy 11/14/2034 11/14/2024 Procedures Procedure Name Priority Date/Time Associated Diagnosis Comments PROTEIN / CREATININE RATIO, URINE Routine 06/20/2025 3:37 PM EST Hypertension 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 Microalbuminuria Hyponatremia Diabetes mellitus, not otherwise specified (HCC) CBC AND DIFFERENTIAL Routine 06/20/2025 3:37 PM EST Hypertension 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 Microalbuminuria Hyponatremia Diabetes mellitus, not otherwise specified (HCC) VITAMIN D 25 HYDROXY Routine 06/20/2025 3:37 PM EST Hypertension 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 Microalbuminuria Hyponatremia Diabetes mellitus, not otherwise specified (HCC) PTH, INTACT Routine 06/20/2025 3:37 PM EST Hypertension 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 Microalbuminuria Hyponatremia Diabetes mellitus, not otherwise specified (HCC) PHOSPHATE ( PHOSPHORUS) Routine 06/20/2025 3:37 PM EST Hypertension 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 Microalbuminuria Hyponatremia Diabetes mellitus, not otherwise specified (HCC) MAGNESIUM Routine 06/20/2025 3:37 PM EST Hypertension 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 Microalbuminuria Hyponatremia Diabetes mellitus, not otherwise specified (HCC) URIC ACID Routine 06/20/2025 3:37 PM EST Hypertension 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 Microalbuminuria Hyponatremia Diabetes mellitus, not otherwise specified (HCC) COMPREHENSIVE METABOLIC PANEL Routine 06/20/2025 3:37 PM EST Hypertension 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 mg/dL [facility] Protein, Ur <4.0 Not Estab. mg/dL [facility] Comment:Verified by repeat analysis Urine Protein/Creatinin e Ratio Comment(A ) 0 - 200 mg/g creat [facility] Comment: This result is below the assay's limit of quantitation indicating a dilute specimen, potentially due to diurnal variation. Consider recollection at a time likely to provide a more concentrated urine. Urine specimen (specimen) Urine specimen obtained by clean catch procedure / Unknown 06/20/2025 3:37 PM EST 06/20/2025 us Ryan Ann MD LAB URINE ORDERABLES Final Re sult [facility] [address] [place] [address] * Vitamin D 25 Hydroxy (06/20/2025 3:37 PM EST) Vitamin D, 25-OH, Total 63.9 30.0 - 100.0 ng/mL [facility] Comment: Vitamin D deficiency has been defined by the [place] of [employer] and an Endocrine Society practice guideline as a level of serum 25-OH vitamin D less than 20 ng/mL (1,2). The Endocrine Society went on to further define vitamin D insufficiency as a level between 21 and 29 ng/mL (2). 1. IOM ([place] of [employer]). 2010. Dietary reference intakes for calcium and D. [place]: The National Academies Press. 2. Katty MF, Rachel CHU, Mukund LU, et al. Evaluation, treatment, and prevention of vitamin D deficiency: an Endocrine Society clinical practice guideline. JCEM. 2010; 96(7):1911-30. Blood specimen (specimen) Venous blood / Unknown 06/20/2025 3:37 PM EST 06/20/2025 us Ryan Ann MD LAB BLOOD ORDERABLES Final Re sult [facility] [address] [place] [address] * (ABNORMAL) CBC and Differential (06/20/2025 3:37 PM EST) WBC 13.0(H) 3.4 - 10.8 x10E3/uL [facility] RBC 4.41 3.77 - 5.28 x10E6/uL [facility] Hemoglobin 11.9 11.1 - 15.9 g/dL [facility] Hematocrit 37.7 34.0 - 46.6 % [facility] MCV 86 79 - 97 fL [facility] MCH 27.0 26.6 - 33.0 pg [facility] MCHC 31.6 31.5 - 35.7 g/dL [facility] RDW 12.9 11.7 - 15.4 % [facility] Platelets 370 150 - 450 x10E3/uL [facility] Neutrophils Relative 72 Not Estab. % [facility] Lymphocytes Relative 17 Not Estab. % [facility] Monocytes 7 Not Estab. % [facility] Eosinophils Relative 2 Not Estab. % [facility] Basophils Relative 1 Not Estab. % [facility] Neutrophils Absolute 9.4(H) 1.4 - 7.0 x10E3/uL [facility] Lymphocytes Absolute 2.2 0.7 - 3.1 x10E3/uL [facility] Monocytes Absolute 0.8 0.1 - 0.9 x10E3/uL [facility] Eosinophils Absolute 0.3 0.0 - 0.4 x10E3/uL [facility] Basophils Absolute 0.1 0.0 - 0.2 x10E3/uL [facility] Immature Granulocytes 1 Not Estab. % [facility] Immature Grans (Absolute) 0.1 0.0 - 0.1 x10E3/uL [facility] Blood specimen (specimen) Venous blood / Unknown 06/20/2025 3:37 PM EST 06/20/2025 us Ryan Ann MD LAB BLOOD ORDERABLES Final Re sult [facility] [address] [place] [address] * Uric Acid (06/20/2025 3:37 PM EST) Uric Acid 5.3 3.1 - 7.9 mg/dL [facility] Comment:Therapeutic target f or gout patients: <6.0 Blood specimen (specimen) Venous blood / Unknown 06/20/2025 3:37 PM EST 06/20/2025 Ryan Ann MD LAB BLOOD ORDERABLES Final [facility] [address] [place] [address] * Phosphorus (06/20/2025 3:37 PM EST) Phosphorus 3.8 3.0 - 4.3 mg/dL [facility] Blood specimen (specimen) Venous blood / Unknown 06/20/2025 3:37 PM EST 06/20/2025 Ryan Ann MD LAB BLOOD ORDERABLES Final Re sult Performing Organization Address [facility]/ZIP Co de Phone Number [facility] [address] [place] [address] * PTH, Intact (06/20/2025 3:37 PM EST) PTH 22 15 - 65 pg/mL [facility] Blood specimen (specimen) Venous blood / Unknown 06/20/2025 3:37 PM EST 06/20/2025 Ryan Ann MD LAB BLOOD ORDERABLES Final Re sult Performing Organization Address City/[facility]/ZIP Co de Phone Number [facility] [address] [place] [address] * Magnesium (06/20/2025 3:37 PM EST) Magnesium 1.9 1.6 - 2.3 mg/dL [facility] Blood specimen (specimen) Venous blood / Unknown 06/20/2025 3:37 PM EST 06/20/2025 us Ryan Ann MD LAB BLOOD ORDERABLES Final Re sult [facility] [address] [place] [address] * (ABNORMAL) Comprehensive Metabolic Panel (06/20/2025 3:37 PM EST) Glucose 109(H) 70 - 99 mg/dL [facility] BUN 7(L) 8 - 27 mg/dL [facility] Creatinine 0.61 0.57 - 1.00 mg/dL [facility] eGFR CKD-EPI CR 2020 94 >59 mL/min/1.7 3 [facility] BUN/Creatinine Ratio 11(L) 12 - 28 [facility] Sodium 130(L) 134 - 144 mmol/L [facility] Potassium 4.2 3.5 - 5.2 mmol/L [facility] Chloride 94(L) 96 - 106 mmol/L [facility] Bicarbonate (CO2) 21 20 - 29 mmol/L [facility] Calcium 9.2 8.7 - 10.3 mg/dL [facility] Albumin 4.3 3.8 - 4.8 g/dL [facility] Total Bilirubin 0.2 0.0 - 1.2 mg/dL [facility] Alkaline Phosphatase 139(H) 49 - 135 IU/L [facility] AST (SGOT) 28 0 - 40 IU/L [facility] ALT (SGPT) 27 0 - 32 IU/L [facility] Total Protein 7.7 6.0 - 8.5 g/dL [facility] Globulin 3.4 1.5 - 4.5 g/dL [facility] Blood specimen (specimen) Venous blood / Unknown 06/20/2025 3:37 PM EST 06/20/2025 us Ryan Ann MD LAB BLOOD ORDERABLES Final Re sult [facility] [address] [place] [address] from Last 3 Months Insurance Medicare [facility] Medicare [facility] Care Teams B Operator Relationship Specialty Start Date End Date Nohemy Hernandez MD [address] [place] [address], [address] [place] [address] PCP - General Internal Medicine 10/24/23
--- OUTSIDE RECORDS SUMMARY | 2025-08-12 08:32 | XMS_ITS | Encounter Summary ---
Author Organization [facility] Address [address] [place] [address] Care Team Providers Care Program Manager Transportation Name Role Phone Nohemy Hernandez MD Primary Care Provider [phone] Encounter Details Date Type Department Care Team (Late st Contact Info) Description 02/09/2019 Scanned Document [facility] [address] [place] [phone] Acosta Madrid MD [address] [place] [id number] Social History Tobacco Use Types Packs/Day Years Used Date Smoking Tobacco: Former Cigarettes 0 Q uit: 1993 Smokeless Tobacco: Never Comments Unknown Sex and Gender Information Value Date Recorded Sex Assigned at Not on file Legal Sex Female 6:49 PM EDT Gender Identity Not on file Sexual Orientation Not on file documented as of this encounter Plan of Treatment Not on file documented as of this encounter Visit Diagnoses Not on filedocumented in this encounter Care Teams Program Manager Transportation Relationship Specialty Start Date End Date Nohemy Hernandez MD [address] [place] [id number] PCP - General 11/08/18 Pad Extractor Tender Kalyn Wright 12/18/18 documented as of this encounter
--- OUTSIDE RECORDS SUMMARY | 2025-08-12 08:32 | XMS_ITS | Clinical Summary ---
Author Organization [facility] Address [address] [place] [address] Phone Care Team Providers Care Gun Number Name Role Phone Nohemy Hernandez MD Primary Care Provider [phone] Flakito Boone MBBS Unavailable [phone] Allergies Active Allergy Reactions Criticality Noted [...] 03/08/20 23 Active blood-glucose meter,continuous (DEXCOM G7 DOPE FIRER) MiscIndications: Type 2 diabetes mellitus with microalbuminuria [...] MORNING. 100 each 3 01/09/20 25 Active metFORMIN (GLUCOPHAGE-XR) 500 MG 24 hr tabletIndication s:Type 2 diabetes mellitus with microalbuminuria , with long-term current use of insulin Take 2 tablets (1,000 mg total) by mouth 2 (two) times a day with meals. 360 tablet 1 04/01/20 25 Active insulin glargine (BASAGLAR KWIKPEN U-100 INSULIN) 100 unit/mL (3 mL) InPn injection penIndications:T ype 2 diabetes mellitus with microalbuminuria , with long-term current use of insulin Inject 17 Units under the skin daily. 15 mL 06/26/20 25 Active Active Problems Problem Noted Date Diagnosed Date Pulmonary nodules 12/06/2024 Lymphadenopathy, abdominal 10/17/2024 Assessment & Plan (06/13/2025 11:58 AM EDT): IMPRESSION: This is a 75-year-old woman with the following diagnoses. Incidental finding of small cardiophrenic lymph node likely normal variant - resolved Incidental finding of small pulmonary nodules likely benign -needs surveillance since patient has history of smoking in the past DISCUSSION: I discussed overall impression, differential diagnosis and further evaluation in this regard. Overall clinical picture is consistent with the above-mentioned impression. Discussed most recent CT scan which showed resolution and normalization of the lymphadenopathy. Pulmonary nodules are stable. Since she has history of smoking in the past, she will undergo surveillance for a few years on a yearly basis with a CT chest. RECOMMENDATIONS: CT chest without contrast in 1 year and follow-up after that Thank you very much for allowing me to participate in this patient's care Assessment & Plan (12/06/2024 2:20 PM EDT): [...] like to obtain the DXA scan at [facility]. I will request the study. The [...] She cannot tolerate statins. She just takes uuhy-rec-ywsdpwp medications like planned stanol elayne, she monitors [...] of Trulicity 0.75 mg weekly. Lot number [id number] expiration January 21, 2023. The patient will return for follow-up in 3 months time. Encounters Date Type Department Care Team Description 08/02/2025 Orders Only [facility] [address] [place] [address] Provider, MD Heri 06/13/2025 11:40 AM EDT Office Visit [facility] [place] [facility] at [address] [address] Flakito Boone MBBS Lymphadenopathy, abdominal (Primary Dx); Pulmonary nodules 06/06/2025 11:47 AM EDT - 06/06/2025 11:59 PM EDT Hospital Encounter [address] [address] Flakito Boone MBBS Discharge Disposition: Home or Self Care 06/04/2025 12:30 PM EDT - 06/04/2025 11:59 PM EDT Hospital Encounter [facility] [place] [address] [place] [address] Flakito Boone MBBS Discharge Disposition: Home or Self Care 12/06/2024 Procedure Pass [address] [address] 12/06/2024 Procedure Pass [address] [address] from Last 3 Months Immunizations Immunization Administration [...] Sign Reading Time Taken Comments Blood Pressure 137/78 06/13/2025 11:45 AM EDT Pulse 79 06/13/2025 11:45 AM EDT Temperature 36.5 C (97.7 F) 06/13/2025 11:45 AM EDT Respiratory Rate 18 08/07/2022 1:43 PM EST Oxygen Saturation 96% 06/13/2025 11: 45 AM EDT Inhaled Oxygen Concentration - - Weight 75.2 kg (165 lb 11.2 oz) 025 11:45 AM EDT Height 163.4 cm (5' 4.33 ) 04/01/2025 1:07 PM ED T Body Mass Index 28.15 04/01/2025 1:07 PM EDT Plan of Treatment Upcoming Encounters Date Type Department Care Team (Late st Contact Info) Description 08/12/2025 1:20 PM EST Office Visit [facility] Endocrinology [address] [place] [address] Merlin Schilling DO [address] [place] [address] 10/02/2025 1:00 PM EST Office Visit [facility]inology Clinic [address] [place] [address] [place] [address] Merlin Schilling DO [address] [place] [address] 06/09/2026 2:20 PM EDT Office Visit [facility] Oncology [facility] at [place] [address] [address] Flakito Boone MBBS [address] [place] [address] [email or web address] Health Maintenance Due Date Last Done Comments DEPRESSION SCREENING 1964 HEPATITIS C SCREENING 1970 COLOGUARD 1997 COLONOSCOPY 1997 COLORECTAL CANCER SCREENING 1997 FIT TEST 1997 FOBT 1997 SIGMOIDOSCOPY 1997 VIRTUAL COLONOSCOPY 1997 ZOSTER VACCINES (2 of 2) 01/20/2021 11/25/2020 PNEUMOCOCCAL VACCINES (50+ years) (2 of 2 - PCV) 06/11/2022 06/11/2021 POTASSIUM LEVEL 09/19/2024 09/19/2023, 07/16, 08/06/2022, Additional history exists COVID-19 VACCINE ( season) 2025 03/05/2025, 04/15/2024, 01/20/2024, Additional history exists HEMOGLOBIN A1C 09/27/2025 03/27/2025, 09/15, 03/26/2024, Additional history exists BLOOD PRESSURE 12/12/2025 06/13/2025 LIPID PANEL 03/27/2026 03/27/2025, 03/15, 03/23/2023, Additional history exists CREATININE LEVEL 06/04/2026 06/04/2025, 05/2025, 09/19/2023, Additional history exists DIABETIC EYE EXAM 07/29/2026 07/29/2025 MAMMOGRAM 10/03/2026 10/03/2024, 09/15, 10/03/2024 Adult Td,Tdap Booster 06/24/2027 06/24/2017 RSV VACCINE Completed 06/24/2023 INFLUENZA VACCINE Completed 03/05/2025, , 06/17/2023, Additional history exists SMOKING STATUS SCREENING (Once After 26 Yrs) [...] this topic Medical Devices Implanted Type Area Track Supervisor Device Identifier Shelf Expiration Date Model / Serial / Lot Screw Bone 26x4.5mm Shoulder Glenoid Fixation Aequalis Titanium Multidirectional Reverse - [id number] Implanted:Qty: 1 on 08/06/2022 by Acosta Aranda DO at [facility] Left: Shoulder [employer] [id number] / / Shoulder Post 25mm [id number] Baseplate Glenoid Humeral Aequalis Reversed Ii Standard - [id number] Implanted:Qty: 1 on 08/06/2022 by Acosta Aranda DO at [facility] Left: Shoulder [employer] 06/04/2027 [id number] / [id number] / Screw Bone 4.5x32mm Shoulder Glenoid Locking Multi Directional Aequalis Reversed Reverse 08 - [id number] Implanted:Qty: 1 on 08/06/2022 by Acosta Aranda DO at [facility] Left: Shoulder [employer] [id number] / / Shoulder Implant [id number] Sphere Glenoid Aequalis Centered - [id number] Implanted:Qty: 1 on 08/06/2022 by Acosta Aranda DO at [facility] Left: Shoulder [employer] 05/05/2027 [id number] / [id number] / Pin Rt Shulder Screws In Right Foot Bone Cement Antibiotic Refobacin - [id number] Implanted:Qty: 1 on 08/06/2022 by Acosta Aranda DO at [facility] Left: Shoulder PAT BIOMET 10/12/2024 [id number] / / [id number] Shoulder Stem [id number] Implant Reverse Fracture Hum - [id number] Implanted:Qty: 1 on 08/06/2022 by Acosta Aranda DO at [facility] Left: Shoulder [employer] 02/28/2025 [id number] / [id number] / Restrictor Shoulder 8 15mm Bone Cement 09 - [id number] Implanted:Qty: 1 on 08/06/2022 by Acosta Aranda DO at [facility] Left: Shoulder [employer] 04/16/2026 [id number] / [id number] / Humerus Insert 36x6.0mm Humeral Shoulder Aequalis Reversed Fracture Lateralized Functional Deltoid Plus - [id number] Implanted:Qty: 1 on 08/06/2022 by Acosta Aranda DO at [facility] Left: Shoulder [employer] 11/17/2026 [id number] / [id number] / Screw Bone 4.5x18mm Shoulder Fixation Hemispherical Head Non Locking Aequalis Reverse 08 - [id number] Implanted:Qty: 2 on 08/06/2022 by Acosta Aranda, DO at [facility] Left: Shoulder [employer] [id number] / / Procedures Procedure Name Priority Date/Time Associated Diagnosis Comments DIABETES EYE EXAM FOR RESULT ENTRY ONLY Routine 07/29/2025 10:[address] ABDOMEN/PELVIS WITH CONTRAST Routine 06/06/2025 12:48 PM EDT Lymphadenopathy, abdominal CT CHEST WITHOUT CONTRAST Routine 06/06/2025 12:48 PM EDT Lymphadenopathy, abdominal BUN Routine 06/04/2025 12:51 PM EDT Lymphadenopathy, abdominal CREATININE WITH ESTIMATED GLOMERULAR FILTRATION RATE (EGFR) Routine 06/04/2025 12:51 PM EDT Lymphadenopathy, abdominal BD DXA AXIAL (SPINE) WITH HIP Routine 04/08/2025 1:18 PM EDT Osteopenia, unspecified location Osteopenia of multiple sites HEMOGLOBIN A1C Routine 03/27/2025 11:11 AM EDT Type 2 diabetes mellitus with microalbuminuria, with long-term current use of insulin LIPID PANEL Routine 03/27/2025 11:11 AM EDT Type 2 diabetes mellitus with microalbuminuria, with long-term current use of insulin HM MAMMOGRAPHY Routine 10/03/2024 10:53 AM EST COMPREHENSIVE METABOLIC PANEL (CMP) Routine 09/19/2023 8:47 AM EST Osteopenia, unspecified location from Last 3 Months or Most Recently Relevant to Health Maintenance Results * DIABETES EYE EXAM FOR RESULT ENTRY ONLY (07/29/2025 10:47 AM EST) us Historical Provider [facility] Edited Result - Final * CT CHEST WITHOUT CONTRAST (06/06/2025 12:48 PM EDT) MGB IMG RECOMMENDATION COMMENT Decreased size right cardiophrenic lymph node [facility] Anatomical Region Laterality Modality Chest Computed Tomogra phy 06/13/2025 8:17 AM EDT Impressions 06/13/2025 8:27 AM EDT 1. Decreased size of the right cardiophrenic lymph node, which was likely reactive. 2. Unchanged pulmonary nodules measuring up to 4 mm. RECOMMENDATIONS: Consider follow-up chest CT in 12-13 months Narrative 06/13/2025 8:[address] CHEST WITHOUT CONTRAST Referring clinician's provided indication for this examination in [facility]: * Lung nodule, < 6mm, high cancer risk; fu on cardiopheric lymphadenopathy TECHNIQUE: Multidetector CT of the chest was performed without intravenous contrast using tailored dose modulation. COMPARISON: CT CHEST WITH CONTRAST FINDINGS: Devices/Tubes/Lines: None. Lungs: Central airways are patent. Mild biapical pleural-parenchymal scarring. Unchanged ground glass opacity with associated bronchiectasis in the right lower lobe paravertebral region (5:199). No consolidation. Stable scattered nodules including a 2 mm nodule in the right upper lobe (5:128) and 4 mm nodule in the right middle lobe (5:259). Calcified granulomas. Pleura: No pleural effusion or pneumothorax. Mediastinum: No actionable thyroid nodules. The cardiac chambers are normal in size. No pericardial effusion. Severe amount of coronary calcifications. Lymph Nodes: No enlarged supraclavicular, axillary, mediastinal, or hilar lymph nodes. Decreased size of the right cardiophrenic node now measuring 8 mm, previously 12 mm (5:285). Upper Abdomen: Absence of intravenous contrast and low dose technique limit sensitivity for detecting solid organ findings. No abnormality detected in the visualized upper abdomen. Cholecystectomy Chest Wall: No chest wall mass. Bones: Degenerative changes without suspicious lytic or blastic lesions. Procedure Note Devante Blas DO, MPH - 06/13/2025 CT CHEST WITHOUT CONTRAST Referring clinician's provided indication for this examination in [facility]: *Lung nodule, < 6mm, high cancer risk; fu on cardiopheric lymphadenopathy TECHNIQUE: Multidetector CT of the chest was performed without intravenouscontrast using tailored dose modulation. COMPARISON: CT CHEST WITH CONTRAST FINDINGS: Devices/Tubes/Lines: None. Lungs: Central airways are patent. Mild biapical pleural-parenchymalscarring. Unchanged ground glass opacity with associated bronchiectasis inthe right lower lobe paravertebral region (5:199). No consolidation.Stable scattered nodules including a 2 mm nodule in the right upper lobe(5:128) and 4 mm nodule in the right middle lobe (5:259). Calcifiedgranulomas. Pleura: No pleural effusion or pneumothorax. Mediastinum: No actionable thyroid nodules. The cardiac chambers arenormal in size. No pericardial effusion. Severe amount of coronarycalcifications. Lymph Nodes: No enlarged supraclavicular, axillary, mediastinal, or hilarlymph nodes. Decreased size of the right cardiophrenic node now measuring8 mm, previously 12 mm (5:285). Upper Abdomen: Absence of intravenous contrast and low dose techniquelimit sensitivity for detecting solid organ findings. No abnormalitydetected in the visualized upper abdomen. Cholecystectomy Chest Wall: No chest wall mass. Bones: Degenerative changes without suspicious lytic or blastic lesions. IMPRESSION: 1. Decreased size of the right cardiophrenic lymph node, which was likelyreactive. 2. Unchanged pulmonary nodules measuring up to 4 mm. RECOMMENDATIONS: Consider follow-up chest CT in 12-13 months Flakito WESLEY IMRachel CT CHEST Final Resu lt * CT ABDOMEN/PELVIS WITH CONTRAST (06/06/2025 12:48 PM EDT) Anatomical Region Laterality Modality Abdomen, Pelvis Computed Tomogra phy 06/13/2025 7:40 AM EDT Impressions 06/13/2025 10:38 AM EDT 1. Interval decrease in size and prominence of the right pericardiophrenic lymph nodes. No new node identified. 2. Diffuse fatty infiltration of liver. 3. Rest of the findings as above. Narrative 06/13/2025 10:[address] ABDOMEN/PELVIS WITH CONTRAST Referring clinician's provided indication for this examination in [facility]: Outside Radiology Order; fu on cardiopheric lymphadenopathy TECHNIQUE: Multidetector-row CT of the abdomen and pelvis was performed after administration of intravenous contrast using tailored dose modulation techniques. Images were reconstructed in the axial, coronal, and sagittal planes. COMPARISON: Prior CT from 11/28/2024 FINDINGS: Lower Chest: Please refer to the CT chest report from the same date Liver: Diffuse fatty infiltration of liver. No focal lesions. Biliary: Status post cholecystectomy. No biliary ductal dilatation. Spleen: Normal. No splenomegaly or focal lesions. Pancreas: Normal. No masses or ductal dilatation. Adrenal Glands: Normal. No nodules. Kidneys/Ureters: Normal. No solid masses, stones, or hydronephrosis. Bowel: Unremarkable appendix. No distention or wall thickening. Peritoneum/Retroperitoneum: Normal. No masses, pneumoperitoneum, or fluid. Lymph Nodes: Interval decrease in size and prominence of the right pericardiophrenic area, which measures 8 mm on the present scan, measuring 12 mm prior scan. No new nodes identified. Pelvic Organs/Bladder: Normal. No mass. Vessels: Diffuse extensive atherosclerotic calcification of aorta and its branches. No abdominal aortic aneurysm. Bones/Soft Tissues: Diffuse osteopenia. Degenerative changes spine with vacuum phenomena in L4-5 disc. No destructive osseous lesions. Procedure Note Tristin Garg I, MBBS - 06/13/2025 CT ABDOMEN/PELVIS WITH CONTRAST Referring clinician's provided indication for this examination in Epic:Outside Radiology Order; fu on cardiopheric lymphadenopathy TECHNIQUE: Multidetector-row CT of the abdomen and pelvis was performedafter administration of intravenous contrast using tailored dosemodulation techniques. Images were reconstructed in the axial, coronal,and sagittal planes. COMPARISON: Prior CT from 11/28/2024 FINDINGS: Lower Chest: Please refer to the CT chest report from the same date Liver: Diffuse fatty infiltration of liver. No focal lesions. Biliary: Status post cholecystectomy. No biliary ductal dilatation. Spleen: Normal. No splenomegaly or focal lesions. Pancreas: Normal. No masses or ductal dilatation. Adrenal Glands: Normal. No nodules. Kidneys/Ureters: Normal. No solid masses, stones, or hydronephrosis. Bowel: Unremarkable appendix. No distention or wall thickening. Peritoneum/Retroperitoneum: Normal. No masses, pneumoperitoneum, orfluid. Lymph Nodes: Interval decrease in size and prominence of the rightpericardiophrenic area, which measures 8 mm on the present scan, [id number] mm prior scan. No new nodes identified. Pelvic Organs/Bladder: Normal. No mass. Vessels: Diffuse extensive atherosclerotic calcification of aorta and itsbranches. No abdominal aortic aneurysm. Bones/Soft Tissues: Diffuse osteopenia. Degenerative changes spine withvacuum phenomena in L4-5 disc. No destructive osseous lesions. IMPRESSION: 1. Interval decrease in size and prominence of the rightpericardiophrenic lymph nodes. No new node identified. 2. Diffuse fatty infiltration of liver. 3. Rest of the findings as above. Flakito WESLEY IMG CT ABD/PELVIS Final Re sult * Creatinine/eGFR (06/04/2025 12:51 PM EDT) CREATININE 0.50 0.5 - 1.5 mg/dL [facility] EGFR 99 >59 mL/min/1.7 3m2 [facility] Comment:Estimated glomerular filtration rate calculated using the CKD-EPI refit equation. Blood 06/04/2025 12:5 1 PM EDT 06/04/2025 1:03 PM EDT Flakito WESLEY LAB BLOOD BKR ORDERABLES F inal Result [address] [address] * BUN (06/04/2025 12:51 PM EDT) BUN 10 6 - 19 mg/dL [facility] Blood 06/04/2025 12:5 1 PM EDT 06/04/2025 1:03 PM EDT us Flakito WESLEY LAB BLOOD BKR ORDERABLES F inal Result [address] [address] * BD DXA AXIAL (SPINE) WITH HIP (04/08/2025 1:18 PM EDT) Anatomical Region Laterality Modality Bone Density Bone Density 04/08/2025 1:06 PM EDT Impressions 04/09/2025 8:51 PM EDT Interpretation: Osteopenia. Narrative 04/09/2025 8:51 PM EDT Referred By: MERLIN SCHILLING Indications: Osteopenia Scanner: [employer] with serial# of [id number] located at [facility] Bone Density Scan (DXA) 04/08/25 Details [...] -2.5), or Osteoporosis (T-score <= -2.5). At [facility], T-scores are compared to peak bone [...] Referred By: MERLIN SCHILLING Indications: Osteopenia Scanner: [employer] with serial# of [id number] located at [facility] Bone Density Scan (DXA) 04/08/25 Details [...] -2.5), or Osteoporosis (T-score <= -2.5). At [facility], T-scores are compared to peak bone [...] BONE DENSITY DEXA Final R esult * Hemoglobin A1c (03/27/2025 11:11 AM EDT) Pathologist [facility] HEMOGLOBIN A1C 5.8 4.3 - 5.8 % [facility] Blood 03/27/2025 11:1 1 AM EDT 03/27/2025 11:20 AM EDT Merlin Schilling DO LAB BLOOD BKR ORDERABLES Final R esult [facility] [address] [place] [address] * (ABNORMAL) Lipid panel (03/27/2025 11:11 AM EDT) Pathologist [facility] HDL 74 mg/dL [facility] Comment: Interpretation <40 mg/dL: Low HDL cholesterol (major risk factor for CHD) Greater than or equal to 60 mg/dL: High HDL cholesterol ( negative risk factor for CHD) HDL - cholesterol is affected by a number of factors, e.g. smoking, excerise, hormones, sex and age. CHOLESTEROL 197 0 - 240 mg/dL [facility] TRIGLYCERIDES 145 30 - 160 mg/dL [facility] LDL 94 50 - 129 mg/dL [facility] Comment: LDL levels in terms of risk for coronary heart disease: <100 mg/dL: Optimal 100-129 mg/dL: Near or above optimal 130-159 mg/dL: Borderline high 160-189 mg/dL: High >190 mg/dL: Very High CARDIAC RISK RATIO 2.7(L) 3.3 - 4.4 [facility] Blood 03/27/2025 11:1 1 AM EDT 03/27/2025 11:20 AM EDT us Merlin Schilling DO LAB BLOOD BKR ORDERABLES Final R esult [facility] [address] [place] [address] * MAMMOGRAPHY FOR RESULT ENTRY ONLY (10/03/2024 10:53 AM EST) us Flakito [facility] Final R esult * (ABNORMAL) Comprehensive metabolic panel (09/19/2023 8:47 AM EST) SODIUM 132(L) 133 - 146 mmol/L [facility] POTASSIUM 4.2 3.3 - 5.1 mmol/L [facility] CHLORIDE 95(L) 96 - 108 mmol/L [facility] CO2 28 21 - 35 mmol/L [facility] BUN 7 6 - 19 mg/dL [facility] CREATININE 0.60 0.5 - 1.5 mg/dL [facility] GLUCOSE 98 70 - 99 mg/dL [facility] ALBUMIN 4.3 3.9 - 4.8 g/dL [facility] TOTAL PROTEIN 8.0 6.5 - 8.0 g/dL [facility] CALCIUM 9.1 8.4 - 10.3 mg/dL [facility] ALKALINE PHOSPHATASE 157(H) 39 - 117 U/L [facility] TOTAL BILIRUBIN 0.4 0.0 - 1.2 mg/dL [facility] AST 26 0 - 37 U/L [facility] ALT 17 0 - 40 U/L [facility] GLOBULIN 3.7 1 - 4.8 g/dL [facility] EGFR 96 >59 mL/min/1.7 3m2 [facility] Comment:Estimated glomerular filtration rate calculated using the CKD-EPI refit equation. ANION GAP 13 10 - 20 mmol/L [facility] Blood 09/19/2023 8:47 AM EST 09/19/2023 8:57 AM EST us Merlin Schilling DO LAB BLOOD BKR ORDERABLES Final R esult [address] [address] from Last 3 Months or Most Recently Relevant to Health Maintenance Insurance [facility] MEDICARE PART A & B [facility] MEDIC[facility] PART A & B [facility] & B [facility] PART A & B [facility] PART A & B [facility] PART A & B [facility] PART A & B [facility]IC[facility] PART A & B [facility] MEDICARE PART A & B [facility] INSURANCE Member Subscriber Plan / Payer (Ef fective 2011-Present) Name:Araceli Page Member ID:[id number] Relation to Subscriber:Self Name:Araceli Page Subscriber ID:[id number] Payer ID:Not on file Group ID:FAX# [phone] Type:Indemnity Address: [address] [address] [place] [address] Care Teams Gun Number Relationship Specialty Start Date End Date Nohemy Hernandez MD [address] [place] [address] [address] [place] [address] PCP - General Internal Medicine 05/14/21 Flakito Boone MBBS [address] [place] [address] [address] [place] [address] [email or web address] Primary Oncologist Medical Oncology 10/02/24 Additional Source Comments The information contained in this document represents components of the legal health record. It is not the complete legal health record.[facility]
--- OUTSIDE RECORDS SUMMARY | 2025-08-12 08:32 | XMS_ITS | Encounter Summary ---
Author Organization [facility] Address [address] [place] [address] Phone Care Team Providers Care Publications Writer Name Role Phone Unknown, Unknown Primary Care Provider Acosta Chahal DO Unavailable [phone] Cherri Medina MD Unavailable [phone] Nohemy Hernandez MD Primary Care Provider [phone] Flakito Boone Unavailable [phone] Encounter Details Date Type Department Care Team (Late st Contact Info) Description 02/05/2016 Procedure Pass [facility] [address] [place] [address] Social History Tobacco Use Types [...] Description 08/12/2025 1:20 PM EST Office Visit [facility] End[facility]ology [facility] [address] [place] [address] James Schilling DO [address] [place] [address] 10/02/2025 1:00 PM EST Office Visit [facility] End[facility]ology [facility] [address] [place] [address] James Schilling [address] [address] 06/09/2026 2:20 PM EDT Office Visit [facility] [place] [facility] at [address] [address] Flakito Boone MBBS [address] [place] [address] [email or web address] documented as of this encounter Visit Diagnoses Not on filedocumented in this encounter Additional Health Concerns Infection Onset Date Last Indicated Resolved Time 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 07/21/2022 07/20/2024 1:24 AM EST documented as of this encounter Care Teams Publications Writer Relationship Specialty Start Date End Date Unknown, Unknown, PCP - General 10/16/14 05/13/21 Nohemy Hernandez MD [address] [place] [address] 2 [place] [address] PCP - General Internal Medicine 05/14/21 Acosta Aranda DO [address] [place] [address] Orthopedics & Sports [facility], [place] [address] [email or web address] Historical LMR Provider 06/02/17 08/22/21 Cherri Medina MD [address] [place] [address] Orthopedics & Sports [facility], [place] [address] [email or web address] Historical LMR Provider 06/02/17 Flakito Boone MBBS [address] [place] [address] [email or web address] Primary Oncologist Medical Oncology 10/02/24 documented as of this encounter Additional Source Comments The information contained in this document represents components of the legal health record. It is not the complete legal health record.[facility]
--- OUTSIDE RECORDS SUMMARY | 2025-08-12 08:32 | XMS_ITS | Encounter Summary ---
Author Organization [facility] Address [address] [place] [address] Phone Care Team Providers Care Civil Service Clerk Name Role Phone Nohemy Hernandez MD Primary Care Provider [phone] Flakito BooneBS Unavailable [phone] Encounter Details Date Type Department Care Team (Late st Contact Info) Description 10/17/2024 Procedure Pass [facility] Scan - [address] [address] Social History Tobacco Use Types Packs/Day Years [...] Description 08/12/2025 1:20 PM EST Office Visit [facility] Endocrinology Clinic [address] [place] [address] James Schilling [address] [address] 10/02/2025 1:00 PM EST Office Visit [facility] End[facility]ology [facility] [address] [place] [address] James Schilling [address] [address] 06/09/2026 2:20 PM EDT Office Visit [facility] [place] [facility] at [address] [address] Flakito Boone MBBS [address] [place] [address] [email or web address] documented as of this encounter Visit Diagnoses Not on filedocumented in this encounter Care Teams Civil Service Clerk Relationship Specialty Start Date End Date Nohemy Hernandez MD [address] [place] [address] 2 [place] [address] PCP - General Internal Medicine 05/14/21 Flakito Boone MBBS [address] [place] [address] [email or web address] Primary Oncologist Medical Oncology 10/02/24 documented as of this encounter Additional Source Comments The information contained in this document represents components of the legal health record. It is not the complete legal health record.[facility]
--- OUTSIDE RECORDS SUMMARY | 2025-08-12 08:32 | XMS_ITS | Encounter Summary ---
Author Organization [facility] Address [address] [place] [address] Phone Care Team Providers Care Automobile Parts Assembler Name Role Phone Nohemy Hernandez MD Primary Care Provider [phone] Flakito Boone Unavailable [phone] Encounter Details Date Type Department Care Team (Late st Contact Info) Description 12/27/2023 Ancillary Orders [facility],Outside Imaging [address] [place], [place] [phone] System, Provider Not In, [facility] [address] [address] Social History Tobacco Use Types Packs/Day Years [...] Description 08/12/2025 1:20 PM EST Office Visit [facility] [address] [place] [address] [place] [address] James Schilling [address] [address] 10/02/2025 1:00 PM EST Office Visit [facility] Endocrinology [address] [place] [address] James Schilling [address] [address] 06/09/2026 2:20 PM EDT Office Visit [facility] [place] [facility]cology [facility] at [address] [address] Flakito Boone, LUPILLO [address] [place] [address] [email or web address] documented as of this encounter Results [...] documented as of this encounter Care Teams Automobile Parts Assembler Relationship Specialty Start Date End Date Nohemy Hernandez MD [address] [place] [address] 2 [place] [address] PCP - General Internal Medicine 05/14/21 Flakito Boone MBBS [address] [facility] 2 [place] [address] [email or web address] Primary Oncologist Medical Oncology 10/02/24 documented as of this encounter Additional Source Comments The information contained in this document represents components of the legal health record. It is not the complete legal health record.[facility]
--- OUTSIDE RECORDS SUMMARY | 2025-08-12 08:33 | XMS_ITS | Clinical Summary ---
Author Organization [facility] Address [address] [place] [address] Care Team Providers Care Computer Typesetter Keyliner Name Role Phone Nohemy Hernandez Primary Care Provider Allergies Active Allergy Reactions [...] With dinner 7 Active blood glucose diagnostic (M[employer]uch Verio Test Strips) test strip DX CODE: [...] day. 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 02/21/2009 Osteoarthritis 02/21/2009 Fibromyalgia 02/21/2009 Encounters Date Type Department Care Team Description 06/26/2025 myChart Message [facility] Gastroenterology Clinic [address] [place] [address] Supply Chain Logistics Manager: Candi Bowers NP Checking safety of new scripts 05/23/2025 Results Follow-Up [facility] [address] [place] [address] Supply Chain Logistics Manager: Candi Bowers NP 05/20/2025 10:48 AM EDT - 05/20/2025 11:59 PM EDT Hospital Encounter [facility] [address] [place] [address] 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 Discharge Disposition: Home or Self Care (01) from Last 3 Months Family History Medical [...] Info) Description 08/19/2025 12:00 PM EST Follow-Up [facility] Gastroenterology Clinic [address] [place] [address] Supply Chain Logistics Manager: Candi Bowers NP [address] [place] [address] [phone] Health Maintenance Due Date Last Done Comments Hepatitis C Screening 1950 Hepatitis B Vaccines (1 of 3 - Risk 3-dose series) 2012 Zoster Vaccines (2 of 2) 01/20/2021 11/25/2020 Pneumococcal Vaccine: 50+ Ye ars (2 of 2 - PCV) 06/11/2022 06/11/2021 Depression Screening and Follow-Up 08/15/2024 Health Care Proxy Review 08/15/2024 Social Drivers of Health Mónica ual Screening 08/15/2024 COVID-19 Vaccine ( season) 2025 03/05/2025, 04/15/2024, 01/20/2024, Additional history exists Gastroscopy (EGD) 11/14/2025 11/14/2024, , 02/28/2018 Basic Metabolic Panel 01/28/2026 01/28/2025 , 08/23/2024, 09/19/2023, Additional history exists Fall Risk Screening 02/25/2026 02/25/2025 Mammogram 10/03/2026 10/03/2024 DTaP,Tdap,and Td Vaccines (2 - Td or Tdap) 06/24/2027 06/24/2017 Colonoscopy 11/14/2029 11/14/2024, 04/0 09/2024, 02/21/2019, Additional history exists Tobacco Screening 08/15/2042 02/25/2025 RSV Vaccine (60+ years old a nd patients) Completed 06/24/2023 CT Lung Cancer Screening (12 months, previous LungRADS 1 or 2) Discontinued 11/28/2024 Alcohol/Substance Use Screening Completed Influenza Vaccine Completed 03/05/2025, , 06/17/2023, Additional history exists Osteoporosis Screening Completed 04/08/2025 Procedures * Due to [place] state law, this organization might not be sharing negative HIV tests. 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 * US Liver Surveillance (05/20/2025 11:08 AM EDT) Anatomical Region Laterality Modality Body N/A Ultrasound 05/22/2025 5:53 AM EDT Impressions 05/22/2025 6:00 AM EDT 1. Cirrhotic liver morphology likely with underlying steatosis. Progressive parenchymal heterogeneity as compared with 2023. No focal hepatic lesion 2. Patent hepatic vasculature. No secondary signs of portal hypertension. 3. Status post cholecystectomy without biliary dilatation US LI-RADS Category US-1: Negative, no ultrasound evidence for HCC. Ultrasound visualization score: B: Moderate limitations. Liver moderately heterogeneous or portions of liver or diaphragm (less than 50% not visualized), may obscure small masses. Ultrasound LI-RADS v2017: [email or web address]?la=en If this radiology report contains a blank impression section, it is an incomplete radiology report. Please contact the interpreting radiologist or applicable radiology division as soon as possible to obtain the completed interpretation. Workstation ID: [id number] Narrative 05/22/2025 6:00 AM EDT EXAMINATION: Liver surveillance ultrasound with color Doppler. INDICATION: Primary biliary cirrhosis. Hepatoma surveillance TECHNIQUE: Sonographic examination of the liver, spleen, gallbladder and biliary tree, with peritoneal survey and color Doppler evaluation of the liver. Pelota Maker static images and cine captures submitted. COMPARISON: Several surveillance ultrasounds most recent 11/09/2023. Three-phase liver CT 08/27/2024 FINDINGS: LIVER: Cirrhotic morphology with coarse moderately heterogeneous and attenuating parenchyma. Nodular contour. Patchy areas of increased echogenicity in a geographic configuration. Focal fat deposition along the falciform ligament. No definite focal lesion. GALLBLADDER: Status post cholecystectomy BILIARY: CBD 5 mm SPLEEN: 9.8 cm. Homogeneous parenchyma without focal lesion. Patent arterial and venous branches at the hilum. No splenic hilar varices PANCREAS: Unremarkable where seen, not formally evaluated per protocol HEPATIC VASCULATURE: Patent portal vein hepatopetal direction MIDLINE VASCULATURE: Normal caliber intrahepatic IVC, patent PERITONEUM: No ascites KIDNEYS: No hydronephrosis bilaterally with neither kidney formally evaluated per protocol Resulting Agency Comment [id number] Procedure Note RaffyAleyda MD - 05/22/2025 EXAMINATION: Liver surveillance ultrasound with color Doppler. INDICATION: Primary biliary cirrhosis. Hepatoma surveillance TECHNIQUE: Sonographic examination of the liver, spleen, gallbladder andbiliary tree, with peritoneal survey and color Doppler evaluation of theliver. Pelota Maker static images and cine captures submitted. COMPARISON: Several surveillance ultrasounds most recent 11/09/2023.Three-phase liver CT 08/27/2024 FINDINGS: LIVER: Cirrhotic morphology with coarse moderately heterogeneous andattenuating parenchyma. Nodular contour. Patchy areas of increasedechogenicity in a geographic configuration. Focal fat deposition along thefalciform ligament. No definite focal lesion. GALLBLADDER: Status post cholecystectomy BILIARY: CBD 5 mm SPLEEN: 9.8 cm. Homogeneous parenchyma without focal lesion. Patentarterial and venous branches at the hilum. No splenic hilar varices PANCREAS: Unremarkable where seen, not formally evaluated per protocol HEPATIC VASCULATURE: Patent portal vein hepatopetal direction MIDLINE VASCULATURE: Normal caliber intrahepatic IVC, patent PERITONEUM: No ascites KIDNEYS: No hydronephrosis bilaterally with neither kidney formallyevaluated per protocol IMPRESSION: 1. Cirrhotic liver morphology likely with underlying steatosis.Progressive parenchymal heterogeneity as compared with 2023. No focalhepatic lesion 2. Patent hepatic vasculature. No secondary signs of portalhypertension. 3. Status post cholecystectomy without biliary dilatation US LI-RADS Category US-1: Negative, no ultrasound evidence for HCC. Ultrasound visualization score: B: Moderate limitations. Liver moderatelyheterogeneous or portions of liver or diaphragm (less than 50% notvisualized), may obscure small masses. Ultrasound LI-RADS v2017: [email or web address] [email or web address]?la=en If this radiology report contains a blank impression section, it is anincomplete radiology report. Please contact the interpreting radiologistor applicable radiology division as soon as possible to obtain thecompleted interpretation. Workstation ID: [id number] us Candi Nieves WIRE BRUSH MAKER IMG US PROCEDURES Final Result * (ABNORMAL) Comprehensive Metabolic Panel (01/28/2025 1:25 PM EDT) NA 133(L) 135 - 145 mmol/L 01/28/2025 2:07 PM EDT [facility] K 4.6 3.5 - 5.3 mmol/L 01/28/2025 2:07 PM EDT [facility] Cl 99 98 - 107 mmol/L 01/28/2025 2:07 PM EDT [facility] CO2 24 22 - 32 mmol/L 01/28/2025 2:07 PM EDT [facility] Anion Gap 10 5 - 15 01/28/2025 2:07 PM EDT [facility] Glucose 104(H) 65 - 99 mg/dL 01/28/2025 2:07 PM EDT [facility] Creatinine 0.69 0.50 - 1.20 mg/dL 01/28/2025 2:07 PM EDT [facility] Calcium 9.5 8.6 - 10.5 mg/dL 01/28/2025 2:07 PM EDT [facility] Total Protein 7.7 6.0 - 8.0 g/dL 01/28/2025 2:07 PM EDT [facility] Albumin 4.3 3.5 - 5.2 g/dL 01/28/2025 2:07 PM EDT [facility] Bilirubin, Total 0.2 0.2 - 1.2 mg/dL 01/28/2025 2:07 PM EDT [facility] Alkaline Phosphatase 122 35 - 129 U/L 01/28/2025 2:07 PM EDT [facility] [facility] AST 30 10 - 40 U/L 01/28/2025 2:07 PM EDT [facility] [employer] [facility] ALT 26 10 - 40 U/L 01/28/2025 2:07 PM EDT [facility] [facility] BUN 12 7 - 23 mg/dL 01/28/2025 2:07 PM EDT [facility] eGFR >90 >=60 mL/min/1. 73m2 01/28/2025 2:07 PM EDT [facility] [facility] Comment:The estimated glomer ular [...] - 4.2 g/dL 01/28/2025 2:07 PM EDT [facility] A/G Ratio 1.3(L) 1.5 - 3.0 01/28/2025 2:07 PM EDT [facility] [facility] Blood Structure of peripheral vein / Unknown Venipuncture / Unknown 01/28/2025 1:25 PM EDT 01/28/2025 1:35 PM EDT Candi Nieves WIRE BRUSH MAKER LAB BLOOD ORDERABLES Fi nal Result [facility] [address] [place] [address], * UPPER GI ENDOSCOPY (11/14/2024) Narrative Procedure Note Hesham Naidu MD - 11/14/2024 9:28 AM EDT [facility] Gastroenterology Patient Name: Araceli Page Procedure [...] by the physician, the nurse and the court abstractor in the pre-procedure area in theendoscopy suite. [...] pulse, and oxygen saturations were monitored continuously. [id number] was introduced through the mouth, andadvanced to [...] endoscopy in 3 years for surveillance/or per human geography instructor. . - Will refer for EUS to evaluate subepitheliallesion Hesham Naidu MD 11/14/2024 10:10:22 AM Number of Addenda: 0 Note Initiated On: 11/14/2024 9:28 AM us Hesham Naidu MD PROVATION PROCEDURES Final Resul t * COLONOSCOPY (11/14/2024) Narrative Procedure Note Hesham Naidu MD - 11/14/2024 9:27 AM EDT [facility] Gastroenterology Patient Name: Araceli Page Procedure [...] by the physician, the nurse and the court abstractor in the pre-procedure area in theendoscopy suite. [...] and oxygen saturations were monitored continuously. The [id number] was introduced through the anusand advanced to [...] Most Recently Relevant to Health Maintenance Insurance [facility] MEDICARE [facility] 65 PLUS on file Advance Directives Documents on File Type Date Recorded Patient Pelota Maker Expl anation Advance Directive 01/11/2012 12:00 AM Adva nce Care Directives Advance Directive 12/23/2011 12:00 AM bryan adam Dec Making (Adv.Dir) * Full Code (Latest Code Status on File) Date Activated Date Inactivated Comments 02/25/2025 12:08 PM 02/25/2025 3:34 PM Care Teams Computer Typesetter Keyliner Relationship Specialty Start Date End Date Nohemy Hernandez [address] [place] [address] PCP - General 03/03/17
--- OUTSIDE RECORDS SUMMARY | 2025-08-12 08:33 | XMS_ITS | Encounter Summary ---
Author Organization [facility] Address [address] [place] [address] Care Team Providers Care Outside Plant Supervisor Name Role Phone Nohemy Hernandez MD Primary Care Provider [phone] Encounter Details Date Type Department Care Team (Late st Contact Info) Description 02/19/2019 Scanned Document [facility] [address] [place] [phone] Acosta Madrid MD [address] [place] [address] Social History Tobacco Use Types Packs/Day Years [...] on filedocumented in this encounter Care Teams Outside Plant Supervisor Relationship Specialty Start Date End Date Nohemy Hernandez MD [address] [place] [address] PCP - General 11/08/18 Chemical Process Analyst Kalyn Wright 12/18/18 documented as of this encounter
--- OUTSIDE RECORDS SUMMARY | 2025-08-12 08:33 | XMS_ITS | Encounter Summary ---
Author Organization [facility] Address [address] [place] [address] Care Team Providers Care Dispensing Lead Name Role Phone Nohemy Hernandez MD Primary Care Provider Encounter Details Date Type Department Care Team (Late st Contact Info) Description 06/01/2019 Scanned Document [facility] [address] [place] [phone] Jeffery Presley MD [address] [place] [address] Social History Tobacco Use Types Packs/Day Years [...] on filedocumented in this encounter Care Teams Dispensing Lead Relationship Specialty Start Date End Date Nohemy Hernandez MD [address] [place] [address] PCP - General 11/08/18 Mortgage Sales Manager Kalyn Wright 12/18/18 documented as of this encounter
--- NOTE | 2025-08-12 08:35 | MHC.OFFVIS ---
Vital Signs 08/12/25 08:36 Height 5 ft 4 in Weight 162 lb 4.163 oz BMI 27.8 BP 120/72 Blood Pressure Location Lt brachial Position Sitting Pulse 89 Pulse Source Monitor Intake Visit Reasons: high bp's chest pain Intake Note: High BP's/ chest pain Inflatable Buildings Laminator Required: No Accompanied by: Self / Same As Patient Allergies bacitracin (BACITRACIN) Allergy (Intermediate, Verified 07/23/25 14:26) RASH Penicillins Allergy (Intermediate, Verified 07/23/25 14:26) RASH/CHEST TIGHTNESS Sulfa (Sulfonamide Antibiotics) (Sulfa (Sulfonamides)) Allergy (Intermediate, Verified 07/23/25 14:26) HIVES Medication List - Last Reconciled 08/12/25 by YOUSIF Andrea amitriptyline 50 mg (2 x 25 mg) PO BEDTIME 90 days amlodipine 2.5 mg PO DAILY calcium carbonate 500 mg PO DAILY coQ10 (ubiquinol) (Qunol Kapil CoQ10) 100 mg PO DAILY insulin detemir U-100 (Levemir FlexTouch U-100 Insulin) 30 units subcut QAM isosorbide mononitrate ER 60 mg PO DAILY lorazepam 0.5 mg PO BID 30 days meclizine 25 mg PO BID PRN 30 days metformin ER 1,000 mg PO BID metoprolol succinate ER 100 mg PO DAILY tizanidine 2 mg PO BEDTIME PRN ursodiol 600 mg PO BID valsartan 320 mg PO DAILY vitamin B complex 1 cap PO DAILY HPI HPI high bp's chest pain: Details: The patient is a 75 year old female presenting for follow-up of hypertension, coronary artery disease . She reports difficulty regulating her blood pressure and has home readings that trend slightly elevated, sometimes reaching 160s-170s. Her current medications include amlodipine 2.5 mg daily, isosorbide 60 mg daily, metoprolol XL 100 mg daily, and valsartan 320 mg daily. Her past medical history also includes hyperlipidemia, primary biliary cirrhosis followed by [facility], abnormal EKG findings. The patient reports intolerance to amlodipine, stating it exacerbates her chronic regional pain syndrome in her right foot, leading to a burning, hot feeling. She independently reduced her dose from 5 mg to 2.5 mg and takes it at night and she would like to stop taking it. Past medical history is also significant for severe arthritis in her lower back and thoracic spine, for which she is awaiting a trial ablation with pain management. She also has a history of liver disease (CH4) and chronic low sodium. She recalls taking Lasix over a decade ago. The patient reports significant psychosocial stressors, including her being hospitalized since [place] with a COPD event and dealing with a persistent sarkar infestation in her apartment building. This requires her to completely empty her kitchen and bathroom and move furniture every three weeks, which she does by herself. She is denying any chest discomfort, shortness of breath or heart palpitations. [facility] Medical History Benign paroxysmal vertigo Hypo-osmolality and hyponatremia Age-related osteoporosis without current pathological fracture Mixed hyperlipidemia Acute post-hemorrhagic anemia Skin cancer COVID-19 vaccine series completed GERD (gastroesophageal reflux disease) Cough variant asthma Elevated cholesterol PTSD (post-traumatic stress disorder) CRPS (complex regional pain syndrome) type I of lower limb Diabetes HTN (hypertension) Arthritis Primary biliary cholangitis Surgical History Hx of foot surgery Hx of cholecystectomy Hx of repair of right rotator cuff History of H/O colonoscopy History of liver biopsy History of esophagogastroduodenoscopy (EGD) Hx of carpal tunnel repair Family History Father Emphysema lung Social History Are you a primary rn palliative care to a significant other at home: No Do you presently have visiting nurse or other home services: No Comment: uses cane on occasion when foot pain acts up Patient Tobacco Use Status: Former Tobacco user Tobacco use type: Cigarette Years Smoked: 25 Review of Systems Const All systems reviewed & are unremarkable except as noted in HPI and below Denies chills, Denies fatigue, Denies fever(s), Denies frequent falls, Denies weakness, Denies weight gain and Denies weight loss ENT Denies dizziness Card Denies chest pain, Denies leg edema, Denies lightheadedness, Denies palpitations, Denies dyspnea and Denies dyspnea on exertion Resp Denies cough, Denies dyspnea and Denies dyspnea on exertion GI Denies hematochezia Musc Denies abnormal gait, Denies muscle weakness, Denies numbness, Denies radiating pain into limb and Denies tingling Neuro Denies abnormal gait, Denies dizziness, Denies frequent falls, Denies numbness, Denies tingling and Denies weakness Endo Denies fatigue and Denies palpitations Physical Exam Vital Signs: Last Vital Signs Pulse 89 08/12/25 08:36 BP 120/72 08/12/25 08:36 BMI result Body Mass Index 27.8 Const General: cooperative, healthy appearing, comfortable and no acute distress Orientation/consciousness: patient oriented x3 Neck Neck: Yes normal visual inspection Resp Effort & Inspection: normal respiratory effort Auscultation: clear to auscultation bilaterally, no rales, no rhonchi and no wheezes Cardio Rate: regular rate Rhythm: regular rhythm Heart sounds: S1 normal heart sound present, S2 normal heart sound present, no gallops, no murmurs and no rubs Skin General skin exam: no rashes or lesions noted Neuro General: patient oriented x3 Extrem General: Yes normal to inspection, No no pedal edema and No calf tenderness Psych Appearance: grossly normal Mental Status: mental status grossly normal Speech and movement: Normal speech and movement present Office Procedures EKG Details: Today, read by me, normal sinus rhythm, septal infarct, rate 89, QTC 464 millisecond [id number], Complete Assessment & Plan Assessment & Plan (1) HTN (hypertension): Code(s): I10 - Essential (primary) hypertension Category: Medical Plan: Blood pressure goal less than 130/80. Good at present but home readings mostly elevated. Office blood pressure check done on 07/23/2025 was 161/79. She reports worsening of her CRPS pain with amlodipine. Will have her stop amlodipine and trial hydralazine at 10 mg daily. May need to increase dose to get optimal blood pressure control. Continue isosorbide, metoprolol and valsartan. (2) Atherosclerotic cardiovascular disease: Code(s): I25.10 - Atherosclerotic heart disease of [place] coronary artery without angina pectoris Category: Medical Plan: Prior MRI done for liver issues showing abdominal aortic and iliac arteries with atherosclerotic changes. This in itself is not entirely unusual for her age. She did undergo a CTA of the coronary arteries on 03/27/2025 which showed no hemodynamically significant stenosis. She does have mild nonobstructive coronary disease. She will check with her liver specialist to see if aspirin is contraindicated. Her cholesterol is being followed by her winding lathe operator. Recommend ideal LDL goal less than 70. Ongoing risk factor modifications reviewed including good diabetic, blood pressure as well as cholesterol control. Continue weight control and physical activity as tolerated. Signs and symptoms of angina reviewed. (3) Abnormal EKG: Code(s): R94.31 - Abnormal electrocardiogram [ECG] [EKG] Category: Medical Plan: EKGs do show findings suggestive of septal infarct. Echocardiogram done 01/22/2025 showed EF 55-60%, mildly dilated left atrium, mildly calcific aortic valve, moderate calcification of the mitral valve. No regional wall motion abnormalities reported. CTA of the coronary arteries done 03/27/2025 shows left main less than 25% stenosis, lad and diagonal less than 25% stenosis, left circumflex less than 25% stenosis and RCA less than 25% stenosis. Test results reviewed with her in detail. He has no evidence the support EKG finding of prior infarct. She does have multiple cardiac risk factors including hypertension, hyperlipidemia and diabetes and will need ongoing risk factor modification as discussed above. (4) Diabetes: Code(s): E11.9 - Type 2 diabetes mellitus without complications Category: Medical Plan: Hemoglobin A1c goal less than 7. Followed by PCP/endocrinology (5) Elevated cholesterol: Comment: diet controlled Code(s): E78.00 - Pure hypercholesterolemia, unspecified Category: Medical Plan: [place] LDL goal less than 70. Labs done by her winding lathe operator Dr. Schilling. Plan I discussed with the patient that her blood pressure readings are elevated, which is likely contributed to by her current levels of stress and the pain she is experiencing. We reviewed her intolerance to amlodipine, which she reported worsens the chronic pain in her right foot. I advised her to stop the amlodipine. I explained that I would prescribe a new medication, hydralazine. We discussed using hydrochlorothiazide but she reports history of low sodium. I explained that hydralazine works on dilating blood vessels, and while she tolerates the similar-acting isosorbide, we would not know if it caused foot discomfort until she tried it. I notified her that her EKG result was fine and unchanged from her previous one. We agreed to a follow-up appointment in about six to eight weeks. Medications: New hydralazine BP lowering agent 10 mg PO BID 60 tabs 2RF Patient Instructions: - Stop taking amlodipine. - A new blood pressure medication will be sent to your pharmacy; start taking it as directed. - Continue taking your other medications as prescribed (isosorbide, metoprolol, valsartan). - Continue to monitor your blood pressure at home. - Schedule a follow-up appointment in six to eight weeks. Patient was informed and verbally consented to the use of an ambient scribe for clinic note documentation during this visit. Visit time spent on chart review, interview, assessment, orders, documentation. Coding Level of Care Code Est Pt Level 4 (78405) Add On Problem Visit Only Diagnoses HTN (hypertension) I10 Atherosclerotic cardiovascular disease I25.10 Abnormal EKG R94.31 Diabetes E11.9 Elevated cholesterol E78.00 CPT Codes EKG - CPT: 72868-[id number], Complete ([id number]) Time Spent (min) 30
[2025-08-12 08:36] VITALS: BP 120/72; PULSE 89; BMI 27.8
== END 2025-08-12 09:13 | disposition home or self-care (01) ==
LOC: HO.HCS 08:28
PROVIDERS: PCP Internal Medicine; Visit Provider Nurse Practitioner Family
DX: I10 Essential (primary) hypertension (principal); I25.10 Atherosclerotic heart disease of native coronary artery without angina pectoris; R94.31 Abnormal electrocardiogram [ECG] [EKG]; E11.9 Type 2 diabetes mellitus without complications; E78.00 Pure hypercholesterolemia, unspecified
CPT/HCPCS: 93010; 99214; G2211

== ENCOUNTER → 2025-08-12 08:27 | Outpatient (BNVA) | payer MEDICARE, BC, SELFPAY | PROVIDERS: PCP Internal Medicine; Visit Provider Nurse Practitioner Family | DX: I10 Essential (primary) hypertension (principal); I25.10 Atherosclerotic heart disease of native coronary artery without angina pectoris; R94.31 Abnormal electrocardiogram [ECG] [EKG]; E11.9 Type 2 diabetes mellitus without complications; E78.00 Pure hypercholesterolemia, unspecified | CPT/HCPCS: 93005; 99212 ==